=== PATIENT | female | born 1930 | race Caucasian/White ===

== ENCOUNTER 2016-09-21 18:10 | Inpatient (IN) | payer OTHER ==
[2016-09-21 18:39] VITALS: BMI 20.2
--- NOTE | 2016-09-21 19:17 | PDOC ---
History of Present Illness - General History Source: Patient <Kevan Flores - Last Filed: 09/21/16 22:20> - General History Source: Patient, Family Exam Limitations: No Limitations - History of Present Illness Initial Comments: 09/21/16 19:46 The patient is a 86 year old female, with a significant past medical history of AFib(on eliquis and lasix) , who presents to the emergency department complaining of bilateral lower leg pain and edema for 3 approximately 3 weeks. The patient reports she has been experiencing diffuse leg pain for the past 3 weeks, with pain increasing during the past couple of days. As per patient she has been compliant with her AFib medications. She reports redness bilaterally in her lower extremities. As per son, he has noticed the patient has been much more lethargic during the past 3 days. The patient denies any associated chest pain, shortness of breath, diaphoresis, or palpitations. The patient denies any fever, chills, cough, headache, or dizziness. The patient denies any abdominal pain, nausea, vomiting, diarrhea, constipation, or changes in urination patterns. The patient denies any changes in appetite. Allergies: None reported. Past Surgical History: Tonsillectomy Social History: Non-smoker. Denies alcohol or drug use. PCP: Dr. Caroline Solitario <Arnel Dorantes - Last Filed: 09/22/16 05:01> - General Chief Complaint: Weakness Stated Complaint: WEAKNESS Time Seen by Provider: 09/21/16 19:17 Past History - Past Medical History Anemia: No Asthma: No Cancer: No Cardiac Disorders: Yes (afib) CVA: No COPD: No CHF: No Dementia: No Diabetes: No GI Disorders: No Disorders: No HTN: Yes Hypercholesterolemia: No Liver Disease: No Seizures: No Thyroid Disease: No - Surgical History Abdominal Surgery: No Appendectomy: No Cardiac Surgery: No Cholecystectomy: No Lung Surgery: No Neurologic Surgery: No Orthopedic Surgery: No - Immunization History Immunization Up to Date: No - Psycho/Social/Smoking Cessation Hx Anxiety: No Suicidal Ideation: No Smoking Status: No Smoking History: Never smoked Have you smoked in the past 12 months: No Number of Cigarettes Smoked Daily: 0 Hx Alcohol Use: No Drug/Substance Use Hx: No Substance Use Type: Alcohol Hx Substance Use Treatment: No <Kevan Flores - Last Filed: 09/21/16 22:20> <Arnel Dorantes - Last Filed: 09/22/16 05:01> - Past Medical History Allergies/Adverse Reactions: Allergies Allergy/AdvReac Type Severity Reaction Status Date / Time No Known Allergies Allergy Verified 09/21/16 18:23 Home Medications: Ambulatory Orders Ascorbic Acid [Vitamin C -] 2,000 mg PO TID 05/30/16 Calcium Carb/Mag Ox/Zinc Sulf [Ekxurqv-Wzjhxoyax-Uqml Tablet] 1 tab PO DAILY 12/10 Cholecalciferol (Vitamin D3) [Vitamin D3 -] 1,000 unit PO DAILY 05/30/16 Multivitamins [Multivit ([facility] Formulary)] 1 tab PO DAILY 05/30/16 Vitamin E 400 unit PO DAILY 05/30/16 Apixaban [Eliquis -] 2.5 mg PO BID #180 tablet 08/23/16 Furosemide [Lasix -] 40 mg PO DAILY #90 tablet 08/23/16 Losartan Potassium [Cozaar -] 25 mg PO DAILY #90 tablet 08/23/16 Metoprolol Tartrate [Lopressor -] 50 mg PO BID #180 tablet 08/23/16 Furosemide [Lasix] 40 mg PO DAILY 09/21/16 Review of Systems - Review of Systems Able to Perform ROS?: Yes Comments:: 09/21/16 19:46 CONSTITUTIONAL: Present: +lethargy Absent: fever, chills, diaphoresis, malaise, loss of appetite HEENT: Absent: rhinorrhea, nasal congestion, throat pain, throat swelling, difficulty swallowing, mouth swelling, ear pain, eye pain, visual Changes CARDIOVASCULAR: Absent: chest pain, syncope, palpitations, irregular heart rate, lightheadedness , peripheral edema RESPIRATORY: Absent: cough, shortness of breath, dyspnea with exertion, orthopnea, wheezing, stridor, hemoptysis GASTROINTESTINAL: Absent: abdominal pain, abdominal distension, nausea, vomiting, diarrhea, constipation, melena, hematochezia GENITOURINARY: Absent: dysuria, frequency, urgency, hesitancy, hematuria, flank pain, genital pain MUSCULOSKELETAL: Present: Bilateral leg swelling and redness. +Bilateral leg pain. Absent: arthralgia SKIN: Absent: rash, itching, pallor HEMATOLOGIC/IMMUNOLOGIC: Absent: easy bleeding, easy bruising, lymphadenopathy, frequent infections ENDOCRINE: Absent: unexplained weight gain, unexplained weight loss, heat intolerance, cold intolerance NEUROLOGIC: Absent: headache, focal weakness or paresthesias, dizziness, unsteady gait, seizure, mental status changes, bladder or bowel incontinence PSYCHIATRIC: Absent: anxiety, depression, suicidal or homicidal ideation, hallucinations. <Arnel Dorantes - Last Filed: 09/22/16 05:01> *Physical Exam - Vital Signs Last Vital Signs Temp Pulse Resp BP Pulse Ox 97.5 F L 108 H 16 136/94 92 L 09/21/16 18:23 09/21/16 18:23 09/21/16 18:23 09/21/16 18:23 09/21/16 18:23 <LowLaura daltonan - Last Filed: 09/21/16 22:20> - Vital Signs Last Vital Signs Temp Pulse Resp BP Pulse Ox 97.5 F L 108 H 16 136/94 92 L 09/21/16 18:23 09/21/16 18:23 09/21/16 18:23 09/21/16 18:23 09/21/16 18:23 - Physical Exam Comments: 09/21/16 19:46 GENERAL: Well developed, well nourished. Awake and alert. No acute distress. HEENT: Normocephalic, atraumatic. PERRLA, EOMI. No conjunctival pallor. Sclera are non- icteric. Moist mucous membranes. Oropharynx is clear. NECK: Supple. Full ROM. No JVD. Carotid pulses 2+ and symmetric, without bruits. No thyromegaly. No lymphadenopathy. CARDIOVASCULAR: +Irregular rate. No murmurs, rubs, or gallops. Distal pulses are 2+ and symmetric. PULMONARY: No evidence of respiratory distress. Lungs clear to auscultation bilaterally. No wheezing, rales or rhonchi. ABDOMINAL: Soft. Non-tender. Non-distended. No rebound or guarding. No organomegaly. Normoactive bowel sounds. MUSCULOSKELETAL Normal range of motion at all joints. No bony deformities or tenderness. No CVA tenderness. EXTREMITIES: +Bilateral lower extremity edema. +Calf tenderness to palpation. No cyanosis. No clubbing. SKIN: Warm and dry. Normal capillary refill. No rashes. No jaundice. Small dry ulcers in various locations, with dry exudate and no active bleeding. NEUROLOGICAL: Alert, awake, appropriate. Cranial nerves 2-12 intact. No deficits to light touch and temperature in face, upper extremities and lower extremities. No motor deficits in the in face, upper extremities and lower extremities. Normoreflexic in the upper and lower extremities. Normal speech. Toes are down- going bilaterally. Gait is normal without ataxia. PSYCHIATRIC: Cooperative. Good eye contact. Appropriate mood and affect. <Arnel Dorantes - Last Filed: 09/22/16 05:01> Heart Score/ECG Review - ECG Impressions Comment:: 09/21/16 21:26 Vent. Rate: 127 bpm IMPRESSION: Atrial fibrillation with rapid ventricular response. Nonspecific T wave abnormality. Vent. Rate: 108 bpm IMPRESSION: Atrial fibrillation with rapid ventricular response. Low voltage QRS. Nonspecific T wave abnormality. <Arnel Dorantes - Last Filed: 09/22/16 05:01> ED Treatment Course - LABORATORY CBC & Chemistry Diagram: 09/21/16 19:43 09/21/16 19:43 <Kevan Flores - Last Filed: 09/21/16 22:20> - LABORATORY CBC & Chemistry Diagram: 09/21/16 19:43 09/21/16 19:43 - RADIOLOGY Radiology Studies Ordered: 09/21/16 22:59 EXAM: CXR INTERPRETED BY: Dr. Mena REVIEWED BY: Dr. Flores IMPRESSION: Cardiomegaly and bilateral pleural effusions EXAM: US/DUPLEX VASCUL US-2LEGS INTERPRETED BY: Dr. Mena REVIEWED BY: Dr. Flores IMPRESSION: No evidence of deep venous thrombosis. <Arnel Dorantes - Last Filed: 09/22/16 05:01> Medical Decision Making - Medical Decision Making 09/21/16 22:20 Dr. Flores: The scribe's documentation has been prepared under my direction and personally reviewed by me in its entirery. I confirm that the note above accurately reflects all work, treatment, procedures, and medical decision making performed by me. Patient will be admitted pleural effusions, bilateral lower extremity cellulitis. <Kevan Flores - Last Filed: 09/21/16 22:20> - Medical Decision Making 09/21/16 22:09 First call placed to Dr. Adan Solitario at 20:08. Awaiting call back. Case discussed with Dr. Solitario at 20:18. <Arnel Dorantes - Last Filed: 09/22/16 05:01> *DC/Admit/Observation/Transfer - Discharge Dispostion Admit: Yes <Kevan Flores - Last Filed: 09/21/16 22:20> - Attestations Scribe Attestion: 09/21/16 19:47 Documentation prepared by Arnel Dorantes, acting as medical staffing coordinator for Kevan Flores DO. <Arnel Dorantes - Last Filed: 09/22/16 05:01> Diagnosis at time of Disposition: Bilateral pleural effusion, Bilateral lower leg cellulitis - Discharge Dispostion Condition at time of disposition: Stable - Referrals
[2016-09-21 20:46] LABS: MCH 29.6 pg (25.7-33.7); MCHC 33.1 g/dl (32.0-36.0); MEAN CELL VOLUME 89.3 fl (80-96); MEAN PLT VOLUME 9.4 fl (7.5-11.1); PLATELET COUNT 136 K/MM3 (134-434); RDW 15.7 % (11.6-15.6); WHITE BLOOD COUNT 15.7 K/mm3 (4.0-10.0)
[2016-09-21 20:56] LABS: INR 1.84 (0.82-1.09); PROTHROMBIN TIME (PATIENT) 20.5 SEC (9.98-11.88)
[2016-09-21 21:22] LABS: ALBUMIN 3.2 g/dl (3.4-5.0); BILIRUBIN,TOTAL 0.5 mg/dL (0.2-1.0); CALCIUM 8.5 mg/dL (8.5-10.1); CREATININE 1.4 mg/dL (0.55-1.02); MAGNESIUM 2.4 mg/dL (1.8-2.4); TOT PROT 7.2 g/dl (6.4-8.2); TROPONIN I 0.13 ng/ml (0.00-0.05)
[2016-09-21 21:36] LABS: PLATELET ESTIMATE ADEQUATE (NORMAL)
[2016-09-21] MEDS ORDERED: FUROSEMIDE 40 MG/4 ML INJECTABLE VIAL IVPUSH ONE (22:04)
[2016-09-21] MEDS ORDERED: CEFAZOLIN 1 GM in DEXTROSE 5%-WATER - 50 ML IVPB ONE (22:18)
[2016-09-21] MEDS ORDERED: CEFAZOLIN (PRE-DOCKED) 50 ML IVPB ONE (22:31)
[2016-09-21] MEDS ORDERED: FUROSEMIDE 40 MG/4 ML INJECTABLE VIAL ONE (22:32)
--- NOTE | 2016-09-21 23:44 | HP ---
Admitting History and Physical - Primary Care Physician PCP: Adan Solitario - Admission Chief Complaint: Weakness. Swollen legs. Leg pain History of Present Illness: Pt. with leg swelling few days after DC from hospital (saw cardio twice, diuretic was adjusted but pt was uncompliant) for the last 2-3 days she felt weak, developed apin and redness in both lega; pet pt.'s son tp. was lethargic todays; pt was brought to ER. History Source: Patient, Family Member (son) - Past Medical History Cardiovascular: Yes: AFIB (ana dg.), HTN - Smoking History Smoking history: Never smoked Have you smoked in the past 12 months: No Aproximately how many cigarettes per day: 0 - Alcohol/Substance Use Hx Alcohol Use: No Home Medications - Allergies Allergies/Adverse Reactions: Allergies Allergy/AdvReac Type Severity Reaction Status Date / Time No Known Allergies Allergy Verified 09/21/16 18:23 - Home Medications Home Medications: Ambulatory Orders Ascorbic Acid [Vitamin C -] 2,000 mg PO TID 05/30/16 Calcium Carb/Mag Ox/Zinc Sulf [Fqjkbyq-Twwzbhbrx-Qvut Tablet] 1 tab PO DAILY 12/10 Cholecalciferol (Vitamin D3) [Vitamin D3 -] 1,000 unit PO DAILY 05/30/16 Multivitamins [Multivit ([facility] Form[facility])] 1 tab PO DAILY 05/30/16 Vitamin E 400 unit PO DAILY 05/30/16 Apixaban [Eliquis -] 2.5 mg PO BID #180 tablet 08/23/16 Furosemide [Lasix -] 40 mg PO DAILY #90 tablet 08/23/16 Losartan Potassium [Cozaar -] 25 mg PO DAILY #90 tablet 08/23/16 Metoprolol Tartrate [Lopressor -] 50 mg PO BID #180 tablet 08/23/16 Review of Systems - Review of Systems Constitutional: reports: Chills (today). denies: Fever, Night Sweats Eyes: denies: Blind Spots, Blurred Vision, Recent Change in Vision HENT: denies: Difficult Swallowing, Nasal Congestion, Throat Pain Neck: denies: Pain on Movement, Stiffness Cardiovascular: denies: Chest Pain, Edema, Palpitations, Shortness of Breath Respiratory: denies: Cough, Hemoptysis, SOB on Exertion, Wheezing Gastrointestinal: denies: Abdominal Pain, Diarrhea, Nausea Genitourinary: denies: Burning, Dysuria, Frequency Musculoskeletal: denies: Back Pain, Joint Swelling Integumentary: reports: Rash (bilat in LE) Neurological: reports: Weakness. denies: Change in LOC, Numbness Endocrine: reports: Excessive Sweating, Intolerance to Cold Hematology/Lymphatic: reports: Easily Bruised, Excessive Bleeding Psychiatric: reports: Depression. denies: Anxiety Physical Examination Vital Signs: Vital Signs Temperature 97.5 F L 09/21/16 18:23 Pulse Rate 108 H 09/21/16 18:23 Respiratory Rate 16 09/21/16 18:23 Blood Pressure 136/94 09/21/16 18:23 O2 Sat by Pulse Oximetry (%) 92 L 09/21/16 18:23 Constitutional: Yes: No Distress, Calm Eyes: Yes: Conjunctiva Clear, EOM Intact, PERRL HENT: Yes: Normocephalic. No: Pharyngeal Erythema, Rhinnorhea Neck: Yes: Trachea Midline. No: Lymphadenopathy Cardiovascular: Yes: Pulse Irregular, S1, S2 Respiratory: Yes: Regular, Rales (bilat, scaterred), Other (dereased BS at bases ) Gastrointestinal: Yes: Normal Bowel Sounds, Soft. No: Tenderness ...Rectal Exam: Yes: Deferred Breast(s): Yes: Other (deferred) Musculoskeletal: Yes: Back Pain. No: Joint Swelling Extremities: Yes: Erythema (bilat, below knees) Edema: LLE: 2+, RLE: 2+ Integumentary: Yes: Erythema, Rash (ilat), Other (Ulcers, in LE, below knees) Psychiatric: Yes: Alert, Oriented Labs: reviewed Imaging - Results Chest X-ray: Report Reviewed Ultrasound: Report Reviewed Problem List - Problems (1) Sepsis Assessment/Plan: SIRS and legs cellulitis Start abtx. To monitor WBC Code(s): A41.9 - SEPSIS, UNSPECIFIED ORGANISM (2) Bilateral lower leg cellulitis Code(s): L03.116 - CELLULITIS OF LEFT LOWER LIMB L03.115 - CELLULITIS OF RIGHT LOWER LIMB (3) Congestive heart failure (CHF) Assessment/Plan: admit to Telemetry Cardio consult serial CE Code(s): I50.9 - HEART FAILURE, UNSPECIFIED (4) Bilateral pleural effusion Code(s): J90 - PLEURAL EFFUSION, NOT ELSEWHERE CLASSIFIED (5) MOISES (acute kidney injury) Assessment/Plan: probable secondary to uncompliance with diuretic use. To monitor BMP Code(s): N17.9 - ACUTE KIDNEY FAILURE, UNSPECIFIED
[2016-09-22] MEDS ORDERED: ACETAMINOPHEN 1000 MG/100 ML VIAL (NON FORMULARY) IVPB ONE (00:22)
[2016-09-22] MEDS ORDERED: ACETAMINOPHEN INJECTION 100 ML IVPB ONE (00:45)
[2016-09-22] MEDS ORDERED: METOPROLOL TARTRATE 5 MG/5 ML VIAL IVPUSH ONE (01:26)
[2016-09-22] MEDS ORDERED: METOPROLOL TARTRATE 5 MG/5 ML VIAL ONE (01:27)
[2016-09-22 01:50] LABS: TROPONIN I 0.11 ng/ml (0.00-0.05)
[2016-09-22 02:59] LABS: URINE APPEARANCE CLEAR; URINE BILIRUBIN NEGATIVE (NEGATIVE); URINE BLOOD NEGATIVE (NEGATIVE); URINE COLOR YELLOW; URINE GLUCOSE (UA) NEGATIVE (NEGATIVE); URINE KETONE NEGATIVE (NEGATIVE); URINE NITRITE NEGATIVE (NEGATIVE); URINE PROTEIN NEGATIVE (NEGATIVE); URINE UROBILINOGEN NEGATIVE E.U./dl (0.2-1.0)
[2016-09-22 03:03] LABS: URINE LEUK ESTERASE 2+ (NEGATIVE)
[2016-09-22 03:13] LABS: URINE BACTERIA FEW /hpf (NONE SEEN); URINE HYALINE CAST 11 /lpf; URINE MUCUS RARE; URINE RBC 3 /hpf (0-3); URINE WBC 10 /hpf (3-5)
[2016-09-22] MEDS ORDERED: METOPROLOL TARTRATE 25 MG TABLET (FP) ONE (04:01)
[2016-09-22] MEDS: APIXABAN 2.5 MG TABLET PO SCH ×3 (04:29→21:27)
[2016-09-22] MEDS ORDERED: SODIUM CHLORIDE 1,000 ML IV ONE (05:16)
--- NOTE | 2016-09-22 09:58 | EKG ---
Test Reason : Blood Pressure : / mmHG Vent. Rate : 108 BPM Atrial Rate : 101 BPM P-R Int : 000 ms QRS Dur : 090 ms QT Int : 354 ms P-R-T Axes : 000 019 -34 degrees QTc Int : 474 ms ATRIAL FIBRILLATION WITH RAPID VENTRICULAR RESPONSE NONSPECIFIC ST ABNORMALITY ABNORMAL ECG Confirmed by DAHLIA ELENA MD ([id number]) on 09/22/2016 9:58:02 AM Referred By: Confirmed By:DAHLIA ELENA MD
[2016-09-22] MEDS ORDERED: CEFTRIAXONE 1 GM in DEXTROSE 5%-WATER - 50 ML IVPB SCH (10:00)
[2016-09-22] MEDS ORDERED: cefTRIAXone 1 GM/50 ML BAG (PRE-DOCKED) IVPB SCH (10:00)
--- NOTE | 2016-09-22 10:07 | EKG ---
Test Reason : Blood Pressure : / mmHG Vent. Rate : 127 BPM Atrial Rate : 133 BPM P-R Int : 000 ms QRS Dur : 096 ms QT Int : 328 ms P-R-T Axes : 000 044 065 degrees QTc Int : 476 ms ATRIAL FIBRILLATION WITH RAPID VENTRICULAR RESPONSE NONSPECIFIC T WAVE ABNORMALITY ABNORMAL ECG WHEN COMPARED WITH ECG OF 17-AUG-2016 14:16, BORDERLINE CRITERIA FOR ANTERIOR INFARCT ARE NO LONGER PRESENT NONSPECIFIC T WAVE ABNORMALITY, WORSE IN LATERAL LEADS Confirmed by DAHLIA ELENA MD ([id number]) on 09/22/2016 10:07:02 AM Referred By: Confirmed By:DAHLIA ELENA MD
[2016-09-22] MEDS: MULTIVITAMINS (DAILY MVI) TABLET (FP) PO SCH (10:33)
[2016-09-22] MEDS: CHOLECALCIFEROL (VITAMIN D3) 1,000 UNIT TABLET (FP) PO SCH (10:33)
[2016-09-22] MEDS: METOPROLOL TARTRATE 50 MG TABLET (FP) PO SCH ×2 (10:34→21:27)
--- NOTE | 2016-09-22 11:29 | PN ---
Progress Note (short form) - Note Progress Note: ID consult dictated imp/reccd 86 year old female with PMH of afib and chf- recently hospitalized 08/17 to , seen by cardiology for leg swelling meds adjusted, given keflex- did not take now returns to ed with increasing leg edema and erythema +leg pain no fevers or chills reports she just started going to the doctor in July! prior to that was not in medical care has cuts/abrasions on her hands that she attributes to her new meds- states she noticed them in hospital in July history appendectomy as child and cataract surgery she is alert received cefazolin in ED and ceftriaxone this am duplex negative for DVT cultures pending PE notable for diffuse rash on patients chest- lacy macular diminished breath sounds on lung exam bilateral leg erythema and edema some abrasions on her feet, multiple ulcers on her hands at the joint Cellulitis of the legs drug rash ( suspect cephalosporin)- CHF MOISES aortic stenosis by echo d/c ceftriaxone vancomycin based on levels (gfr is 21) diuresis per cardiology topical care to hands and feet Problem List - Problems (1) Bilateral lower leg cellulitis Code(s): L03.116 - CELLULITIS OF LEFT LOWER LIMB L03.115 - CELLULITIS OF RIGHT LOWER LIMB (2) Drug rash Code(s): L27.0 - GEN SKIN ERUPTION DUE TO DRUGS AND MEDS TAKEN INTERNALLY (3) Congestive heart failure (CHF) Code(s): I50.9 - HEART FAILURE, UNSPECIFIED
[2016-09-22] MEDS ORDERED: VANCOMYCIN 750 MG in DEXTROSE 5%-WATER - 250 ML IVPB ONE (11:30)
--- NOTE | 2016-09-22 11:32 | PN ---
Progress Note, Physician Chief Complaint: in bed axox3 nad had fever last night but not this am; started on IV ceftriaxone for legs cellulitis no CP/SOB no cough, no sputum no diarrhea no pain in legs; has some crusts on legs and some superficial cuts on her fingers (hands) which she attributes to her cardiac meds "Side effects" - Current Medication List Current Medications: Active Medications Apixaban (Eliquis -) 2.5 mg PO BID [facility] Last Admin: 09/22/16 10:33 Dose: 2.5 mg Ascorbic Acid (Vitamin C -) 2,000 mg PO TID [facility] Cholecalciferol (Vitamin D3 -) 1,000 unit PO DAILY [facility] Last Admin: 09/22/16 10:33 Dose: 1,000 unit Sodium Chloride (Normal Saline -) 1,000 mls @ 100 mls/hr IV ASDIR ONE Stop: 09/22/16 15:15 Last Admin: 09/22/16 05:17 Dose: 100 mls/hr Metoprolol Tartrate (Lopressor -) 50 mg PO BID [facility] Last Admin: 09/22/16 10:34 Dose: Not Given Multivitamins/Minerals/Vitamin C (Tab-A-Vit -) 1 tab PO DAILY [facility] Last Admin: 09/22/16 10:33 Dose: 1 tab - Objective Vital Signs: Vital Signs Temperature 97 F L 09/22/16 08:15 Pulse Rate 92 H 09/22/16 08:15 Respiratory Rate 14 09/22/16 08:15 Blood Pressure 98/52 09/22/16 08:15 O2 Sat by Pulse Oximetry (%) 93 L 09/22/16 05:47 Constitutional: Yes: No Distress, Calm Eyes: Yes: Conjunctiva Clear HENT: Yes: Atraumatic Neck: Yes: Supple Cardiovascular: Yes: Tachycardia. No: Regular Rate and Rhythm Respiratory: Yes: Diminished Gastrointestinal: Yes: Soft. No: Distention, Tenderness Musculoskeletal: No: Joint Stiffness, Joint Swelling Extremities: Yes: Erythema (both legs up to knees). No: Cold, Cool Edema: Yes (both legs up to knees) Peripheral Pulses WNL: Yes Integumentary: Yes: Rash, Venous Stasis Changes Neurological: Yes: WNL, Alert, Oriented ...Motor Strength: WNL Psychiatric: Yes: WNL, Alert, Oriented. No: Agitated, Suicidal Ideation Labs: INR, PTT INR 1.84 (0.82-1.09) H D 09/21/16 19:43 - ....Imaging Chest X-ray: Report Reviewed Other: Report Reviewed Assessment/Plan The patient is a 86 year old female, with a significant past medical history of AFib(on eliquis and lasix) , admitted via emergency department with bilateral lower legs pain and edema for approximately 3 weeks, also the patient has been more lethargic during the past 3 days [employer]. The patient was seen by cardiology dr Pepper recently in office and he changed her diuretics and also he prescribed keflex for her legs edema but she did not take the antibiotic xat home because "the antibiotics do not agree with her". Had fever 102 in ER. admitted to telemetry with legs cellulitis, high WBC< hypotension, severe sepsis ; also rapid AFib and fluid overloaded IV ATB, ID eval check blood and urine Cx diuretics; hold BP meds for now d/w cardio dr Weems and ID dr Pritchett falls PFX; f/u labs decubs PFX, turn frequently falls PFX do not get OOB alone prognosis guarded pt expressed the wish in the past that she would want to home in her bed; will ask palliative care to help her with advanced directives and HCP t time 40 min
--- NOTE | 2016-09-22 12:05 | CONS ---
CARDIOLOGY CONSULTATION DATE OF CONSULTATION: 09/22/2016 TIME OF CONSULTATION: 10:00 a.m. REQUESTED BY: Caroline Solitario MD CHIEF COMPLAINT: 1. Generalized fatigue 2. Lethargy 3. Pedal edema HISTORY OF PRESENT ILLNESS: 86-year-old white female with history of permanent atrial fibrillation, congestive heart failure, hypertension who was admitted with increasing pedal edema accompanied with leg discomfort, generalized fatigue and lethargy. She denies having chest pain or discomfort, either at rest or with exertion. No exertional dyspnea was reported. No paroxysmal nocturnal dyspnea. No history of palpitations, lightheadedness, dizziness or syncope. Besides having leg discomfort, there were multiple abrasions, ulcerations noted involving both lower extremities. The patient had been hospitalized in July with congestive heart failure. PAST HISTORY: 1. As mentioned in the history of present illness 2. History of macular degeneration with poor vision involving the right eye SURGICAL HISTORY: 1. Status post right cataract extraction 2. History of tonsillectomy SOCIAL HISTORY: Patient is a . Has 1 son who is healthy. Does not smoke or drink alcohol. FAMILY HISTORY: Father in his 80s, apparently had underlying heart disease. Mother when she was 100, apparently had history of hypertension. Had 1 brother who is known to have heart disease. ALLERGIES: None reported MEDICATIONS: Currently, the patient is on the following medications: 1. Rocephin 1 gm IV piggyback daily 2. Eliquis 2.5 mg p.o. b.i.d. 3. Metoprolol tartrate 50 mg p.o. b.i.d. 4. Multivitamin with minerals and vitamin C, 1 tablet p.o. daily 5. Vitamin C 2000 mg p.o. t.i.d. 6. Vitamin D 1000 IU p.o. daily. Prior to admission, patient had also been on 1. Lasix 40 mg p.o. daily 2. Cozaar 25 mg p.o. daily 3. Vitamin E 400 units p.o. daily REVIEW OF SYSTEMS: Constitutional: No history of chills, fever or night sweats. No history of unintentional weight loss. HEENT: No history of headaches. History of decrease in visual acuity and macular degeneration. No history of hoarseness or epistaxis. Denies having tinnitus or deafness. Cardiovascular system: See history of present illness. Respiratory system: No history of cough, expectoration or hemoptysis. No history of tuberculosis. Gastrointestinal system: Denies having nausea, vomiting, melena, hematemesis. No history of abdominal pain or discomfort. No history of change in bowel habits. Neurological system: No history of seizures, syncope, focal weakness, dizziness or lightheadedness. Endocrine: Denies having polyuria, polydipsia. No history of intolerance to cold or warm weather. Musculoskeletal system: See history of present illness. Urinary system: Denies having dysuria, frequency or hematuria. EXAMINATION: General: 86-year-old female who is lethargic. Vital signs: Blood pressure was 98/52 mmHg. Pulse varied between 92 and 108 beats per minute and was irregularly regular. Respirations are 14 per minute. Weight was not recorded. HEENT: Neck supple. There was jugular venous distention at 30 degrees up to the angle of the jaw. Neck veins were pulsatile, and there was positive hepatojugular reflux. Carotis were 1-2+. No clear-cut bruits were heard. No thyromegaly was present. Heart: BMI was in the 5th intercostal space. No heaves or thrills were appreciated. Heart sounds were slightly distant. S1 was variable. S2-A2 was slightly reduced. There was grade 2/6 decreasing end systolic murmur heard on the lower left sternal border, slightly increased with inspiration. There is an injection systolic murmur, grade 2/6, best heard at the apex, ending in mid-to-late systole. Unable to appreciate a diastolic murmur. There was S3 gallop at the apex. Lungs: Fine crepitations at the right base. Breath sounds were decreased at the right base. Abdomen: Abdomen was distended, was nontender. Liver was 2 fingerbreadths below the right costal margin and pulsatile. No splenomegaly was appreciated. There was dullness on percussion in both flanks, compatible with ascites. Bowel sounds are heard. No bruits are appreciated. Extremities: 3-4+ bilateral pitting edema with probable cellulolytic changes. There were abrasions and ulcerations involving both lower extremities. The skin of the knuckles of the hands was cracked. General hygiene was poor. Dorsalis pedis, posterior tibial pulses could not be palpated. Femoral pulses were 2+. LAB DATA: Sodium 133, potassium 4.2, chloride 94. CO2 28. BUN 32, creatinine 1.4 mg/dL. Random glucose 164 mg/dL. Calcium was 8.5 mg/dL. AST was elevated at 55, ALT was 60. Alkaline phosphatase was elevated at 122. CK was 164 and 207; troponin was 0.13 and 0.11. BMP was 8073. Albumin was slightly reduced at 3.2, total protein was 7.2. CBC: WBC count was 15,700. Hemoglobin was 12 gm/dL. Platelet count was 136,000. There was a left shift. RADIOGRAPHIC FINDINGS: X-ray chest was reported to have cardiomegaly and bilateral pleural effusions. The right effusion was large. ECG revealed atrial fibrillation with a rapid ventricular response. There was low voltage in limb leads, poor R-wave progression V1 to V3, nonspecific ST and T-wave abnormalities. IMPRESSION: 1. Clinical presentation is consistent with right heart failure (tricuspid regurgitation, pulsatile liver, ascites and pedal edema). [place] heart classification: 3. 2. Atrial fibrillation with periods of [id number] ventricular response. 3. Ejection systolic murmur, which was best heard at the apex is compatible with aortic valvular disease/aortic stenosis, severity to be determined. 4. Mitral regurgitation needs exclusion. 5. Fatigue and lethargy is secondary to number 1. 6. Slight elevation of CK and troponin levels. Etiology: (a) Secondary to congestive heart failure (b) Probably due to atrial fibrillation and underlying renal insufficiency (c) Muscle injury cannot be excluded. 7. Renal insufficiency. 8. History of vitamin D deficiency. RECOMMENDATIONS: 1. Add Lasix initially IV, 20 mg p.o. daily 2. Cautious addition of Aldactone initially, starting at 12.5 mg p.o. daily and titrate dose upwards. 3. Daily weight. 4. Follow-up ECG. 5. Echocardiogram. 6. If necessary, consider short-time views of Zaroxolyn 2.5 mg half an hour before Lasix. 7. T3, T4, TSH. 8. Close follow-up of electrolytes. 9. If patient continues to have rapid ventricular response, consider increasing the dose of beta blockers or consider low-dose digoxin with close followup of digoxin level (underlying renal insufficiency). PROGNOSIS: Critical Thank you for your referral. Yours sincerely, BALDOMERO ALMAGUER M.D. DORENE/[id number]
[2016-09-22] MEDS: BACITRACIN/POLYMYXIN B SULFATE 15 GM TUBE TP SCH (13:47)
[2016-09-22] MEDS: ASCORBIC ACID 500 MG TABLET (FP) PO SCH ×2 (13:48→21:27)
[2016-09-22] MEDS: MAG HYDROX/AL HYDROX/SIMETH 30 ML UNIT-DOSE CUP PO PRN (18:02)
[2016-09-23] MEDS: ASCORBIC ACID 500 MG TABLET (FP) PO SCH ×4 (06:50→21:41)
[2016-09-23 06:59] LABS: BASOPHIL 0.3 % (0-2.0); MCH 29.9 pg (25.7-33.7); MCHC 33.1 g/dl (32.0-36.0); MEAN CELL VOLUME 90.6 fl (80-96); MEAN PLT VOLUME 9.8 fl (7.5-11.1); NEUTROPHILS 86.4 % (42.8-82.8); PLATELET COUNT 135 K/MM3 (134-434); WHITE BLOOD COUNT 9.9 K/mm3 (4.0-10.0)
[2016-09-23 07:48] LABS: CALCIUM 8.4 mg/dL (8.5-10.1); CREATININE 1.1 mg/dL (0.55-1.02)
[2016-09-23] MEDS: APIXABAN 2.5 MG TABLET PO SCH ×2 (09:56→21:41)
[2016-09-23] MEDS: METOPROLOL TARTRATE 50 MG TABLET (FP) PO SCH ×2 (09:56→21:41)
[2016-09-23] MEDS: MULTIVITAMINS (DAILY MVI) TABLET (FP) PO SCH (09:57)
[2016-09-23] MEDS: CHOLECALCIFEROL (VITAMIN D3) 1,000 UNIT TABLET (FP) PO SCH (09:57)
--- NOTE | 2016-09-23 11:16 | PN ---
Progress Note (short form) - Note Progress Note: feels better Vital Signs Period Temp Pulse Resp BP Sys/Vásquez Pulse Ox Last 24 Hr 97.4 F-98.2 F 105-118 16-18 90-110/54-75 94-98 cor-rrr lungs decreased bs at bases abd soft,nt ext dressing intact, less erythema rash on abdomen fading CBC, BMP 09/23/16 05:35 09/23/16 05:35 Microbiology 09/22/16 02:05 Urine - Urine - Catheterized Urine Culture - Final NO GROWTH OBTAINED 09/21/16 19:43 Blood - Peripheral Venous Blood Culture - Preliminary NO GROWTH OBTAINED AFTER 24 HOURS, INCUBATION TO CONTINUE FOR 4 DAYS. 09/21/16 19:43 Blood - Peripheral Venous Blood Culture - Preliminary NO GROWTH OBTAINED AFTER 24 HOURS, INCUBATION TO CONTINUE FOR 4 DAYS. Laboratory Tests 09/23/16 05:35 Random Vancomycin 6.316 a/p Cellulitis -redose vancomycin CHF drug rash resolving Problem List - Problems (1) Bilateral lower leg cellulitis Code(s): L03.116 - CELLULITIS OF LEFT LOWER LIMB L03.115 - CELLULITIS OF RIGHT LOWER LIMB (2) Drug rash Code(s): L27.0 - GEN SKIN ERUPTION DUE TO DRUGS AND MEDS TAKEN INTERNALLY (3) Congestive heart failure (CHF) Code(s): I50.9 - HEART FAILURE, UNSPECIFIED
[2016-09-23] MEDS: BACITRACIN/POLYMYXIN B SULFATE 15 GM TUBE TP SCH (11:45)
[2016-09-23] MEDS: VANCOMYCIN 1 GRAM (PRE-DOCKED) 1,000 MG/250 ML BAG IVPB SCH (13:24)
[2016-09-23 13:41] LABS: THYROID STIMULATING HORMONE 6.54 uIU/ml (0.358-3.74)
--- NOTE | 2016-09-23 14:13 | PN ---
Progress Note (short form) - Note Progress Note: Chief Complaint: Events noted, notes reviewed, denies any chest pain or dyspnea , remains in atrial fibrillation with periods of rapid ventricular response History of Present Illness: Seen and examined on telemetry. Events noted, notes reviewed, denies any chest pain or dyspnea, remains in atrial fibrillation with periods of rapid ventricular response Echocardiography performed 08/18/16 reveled normal LV size and function, Aortic stenosis moderate to severe NATI odf 0.7 cm2, moderate mitral regurgitation, severe tricuspid valve regurgitation with RVSP of 55 mmHg Medications: Current Medications Al Hydroxide/Mg Hydroxide (Mylanta Oral Suspension -) 30 ml PO QID PRN PRN Reason: INDIGESTION Last Admin: 09/22/16 18:02 Dose: 30 ml Apixaban (Eliquis -) 2.5 mg PO BID [facility] Last Admin: 09/23/16 09:56 Dose: 2.5 mg Ascorbic Acid (Vitamin C -) 2,000 mg PO TID [facility] Last Admin: 09/23/16 13:24 Dose: 2,000 mg Bacitracin/Polymyxin B Sulfate (Polysporin Ointment -) 1 applic TP DAILY [facility] Last Admin: 09/23/16 11:45 Dose: 1 applic Cholecalciferol (Vitamin D3 -) 1,000 unit PO DAILY [facility] Last Admin: 09/23/16 09:57 Dose: 1,000 unit Metoprolol Tartrate (Lopressor -) 50 mg PO BID [facility] Last Admin: 09/23/16 09:56 Dose: 50 mg Multivitamins/Minerals/Vitamin C (Tab-A-Vit -) 1 tab PO DAILY [facility] Last Admin: 09/23/16 09:57 Dose: 1 tab Vancomycin HCl (Vancomycin (Pre-Docked)) 1,000 mg IVPB DAILY@1300 [facility] Last Admin: 09/23/16 13:24 Dose: 1,000 mg Review of Systems - Review of Systems Constitutional: denies: Chills, Fever Cardiovascular: As noted above Respiratory: denies: Cough or Sputum Production Gastrointestinal: denies: Nausea, Vomiting, Diarrhea, Constipation or Abdominal Pain Musculoskeletal: No symptoms reported Neurological: denies: Dizziness or Headaches Vital Signs: Last Vital Signs Temp Pulse Resp BP Pulse Ox 98 F 118 H 18 105/75 94 L 09/23/16 08:00 09/23/16 08:00 09/23/16 08:00 09/23/16 08:00 09/23/16 10:18 Neck: Supple Negative JVD No bruit Respiratory: Diminished Breath Sounds at the Bases Cardiovascular: S1 S2 Irregularly Irregular Grade 2/6 SM Gastrointestinal: Soft Benign Normal Bowel Sounds Ext: dressing in Situ Labs: CBC, BMP 09/23/16 05:35 09/23/16 05:35 INR, PTT INR 1.84 (0.82-1.09) H D 09/21/16 19:43 Assessment/Plan ASSESSMENT: 1. Clinical presentation consistent with class II-III NYHA classification LV failure related to acute on chronic exacerbation of diastolic LV failure 2. Persistent atrial fibrillation with periods of rapid ventricular response 3. 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 Aortic stenosis moderate to severe in severity 5. Mitral regurgitation, moderate in severity 6. Tricuspid valve regurgitation severe in severity with moderate degree of pulmonary HTN 7. CKD 8. Cellulites lower extremities PLAN: 1. Continue Lopressor and titrate dosage 2. Initiate ARBS 3. Continue Eliquis adequate dose (Wt. < 60 Kg and age > 80) 4. Add Lasix 5. Antibiotics as per the primary/ID teams 6. Monitor renal function closely Jess Richmond MD
[2016-09-23] MEDS ORDERED: VALSARTAN 40 MG TABLET (FP) PO SCH (14:45)
[2016-09-23] MEDS: FUROSEMIDE 40 MG/4 ML INJECTABLE VIAL IVPUSH SCH (14:59)
--- NOTE | 2016-09-23 19:09 | PN ---
Progress Note, Physician Chief Complaint: in bed fees tired no SOB no fever - Current Medication List Current Medications: Active Medications Al Hydroxide/Mg Hydroxide (Mylanta Oral Suspension -) 30 ml PO QID PRN PRN Reason: INDIGESTION Last Admin: 09/22/16 18:02 Dose: 30 ml Apixaban (Eliquis -) 2.5 mg PO BID [facility] Last Admin: 09/23/16 09:56 Dose: 2.5 mg Ascorbic Acid (Vitamin C -) 2,000 mg PO TID [facility] Last Admin: 09/23/16 13:24 Dose: 2,000 mg Bacitracin/Polymyxin B Sulfate (Polysporin Ointment -) 1 applic TP DAILY [facility] Last Admin: 09/23/16 11:45 Dose: 1 applic Cholecalciferol (Vitamin D3 -) 1,000 unit PO DAILY [facility] Last Admin: 09/23/16 09:57 Dose: 1,000 unit Furosemide (Lasix Injection -) 40 mg IVPUSH DAILY [facility] Last Admin: 09/23/16 14:59 Dose: 40 mg Metoprolol Tartrate (Lopressor -) 50 mg PO TID [facility] Multivitamins/Minerals/Vitamin C (Tab-A-Vit -) 1 tab PO DAILY [facility] Last Admin: 09/23/16 09:57 Dose: 1 tab Valsartan (Diovan -) 40 mg PO DAILY [facility] Last Admin: 09/23/16 15:38 Dose: 40 mg Vancomycin HCl (Vancomycin (Pre-Docked)) 1,000 mg IVPB DAILY@1300 [facility] Last Admin: 09/23/16 13:24 Dose: 1,000 mg - Objective Vital Signs: Vital Signs Temperature 98 F 09/23/16 08:00 Pulse Rate 116 H 09/23/16 14:00 Respiratory Rate 20 09/23/16 14:00 Blood Pressure 109/71 09/23/16 14:00 O2 Sat by Pulse Oximetry (%) 94 L 09/23/16 10:18 Constitutional: Yes: No Distress, Calm Eyes: Yes: Conjunctiva Clear HENT: Yes: Atraumatic Neck: Yes: Supple Cardiovascular: Yes: Tachycardia. No: Regular Rate and Rhythm Respiratory: Yes: Diminished Gastrointestinal: Yes: Soft. No: Distention, Tenderness Genitourinary: No: CVA Tenderness - Left, CVA Tenderness - Right Musculoskeletal: No: Joint Stiffness, Joint Swelling Extremities: No: Cold, Cool Edema: Yes Peripheral Pulses WNL: Yes Integumentary: Yes: Rash (legs), Venous Stasis Changes Neurological: Yes: WNL, Alert, Oriented ...Motor Strength: WNL Psychiatric: Yes: WNL, Alert, Oriented. No: Agitated Labs: CBC, BMP 09/23/16 05:35 09/23/16 05:35 INR, PTT INR 1.84 (0.82-1.09) H D 09/21/16 19:43 - ....Imaging Other: Report Reviewed Assessment/Plan The patient is a 86 year old female, with a significant past medical history of AFib(on eliquis and lasix) , admitted via emergency department with bilateral lower legs pain and edema for approximately 3 weeks, also the patient has been more lethargic during the past 3 days [employer]. The patient was seen by cardiology dr Pepper recently in office and he changed her diuretics and also he prescribed keflex for her legs edema but she did not take the antibiotic at home because "the antibiotics do not agree with her". Had fever 102 in ER. admitted to telemetry with legs cellulitis, high WBC< hypotension, severe sepsis ; also rapid AFib and fluid overloaded IV ATB per ID check blood and urine Cx diuretics and cardiac meds per cardiology falls PFX; f/u labs decubs PFX, turn frequently falls PFX do not get OOB alone prognosis guarded
[2016-09-24] MEDS: METOPROLOL TARTRATE 50 MG TABLET (FP) PO SCH ×3 (06:26→21:51)
[2016-09-24] MEDS: ASCORBIC ACID 500 MG TABLET (FP) PO SCH ×3 (06:26→21:51)
[2016-09-24 07:20] LABS: BASOPHIL 0.6 % (0-2.0); EOSINOPHIL 4.3 % (0-4.5); MCH 30.1 pg (25.7-33.7); MCHC 33.6 g/dl (32.0-36.0); MEAN CELL VOLUME 89.7 fl (80-96); MEAN PLT VOLUME 9.9 fl (7.5-11.1); NEUTROPHILS 76.5 % (42.8-82.8); PLATELET COUNT 133 K/MM3 (134-434); RDW 15.9 % (11.6-15.6); WHITE BLOOD COUNT 5.8 K/mm3 (4.0-10.0)
[2016-09-24 08:11] LABS: CALCIUM 8.2 mg/dL (8.5-10.1)
[2016-09-24 08:14] LABS: CREATININE 0.9 mg/dL (0.55-1.02)
--- NOTE | 2016-09-24 09:43 | EKG ---
Test Reason : Blood Pressure : / mmHG Vent. Rate : 124 BPM Atrial Rate : 300 BPM P-R Int : 000 ms QRS Dur : 090 ms QT Int : 326 ms P-R-T Axes : 000 003 219 degrees QTc Int : 468 ms ATRIAL FIBRILLATION WITH RAPID VENTRICULAR RESPONSE LOW VOLTAGE QRS CANNOT RULE OUT ANTERIOR INFARCT , AGE UNDETERMINED ABNORMAL ECG WHEN COMPARED WITH ECG OF 22-SEP-2016 04:22, NO SIGNIFICANT CHANGE WAS FOUND Confirmed by DAHLIA ELENA MD ([id number]) on 09/24/2016 9:43:26 AM Referred By: Confirmed By:DAHLIA ELENA MD
--- NOTE | 2016-09-24 10:18 | PN ---
Progress Note, Physician History of Present Illness: In bed no new c/o feels tired and generally weak; no pain no SOB; afebrile. - Current Medication List Current Medications: Active Medications Al Hydroxide/Mg Hydroxide (Mylanta Oral Suspension -) 30 ml PO QID PRN PRN Reason: INDIGESTION Last Admin: 09/22/16 18:02 Dose: 30 ml Apixaban (Eliquis -) 2.5 mg PO BID [facility] Last Admin: 09/23/16 21:41 Dose: 2.5 mg Ascorbic Acid (Vitamin C -) 2,000 mg PO TID [facility] Last Admin: 09/24/16 06:26 Dose: 2,000 mg Bacitracin/Polymyxin B Sulfate (Polysporin Ointment -) 1 applic TP DAILY [facility] Last Admin: 09/23/16 11:45 Dose: 1 applic Cholecalciferol (Vitamin D3 -) 1,000 unit PO DAILY [facility] Last Admin: 09/23/16 09:57 Dose: 1,000 unit Furosemide (Lasix Injection -) 40 mg IVPUSH DAILY [facility] Last Admin: 09/23/16 14:59 Dose: 40 mg Metoprolol Tartrate (Lopressor -) 50 mg PO TID [facility] Last Admin: 09/24/16 06:26 Dose: 50 mg Multivitamins/Minerals/Vitamin C (Tab-A-Vit -) 1 tab PO DAILY [facility] Last Admin: 09/23/16 09:57 Dose: 1 tab Valsartan (Diovan -) 40 mg PO DAILY [facility] Last Admin: 09/23/16 15:38 Dose: 40 mg Vancomycin HCl (Vancomycin (Pre-Docked)) 1,000 mg IVPB DAILY@1300 [facility] Last Admin: 09/23/16 13:24 Dose: 1,000 mg - Objective Vital Signs: Vital Signs Temperature 97.8 F 09/24/16 06:00 Pulse Rate 104 H 09/24/16 08:31 Respiratory Rate 20 09/24/16 08:31 Blood Pressure 135/61 09/24/16 08:31 O2 Sat by Pulse Oximetry (%) 97 09/23/16 19:55 Constitutional: Yes: No Distress, Calm Eyes: Yes: Conjunctiva Clear HENT: Yes: Atraumatic Neck: Yes: Supple Cardiovascular: No: Regular Rate and Rhythm Respiratory: Yes: Diminished Gastrointestinal: Yes: Soft. No: Distention, Tenderness Genitourinary: No: Hematuria Musculoskeletal: No: Joint Stiffness, Joint Swelling Extremities: No: Cold, Cool Edema: Yes (legs bilateral, less) Peripheral Pulses WNL: Yes Integumentary: Yes: Rash (legs, less) Neurological: Yes: WNL, Alert, Oriented ...Motor Strength: WNL Psychiatric: Yes: WNL, Alert, Oriented. No: Agitated Labs: CBC, BMP 09/24/16 05:35 09/24/16 05:35 INR, PTT INR 1.84 (0.82-1.09) H D 09/21/16 19:43 - ....Imaging Other: Report Reviewed Assessment/Plan The patient is a 86 year old female, with a significant past medical history of AFib(on eliquis and lasix) , admitted via emergency department with bilateral lower legs pain and edema, also the patient has been more lethargic. Had fever 102 in ER. Admitted to telemetry with legs cellulitis, high WBC< hypotension, severe sepsis ; also rapid AFib and fluid overloaded IV ATB per ID check blood and urine Cx diuretics and cardiac meds per cardiology falls PFX; f/u labs decubs PFX, turn frequently falls PFX do not get OOB alone prognosis guarded palliative care eval for advnaced directives and HCP
--- NOTE | 2016-09-24 10:52 | PN ---
Progress Note (short form) - Note Progress Note: Chief Complaint: Events noted, notes reviewed, complaining of generalized weakness, denies any chest pain or dyspnea, remains in atrial fibrillation with periods of rapid ventricular response History of Present Illness: Seen and examined on telemetry. Events noted, notes reviewed, complaining of generalized weakness, denies any chest pain or dyspnea, remains in atrial fibrillation with periods of rapid ventricular response Echocardiography performed 08/18/16 reveled normal LV size and function, Aortic stenosis moderate to severe NATI odf 0.7 cm2, moderate mitral regurgitation, severe tricuspid valve regurgitation with RVSP of 55 mmHg Medications: Current Medications Al Hydroxide/Mg Hydroxide (Mylanta Oral Suspension -) 30 ml PO QID PRN PRN Reason: INDIGESTION Last Admin: 09/22/16 18:02 Dose: 30 ml Apixaban (Eliquis -) 2.5 mg PO BID [facility] Last Admin: 09/23/16 21:41 Dose: 2.5 mg Ascorbic Acid (Vitamin C -) 2,000 mg PO TID [facility] Last Admin: 09/24/16 06:26 Dose: 2,000 mg Bacitracin/Polymyxin B Sulfate (Polysporin Ointment -) 1 applic TP DAILY [facility] Last Admin: 09/23/16 11:45 Dose: 1 applic Cholecalciferol (Vitamin D3 -) 1,000 unit PO DAILY [facility] Last Admin: 09/23/16 09:57 Dose: 1,000 unit Furosemide (Lasix Injection -) 40 mg IVPUSH DAILY [facility] Last Admin: 09/23/16 14:59 Dose: 40 mg Metoprolol Tartrate (Lopressor -) 50 mg PO TID [facility] Last Admin: 09/24/16 06:26 Dose: 50 mg Multivitamins/Minerals/Vitamin C (Tab-A-Vit -) 1 tab PO DAILY [facility] Last Admin: 09/23/16 09:57 Dose: 1 tab Valsartan (Diovan -) 40 mg PO DAILY [facility] Last Admin: 09/23/16 15:38 Dose: 40 mg Vancomycin HCl (Vancomycin (Pre-Docked)) 1,000 mg IVPB DAILY@1300 [facility] Last Admin: 09/23/16 13:24 Dose: 1,000 mg Review of Systems - Review of Systems Constitutional: denies: Chills, Fever Cardiovascular: As noted above Respiratory: denies: Cough or Sputum Production Gastrointestinal: denies: Nausea, Vomiting, Diarrhea, Constipation or Abdominal Pain Musculoskeletal: No symptoms reported Neurological: denies: Dizziness or Headaches Vital Signs: Last Vital Signs Temp Pulse Resp BP Pulse Ox 97.8 F 104 H 20 135/61 97 09/24/16 06:00 09/24/16 08:31 09/24/16 08:31 09/24/16 08:31 09/23/16 19:55 Neck: Supple Negative JVD No bruit Respiratory: Diminished Breath Sounds at the Bases Cardiovascular: S1 S2 Irregularly Irregular Grade 2/6 SM Gastrointestinal: Soft Benign Normal Bowel Sounds Ext: dressing in Situ Labs: CBC, BMP 09/24/16 05:35 09/24/16 05:35 Hepatic Panel Total Bilirubin 0.5 mg/dL (0.2-1.0) 09/21/16 19:43 AST 55 U/L (15-37) H D 09/21/16 19:43 ALT 60 U/L (12-78) D 09/21/16 19:43 Alkaline Phosphatase 122 U/L (45-117) H D 09/21/16 19:43 Albumin 3.2 g/dl (3.4-5.0) L 09/21/16 19:43 INR, PTT INR 1.84 (0.82-1.09) H D 09/21/16 19:43 Assessment/Plan ASSESSMENT: 1. Clinical presentation consistent with class II-III NYHA classification LV failure related to acute on chronic exacerbation of diastolic LV failure, resolving 2. Persistent atrial fibrillation with periods of rapid ventricular response 3. 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 Aortic stenosis moderate to severe in severity, NATI 0.7 cm 2 5. Mitral regurgitation, moderate in severity 6. 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 CKD 8. Cellulites lower extremities PLAN: 1. Continue Lopressor and titrate dosage 2. Continue Diovan 3. Continue Eliquis adequate dose (Wt. < 60 Kg and age > 80) 4. Continue Lasix 5. Add Digoxin with caution 6. Antibiotics as per the primary/ID teams 7. Monitor renal function closely Jess Richmond MD
[2016-09-24] MEDS: APIXABAN 2.5 MG TABLET PO SCH ×2 (10:55→21:51)
[2016-09-24] MEDS: FUROSEMIDE 40 MG/4 ML INJECTABLE VIAL IVPUSH SCH (10:56)
[2016-09-24] MEDS: CHOLECALCIFEROL (VITAMIN D3) 1,000 UNIT TABLET (FP) PO SCH (10:56)
[2016-09-24] MEDS: BACITRACIN/POLYMYXIN B SULFATE 15 GM TUBE TP SCH (10:56)
[2016-09-24] MEDS: MULTIVITAMINS (DAILY MVI) TABLET (FP) PO SCH (10:56)
[2016-09-24] MEDS: VANCOMYCIN 1 GRAM (PRE-DOCKED) 1,000 MG/250 ML BAG IVPB SCH (13:55)
[2016-09-24] MEDS: DIGOXIN 0.125 MG TABLET (FP) PO SCH (13:56)
[2016-09-25] MEDS: METOPROLOL TARTRATE 50 MG TABLET (FP) PO SCH ×3 (05:35→22:29)
[2016-09-25] MEDS: ASCORBIC ACID 500 MG TABLET (FP) PO SCH ×3 (05:35→22:29)
[2016-09-25 07:24] LABS: BASOPHIL 0.9 % (0-2.0); EOSINOPHIL 3.9 % (0-4.5); MCH 30.1 pg (25.7-33.7); MEAN CELL VOLUME 91.4 fl (80-96); MEAN PLT VOLUME 9.6 fl (7.5-11.1); NEUTROPHILS 72.3 % (42.8-82.8); PLATELET COUNT 160 K/MM3 (134-434); RDW 15.8 % (11.6-15.6); WHITE BLOOD COUNT 6.3 K/mm3 (4.0-10.0)
[2016-09-25] MEDS: LEVOTHYROXINE NA 25 MCG TABLET (FP) PO SCH (08:00)
[2016-09-25 08:10] LABS: CALCIUM 8.4 mg/dL (8.5-10.1); CREATININE 0.9 mg/dL (0.55-1.02)
[2016-09-25] MEDS: CHOLECALCIFEROL (VITAMIN D3) 1,000 UNIT TABLET (FP) PO SCH (10:06)
[2016-09-25] MEDS: APIXABAN 2.5 MG TABLET PO SCH ×2 (10:06→22:29)
[2016-09-25] MEDS: VALSARTAN 40 MG TABLET (FP) PO SCH (10:06)
[2016-09-25] MEDS: DIGOXIN 0.125 MG TABLET (FP) PO SCH (10:06)
[2016-09-25] MEDS: MULTIVITAMINS (DAILY MVI) TABLET (FP) PO SCH (10:06)
[2016-09-25] MEDS: FUROSEMIDE 40 MG/4 ML INJECTABLE VIAL IVPUSH SCH ×2 (10:06→14:14)
[2016-09-25] MEDS: BACITRACIN/POLYMYXIN B SULFATE 15 GM TUBE TP SCH (10:10)
--- NOTE | 2016-09-25 11:21 | PN ---
Progress Note, Physician Chief Complaint: Events noted Generalized weakness History of Present Illness: Patient was seen and examined. Awake and alert. Chart was reviewed Denies chest pain or SOB Remains in atrial fibrillation with periods of rapid ventricular response Pedal edema persists, but appears slightly better now wrapped with dressing Echocardiography performed 08/18/16 reveled normal LV size and function, Aortic stenosis moderate to severe NATI 0.7 cm2, moderate mitral regurgitation, severe tricuspid valve regurgitation with RVSP of 55 mmHg - Current Medication List Current Medications: Active Medications Al Hydroxide/Mg Hydroxide (Mylanta Oral Suspension -) 30 ml PO QID PRN PRN Reason: INDIGESTION Last Admin: 09/22/16 18:02 Dose: 30 ml Apixaban (Eliquis -) 2.5 mg PO BID [facility] Last Admin: 09/25/16 10:06 Dose: 2.5 mg Ascorbic Acid (Vitamin C -) 2,000 mg PO TID [facility] Last Admin: 09/25/16 05:35 Dose: 2,000 mg Bacitracin/Polymyxin B Sulfate (Polysporin Ointment -) 1 applic TP DAILY [facility] Last Admin: 09/25/16 10:10 Dose: 1 applic Cholecalciferol (Vitamin D3 -) 1,000 unit PO DAILY [facility] Last Admin: 09/25/16 10:06 Dose: 1,000 unit Digoxin (Lanoxin -) 0.125 mg PO DAILY [facility] Last Admin: 09/25/16 10:06 Dose: 0.125 mg Furosemide (Lasix Injection -) 40 mg IVPUSH DAILY [facility] Last Admin: 09/25/16 10:06 Dose: 40 mg Levothyroxine Sodium (Synthroid -) 25 mcg PO DAILY@0700 [facility] Last Admin: 09/25/16 08:00 Dose: 25 mcg Metoprolol Tartrate (Lopressor -) 50 mg PO TID [facility] Last Admin: 09/25/16 05:35 Dose: 50 mg Multivitamins/Minerals/Vitamin C (Tab-A-Vit -) 1 tab PO DAILY [facility] Last Admin: 09/25/16 10:06 Dose: 1 tab Valsartan (Diovan -) 40 mg PO DAILY [facility] Last Admin: 09/25/16 10:06 Dose: 40 mg Vancomycin HCl (Vancomycin (Pre-Docked)) 1,000 mg IVPB DAILY@1300 [facility] Last Admin: 09/24/16 13:55 Dose: 1,000 mg - Objective Vital Signs: Vital Signs Temperature 97.4 F L 09/25/16 09:04 Pulse Rate 102 H 09/25/16 10:06 Respiratory Rate 18 09/25/16 09:04 Blood Pressure 114/74 09/25/16 09:04 O2 Sat by Pulse Oximetry (%) 95 09/24/16 21:00 Cardiovascular: Yes: Tachycardia, Pulse Irregular, Murmur (2/6 [place]), S1, S2 Respiratory: Yes: Diminished Extremities: Yes: Erythema Edema: Yes Edema: LLE: 1+, RLE: 1+ Additional Findings/Remarks: - Review of Systems Constitutional: denies: Chills, Fever Cardiovascular: As noted above Respiratory: denies: Cough or Sputum Production Gastrointestinal: denies: Nausea, Vomiting, Diarrhea, Constipation or Abdominal Pain Musculoskeletal: No symptoms reported Neurological: denies: Dizziness or Headaches Labs: CBC, BMP 09/25/16 05:35 09/25/16 05:35 INR, PTT INR 1.84 (0.82-1.09) H D 09/21/16 19:43 Problem List - Problems (1) Bilateral lower leg cellulitis Code(s): L03.116 - CELLULITIS OF LEFT LOWER LIMB L03.115 - CELLULITIS OF RIGHT LOWER LIMB (2) Acute kidney failure Code(s): N17.9 - ACUTE KIDNEY FAILURE, UNSPECIFIED (3) Acute on chronic diastolic (congestive) heart failure Code(s): I50.33 - ACUTE ON CHRONIC DIASTOLIC (CONGESTIVE) HEART FAILURE (4) Aortic valvar stenosis Code(s): I35.0 - NONRHEUMATIC AORTIC (VALVE) STENOSIS Qualifiers: Cardiac valve disease etiology: nonrheumatic Qualified Code(s): I35.0 - Nonrheumatic aortic (valve) stenosis (5) Atrial fibrillation with RVR Code(s): I48.91 - UNSPECIFIED ATRIAL FIBRILLATION (6) Congestive heart failure (CHF) Code(s): I50.9 - HEART FAILURE, UNSPECIFIED Qualifiers: Congestive heart failure type: diastolic Congestive heart failure chronicity: acute on chronic Qualified Code(s): I50.33 - Acute on chronic diastolic (congestive) heart failure (7) Hypertensive cardiomegaly with heart failure Code(s): I11.0 - HYPERTENSIVE HEART DISEASE WITH HEART FAILURE Assessment/Plan 1. Clinical presentation consistent with class II-III NYHA classification LV failure related to acute on chronic exacerbation of diastolic LV failure 2. Persistent atrial fibrillation with periods of rapid ventricular response 3. 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 Aortic stenosis - moderate to severe in severity (NATI 0.7 cm 2) 5. Mitral regurgitation, moderate in severity 6. Tricuspid valve regurgitation (severe in severity) with moderate degree of pulmonary HTN, RVSP of 55 mmHg 7. CKD 8. Cellulitis lower extremities PLAN: 1. Continue Lopressor and titrate dosage 2. Continue Diovan with caution 3. Continue Eliquis 2.5 mg BID (Wt. < 60 Kg and age > 80) 4. Continue Lasix - uptitrate as needed 5. Continue Digoxin with caution 6. Empiric antibiotics 7. Monitor renal function closely Further plans are to follow. Patient has refused invasive intervention especially with aortic stenosis when discussed in the office. Patient was also reluctant about FRANKLIN +/- synchronized cardioversion when discussed in office. Familia Pepper MD
[2016-09-25] MEDS: VANCOMYCIN 1 GRAM (PRE-DOCKED) 1,000 MG/250 ML BAG IVPB SCH (13:20)
--- NOTE | 2016-09-25 15:08 | PN ---
Progress Note, Physician History of Present Illness: No c/o leg pain Reports swelling and erythema improved No c/o fever/ chills WBC improved Tolerating vancomycin - Current Medication List Current Medications: Active Medications Al Hydroxide/Mg Hydroxide (Mylanta Oral Suspension -) 30 ml PO QID PRN PRN Reason: INDIGESTION Last Admin: 09/22/16 18:02 Dose: 30 ml Apixaban (Eliquis -) 2.5 mg PO BID [facility] Last Admin: 09/25/16 10:06 Dose: 2.5 mg Ascorbic Acid (Vitamin C -) 2,000 mg PO TID [facility] Last Admin: 09/25/16 14:14 Dose: 2,000 mg Bacitracin/Polymyxin B Sulfate (Polysporin Ointment -) 1 applic TP DAILY [facility] Last Admin: 09/25/16 10:10 Dose: 1 applic Cholecalciferol (Vitamin D3 -) 1,000 unit PO DAILY [facility] Last Admin: 09/25/16 10:06 Dose: 1,000 unit Digoxin (Lanoxin -) 0.125 mg PO DAILY [facility] Last Admin: 09/25/16 10:06 Dose: 0.125 mg Furosemide (Lasix Injection -) 40 mg IVPUSH DAILY [facility] Last Admin: 09/25/16 10:06 Dose: 40 mg Furosemide (Lasix Injection -) 40 mg IVPUSH BID@0600,1400 [facility] Last Admin: 09/25/16 14:14 Dose: 40 mg Levothyroxine Sodium (Synthroid -) 25 mcg PO DAILY@0700 [facility] Last Admin: 09/25/16 08:00 Dose: 25 mcg Metoprolol Tartrate (Lopressor -) 50 mg PO TID [facility] Last Admin: 09/25/16 14:14 Dose: 50 mg Multivitamins/Minerals/Vitamin C (Tab-A-Vit -) 1 tab PO DAILY [facility] Last Admin: 09/25/16 10:06 Dose: 1 tab Valsartan (Diovan -) 40 mg PO DAILY [facility] Last Admin: 09/25/16 10:06 Dose: 40 mg Vancomycin HCl (Vancomycin (Pre-Docked)) 1,000 mg IVPB DAILY@1300 [facility] Last Admin: 09/25/16 13:20 Dose: 1,000 mg - Objective Vital Signs: Vital Signs Temperature 97.4 F L 09/25/16 09:04 Pulse Rate 502 H 09/25/16 10:06 Respiratory Rate 18 09/25/16 09:04 Blood Pressure 114/74 09/25/16 09:04 O2 Sat by Pulse Oximetry (%) 95 09/25/16 09:00 Constitutional: Yes: No Distress Eyes: Yes: Conjunctiva Clear Cardiovascular: Yes: Regular Rate and Rhythm, S1, S2 Respiratory: Yes: CTA Bilaterally Gastrointestinal: Yes: Normal Bowel Sounds, Soft. No: Tenderness Extremities: Yes: Other (+ erythema LE bilaterally + abrasions to hands bilaterally) Edema: Yes Labs: CBC, BMP 09/25/16 05:35 09/25/16 05:35 INR, PTT INR 1.84 (0.82-1.09) H D 09/21/16 19:43 Assessment/Plan Bilateral LE cellulitis Leukocytosis-improved CHF Possible cephalosporin allergy Continue vancomycin Check trough am
--- NOTE | 2016-09-25 19:54 | PN ---
Progress Note, Physician Chief Complaint: feels better, less tired; no legs pains, no SOB - Current Medication List Current Medications: Active Medications Al Hydroxide/Mg Hydroxide (Mylanta Oral Suspension -) 30 ml PO QID PRN PRN Reason: INDIGESTION Last Admin: 09/22/16 18:02 Dose: 30 ml Apixaban (Eliquis -) 2.5 mg PO BID [facility] Last Admin: 09/25/16 10:06 Dose: 2.5 mg Ascorbic Acid (Vitamin C -) 2,000 mg PO TID [facility] Last Admin: 09/25/16 14:14 Dose: 2,000 mg Bacitracin/Polymyxin B Sulfate (Polysporin Ointment -) 1 applic TP DAILY [facility] Last Admin: 09/25/16 10:10 Dose: 1 applic Cholecalciferol (Vitamin D3 -) 1,000 unit PO DAILY [facility] Last Admin: 09/25/16 10:06 Dose: 1,000 unit Digoxin (Lanoxin -) 0.125 mg PO DAILY [facility] Last Admin: 09/25/16 10:06 Dose: 0.125 mg Furosemide (Lasix Injection -) 40 mg IVPUSH DAILY [facility] Last Admin: 09/25/16 10:06 Dose: 40 mg Furosemide (Lasix Injection -) 40 mg IVPUSH BID@0600,1400 [facility] Last Admin: 09/25/16 14:14 Dose: 40 mg Levothyroxine Sodium (Synthroid -) 25 mcg PO DAILY@0700 [facility] Last Admin: 09/25/16 08:00 Dose: 25 mcg Metoprolol Tartrate (Lopressor -) 50 mg PO TID [facility] Last Admin: 09/25/16 14:14 Dose: 50 mg Multivitamins/Minerals/Vitamin C (Tab-A-Vit -) 1 tab PO DAILY [facility] Last Admin: 09/25/16 10:06 Dose: 1 tab Valsartan (Diovan -) 40 mg PO DAILY [facility] Last Admin: 09/25/16 10:06 Dose: 40 mg Vancomycin HCl (Vancomycin (Pre-Docked)) 1,000 mg IVPB DAILY@1300 [facility] Last Admin: 09/25/16 13:20 Dose: 1,000 mg - Objective Vital Signs: Vital Signs Temperature 97.4 F L 09/25/16 18:00 Pulse Rate 105 H 09/25/16 18:00 Respiratory Rate 22 09/25/16 18:00 Blood Pressure 129/62 09/25/16 18:00 O2 Sat by Pulse Oximetry (%) 95 09/25/16 09:00 Constitutional: Yes: No Distress Eyes: Yes: Conjunctiva Clear HENT: Yes: Atraumatic Neck: Yes: Supple Cardiovascular: No: Regular Rate and Rhythm Respiratory: Yes: Diminished Gastrointestinal: Yes: Soft. No: Distention, Tenderness Genitourinary: No: CVA Tenderness - Left, CVA Tenderness - Right Musculoskeletal: No: Joint Stiffness, Joint Swelling Extremities: No: Cold, Cool Edema: Yes (less) Peripheral Pulses WNL: Yes Integumentary: Yes: Rash, Venous Stasis Changes Neurological: Yes: WNL, Alert, Oriented ...Motor Strength: WNL Psychiatric: Yes: WNL, Alert, Oriented. No: Agitated Labs: CBC, BMP 09/25/16 05:35 09/25/16 05:35 INR, PTT INR 1.84 (0.82-1.09) H D 09/21/16 19:43 - ....Imaging Other: Report Reviewed Assessment/Plan The patient is a 86 year old female, with a significant past medical history of AFib(on eliquis and lasix) , admitted via emergency department with bilateral lower legs pain and edema, also the patient has been more lethargic. Had fever 102 in ER. Admitted to telemetry with legs cellulitis, high WBC< hypotension, severe sepsis ; also rapid AFib and fluid overloaded IV ATB per ID check blood and urine Cx diuretics and cardiac meds per cardiology falls PFX; f/u labs decubs PFX, turn frequently falls PFX do not get OOB alone prognosis guarded palliative care eval for advanced directives and HCP
[2016-09-26] MEDS: LEVOTHYROXINE NA 25 MCG TABLET (FP) PO SCH (06:14)
[2016-09-26] MEDS: ASCORBIC ACID 500 MG TABLET (FP) PO SCH ×3 (06:14→21:20)
[2016-09-26] MEDS: METOPROLOL TARTRATE 50 MG TABLET (FP) PO SCH ×4 (06:14→17:32)
[2016-09-26] MEDS: FUROSEMIDE 40 MG/4 ML INJECTABLE VIAL IVPUSH SCH ×2 (06:16→14:40)
--- NOTE | 2016-09-26 06:28 | PN ---
Progress Note (short form) - Note Progress Note: Chief Complaint: Events noted, notes reviewed, complaining of right leg discomfort and generalized weakness, denies any chest pain or dyspnea, remains in atrial fibrillation with periods of rapid ventricular response History of Present Illness: Seen and examined on telemetry. Events noted, notes reviewed, complaining of right leg discomfort and generalized weakness, denies any chest pain or dyspnea , remains in atrial fibrillation with periods of rapid ventricular response Echocardiography performed 08/18/16 reveled normal LV size and function, Aortic stenosis moderate to severe NATI odf 0.7 cm2, moderate mitral regurgitation, severe tricuspid valve regurgitation with RVSP of 55 mmHg Medications: Current Medications Al Hydroxide/Mg Hydroxide (Mylanta Oral Suspension -) 30 ml PO QID PRN PRN Reason: INDIGESTION Last Admin: 09/22/16 18:02 Dose: 30 ml Apixaban (Eliquis -) 2.5 mg PO BID [facility] Last Admin: 09/25/16 22:29 Dose: 2.5 mg Ascorbic Acid (Vitamin C -) 2,000 mg PO TID [facility] Last Admin: 09/26/16 06:14 Dose: 2,000 mg Bacitracin/Polymyxin B Sulfate (Polysporin Ointment -) 1 applic TP DAILY [facility] Last Admin: 09/25/16 10:10 Dose: 1 applic Cholecalciferol (Vitamin D3 -) 1,000 unit PO DAILY [facility] Last Admin: 09/25/16 10:06 Dose: 1,000 unit Digoxin (Lanoxin -) 0.125 mg PO DAILY [facility] Last Admin: 09/25/16 10:06 Dose: 0.125 mg Furosemide (Lasix Injection -) 40 mg IVPUSH BID@0600,1400 [facility] Last Admin: 09/26/16 06:16 Dose: 40 mg Levothyroxine Sodium (Synthroid -) 25 mcg PO DAILY@0700 [facility] Last Admin: 09/26/16 06:14 Dose: 25 mcg Metoprolol Tartrate (Lopressor -) 50 mg PO TID [facility] Last Admin: 09/26/16 06:14 Dose: 50 mg Multivitamins/Minerals/Vitamin C (Tab-A-Vit -) 1 tab PO DAILY [facility] Last Admin: 09/25/16 10:06 Dose: 1 tab Valsartan (Diovan -) 40 mg PO DAILY [facility] Last Admin: 09/25/16 10:06 Dose: 40 mg Vancomycin HCl (Vancomycin (Pre-Docked)) 1,000 mg IVPB DAILY@1300 [facility] Last Admin: 09/25/16 13:20 Dose: 1,000 mg Review of Systems - Review of Systems Constitutional: denies: Chills, Fever Cardiovascular: As noted above Respiratory: denies: Cough or Sputum Production Gastrointestinal: denies: Nausea, Vomiting, Diarrhea, Constipation or Abdominal Pain Musculoskeletal: No symptoms reported Neurological: denies: Dizziness or Headaches Vital Signs: Last Vital Signs Temp Pulse Resp BP Pulse Ox 97.6 F 111 H 20 110/74 95 09/26/16 06:00 09/26/16 06:00 09/26/16 06:00 09/26/16 06:00 09/25/16 21:00 Neck: Supple Negative JVD No bruit Respiratory: Diminished Breath Sounds at the Bases Cardiovascular: S1 S2 Irregularly Irregular Grade 2/6 SM Gastrointestinal: Soft Benign Normal Bowel Sounds Ext: dressing in Situ Labs: CBC, BMP 09/25/16 05:35 09/25/16 05:35 Assessment/Plan ASSESSMENT: 1. Acute on chronic class II-III NYHA classification LV failure related to diastolic LV dysfunction, resolving 2. Persistent atrial fibrillation with periods of rapid ventricular response 3. 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 Aortic stenosis moderate to severe in severity, NATI 0.7 cm 2 5. Mitral regurgitation, moderate in severity 6. 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 CKD 8. Cellulites lower extremities PLAN: 1. Continue Lopressor and titrate dosage to 50 mg Q6H 2. Continue Diovan 3. Continue Eliquis adequate dose (Wt. < 60 Kg and age > 80) 4. Continue Lasix 5. Continue Digoxin with caution and close monitoring of level 6. Antibiotics as per the primary/ID teams 7. Monitor renal function closely Jess Richmond MD
[2016-09-26 07:59] LABS: BASOPHIL 0.7 % (0-2.0); EOSINOPHIL 2.1 % (0-4.5); MCHC 33.4 g/dl (32.0-36.0); MEAN CELL VOLUME 89.9 fl (80-96); MEAN PLT VOLUME 9.4 fl (7.5-11.1); PLATELET COUNT 171 K/MM3 (134-434); RDW 15.4 % (11.6-15.6); WHITE BLOOD COUNT 8.3 K/mm3 (4.0-10.0)
[2016-09-26 08:57] LABS: ALBUMIN 2.5 g/dl (3.4-5.0); ALK PHOS 125 U/L (45-117); ANION GAP 11 (8-16); BILIRUBIN,TOTAL 0.6 mg/dL (0.2-1.0); CALCIUM 8.1 mg/dL (8.5-10.1); CO2 28 mmol/L (21-32); CREATININE 0.8 mg/dL (0.55-1.02); GLUCOSE,RANDOM 76 mg/dL (74-106); SGOT/AST 34 U/L (15-37); SGPT/ALT 42 U/L (12-78); TOT PROT 6.1 g/dl (6.4-8.2)
[2016-09-26 09:46] LABS: DIGOXIN LEVEL 0.4208 ng/ml (0.8-2.0)
[2016-09-26] MEDS: DIGOXIN 0.125 MG TABLET (FP) PO SCH (10:38)
[2016-09-26] MEDS: APIXABAN 2.5 MG TABLET PO SCH ×2 (10:38→21:20)
[2016-09-26] MEDS: CHOLECALCIFEROL (VITAMIN D3) 1,000 UNIT TABLET (FP) PO SCH (10:38)
[2016-09-26] MEDS: MULTIVITAMINS (DAILY MVI) TABLET (FP) PO SCH (10:38)
[2016-09-26] MEDS: VALSARTAN 40 MG TABLET (FP) PO SCH (10:39)
[2016-09-26] MEDS: BACITRACIN/POLYMYXIN B SULFATE 15 GM TUBE TP SCH (10:39)
--- NOTE | 2016-09-26 13:57 | PN ---
Progress Note, Physician History of Present Illness: Awake, alert C/O R LE pain with movement No fever/ chills Tolerating antibiotic - Current Medication List Current Medications: Active Medications Al Hydroxide/Mg Hydroxide (Mylanta Oral Suspension -) 30 ml PO QID PRN PRN Reason: INDIGESTION Last Admin: 09/22/16 18:02 Dose: 30 ml Apixaban (Eliquis -) 2.5 mg PO BID [facility] Last Admin: 09/26/16 10:38 Dose: 2.5 mg Ascorbic Acid (Vitamin C -) 2,000 mg PO TID [facility] Last Admin: 09/26/16 06:14 Dose: 2,000 mg Bacitracin/Polymyxin B Sulfate (Polysporin Ointment -) 1 applic TP DAILY [facility] Last Admin: 09/26/16 10:39 Dose: 1 applic Cholecalciferol (Vitamin D3 -) 1,000 unit PO DAILY [facility] Last Admin: 09/26/16 10:38 Dose: 1,000 unit Digoxin (Lanoxin -) 0.125 mg PO DAILY [facility] Last Admin: 09/26/16 10:38 Dose: 0.125 mg Furosemide (Lasix Injection -) 40 mg IVPUSH BID@0600,1400 [facility] Last Admin: 09/26/16 06:16 Dose: 40 mg Levothyroxine Sodium (Synthroid -) 25 mcg PO DAILY@0700 [facility] Last Admin: 09/26/16 06:14 Dose: 25 mcg Metoprolol Tartrate (Lopressor -) 50 mg PO Q6HPO [facility] Last Admin: 09/26/16 11:25 Dose: 50 mg Multivitamins/Minerals/Vitamin C (Tab-A-Vit -) 1 tab PO DAILY [facility] Last Admin: 09/26/16 10:38 Dose: 1 tab Valsartan (Diovan -) 40 mg PO DAILY [facility] Last Admin: 09/26/16 10:39 Dose: 40 mg Vancomycin HCl (Vancomycin (Pre-Docked)) 1,000 mg IVPB DAILY@1300 [facility] Last Admin: 09/25/16 13:20 Dose: 1,000 mg - Objective Vital Signs: Vital Signs Temperature 98.6 F 09/26/16 10:00 Pulse Rate 106 H 09/26/16 10:38 Respiratory Rate 20 09/26/16 10:00 Blood Pressure 99/58 09/26/16 10:00 O2 Sat by Pulse Oximetry (%) 96 09/26/16 10:00 Constitutional: Yes: No Distress Eyes: Yes: Conjunctiva Clear Cardiovascular: Yes: S1, S2. No: Regular Rate and Rhythm Respiratory: Yes: CTA Bilaterally Gastrointestinal: Yes: Normal Bowel Sounds, Soft. No: Tenderness Extremities: Yes: Other (decreased LE swelling + erythema/ warmth R > L LE + R LE ulcers no drainage) Labs: CBC, BMP 09/26/16 06:06 09/26/16 06:06 INR, PTT INR 1.84 (0.82-1.09) H D 09/21/16 19:43 Assessment/Plan Bilateral LE cellulitis Leukocytosis- resolved CHF Possible cephalosporin allergy Hold vancomycin (elevated trough level )
[2016-09-26] MEDS: VANCOMYCIN 1 GRAM (PRE-DOCKED) 1,000 MG/250 ML BAG IVPB SCH (14:41)
--- NOTE | 2016-09-26 20:34 | PN ---
Progress Note, Physician Chief Complaint: in bed nad afebrile, feels better - Current Medication List Current Medications: Active Medications Al Hydroxide/Mg Hydroxide (Mylanta Oral Suspension -) 30 ml PO QID PRN PRN Reason: INDIGESTION Last Admin: 09/22/16 18:02 Dose: 30 ml Apixaban (Eliquis -) 2.5 mg PO BID [facility] Last Admin: 09/26/16 10:38 Dose: 2.5 mg Ascorbic Acid (Vitamin C -) 2,000 mg PO TID [facility] Last Admin: 09/26/16 14:40 Dose: 2,000 mg Bacitracin/Polymyxin B Sulfate (Polysporin Ointment -) 1 applic TP DAILY [facility] Last Admin: 09/26/16 10:39 Dose: 1 applic Cholecalciferol (Vitamin D3 -) 1,000 unit PO DAILY [facility] Last Admin: 09/26/16 10:38 Dose: 1,000 unit Digoxin (Lanoxin -) 0.125 mg PO DAILY [facility] Last Admin: 09/26/16 10:38 Dose: 0.125 mg Furosemide (Lasix Injection -) 40 mg IVPUSH BID@0600,1400 [facility] Last Admin: 09/26/16 14:40 Dose: 40 mg Levothyroxine Sodium (Synthroid -) 25 mcg PO DAILY@0700 [facility] Last Admin: 09/26/16 06:14 Dose: 25 mcg Metoprolol Tartrate (Lopressor -) 50 mg PO Q6HPO [facility] Last Admin: 09/26/16 17:32 Dose: 50 mg Multivitamins/Minerals/Vitamin C (Tab-A-Vit -) 1 tab PO DAILY [facility] Last Admin: 09/26/16 10:38 Dose: 1 tab Valsartan (Diovan -) 40 mg PO DAILY [facility] Last Admin: 09/26/16 10:39 Dose: 40 mg - Objective Vital Signs: Vital Signs Temperature 98.1 F 09/26/16 17:00 Pulse Rate 107 H 09/26/16 17:00 Respiratory Rate 20 09/26/16 17:00 Blood Pressure 114/76 09/26/16 17:00 O2 Sat by Pulse Oximetry (%) 96 09/26/16 10:00 Constitutional: Yes: No Distress Eyes: Yes: Conjunctiva Clear HENT: Yes: Atraumatic Neck: Yes: Supple Cardiovascular: No: Regular Rate and Rhythm Respiratory: Yes: Diminished Gastrointestinal: Yes: Soft. No: Distention, Tenderness Genitourinary: No: CVA Tenderness - Left, CVA Tenderness - Right Musculoskeletal: No: Joint Stiffness, Joint Swelling Extremities: Yes: Erythema (legs). No: Cold, Cool Edema: Yes Peripheral Pulses WNL: Yes Integumentary: Yes: Rash (legs), Venous Stasis Changes Neurological: Yes: WNL, Alert, Oriented ...Motor Strength: WNL Psychiatric: Yes: WNL, Alert, Oriented. No: Agitated, Suicidal Ideation Labs: CBC, BMP 09/26/16 06:06 09/26/16 06:06 INR, PTT INR 1.84 (0.82-1.09) H D 09/21/16 19:43 - ....Imaging Other: Report Reviewed Assessment/Plan The patient is a 86 year old female, with a significant past medical history of AFib(on eliquis and lasix) , admitted via emergency department with bilateral lower legs pain and edema, also the patient has been more lethargic. Had fever 102 in ER. Admitted to telemetry with legs cellulitis, high WBC< hypotension, severe sepsis ; also rapid AFib and fluid overloaded IV ATB per ID diuretics and cardiac meds per cardiology falls PFX; f/u labs decubs PFX, turn frequently falls PFX do not get OOB alone prognosis guarded palliative care eval for advanced directives and HCP; PT rehab eval for OOB and ambulation
[2016-09-27] MEDS: METOPROLOL TARTRATE 50 MG TABLET (FP) PO SCH ×5 (00:05→23:08)
[2016-09-27] MEDS: ASCORBIC ACID 500 MG TABLET (FP) PO SCH ×3 (06:22→21:35)
[2016-09-27] MEDS: FUROSEMIDE 40 MG/4 ML INJECTABLE VIAL IVPUSH SCH ×2 (06:22→14:31)
[2016-09-27] MEDS: LEVOTHYROXINE NA 25 MCG TABLET (FP) PO SCH (06:23)
[2016-09-27] MEDS: VALSARTAN 40 MG TABLET (FP) PO SCH (09:34)
[2016-09-27] MEDS: APIXABAN 2.5 MG TABLET PO SCH ×2 (09:34→21:35)
[2016-09-27] MEDS: DIGOXIN 0.125 MG TABLET (FP) PO SCH (09:34)
[2016-09-27] MEDS: MULTIVITAMINS (DAILY MVI) TABLET (FP) PO SCH (09:35)
[2016-09-27] MEDS: CHOLECALCIFEROL (VITAMIN D3) 1,000 UNIT TABLET (FP) PO SCH (09:36)
--- NOTE | 2016-09-27 11:10 | PN ---
Progress Note, Physician History of Present Illness: No complaints of leg pain at rest Ambulatory with some R leg pain No fever/ chills WBC WNL - Current Medication List Current Medications: Active Medications Al Hydroxide/Mg Hydroxide (Mylanta Oral Suspension -) 30 ml PO QID PRN PRN Reason: INDIGESTION Last Admin: 09/22/16 18:02 Dose: 30 ml Apixaban (Eliquis -) 2.5 mg PO BID [facility] Last Admin: 09/27/16 09:34 Dose: 2.5 mg Ascorbic Acid (Vitamin C -) 2,000 mg PO TID [facility] Last Admin: 09/27/16 06:22 Dose: 2,000 mg Bacitracin/Polymyxin B Sulfate (Polysporin Ointment -) 1 applic TP DAILY [facility] Last Admin: 09/26/16 10:39 Dose: 1 applic Cholecalciferol (Vitamin D3 -) 1,000 unit PO DAILY [facility] Last Admin: 09/27/16 09:36 Dose: 1,000 unit Digoxin (Lanoxin -) 0.125 mg PO DAILY [facility] Last Admin: 09/27/16 09:34 Dose: 0.125 mg Furosemide (Lasix Injection -) 40 mg IVPUSH BID@0600,1400 [facility] Last Admin: 09/27/16 06:22 Dose: 40 mg Levothyroxine Sodium (Synthroid -) 25 mcg PO DAILY@0700 [facility] Last Admin: 09/27/16 06:23 Dose: 25 mcg Metoprolol Tartrate (Lopressor -) 50 mg PO Q6HPO [facility] Last Admin: 09/27/16 06:22 Dose: 50 mg Multivitamins/Minerals/Vitamin C (Tab-A-Vit -) 1 tab PO DAILY [facility] Last Admin: 09/27/16 09:35 Dose: 1 tab Valsartan (Diovan -) 40 mg PO DAILY [facility] Last Admin: 09/27/16 09:34 Dose: 40 mg - Objective Vital Signs: Vital Signs Temperature 97.6 F 09/27/16 06:00 Pulse Rate 86 09/27/16 09:34 Respiratory Rate 18 09/27/16 06:00 Blood Pressure 130/77 09/27/16 06:00 O2 Sat by Pulse Oximetry (%) 95 09/26/16 21:00 Constitutional: Yes: No Distress Eyes: Yes: Conjunctiva Clear Cardiovascular: Yes: Regular Rate and Rhythm, S1, S2 Respiratory: Yes: CTA Bilaterally Gastrointestinal: Yes: Normal Bowel Sounds, Soft. No: Tenderness Extremities: Yes: Other (decreased swelling and erythema LE bilat erythema L LE nearly all resolved residula erythema/ warmth R LE + Achilles tendon ulcer) Labs: CBC, BMP 09/26/16 06:06 09/26/16 06:06 INR, PTT INR 1.84 (0.82-1.09) H D 09/21/16 19:43 Assessment/Plan Bilateral LE cellulitis Leukocytosis- resolved CHF Possible cephalosporin allergy Check vancomycin level Redose for T < 15
--- NOTE | 2016-09-27 11:41 | CONSULT ---
Consult - text type - Consultation Consultation Note: Podiatry Consultation: 86 year old F sent in for admission for LE edema, weakness. On AC for Afib. Podiatry consultation requested for trimming of elongated, discolored toe nails. PMHx: AFib on AC, HTN Meds: noted in chart ALL: ceftriaxone JI: Pedal pulses palpable, TG wnl, CFT brisk to all toes bilaterally. Nails are elongated, discolored, thickened, tender x 10. No pedal ulcerations, no signs of infection. Imp: 86 year old F with onychomycosis x 10 1. Manual debridement of mycotic nails x 10 with nail nipper. Pt tolerated procedure well without complications. 2. Foot hygiene discussed. 3. May f/u as outpatient in approximately 2-3 months in [facility] wound healing center for routine care. Thank you for the courtesy of this consultation. Cassandra Peng DPM
--- NOTE | 2016-09-27 11:50 | PN ---
Progress Note, Physician Chief Complaint: feels better more awake - Current Medication List Current Medications: Active Medications Al Hydroxide/Mg Hydroxide (Mylanta Oral Suspension -) 30 ml PO QID PRN PRN Reason: INDIGESTION Last Admin: 09/22/16 18:02 Dose: 30 ml Apixaban (Eliquis -) 2.5 mg PO BID [facility] Last Admin: 09/27/16 09:34 Dose: 2.5 mg Ascorbic Acid (Vitamin C -) 2,000 mg PO TID [facility] Last Admin: 09/27/16 06:22 Dose: 2,000 mg Bacitracin/Polymyxin B Sulfate (Polysporin Ointment -) 1 applic TP DAILY [facility] Last Admin: 09/26/16 10:39 Dose: 1 applic Cholecalciferol (Vitamin D3 -) 1,000 unit PO DAILY [facility] Last Admin: 09/27/16 09:36 Dose: 1,000 unit Digoxin (Lanoxin -) 0.125 mg PO DAILY [facility] Last Admin: 09/27/16 09:34 Dose: 0.125 mg Furosemide (Lasix Injection -) 40 mg IVPUSH BID@0600,1400 [facility] Last Admin: 09/27/16 06:22 Dose: 40 mg Levothyroxine Sodium (Synthroid -) 25 mcg PO DAILY@0700 [facility] Last Admin: 09/27/16 06:23 Dose: 25 mcg Metoprolol Tartrate (Lopressor -) 50 mg PO Q6HPO [facility] Last Admin: 09/27/16 06:22 Dose: 50 mg Multivitamins/Minerals/Vitamin C (Tab-A-Vit -) 1 tab PO DAILY [facility] Last Admin: 09/27/16 09:35 Dose: 1 tab Valsartan (Diovan -) 40 mg PO DAILY [facility] Last Admin: 09/27/16 09:34 Dose: 40 mg - Objective Vital Signs: Vital Signs Temperature 97.6 F 09/27/16 06:00 Pulse Rate 86 09/27/16 09:34 Respiratory Rate 18 09/27/16 06:00 Blood Pressure 130/77 09/27/16 06:00 O2 Sat by Pulse Oximetry (%) 95 09/26/16 21:00 Constitutional: Yes: No Distress Eyes: Yes: Conjunctiva Clear HENT: Yes: Atraumatic Neck: Yes: Supple Cardiovascular: No: Regular Rate and Rhythm Respiratory: Yes: CTA Bilaterally Gastrointestinal: Yes: Soft. No: Distention, Tenderness Genitourinary: No: CVA Tenderness - Left, CVA Tenderness - Right Musculoskeletal: No: Joint Stiffness, Joint Swelling Extremities: No: Cold, Cool Edema: Yes (less) Peripheral Pulses WNL: Yes Integumentary: Yes: Rash (less), Venous Stasis Changes Neurological: Yes: WNL, Alert, Oriented ...Motor Strength: WNL Psychiatric: Yes: WNL, Alert, Oriented. No: Agitated, Suicidal Ideation Labs: CBC, BMP 09/26/16 06:06 09/26/16 06:06 INR, PTT INR 1.84 (0.82-1.09) H D 09/21/16 19:43 - ....Imaging Other: Report Reviewed Assessment/Plan The patient is a 86 year old female, with a significant past medical history of AFib(on eliquis and lasix) , admitted via emergency department with bilateral lower legs pain and edema, also the patient has been more lethargic. Had fever 102 in ER. Admitted to telemetry with legs cellulitis, high WBC< hypotension, severe sepsis ; also rapid AFib and fluid overloaded IV ATB per ID diuretics and cardiac meds per cardiology falls PFX; f/u labs decubs PFX, turn frequently falls PFX do not get OOB alone prognosis guarded podiatry eval palliative care eval for advanced directives and HCP; PT rehab eval for OOB and ambulation
[2016-09-27] MEDS: BACITRACIN/POLYMYXIN B SULFATE 15 GM TUBE TP SCH (12:05)
[2016-09-27] MEDS ORDERED: VANCOMYCIN 1 GRAM (PRE-DOCKED) 250 ML IVPB ONE ×2 (12:15→17:15)
--- NOTE | 2016-09-27 12:32 | PN ---
Progress Note (short form) - Note Progress Note: S: 86 year old female, with history of congestive heart failure, tricuspid regurgitation, mitral regurgitation, aortic valvular disease with aortic stenosis, probably severe. Cellulites associated with abrasion involving both lower extremities. Permanent atrial fibrillation and pulmonary hypertension. Patient denies having dyspnea either at rest or with exertion, no history of palpitations, lightheadedness, dizziness or syncope, there is significant decrease in pedal edema. No history of chest pain or discomfort. Active Medications Generic Name Dose Route Start Last Admin Trade Name Freq PRN Reason Stop Dose Admin Al Hydroxide/Mg Hydroxide 30 ml 09/22/16 17:01 09/22/16 18:02 Mylanta Oral Suspension - PO 30 ml QID PRN Administration INDIGESTION Apixaban 2.5 mg 09/22/16 00:15 09/27/16 09:34 Eliquis - PO 2.5 mg BID [facility] Administration Ascorbic Acid 2,000 mg 09/22/16 06:00 09/27/16 06:22 Vitamin C - PO 2,000 mg TID [facility] Administration Bacitracin/Polymyxin B Sulfate 1 applic 09/22/16 11:45 09/27/16 12:05 Polysporin Ointment - TP 1 applic DAILY [facility] Administration Cholecalciferol 1,000 unit 09/22/16 10:00 09/27/16 09:36 Vitamin D3 - PO 1,000 unit DAILY [facility] Administration Digoxin 0.125 mg 09/24/16 11:15 09/27/16 09:34 Lanoxin - PO 0.125 mg DAILY [facility] Administration Furosemide 40 mg 09/25/16 14:00 09/27/16 06:22 Lasix Injection - IVPUSH 40 mg BID@0600,1400 [facility] Administration Vancomycin HCl 250 mls @ 200 mls/hr 09/27/16 12:15 Vancomycin (Pre-Docked) IVPB 09/27/16 13:29 ONCE ONE Levothyroxine Sodium 25 mcg 09/25/16 07:00 09/27/16 06:23 Synthroid - PO 25 mcg DAILY@0700 [facility] Administration Metoprolol Tartrate 50 mg 09/26/16 06:30 09/27/16 12:06 Lopressor - PO 50 mg Q6HPO [facility] Administration Multivitamins/Minerals/Vitamin C 1 tab 09/22/16 10:00 09/27/16 09:35 Tab-A-Vit - PO 1 tab DAILY [facility] Administration Valsartan 40 mg 09/24/16 10:55 09/27/16 09:34 Diovan - PO 40 mg DAILY [facility] Administration O: 86 year old female was in no acute distress, no pallor, cyanosis, clubbing, or jaundice. Last Vital Signs Temp Pulse Resp BP Pulse Ox 97.6 F 86 Irregularly irregular 18 130/77 95 09/27/16 06:00 09/27/16 09:34 09/27/16 06:00 09/27/16 06:00 09/26/16 21:00 Neck: Supple, positive HJR, pulsatile neck veins, carotids were 2+, upstrokes normal, faint radiaton on murmur vs bruit. No thyromegaly. Heart: PMI was in the 5th intercoastal space, slight parasternal heave, S1 was variable, S2A2 was reduced, ejection systolic murmur grade II/ was heard at he second right intercostal space and the apex border. Holosystolic murmur grade II/ heard over the left intercostal border. No gallops were heard. Lungs: Dullness on percussions involving the right lung posteriorly. Decrease breath sounds at the right base extending up to the mid zone. Left lung field is clear on auscultation. Abdomen: Soft, nontender, pulsatile liver, no splenomegaly was appreciated. Extremities: Bilateral pedal edema, more pronounced on the right lower extremity. There were abrasions bilaterally and redness and probable cellulitis involving both legs. CBC, BMP 09/26/16 06:06 09/26/16 06:06 Laboratory Results - last 24 hr 09/26/16 11:53 Vancomycin Trough 18.684 H* Impression: (1) Congestive heart failure (CHF) Code(s): I50.9 - HEART FAILURE, UNSPECIFIED Qualifiers: Congestive heart failure type: diastolic Congestive heart failure chronicity: acute on chronic Qualified Code(s): I50.33 - Acute on chronic diastolic (congestive) heart failure (2) Aortic stenosis probably severe Code(s): I35.0 - NONRHEUMATIC AORTIC (VALVE) STENOSIS Qualifiers: Cardiac valve disease etiology: nonrheumatic Qualified Code(s): I35.0 - Nonrheumatic aortic (valve) stenosis (3) Severe tricuspid regurgitation Code(s): I07.1 - RHEUMATIC TRICUSPID INSUFFICIENCY (4) Pulmonary hypertension Code(s): I27.2 - OTHER SECONDARY PULMONARY HYPERTENSION (5) Permanent atrial fibrillation with moderate to rapid ventricular response. Code(s): I48.91 - UNSPECIFIED ATRIAL FIBRILLATION (6) Acute on chronic diastolic (congestive) heart failure Code(s): I50.33 - ACUTE ON CHRONIC DIASTOLIC (CONGESTIVE) HEART FAILURE (7) Hypothyroidism on replacement therapy Code(s): E03.9 - HYPOTHYROIDISM, UNSPECIFIED Recommendations: 1. Add Spirolactone starting at 12.5 mg PO daily and titrate. 2. Close follow up of basic metabolic profile. 3. Increase ambulation. 4. Patient will need further evaluation and work up for aortic stenosis, could be done on an outpatient basis. Prognosis: Guarded Attestation: Documentation prepared by Kevan Olson, acting as medical coding auditor for Derrick Weems MD.
[2016-09-28] MEDS: LEVOTHYROXINE NA 25 MCG TABLET (FP) PO SCH (07:00)
[2016-09-28] MEDS: ASCORBIC ACID 500 MG TABLET (FP) PO SCH ×3 (07:00→23:03)
[2016-09-28] MEDS: FUROSEMIDE 40 MG/4 ML INJECTABLE VIAL IVPUSH SCH ×2 (07:00→14:14)
[2016-09-28] MEDS: METOPROLOL TARTRATE 50 MG TABLET (FP) PO SCH ×4 (07:00→23:03)
--- NOTE | 2016-09-28 08:59 | PN ---
Progress Note, Physician Chief Complaint: Events noted Generalized weakness Pedal edema improving Persistent erythema of right lower extremity History of Present Illness: Patient was seen and examined. Awake and alert. Chart was reviewed Denies chest pain or SOB Remains in atrial fibrillation with variable ventricular response Pedal edema persists, but improved on IV diuretics wrapped with dressing Echocardiography performed 08/18/16 reveled normal LV size and function, Aortic stenosis moderate to severe NATI 0.7 cm2, moderate mitral regurgitation, severe tricuspid valve regurgitation with RVSP of 55 mmHg - Current Medication List Current Medications: Active Medications Al Hydroxide/Mg Hydroxide (Mylanta Oral Suspension -) 30 ml PO QID PRN PRN Reason: INDIGESTION Last Admin: 09/22/16 18:02 Dose: 30 ml Apixaban (Eliquis -) 2.5 mg PO BID [facility] Last Admin: 09/27/16 21:35 Dose: 2.5 mg Ascorbic Acid (Vitamin C -) 2,000 mg PO TID [facility] Last Admin: 09/28/16 07:00 Dose: 2,000 mg Bacitracin/Polymyxin B Sulfate (Polysporin Ointment -) 1 applic TP DAILY [facility] Last Admin: 09/27/16 12:05 Dose: 1 applic Cholecalciferol (Vitamin D3 -) 1,000 unit PO DAILY [facility] Last Admin: 09/27/16 09:36 Dose: 1,000 unit Digoxin (Lanoxin -) 0.125 mg PO DAILY [facility] Last Admin: 09/27/16 09:34 Dose: 0.125 mg Furosemide (Lasix Injection -) 40 mg IVPUSH BID@0600,1400 [facility] Last Admin: 09/28/16 07:00 Dose: 40 mg Levothyroxine Sodium (Synthroid -) 25 mcg PO DAILY@0700 [facility] Last Admin: 09/28/16 07:00 Dose: 25 mcg Metoprolol Tartrate (Lopressor -) 50 mg PO Q6HPO [facility] Last Admin: 09/28/16 07:00 Dose: 50 mg Multivitamins/Minerals/Vitamin C (Tab-A-Vit -) 1 tab PO DAILY [facility] Last Admin: 09/27/16 09:35 Dose: 1 tab Valsartan (Diovan -) 40 mg PO DAILY [facility] Last Admin: 09/27/16 09:34 Dose: 40 mg - Objective Vital Signs: Vital Signs Temperature 97.7 F 09/28/16 05:00 Pulse Rate 102 H 09/28/16 05:00 Respiratory Rate 20 09/28/16 05:00 Blood Pressure 123/71 09/28/16 05:00 O2 Sat by Pulse Oximetry (%) 93 L 09/27/16 21:00 Neck: Yes: Supple Cardiovascular: Yes: Pulse Irregular, Murmur (2/6 [place]), S1, S2 Respiratory: Yes: Diminished Gastrointestinal: Yes: Normal Bowel Sounds, Soft. No: Tenderness Extremities: Yes: Erythema Edema: Yes Edema: LLE: 1+, RLE: 1+ Additional Findings/Remarks: - Review of Systems Constitutional: denies: Chills, Fever Cardiovascular: As noted above Respiratory: denies: Cough or Sputum Production Gastrointestinal: denies: Nausea, Vomiting, Diarrhea, Constipation or Abdominal Pain Musculoskeletal: No symptoms reported Neurological: denies: Dizziness or Headaches Labs: CBC, BMP 09/26/16 06:06 09/26/16 06:06 INR, PTT INR 1.84 (0.82-1.09) H D 09/21/16 19:43 Problem List - Problems (1) Bilateral lower leg cellulitis Code(s): L03.116 - CELLULITIS OF LEFT LOWER LIMB L03.115 - CELLULITIS OF RIGHT LOWER LIMB (2) Acute kidney failure Code(s): N17.9 - ACUTE KIDNEY FAILURE, UNSPECIFIED Qualifiers: Acute renal failure type: unspecified Qualified Code(s): N17.9 - Acute kidney failure, unspecified (3) Acute on chronic diastolic (congestive) heart failure Code(s): I50.33 - ACUTE ON CHRONIC DIASTOLIC (CONGESTIVE) HEART FAILURE (4) Aortic valvar stenosis Code(s): I35.0 - NONRHEUMATIC AORTIC (VALVE) STENOSIS Qualifiers: Cardiac valve disease etiology: nonrheumatic Qualified Code(s): I35.0 - Nonrheumatic aortic (valve) stenosis (5) Atrial fibrillation with RVR Code(s): I48.91 - UNSPECIFIED ATRIAL FIBRILLATION (6) Congestive heart failure (CHF) Code(s): I50.9 - HEART FAILURE, UNSPECIFIED Qualifiers: Congestive heart failure type: diastolic Congestive heart failure chronicity: acute on chronic Qualified Code(s): I50.33 - Acute on chronic diastolic (congestive) heart failure (7) Hypertensive cardiomegaly with heart failure Code(s): I11.0 - HYPERTENSIVE HEART DISEASE WITH HEART FAILURE Assessment/Plan 1. Clinical presentation consistent with class II-III NYHA classification LV failure related to acute on chronic exacerbation of diastolic LV failure 2. Persistent atrial fibrillation with periods of rapid ventricular response 3. 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 Aortic stenosis - moderate to severe in severity (NATI 0.7 cm 2) 5. Mitral regurgitation, moderate in severity 6. Tricuspid valve regurgitation (severe in severity) with moderate degree of pulmonary HTN, RVSP of 55 mmHg 7. CKD 8. Cellulitis lower extremities PLAN: 1. Continue Lopressor and titrate dosage 2. Continue Diovan with caution 3. Continue Eliquis 2.5 mg BID (Wt. < 60 Kg and age > 80) 4. Continue Lasix 40 mg IV BID and monitor renal function and electrolytes 5. Continue Digoxin with caution - may give additional dose today 6. Empiric antibiotics Further plans are to follow. Patient has refused invasive intervention especially with aortic stenosis when discussed in the office, but should be considered once clinically improved. FRANKLIN +/- synchronized cardioversion should be considered at some point once clinically improved, however; cannot guarantee success in view of duration of AF and underlying structural heart disease. Familia Pepper MD
[2016-09-28] MEDS ORDERED: DIGOXIN 0.25 MG TABLET (FP) PO ONE (10:03)
[2016-09-28] MEDS: VALSARTAN 40 MG TABLET (FP) PO SCH (10:32)
[2016-09-28] MEDS: MULTIVITAMINS (DAILY MVI) TABLET (FP) PO SCH (10:33)
[2016-09-28] MEDS: APIXABAN 2.5 MG TABLET PO SCH ×2 (10:33→23:03)
[2016-09-28] MEDS: DIGOXIN 0.125 MG TABLET (FP) PO SCH (10:33)
[2016-09-28] MEDS: BACITRACIN/POLYMYXIN B SULFATE 15 GM TUBE TP SCH (10:33)
[2016-09-28] MEDS: CHOLECALCIFEROL (VITAMIN D3) 1,000 UNIT TABLET (FP) PO SCH (10:33)
--- NOTE | 2016-09-28 10:38 | PN ---
Progress Note (short form) - Note Progress Note: ID Issues here 2 fold: 1. Her cellulitis Wound culture was not done and has been on Vanomycin alone ( now held for level) per the patient the redness and swelling are better. NO fever Exam Selected Entries 09/28/16 05:00 Temperature 97.7 F Pulse Rate 102 H Respiratory 20 Rate Blood Pressure 123/71 The redness and swelling right leg still present though improved discrete anterior LLE wound with pus Also 2nd open wound with some drainage as well achilles area Left LE - miminal swelling with shallow nondraining LE ulcer minimal redness 2. Issue of cephalosporin allergy which patient has no history of ? cause of rash previously Certainly no anaphylaxis or urticaria Plan RLE wound pus sent for culture CRP Vancomycin continue would add some gram negative coverage given recent hospital visit and comorbities Aleksandar CEDENO
[2016-09-28] MEDS ORDERED: VANCOMYCIN 500 MG in DEXTROSE 5%-WATER - 250 ML IVPB ONE (10:40)
[2016-09-28] MEDS ORDERED: PIPERACILLIN/TAZOB 3.375 GM 3.375 GM in DEXTROSE 5%-WATER - 50 ML IVPB SCH (10:45)
[2016-09-28] MEDS ORDERED: PIPERACILLIN/TAZOB 3.375 GM 50 ML IVPB ONE (10:47)
[2016-09-28] MEDS: VANCOMYCIN (PRE-DOCKED) 100 ML IVPB SCH (12:30)
[2016-09-28] MEDS: PIPERACILLIN/TAZOB 2.25 GM/50 ML PRE-DOCKED BAG IVPB SCH ×2 (14:18→23:03)
--- NOTE | 2016-09-28 22:03 | PN ---
Progress Note, Physician Chief Complaint: malvin better walked 200 feet with PT but legs still red and swollen but no more pain; added zosyn IV per ID pt said she spoke with dr Shantelle rodriguez and they decided o wait on the cardioversion to be done possibly as outpt pt expressed to me in the past wish to be DNR DNI and to in her own bed but she wuld not sign the advnaced directives and the HCP forms until she speaks with her son and he is present in hospital - Current Medication List Current Medications: Active Medications Al Hydroxide/Mg Hydroxide (Mylanta Oral Suspension -) 30 ml PO QID PRN PRN Reason: INDIGESTION Last Admin: 09/22/16 18:02 Dose: 30 ml Apixaban (Eliquis -) 2.5 mg PO BID [facility] Last Admin: 09/28/16 10:33 Dose: 2.5 mg Ascorbic Acid (Vitamin C -) 2,000 mg PO TID [facility] Last Admin: 09/28/16 14:14 Dose: 2,000 mg Bacitracin/Polymyxin B Sulfate (Polysporin Ointment -) 1 applic TP DAILY [facility] Last Admin: 09/28/16 10:33 Dose: 1 applic Cholecalciferol (Vitamin D3 -) 1,000 unit PO DAILY [facility] Last Admin: 09/28/16 10:33 Dose: 1,000 unit Digoxin (Lanoxin -) 0.125 mg PO DAILY [facility] Last Admin: 09/28/16 10:33 Dose: 0.125 mg Furosemide (Lasix Injection -) 40 mg IVPUSH BID@0600,1400 [facility] Last Admin: 09/28/16 14:14 Dose: 40 mg Vancomycin HCl (Vancomycin (Pre-Docked)) 100 mls @ 100 mls/hr IVPB DAILY@1230 [facility] Last Admin: 09/28/16 12:30 Dose: 100 mls/hr Levothyroxine Sodium (Synthroid -) 25 mcg PO DAILY@0700 [facility] Last Admin: 09/28/16 07:00 Dose: 25 mcg Metoprolol Tartrate (Lopressor -) 50 mg PO Q6HPO [facility] Last Admin: 09/28/16 17:25 Dose: Not Given Multivitamins/Minerals/Vitamin C (Tab-A-Vit -) 1 tab PO DAILY [facility] Last Admin: 09/28/16 10:33 Dose: 1 tab Piperacillin Sod/Tazobactam Sod (Zosyn 2.25gm Ivpb (Pre-Docked)) 2.25 gm IVPB Q6H-IV [facility] Last Admin: 09/28/16 14:18 Dose: 2.25 gm Valsartan (Diovan -) 40 mg PO DAILY [facility] Last Admin: 09/28/16 10:32 Dose: 40 mg - Objective Vital Signs: Vital Signs Temperature 97.9 F 09/28/16 17:00 Pulse Rate 98 H 09/28/16 17:00 Respiratory Rate 20 09/28/16 17:00 Blood Pressure 91/54 09/28/16 17:00 O2 Sat by Pulse Oximetry (%) 96 09/28/16 09:00 Constitutional: Yes: No Distress, Calm Eyes: Yes: Conjunctiva Clear HENT: Yes: Atraumatic Neck: Yes: Supple Cardiovascular: No: Regular Rate and Rhythm Respiratory: Yes: CTA Bilaterally Gastrointestinal: Yes: Soft. No: Distention, Tenderness Musculoskeletal: No: Joint Stiffness, Joint Swelling Extremities: Yes: Erythema (legs). No: Cold, Cool Edema: Yes Integumentary: Yes: Rash, Venous Stasis Changes Neurological: Yes: WNL, Alert, Oriented ...Motor Strength: WNL Psychiatric: Yes: WNL, Alert, Oriented. No: Agitated Labs: CBC, BMP 09/26/16 06:06 09/26/16 06:06 INR, PTT INR 1.84 (0.82-1.09) H D 09/21/16 19:43 - ....Imaging Other: Report Reviewed Assessment/Plan The patient is a 86 year old female, with a significant past medical history of AFib(on eliquis and lasix) , admitted via emergency department with bilateral lower legs pain and edema, also the patient has been more lethargic. Had fever 102 in ER. Admitted to telemetry with legs cellulitis, high WBC< hypotension, severe sepsis ; also rapid AFib and fluid overloaded IV ATB per ID diuretics and cardiac meds per cardiology falls PFX; f/u labs decubs PFX, turn frequently falls PFX do not get OOB alone prognosis guarded podiatry eval palliative care eval for advanced directives and HCP; PT rehab eval for OOB and ambulation
[2016-09-29] MEDS: PIPERACILLIN/TAZOB 2.25 GM/50 ML PRE-DOCKED BAG IVPB SCH ×4 (04:00→22:03)
[2016-09-29] MEDS: METOPROLOL TARTRATE 50 MG TABLET (FP) PO SCH ×4 (06:49→22:04)
[2016-09-29] MEDS: ASCORBIC ACID 500 MG TABLET (FP) PO SCH ×3 (06:54→22:04)
[2016-09-29] MEDS: LEVOTHYROXINE NA 25 MCG TABLET (FP) PO SCH (06:54)
[2016-09-29] MEDS: FUROSEMIDE 40 MG/4 ML INJECTABLE VIAL IVPUSH SCH (06:59)
[2016-09-29 07:54] LABS: BASOPHIL 1.2 % (0-2.0); EOSINOPHIL 5.9 % (0-4.5); MEAN CELL VOLUME 90.9 fl (80-96); MEAN PLT VOLUME 8.7 fl (7.5-11.1); NEUTROPHILS 70.9 % (42.8-82.8); PLATELET COUNT 288 K/MM3 (134-434); RDW 15.3 % (11.6-15.6); WHITE BLOOD COUNT 6.4 K/mm3 (4.0-10.0)
[2016-09-29 08:37] LABS: ALBUMIN 2.5 g/dl (3.4-5.0); BILIRUBIN,TOTAL 0.5 mg/dL (0.2-1.0); CALCIUM 8.6 mg/dL (8.5-10.1); CREATININE 1.1 mg/dL (0.55-1.02); TOT PROT 6.7 g/dl (6.4-8.2)
[2016-09-29] MEDS: CHOLECALCIFEROL (VITAMIN D3) 1,000 UNIT TABLET (FP) PO SCH (09:21)
[2016-09-29] MEDS: BACITRACIN/POLYMYXIN B SULFATE 15 GM TUBE TP SCH (09:21)
[2016-09-29] MEDS: VALSARTAN 40 MG TABLET (FP) PO SCH (09:21)
[2016-09-29] MEDS: DIGOXIN 0.125 MG TABLET (FP) PO SCH (09:21)
[2016-09-29] MEDS: MULTIVITAMINS (DAILY MVI) TABLET (FP) PO SCH (09:21)
[2016-09-29] MEDS: APIXABAN 2.5 MG TABLET PO SCH ×2 (09:21→22:04)
--- NOTE | 2016-09-29 09:33 | PN ---
Progress Note, Physician History of Present Illness: Rate-controlled afib, LE edema improving. - Current Medication List Current Medications: Active Medications Al Hydroxide/Mg Hydroxide (Mylanta Oral Suspension -) 30 ml PO QID PRN PRN Reason: INDIGESTION Last Admin: 09/22/16 18:02 Dose: 30 ml Apixaban (Eliquis -) 2.5 mg PO BID [facility] Last Admin: 09/29/16 09:21 Dose: 2.5 mg Ascorbic Acid (Vitamin C -) 2,000 mg PO TID [facility] Last Admin: 09/29/16 06:54 Dose: 2,000 mg Bacitracin/Polymyxin B Sulfate (Polysporin Ointment -) 1 applic TP DAILY [facility] Last Admin: 09/29/16 09:21 Dose: 1 applic Cholecalciferol (Vitamin D3 -) 1,000 unit PO DAILY [facility] Last Admin: 09/29/16 09:21 Dose: 1,000 unit Digoxin (Lanoxin -) 0.125 mg PO DAILY [facility] Last Admin: 09/29/16 09:21 Dose: 0.125 mg Furosemide (Lasix Injection -) 40 mg IVPUSH BID@0600,1400 [facility] Last Admin: 09/29/16 06:59 Dose: 40 mg Vancomycin HCl (Vancomycin (Pre-Docked)) 100 mls @ 100 mls/hr IVPB DAILY@1230 [facility] Last Admin: 09/28/16 12:30 Dose: 100 mls/hr Levothyroxine Sodium (Synthroid -) 25 mcg PO DAILY@0700 [facility] Last Admin: 09/29/16 06:54 Dose: 25 mcg Metoprolol Tartrate (Lopressor -) 50 mg PO Q6HPO [facility] Last Admin: 09/29/16 06:49 Dose: Not Given Multivitamins/Minerals/Vitamin C (Tab-A-Vit -) 1 tab PO DAILY [facility] Last Admin: 09/29/16 09:21 Dose: 1 tab Piperacillin Sod/Tazobactam Sod (Zosyn 2.25gm Ivpb (Pre-Docked)) 2.25 gm IVPB Q6H-IV [facility] Last Admin: 09/29/16 09:21 Dose: 2.25 gm Valsartan (Diovan -) 40 mg PO DAILY [facility] Last Admin: 09/29/16 09:21 Dose: 40 mg - Objective Vital Signs: Vital Signs Temperature 99.5 F 09/29/16 02:00 Pulse Rate 109 H 09/29/16 09:21 Respiratory Rate 20 09/29/16 06:00 Blood Pressure 94/63 09/29/16 06:00 O2 Sat by Pulse Oximetry (%) 96 09/28/16 21:00 Constitutional: Yes: No Distress, Calm Neck: Yes: Supple Cardiovascular: Yes: Pulse Irregular, Murmur (2/6 SM) Respiratory: Yes: Regular, Diminished Gastrointestinal: Yes: Normal Bowel Sounds, Soft Extremities: Yes: Erythema Edema: Yes Edema: LLE: 1+, RLE: 1+ Labs: CBC, BMP 09/29/16 05:36 09/29/16 05:36 INR, PTT INR 1.84 (0.82-1.09) H D 09/21/16 19:43 - ....Imaging EKG: Report Reviewed (Tele: Rate-controlled afib with PVC) Problem List - Problems (1) MOISES (acute kidney injury) Code(s): N17.9 - ACUTE KIDNEY FAILURE, UNSPECIFIED (2) Bilateral lower leg cellulitis Code(s): L03.116 - CELLULITIS OF LEFT LOWER LIMB L03.115 - CELLULITIS OF RIGHT LOWER LIMB (3) Hypothyroid Code(s): E03.9 - HYPOTHYROIDISM, UNSPECIFIED (4) Pulmonary hypertension Code(s): I27.2 - OTHER SECONDARY PULMONARY HYPERTENSION (5) Tricuspid regurgitation Code(s): I07.1 - RHEUMATIC TRICUSPID INSUFFICIENCY Qualifiers: Cardiac valve disease etiology: nonrheumatic Qualified Code(s): I36.1 - Nonrheumatic tricuspid (valve) insufficiency (6) Acute on chronic diastolic (congestive) heart failure Code(s): I50.33 - ACUTE ON CHRONIC DIASTOLIC (CONGESTIVE) HEART FAILURE (7) Aortic valvar stenosis Code(s): I35.0 - NONRHEUMATIC AORTIC (VALVE) STENOSIS Qualifiers: Cardiac valve disease etiology: nonrheumatic Qualified Code(s): I35.0 - Nonrheumatic aortic (valve) stenosis (8) Atrial fibrillation with RVR Code(s): I48.91 - UNSPECIFIED ATRIAL FIBRILLATION (9) Hypertensive cardiomegaly with heart failure Code(s): I11.0 - HYPERTENSIVE HEART DISEASE WITH HEART FAILURE Assessment/Plan Echocardiography performed 08/18/16 reveled normal LV size and function, Aortic stenosis moderate to severe NATI 0.7 cm2, moderate mitral regurgitation, severe tricuspid valve regurgitation with RVSP of 55 mmHg 1. Acute on chronic diastolic LV failure resolving 2. Persistent atrial fibrillation with periods of rapid ventricular response 3. 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 Aortic stenosis - moderate to severe in severity (NATI 0.7 cm 2) 5. Mitral regurgitation, moderate in severity 6. Tricuspid valve regurgitation (severe in severity) with moderate degree of pulmonary HTN, RVSP of 55 mmHg 7. Acute kidney injury 8. Cellulitis lower extremities 9. Hypothyroidism PLAN: 1. Change Lopressor 100 bid 2. Continue Diovan 40 qd as hemodynamics tolerate 3. Continue Eliquis 2.5 mg BID (Wt. < 60 Kg and age > 80) 4. Decrease Lasix 40 mg po QD and monitor renal function and electrolytes 5. Continue Digoxin 0.125 qd with caution 6. Empiric antibiotic course
--- NOTE | 2016-09-29 11:26 | PN ---
Progress Note, Physician History of Present Illness: No c/o leg pain No fever/ chills Tolerating zosyn Wound c/s pending - Current Medication List Current Medications: Active Medications Al Hydroxide/Mg Hydroxide (Mylanta Oral Suspension -) 30 ml PO QID PRN PRN Reason: INDIGESTION Last Admin: 09/22/16 18:02 Dose: 30 ml Apixaban (Eliquis -) 2.5 mg PO BID [facility] Last Admin: 09/29/16 09:21 Dose: 2.5 mg Ascorbic Acid (Vitamin C -) 2,000 mg PO TID [facility] Last Admin: 09/29/16 06:54 Dose: 2,000 mg Bacitracin/Polymyxin B Sulfate (Polysporin Ointment -) 1 applic TP DAILY [facility] Last Admin: 09/29/16 09:21 Dose: 1 applic Cholecalciferol (Vitamin D3 -) 1,000 unit PO DAILY [facility] Last Admin: 09/29/16 09:21 Dose: 1,000 unit Digoxin (Lanoxin -) 0.125 mg PO DAILY [facility] Last Admin: 09/29/16 09:21 Dose: 0.125 mg Furosemide (Lasix -) 40 mg PO DAILY [facility] Vancomycin HCl (Vancomycin (Pre-Docked)) 100 mls @ 100 mls/hr IVPB DAILY@1230 [facility] Last Admin: 09/28/16 12:30 Dose: 100 mls/hr Levothyroxine Sodium (Synthroid -) 25 mcg PO DAILY@0700 [facility] Last Admin: 09/29/16 06:54 Dose: 25 mcg Metoprolol Tartrate (Lopressor -) 100 mg PO BID [facility] Multivitamins/Minerals/Vitamin C (Tab-A-Vit -) 1 tab PO DAILY [facility] Last Admin: 09/29/16 09:21 Dose: 1 tab Piperacillin Sod/Tazobactam Sod (Zosyn 2.25gm Ivpb (Pre-Docked)) 2.25 gm IVPB Q6H-IV [facility] Last Admin: 09/29/16 09:21 Dose: 2.25 gm Valsartan (Diovan -) 40 mg PO DAILY [facility] Last Admin: 09/29/16 09:21 Dose: 40 mg - Objective Vital Signs: Vital Signs Temperature 99.5 F 09/29/16 02:00 Pulse Rate 109 H 09/29/16 09:21 Respiratory Rate 20 09/29/16 06:00 Blood Pressure 94/63 09/29/16 06:00 O2 Sat by Pulse Oximetry (%) 96 09/28/16 21:00 Constitutional: Yes: No Distress Cardiovascular: Yes: Regular Rate and Rhythm, S1, S2 Respiratory: Yes: CTA Bilaterally Gastrointestinal: Yes: Normal Bowel Sounds, Soft. No: Tenderness Extremities: Yes: Other (erythema L LE resolved decreased erythema R LE No wound drinage noted) Labs: CBC, BMP 09/29/16 05:36 09/29/16 05:36 INR, PTT INR 1.84 (0.82-1.09) H D 09/21/16 19:43 Assessment/Plan Bilateral LE cellulitis- improved Leukocytosis- resolved CHF Possible cephalosporin allergy Check wound c/s Continue vancomycin/ zosyn
[2016-09-29] MEDS: FUROSEMIDE 40 MG TABLET (FP) PO SCH (12:22)
[2016-09-29] MEDS: VANCOMYCIN (PRE-DOCKED) 100 ML IVPB SCH (14:48)
--- NOTE | 2016-09-29 22:30 | PN ---
Progress Note, Physician Chief Complaint: as some loose stools; feels weak, has again pain in her legs borderline low BP - Current Medication List Current Medications: Active Medications Al Hydroxide/Mg Hydroxide (Mylanta Oral Suspension -) 30 ml PO QID PRN PRN Reason: INDIGESTION Last Admin: 09/22/16 18:02 Dose: 30 ml Apixaban (Eliquis -) 2.5 mg PO BID [facility] Last Admin: 09/29/16 22:04 Dose: 2.5 mg Ascorbic Acid (Vitamin C -) 2,000 mg PO TID [facility] Last Admin: 09/29/16 22:04 Dose: 2,000 mg Bacitracin/Polymyxin B Sulfate (Polysporin Ointment -) 1 applic TP DAILY [facility] Last Admin: 09/29/16 09:21 Dose: 1 applic Cholecalciferol (Vitamin D3 -) 1,000 unit PO DAILY [facility] Last Admin: 09/29/16 09:21 Dose: 1,000 unit Digoxin (Lanoxin -) 0.125 mg PO DAILY [facility] Last Admin: 09/29/16 09:21 Dose: 0.125 mg Furosemide (Lasix -) 40 mg PO DAILY [facility] Last Admin: 09/29/16 12:22 Dose: Not Given Vancomycin HCl (Vancomycin (Pre-Docked)) 100 mls @ 100 mls/hr IVPB DAILY@1230 [facility] Last Admin: 09/29/16 14:48 Dose: 100 mls/hr Levothyroxine Sodium (Synthroid -) 25 mcg PO DAILY@0700 [facility] Last Admin: 09/29/16 06:54 Dose: 25 mcg Metoprolol Tartrate (Lopressor -) 100 mg PO BID [facility] Last Admin: 09/29/16 22:04 Dose: Not Given Multivitamins/Minerals/Vitamin C (Tab-A-Vit -) 1 tab PO DAILY [facility] Last Admin: 09/29/16 09:21 Dose: 1 tab Piperacillin Sod/Tazobactam Sod (Zosyn 2.25gm Ivpb (Pre-Docked)) 2.25 gm IVPB Q6H-IV [facility] Last Admin: 09/29/16 22:03 Dose: 2.25 gm Valsartan (Diovan -) 40 mg PO DAILY [facility] Last Admin: 09/29/16 09:21 Dose: 40 mg - Objective Vital Signs: Vital Signs Temperature 97.4 F L 09/29/16 18:00 Pulse Rate 125 H 09/29/16 14:00 Respiratory Rate 20 09/29/16 21:05 Blood Pressure 109/52 09/29/16 18:00 O2 Sat by Pulse Oximetry (%) 96 09/29/16 21:00 Constitutional: Yes: No Distress Eyes: Yes: Conjunctiva Clear HENT: Yes: Atraumatic Neck: Yes: Supple Cardiovascular: No: Regular Rate and Rhythm Respiratory: Yes: Diminished Gastrointestinal: Yes: Soft. No: Distention, Tenderness Genitourinary: No: CVA Tenderness - Left, CVA Tenderness - Right Musculoskeletal: No: Joint Stiffness, Joint Swelling Extremities: No: Cold, Cool Edema: Yes Peripheral Pulses WNL: Yes Integumentary: Yes: Rash (legs), Venous Stasis Changes Neurological: Yes: WNL, Alert, Oriented ...Motor Strength: WNL Psychiatric: Yes: WNL, Alert, Oriented. No: Agitated Labs: CBC, BMP 09/29/16 05:36 09/29/16 05:36 INR, PTT INR 1.84 (0.82-1.09) H D 09/21/16 19:43 - ....Imaging Other: Report Reviewed Assessment/Plan The patient is a 86 year old female, with a significant past medical history of AFib(on eliquis and lasix) , admitted via emergency department with bilateral lower legs pain and edema, also the patient has been more lethargic. Had fever 102 in ER. Admitted to telemetry with legs cellulitis, high WBC< hypotension, severe sepsis ; also rapid AFib and fluid overloaded IV ATB per ID diuretics and cardiac meds per cardiology falls PFX; f/u labs decubs PFX, turn frequently falls PFX do not get OOB alone prognosis guarded palliative care eval for advanced directives and HCP; PT rehab eval for OOB and ambulation
[2016-09-30] MEDS: PIPERACILLIN/TAZOB 2.25 GM/50 ML PRE-DOCKED BAG IVPB SCH ×4 (03:36→22:03)
[2016-09-30] MEDS: LEVOTHYROXINE NA 25 MCG TABLET (FP) PO SCH (06:06)
[2016-09-30] MEDS: ASCORBIC ACID 500 MG TABLET (FP) PO SCH ×3 (06:06→22:03)
[2016-09-30 09:04] LABS: CALCIUM 8.3 mg/dL (8.5-10.1)
[2016-09-30] MEDS: DIGOXIN 0.125 MG TABLET (FP) PO SCH (09:54)
[2016-09-30] MEDS: VALSARTAN 40 MG TABLET (FP) PO SCH (09:54)
[2016-09-30] MEDS: APIXABAN 2.5 MG TABLET PO SCH ×2 (09:54→22:03)
[2016-09-30] MEDS: METOPROLOL TARTRATE 50 MG TABLET (FP) PO SCH ×2 (09:54→22:03)
[2016-09-30] MEDS: MULTIVITAMINS (DAILY MVI) TABLET (FP) PO SCH (09:54)
[2016-09-30] MEDS: CHOLECALCIFEROL (VITAMIN D3) 1,000 UNIT TABLET (FP) PO SCH (09:54)
[2016-09-30] MEDS: FUROSEMIDE 40 MG TABLET (FP) PO SCH (09:54)
[2016-09-30] MEDS: BACITRACIN/POLYMYXIN B SULFATE 15 GM TUBE TP SCH (09:54)
--- NOTE | 2016-09-30 09:56 | PN ---
Progress Note, Physician Chief Complaint: in bed feels better today, no legs pains, less rash less swelling,a febrile, still on 2 IV ATB per ID; some soft stools - Current Medication List Current Medications: Active Medications Al Hydroxide/Mg Hydroxide (Mylanta Oral Suspension -) 30 ml PO QID PRN PRN Reason: INDIGESTION Last Admin: 09/22/16 18:02 Dose: 30 ml Apixaban (Eliquis -) 2.5 mg PO BID [facility] Last Admin: 09/29/16 22:04 Dose: 2.5 mg Ascorbic Acid (Vitamin C -) 2,000 mg PO TID [facility] Last Admin: 09/30/16 06:06 Dose: 2,000 mg Bacitracin/Polymyxin B Sulfate (Polysporin Ointment -) 1 applic TP DAILY [facility] Last Admin: 09/29/16 09:21 Dose: 1 applic Cholecalciferol (Vitamin D3 -) 1,000 unit PO DAILY [facility] Last Admin: 09/29/16 09:21 Dose: 1,000 unit Digoxin (Lanoxin -) 0.125 mg PO DAILY [facility] Last Admin: 09/29/16 09:21 Dose: 0.125 mg Furosemide (Lasix -) 40 mg PO DAILY [facility] Last Admin: 09/29/16 12:22 Dose: Not Given Vancomycin HCl (Vancomycin (Pre-Docked)) 100 mls @ 100 mls/hr IVPB DAILY@1230 [facility] Last Admin: 09/29/16 14:48 Dose: 100 mls/hr Levothyroxine Sodium (Synthroid -) 25 mcg PO DAILY@0700 [facility] Last Admin: 09/30/16 06:06 Dose: 25 mcg Metoprolol Tartrate (Lopressor -) 100 mg PO BID [facility] Last Admin: 09/29/16 22:04 Dose: Not Given Multivitamins/Minerals/Vitamin C (Tab-A-Vit -) 1 tab PO DAILY [facility] Last Admin: 09/29/16 09:21 Dose: 1 tab Piperacillin Sod/Tazobactam Sod (Zosyn 2.25gm Ivpb (Pre-Docked)) 2.25 gm IVPB Q6H-IV [facility] Last Admin: 09/30/16 03:36 Dose: 2.25 gm Valsartan (Diovan -) 40 mg PO DAILY [facility] Last Admin: 02/03/17 09:21 Dose: 40 mg - Objective Vital Signs: Vital Signs Temperature 97.7 F 09/30/16 06:00 Pulse Rate 106 H 09/30/16 06:00 Respiratory Rate 18 09/30/16 06:00 Blood Pressure 102/59 09/30/16 06:00 O2 Sat by Pulse Oximetry (%) 96 09/29/16 21:00 Constitutional: Yes: No Distress, Calm Eyes: Yes: Conjunctiva Clear HENT: Yes: Atraumatic Neck: Yes: Supple Cardiovascular: No: Regular Rate and Rhythm Respiratory: Yes: CTA Bilaterally Gastrointestinal: Yes: Soft. No: Distention, Tenderness Genitourinary: No: Hematuria Musculoskeletal: No: Joint Stiffness, Joint Swelling Extremities: No: Cold, Cool Edema: Yes Peripheral Pulses WNL: Yes Neurological: Yes: WNL, Alert, Oriented ...Motor Strength: WNL Psychiatric: Yes: WNL, Alert, Oriented. No: Agitated Labs: CBC, BMP 09/29/16 05:36 09/30/16 05:55 INR, PTT INR 1.84 (0.82-1.09) H D 09/21/16 19:43 - ....Imaging Other: Report Reviewed Assessment/Plan The patient is a 86 year old female, with a significant past medical history of AFib(on eliquis and lasix) , admitted via emergency department with bilateral lower legs pain and edema, also the patient has been more lethargic. Had fever 102 in ER. Admitted to telemetry with legs cellulitis, high WBC< hypotension, severe sepsis ; also rapid AFib and fluid overloaded IV ATB per ID diuretics and cardiac meds per cardiology falls PFX; f/u labs decubs PFX, turn frequently falls PFX do not get OOB alone prognosis guarded PT rehab eval for OOB and ambulation
--- NOTE | 2016-09-30 11:05 | PN ---
Progress Note, Physician History of Present Illness: No c/o leg pain Tolerating antibiotics No fever/ chills - Current Medication List Current Medications: Active Medications Al Hydroxide/Mg Hydroxide (Mylanta Oral Suspension -) 30 ml PO QID PRN PRN Reason: INDIGESTION Last Admin: 09/22/16 18:02 Dose: 30 ml Apixaban (Eliquis -) 2.5 mg PO BID [facility] Last Admin: 09/30/16 09:54 Dose: 2.5 mg Ascorbic Acid (Vitamin C -) 2,000 mg PO TID [facility] Last Admin: 09/30/16 06:06 Dose: 2,000 mg Bacitracin/Polymyxin B Sulfate (Polysporin Ointment -) 1 applic TP DAILY [facility] Last Admin: 09/30/16 09:54 Dose: 1 applic Cholecalciferol (Vitamin D3 -) 1,000 unit PO DAILY [facility] Last Admin: 09/30/16 09:54 Dose: 1,000 unit Digoxin (Lanoxin -) 0.125 mg PO DAILY [facility] Last Admin: 09/30/16 09:54 Dose: 0.125 mg Furosemide (Lasix -) 40 mg PO DAILY [facility] Last Admin: 09/30/16 09:54 Dose: 40 mg Vancomycin HCl (Vancomycin (Pre-Docked)) 100 mls @ 100 mls/hr IVPB DAILY@1230 [facility] Last Admin: 09/29/16 14:48 Dose: 100 mls/hr Levothyroxine Sodium (Synthroid -) 25 mcg PO DAILY@0700 [facility] Last Admin: 09/30/16 06:06 Dose: 25 mcg Metoprolol Tartrate (Lopressor -) 100 mg PO BID [facility] Last Admin: 09/30/16 09:54 Dose: 100 mg Multivitamins/Minerals/Vitamin C (Tab-A-Vit -) 1 tab PO DAILY [facility] Last Admin: 09/30/16 09:54 Dose: 1 tab Piperacillin Sod/Tazobactam Sod (Zosyn 2.25gm Ivpb (Pre-Docked)) 2.25 gm IVPB Q6H-IV [facility] Last Admin: 09/30/16 09:54 Dose: 2.25 gm Valsartan (Diovan -) 40 mg PO DAILY [facility] Last Admin: 09/30/16 09:54 Dose: 40 mg - Objective Vital Signs: Vital Signs Temperature 98.4 F 09/30/16 10:00 Pulse Rate 109 H 09/30/16 10:00 Respiratory Rate 18 09/30/16 10:00 Blood Pressure 123/80 09/30/16 10:00 O2 Sat by Pulse Oximetry (%) 96 09/30/16 09:00 Constitutional: Yes: No Distress Eyes: Yes: Conjunctiva Clear Cardiovascular: Yes: Regular Rate and Rhythm, S1, S2 Respiratory: Yes: CTA Bilaterally Gastrointestinal: Yes: Normal Bowel Sounds, Soft. No: Tenderness Extremities: Yes: Other (decreasing erythema/ warmth R LE) Labs: CBC, BMP 09/29/16 05:36 09/30/16 05:55 INR, PTT INR 1.84 (0.82-1.09) H D 09/21/16 19:43 Assessment/Plan Bilateral LE cellulitis- improved Leukocytosis- resolved CHF Possible cephalosporin allergy wound c/s pending Continue vancomycin/ zosyn
[2016-09-30] MEDS ORDERED: PT OWN MED DRAWER 7, Y5N ONE (12:22)
[2016-09-30] MEDS: VANCOMYCIN (PRE-DOCKED) 100 ML IVPB SCH (12:24)
[2016-09-30] MEDS: MAG HYDROX/AL HYDROX/SIMETH 30 ML UNIT-DOSE CUP PO PRN (17:31)
[2016-10-01] MEDS: PIPERACILLIN/TAZOB 2.25 GM/50 ML PRE-DOCKED BAG IVPB SCH ×4 (03:40→21:40)
[2016-10-01] MEDS: ASCORBIC ACID 500 MG TABLET (FP) PO SCH ×3 (06:52→21:40)
[2016-10-01] MEDS: LEVOTHYROXINE NA 25 MCG TABLET (FP) PO SCH (06:52)
--- NOTE | 2016-10-01 08:06 | PN ---
Progress Note, Physician History of Present Illness: Episodes of rapid afib while ambulating, LE cellulitis improving. - Current Medication List Current Medications: Active Medications Al Hydroxide/Mg Hydroxide (Mylanta Oral Suspension -) 30 ml PO QID PRN PRN Reason: INDIGESTION Last Admin: 09/30/16 17:31 Dose: 30 ml Apixaban (Eliquis -) 2.5 mg PO BID [facility] Last Admin: 09/30/16 22:03 Dose: 2.5 mg Ascorbic Acid (Vitamin C -) 2,000 mg PO TID [facility] Last Admin: 10/01/16 06:52 Dose: 2,000 mg Bacitracin/Polymyxin B Sulfate (Polysporin Ointment -) 1 applic TP DAILY [facility] Last Admin: 09/30/16 09:54 Dose: 1 applic Cholecalciferol (Vitamin D3 -) 1,000 unit PO DAILY [facility] Last Admin: 09/30/16 09:54 Dose: 1,000 unit Digoxin (Lanoxin -) 0.125 mg PO DAILY [facility] Last Admin: 09/30/16 09:54 Dose: 0.125 mg Furosemide (Lasix -) 40 mg PO DAILY [facility] Last Admin: 09/30/16 09:54 Dose: 40 mg Vancomycin HCl (Vancomycin (Pre-Docked)) 100 mls @ 100 mls/hr IVPB DAILY@1230 [facility] Last Admin: 09/30/16 12:24 Dose: 100 mls/hr Levothyroxine Sodium (Synthroid -) 25 mcg PO DAILY@0700 [facility] Last Admin: 10/01/16 06:52 Dose: 25 mcg Metoprolol Tartrate (Lopressor -) 100 mg PO BID [facility] Last Admin: 09/30/16 22:03 Dose: 100 mg Multivitamins/Minerals/Vitamin C (Tab-A-Vit -) 1 tab PO DAILY [facility] Last Admin: 09/30/16 09:54 Dose: 1 tab Piperacillin Sod/Tazobactam Sod (Zosyn 2.25gm Ivpb (Pre-Docked)) 2.25 gm IVPB Q6H-IV [facility] Last Admin: 10/01/16 03:40 Dose: 2.25 gm Valsartan (Diovan -) 40 mg PO DAILY [facility] Last Admin: 09/30/16 09:54 Dose: 40 mg - Objective Vital Signs: Vital Signs Temperature 97.0 F L 10/01/16 01:40 Pulse Rate 93 H 10/01/16 01:40 Respiratory Rate 18 10/01/16 01:40 Blood Pressure 106/58 10/01/16 01:40 O2 Sat by Pulse Oximetry (%) 95 09/30/16 21:00 Constitutional: Yes: No Distress, Calm Neck: Yes: Supple Cardiovascular: Yes: Tachycardia, Pulse Irregular, Murmur (2/6 SM) Respiratory: Yes: Regular, Diminished Gastrointestinal: Yes: Normal Bowel Sounds, Soft Edema: Yes Edema: LLE: Trace, RLE: Trace Labs: CBC, BMP 09/29/16 05:36 09/30/16 05:55 INR, PTT INR 1.84 (0.82-1.09) H D 09/21/16 19:43 - ....Imaging EKG: Report Reviewed (Tele: Afib with RVR) Problem List - Problems (1) Bilateral lower leg cellulitis Code(s): L03.116 - CELLULITIS OF LEFT LOWER LIMB L03.115 - CELLULITIS OF RIGHT LOWER LIMB (2) Hypothyroid Code(s): E03.9 - HYPOTHYROIDISM, UNSPECIFIED (3) Pulmonary hypertension Code(s): I27.2 - OTHER SECONDARY PULMONARY HYPERTENSION (4) Tricuspid regurgitation Code(s): I07.1 - RHEUMATIC TRICUSPID INSUFFICIENCY Qualifiers: Cardiac valve disease etiology: nonrheumatic Qualified Code(s): I36.1 - Nonrheumatic tricuspid (valve) insufficiency (5) Acute on chronic diastolic (congestive) heart failure Code(s): I50.33 - ACUTE ON CHRONIC DIASTOLIC (CONGESTIVE) HEART FAILURE (6) Aortic valvar stenosis Code(s): I35.0 - NONRHEUMATIC AORTIC (VALVE) STENOSIS Qualifiers: Cardiac valve disease etiology: nonrheumatic Qualified Code(s): I35.0 - Nonrheumatic aortic (valve) stenosis (7) Atrial fibrillation with RVR Code(s): I48.91 - UNSPECIFIED ATRIAL FIBRILLATION (8) Hypertensive cardiomegaly with heart failure Code(s): I11.0 - HYPERTENSIVE HEART DISEASE WITH HEART FAILURE Assessment/Plan Echocardiography performed 08/18/16 reveled normal LV size and function, Aortic stenosis moderate to severe NATI 0.7 cm2, moderate mitral regurgitation, severe tricuspid valve regurgitation with RVSP of 55 mmHg 1. Acute on chronic diastolic LV failure resolving 2. Persistent atrial fibrillation with periods of rapid ventricular response 3. 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 Aortic stenosis - moderate to severe in severity (NATI 0.7 cm 2) 5. Mitral regurgitation, moderate in severity 6. Tricuspid valve regurgitation (severe in severity) with moderate degree of pulmonary HTN, RVSP of 55 mmHg 7. Acute kidney injury 8. Bilateral cellulitis lower extremities improved 9. Hypothyroidism PLAN: 1. Continue Lopressor 100 bid, add Cardizem CD 120 qd 2. Continue Diovan 40 qd as hemodynamics tolerate 3. Continue Eliquis 2.5 mg BID (Wt. < 60 Kg and age > 80) 4. Decrease Lasix 40 mg po QD and monitor renal function and electrolytes 5. Discontinue Digoxin 0.125 qd due to ineffectiveness with rate-control 6. Complete antibiotic course
[2016-10-01] MEDS: MULTIVITAMINS (DAILY MVI) TABLET (FP) PO SCH (09:59)
[2016-10-01] MEDS: CHOLECALCIFEROL (VITAMIN D3) 1,000 UNIT TABLET (FP) PO SCH (09:59)
[2016-10-01] MEDS: APIXABAN 2.5 MG TABLET PO SCH ×2 (09:59→21:40)
[2016-10-01] MEDS: VALSARTAN 40 MG TABLET (FP) PO SCH (09:59)
[2016-10-01] MEDS: FUROSEMIDE 40 MG TABLET (FP) PO SCH (09:59)
[2016-10-01] MEDS: METOPROLOL TARTRATE 50 MG TABLET (FP) PO SCH ×2 (10:00→21:40)
--- NOTE | 2016-10-01 10:28 | PN ---
Progress Note, Physician Chief Complaint: in bed nad afebrile, feels better less legs edema and pain; still on 2 IV ATB per ID; leg wounds better - Current Medication List Current Medications: Active Medications Al Hydroxide/Mg Hydroxide (Mylanta Oral Suspension -) 30 ml PO QID PRN PRN Reason: INDIGESTION Last Admin: 09/30/16 17:31 Dose: 30 ml Apixaban (Eliquis -) 2.5 mg PO BID [facility] Last Admin: 10/01/16 09:59 Dose: 2.5 mg Ascorbic Acid (Vitamin C -) 2,000 mg PO TID [facility] Last Admin: 10/01/16 06:52 Dose: 2,000 mg Bacitracin/Polymyxin B Sulfate (Polysporin Ointment -) 1 applic TP DAILY [facility] Last Admin: 09/30/16 09:54 Dose: 1 applic Cholecalciferol (Vitamin D3 -) 1,000 unit PO DAILY [facility] Last Admin: 10/01/16 09:59 Dose: 1,000 unit Diltiazem HCl (Cardizem Cd -) 120 mg PO DAILY [facility] Furosemide (Lasix -) 40 mg PO DAILY [facility] Last Admin: 10/01/16 09:59 Dose: 40 mg Vancomycin HCl 500 mg/ (Dextrose) 100 mls @ 100 mls/hr IVPB DAILY@1230 [facility] Levothyroxine Sodium (Synthroid -) 25 mcg PO DAILY@0700 [facility] Last Admin: 10/01/16 06:52 Dose: 25 mcg Metoprolol Tartrate (Lopressor -) 100 mg PO BID [facility] Last Admin: 10/01/16 10:00 Dose: 100 mg Multivitamins/Minerals/Vitamin C (Tab-A-Vit -) 1 tab PO DAILY [facility] Last Admin: 10/01/16 09:59 Dose: 1 tab Piperacillin Sod/Tazobactam Sod (Zosyn 2.25gm Ivpb (Pre-Docked)) 2.25 gm IVPB Q6H-IV [facility] Last Admin: 10/01/16 10:00 Dose: 2.25 gm Valsartan (Diovan -) 40 mg PO DAILY [facility] Last Admin: 10/01/16 09:59 Dose: 40 mg - Objective Vital Signs: Vital Signs Temperature 97.0 F L 10/01/16 01:40 Pulse Rate 99 H 02/05/17 08:15 Respiratory Rate 20 10/01/16 08:15 Blood Pressure 120/69 10/01/16 08:15 O2 Sat by Pulse Oximetry (%) 95 09/30/16 21:00 Constitutional: Yes: No Distress, Calm Eyes: Yes: Conjunctiva Clear HENT: Yes: Atraumatic Neck: Yes: Supple Cardiovascular: No: Regular Rate and Rhythm Respiratory: Yes: CTA Bilaterally Gastrointestinal: Yes: Soft. No: Distention, Tenderness Genitourinary: No: CVA Tenderness - Left, CVA Tenderness - Right Musculoskeletal: No: Joint Stiffness, Joint Swelling Extremities: No: Cold, Cool Edema: Yes Peripheral Pulses WNL: Yes Integumentary: Yes: Venous Stasis Changes Wound/Incision: Yes: Dressing Dry and Intact (legs bilateral above ankles) Neurological: Yes: WNL, Alert, Oriented ...Motor Strength: WNL Psychiatric: Yes: WNL, Alert, Oriented. No: Agitated, Suicidal Ideation Labs: CBC, BMP 09/29/16 05:36 09/30/16 05:55 INR, PTT INR 1.84 (0.82-1.09) H D 09/21/16 19:43 - ....Imaging Other: Report Reviewed Assessment/Plan The patient is a 86 year old female, with a significant past medical history of AFib(on eliquis and lasix) , admitted via emergency department with bilateral lower legs pain and edema, also the patient has been more lethargic. Had fever 102 in ER. Admitted to telemetry with legs cellulitis, high WBC< hypotension, severe sepsis ; also rapid AFib and fluid overloaded IV ATB per ID diuretics and cardiac meds per cardiology falls PFX; f/u labs decubs PFX, turn frequently falls PFX do not get OOB alone prognosis guarded PT rehab eval for OOB and ambulation
[2016-10-01] MEDS ORDERED: VANCOMYCIN 500 MG in DEXTROSE 5%-WATER - 100 ML IVPB SCH (12:30)
[2016-10-01] MEDS: BACITRACIN/POLYMYXIN B SULFATE 15 GM TUBE TP SCH (13:16)
[2016-10-01] MEDS: MAG HYDROX/AL HYDROX/SIMETH 30 ML UNIT-DOSE CUP PO PRN (23:24)
[2016-10-02] MEDS: PIPERACILLIN/TAZOB 2.25 GM/50 ML PRE-DOCKED BAG IVPB SCH ×2 (04:12→10:11)
[2016-10-02] MEDS: ASCORBIC ACID 500 MG TABLET (FP) PO SCH ×3 (06:47→21:43)
[2016-10-02] MEDS: LEVOTHYROXINE NA 25 MCG TABLET (FP) PO SCH (06:47)
[2016-10-02] MEDS ORDERED: VANCOMYCIN (PRE-DOCKED) 100 ML IVPB SCH (07:00)
[2016-10-02 07:11] LABS: BASOPHIL 0.9 % (0-2.0); MCH 29.8 pg (25.7-33.7); MCHC 32.9 g/dl (32.0-36.0); MEAN CELL VOLUME 90.4 fl (80-96); MEAN PLT VOLUME 8.6 fl (7.5-11.1); NEUTROPHILS 79.2 % (42.8-82.8); PLATELET COUNT 350 K/MM3 (134-434); RDW 15.7 % (11.6-15.6)
[2016-10-02 07:43] LABS: ALBUMIN 2.7 g/dl (3.4-5.0); CALCIUM 8.6 mg/dL (8.5-10.1)
[2016-10-02 07:47] LABS: BILIRUBIN,TOTAL 0.6 mg/dL (0.2-1.0); TOT PROT 7.1 g/dl (6.4-8.2)
--- NOTE | 2016-10-02 09:52 | PN ---
Progress Note, Physician History of Present Illness: Afib rate-control improved, LE cellulitis improving. - Current Medication List Current Medications: Active Medications Al Hydroxide/Mg Hydroxide (Mylanta Oral Suspension -) 30 ml PO QID PRN PRN Reason: INDIGESTION Last Admin: 10/01/16 23:24 Dose: 30 ml Apixaban (Eliquis -) 2.5 mg PO BID [facility] Last Admin: 10/01/16 21:40 Dose: 2.5 mg Ascorbic Acid (Vitamin C -) 2,000 mg PO TID [facility] Last Admin: 10/02/16 06:47 Dose: 2,000 mg Bacitracin/Polymyxin B Sulfate (Polysporin Ointment -) 1 applic TP DAILY [facility] Last Admin: 10/01/16 13:16 Dose: 1 applic Cholecalciferol (Vitamin D3 -) 1,000 unit PO DAILY [facility] Last Admin: 10/01/16 09:59 Dose: 1,000 unit Diltiazem HCl (Cardizem Cd -) 120 mg PO DAILY [facility] Last Admin: 10/01/16 13:08 Dose: 120 mg Furosemide (Lasix -) 40 mg PO DAILY [facility] Last Admin: 10/01/16 09:59 Dose: 40 mg Vancomycin HCl 500 mg/ (Dextrose) 100 mls @ 100 mls/hr IVPB DAILY@1230 [facility] Last Admin: 10/01/16 13:09 Dose: 100 mls/hr Levothyroxine Sodium (Synthroid -) 25 mcg PO DAILY@0700 [facility] Last Admin: 10/02/16 06:47 Dose: 25 mcg Metoprolol Tartrate (Lopressor -) 100 mg PO BID [facility] Last Admin: 10/01/16 21:40 Dose: 100 mg Multivitamins/Minerals/Vitamin C (Tab-A-Vit -) 1 tab PO DAILY [facility] Last Admin: 10/01/16 09:59 Dose: 1 tab Piperacillin Sod/Tazobactam Sod (Zosyn 2.25gm Ivpb (Pre-Docked)) 2.25 gm IVPB Q6H-IV [facility] Last Admin: 10/02/16 04:12 Dose: 2.25 gm Valsartan (Diovan -) 40 mg PO DAILY [facility] Last Admin: 10/01/16 09:59 Dose: 40 mg - Objective Vital Signs: Vital Signs Temperature 96.4 F L 10/02/16 01:00 Pulse Rate 97 H 10/02/16 05:00 Respiratory Rate 20 10/02/16 05:00 Blood Pressure 122/78 10/02/16 05:00 O2 Sat by Pulse Oximetry (%) 96 10/01/16 20:27 Constitutional: Yes: No Distress, Calm Neck: Yes: Supple Cardiovascular: Yes: Pulse Irregular Respiratory: Yes: Regular, Diminished Gastrointestinal: Yes: Normal Bowel Sounds, Soft Edema: Yes Edema: LLE: Trace, RLE: Trace Labs: CBC, BMP 10/02/16 05:35 10/02/16 05:35 INR, PTT INR 1.84 (0.82-1.09) H D 09/21/16 19:43 Problem List - Problems (1) Bilateral lower leg cellulitis Code(s): L03.116 - CELLULITIS OF LEFT LOWER LIMB L03.115 - CELLULITIS OF RIGHT LOWER LIMB (2) Hypothyroid Code(s): E03.9 - HYPOTHYROIDISM, UNSPECIFIED (3) Pulmonary hypertension Code(s): I27.2 - OTHER SECONDARY PULMONARY HYPERTENSION (4) Tricuspid regurgitation Code(s): I07.1 - RHEUMATIC TRICUSPID INSUFFICIENCY Qualifiers: Cardiac valve disease etiology: nonrheumatic Qualified Code(s): I36.1 - Nonrheumatic tricuspid (valve) insufficiency (5) Acute on chronic diastolic (congestive) heart failure Code(s): I50.33 - ACUTE ON CHRONIC DIASTOLIC (CONGESTIVE) HEART FAILURE (6) Aortic valvar stenosis Code(s): I35.0 - NONRHEUMATIC AORTIC (VALVE) STENOSIS Qualifiers: Cardiac valve disease etiology: nonrheumatic Qualified Code(s): I35.0 - Nonrheumatic aortic (valve) stenosis (7) Atrial fibrillation with RVR Code(s): I48.91 - UNSPECIFIED ATRIAL FIBRILLATION (8) Hypertensive cardiomegaly with heart failure Code(s): I11.0 - HYPERTENSIVE HEART DISEASE WITH HEART FAILURE Assessment/Plan Echocardiography performed 08/18/16 reveled normal LV size and function, Aortic stenosis moderate to severe NATI 0.7 cm2, moderate mitral regurgitation, severe tricuspid valve regurgitation with RVSP of 55 mmHg 1. Acute on chronic diastolic LV failure resolving 2. Persistent atrial fibrillation with periods of rapid ventricular response 3. 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 Aortic stenosis - moderate to severe in severity (NATI 0.7 cm 2) 5. Mitral regurgitation, moderate in severity 6. Tricuspid valve regurgitation (severe in severity) with moderate degree of pulmonary HTN, RVSP of 55 mmHg 7. Acute kidney injury 8. Bilateral cellulitis lower extremities improved 9. Hypothyroidism PLAN: 1. Continue Lopressor 100 bid and Cardizem CD 120 qd 2. Continue Diovan 40 qd as hemodynamics tolerate 3. Continue Eliquis 2.5 mg BID (Wt. < 60 Kg and age > 80) 4. Continue Lasix 40 mg po QD and monitor renal function and electrolytes 5. Digoxin 0.125 qd discontinued due to ineffectiveness with rate-control 6. Complete antibiotic course
[2016-10-02] MEDS: BACITRACIN/POLYMYXIN B SULFATE 15 GM TUBE TP SCH (10:12)
[2016-10-02] MEDS: METOPROLOL TARTRATE 50 MG TABLET (FP) PO SCH ×2 (10:12→21:44)
[2016-10-02] MEDS: APIXABAN 2.5 MG TABLET PO SCH ×2 (10:12→21:44)
[2016-10-02] MEDS: CHOLECALCIFEROL (VITAMIN D3) 1,000 UNIT TABLET (FP) PO SCH (10:12)
[2016-10-02] MEDS: MULTIVITAMINS (DAILY MVI) TABLET (FP) PO SCH (10:12)
--- NOTE | 2016-10-02 13:28 | PN ---
Progress Note, Physician History of Present Illness: No c/o leg pain No fever/ chills Wound c/s MSSA, grp G strep - Current Medication List Current Medications: Active Medications Al Hydroxide/Mg Hydroxide (Mylanta Oral Suspension -) 30 ml PO QID PRN PRN Reason: INDIGESTION Last Admin: 10/01/16 23:24 Dose: 30 ml Apixaban (Eliquis -) 2.5 mg PO BID [facility] Last Admin: 10/02/16 10:12 Dose: 2.5 mg Ascorbic Acid (Vitamin C -) 2,000 mg PO TID [facility] Last Admin: 10/02/16 06:47 Dose: 2,000 mg Bacitracin/Polymyxin B Sulfate (Polysporin Ointment -) 1 applic TP DAILY [facility] Last Admin: 10/02/16 10:12 Dose: 1 applic Cholecalciferol (Vitamin D3 -) 1,000 unit PO DAILY [facility] Last Admin: 10/02/16 10:12 Dose: 1,000 unit Diltiazem HCl (Cardizem Cd -) 120 mg PO DAILY [facility] Last Admin: 10/02/16 10:11 Dose: 120 mg Furosemide (Lasix -) 40 mg PO DAILY [facility] Last Admin: 10/01/16 09:59 Dose: 40 mg Vancomycin HCl 500 mg/ (Dextrose) 100 mls @ 100 mls/hr IVPB DAILY@1230 [facility] Last Admin: 10/01/16 13:09 Dose: 100 mls/hr Levothyroxine Sodium (Synthroid -) 25 mcg PO DAILY@0700 [facility] Last Admin: 10/02/16 06:47 Dose: 25 mcg Metoprolol Tartrate (Lopressor -) 100 mg PO BID [facility] Last Admin: 10/02/16 10:12 Dose: 100 mg Multivitamins/Minerals/Vitamin C (Tab-A-Vit -) 1 tab PO DAILY [facility] Last Admin: 10/02/16 10:12 Dose: 1 tab Piperacillin Sod/Tazobactam Sod (Zosyn 2.25gm Ivpb (Pre-Docked)) 2.25 gm IVPB Q6H-IV [facility] Last Admin: 10/02/16 10:11 Dose: 2.25 gm Valsartan (Diovan -) 40 mg PO DAILY [facility] Last Admin: 10/01/16 09:59 Dose: 40 mg - Objective Vital Signs: Vital Signs Temperature 96.4 F L 10/02/16 01:00 Pulse Rate 97 H 10/02/16 05:00 Respiratory Rate 20 10/02/16 05:00 Blood Pressure 122/78 10/02/16 05:00 O2 Sat by Pulse Oximetry (%) 96 10/01/16 20:27 Constitutional: Yes: No Distress Eyes: Yes: Conjunctiva Clear Cardiovascular: Yes: Regular Rate and Rhythm, S1, S2 Respiratory: Yes: CTA Bilaterally Gastrointestinal: Yes: Normal Bowel Sounds, Soft. No: Tenderness Extremities: Yes: Other (erythema / warmth L LE resolved + dry ulcers erythema / warmth R LE nearly all resolved + dry Achillles tendon ulcer) Labs: CBC, BMP 10/02/16 05:35 10/02/16 05:35 INR, PTT INR 1.84 (0.82-1.09) H D 09/21/16 19:43 Assessment/Plan Bilateral LE cellulitis- improved Leukocytosis- resolved CHF Possible cephalosporin allergy Substitute po Augmentin 875mg bid x 3days
[2016-10-02] MEDS: VALSARTAN 40 MG TABLET (FP) PO SCH (13:37)
[2016-10-02] MEDS: FUROSEMIDE 40 MG TABLET (FP) PO SCH (13:37)
[2016-10-02] MEDS: AMOX TR/POT CLAV 875MG/125MG TABLETS (FP) PO SCH (17:28)
--- NOTE | 2016-10-02 17:52 | PN ---
Progress Note, Physician Chief Complaint: feels better less legs pains no CP/SOB; ambulatory - Current Medication List Current Medications: Active Medications Al Hydroxide/Mg Hydroxide (Mylanta Oral Suspension -) 30 ml PO QID PRN PRN Reason: INDIGESTION Last Admin: 10/01/16 23:24 Dose: 30 ml Amoxicillin/Clavulanate Potassium (Augmentin - 875mg Tablet) 1 tab PO BID@0800, 1730 [facility] Last Admin: 10/02/16 17:28 Dose: 1 tab Apixaban (Eliquis -) 2.5 mg PO BID [facility] Last Admin: 10/02/16 10:12 Dose: 2.5 mg Ascorbic Acid (Vitamin C -) 2,000 mg PO TID [facility] Last Admin: 10/02/16 13:50 Dose: 2,000 mg Bacitracin/Polymyxin B Sulfate (Polysporin Ointment -) 1 applic TP DAILY [facility] Last Admin: 10/02/16 10:12 Dose: 1 applic Cholecalciferol (Vitamin D3 -) 1,000 unit PO DAILY [facility] Last Admin: 10/02/16 10:12 Dose: 1,000 unit Diltiazem HCl (Cardizem Cd -) 120 mg PO DAILY [facility] Last Admin: 10/02/16 10:11 Dose: 120 mg Furosemide (Lasix -) 40 mg PO DAILY [facility] Last Admin: 10/02/16 13:37 Dose: Not Given Levothyroxine Sodium (Synthroid -) 25 mcg PO DAILY@0700 [facility] Last Admin: 10/02/16 06:47 Dose: 25 mcg Metoprolol Tartrate (Lopressor -) 100 mg PO BID [facility] Last Admin: 10/02/16 10:12 Dose: 100 mg Multivitamins/Minerals/Vitamin C (Tab-A-Vit -) 1 tab PO DAILY [facility] Last Admin: 10/02/16 10:12 Dose: 1 tab Valsartan (Diovan -) 40 mg PO DAILY [facility] Last Admin: 10/02/16 13:37 Dose: Not Given - Objective Vital Signs: Vital Signs Temperature 97 F L 10/02/16 14:05 Pulse Rate 94 H 10/02/16 14:05 Respiratory Rate 18 10/02/16 14:05 Blood Pressure 98/69 10/02/16 14:05 O2 Sat by Pulse Oximetry (%) 97 10/02/16 09:00 Constitutional: Yes: No Distress Eyes: Yes: Conjunctiva Clear HENT: Yes: Atraumatic Neck: Yes: Supple Cardiovascular: No: Regular Rate and Rhythm Respiratory: Yes: CTA Bilaterally Gastrointestinal: Yes: Soft. No: Distention, Tenderness Genitourinary: No: CVA Tenderness - Left, CVA Tenderness - Right Musculoskeletal: No: Joint Stiffness, Joint Swelling Extremities: No: Cold, Cool Edema: Yes Peripheral Pulses WNL: Yes Integumentary: Yes: Rash (less) Wound/Incision: Yes: Clean/Dry Neurological: Yes: WNL, Alert, Oriented ...Motor Strength: WNL Psychiatric: Yes: WNL, Alert, Oriented. No: Agitated Labs: CBC, BMP 10/02/16 05:35 10/02/16 05:35 INR, PTT INR 1.84 (0.82-1.09) H D 09/21/16 19:43 - ....Imaging Other: Report Reviewed Assessment/Plan The patient is a 86 year old female, with a significant past medical history of AFib(on eliquis and lasix) , admitted via emergency department with bilateral lower legs pain and edema, also the patient has been more lethargic. Had fever 102 in ER. Admitted to telemetry with legs cellulitis, high WBC< hypotension, severe sepsis ; also rapid AFib and fluid overloaded IV ATB per ID diuretics and cardiac meds per cardiology falls PFX; f/u labs decubs PFX, turn frequently falls PFX do not get OOB alone prognosis guarded PT rehab eval for OOB and ambulation I d/w pt and pt's son, pt does not want SNF she wants to go home; pt refused cardioversion in the past will d/w pt and cardiology again in am
[2016-10-03] MEDS: ASCORBIC ACID 500 MG TABLET (FP) PO SCH ×3 (06:29→21:20)
[2016-10-03] MEDS: LEVOTHYROXINE NA 25 MCG TABLET (FP) PO SCH (06:29)
[2016-10-03] MEDS: AMOX TR/POT CLAV 875MG/125MG TABLETS (FP) PO SCH ×2 (09:18→16:57)
[2016-10-03] MEDS: APIXABAN 2.5 MG TABLET PO SCH ×2 (09:18→21:20)
[2016-10-03] MEDS: FUROSEMIDE 40 MG TABLET (FP) PO SCH (09:18)
[2016-10-03] MEDS: CHOLECALCIFEROL (VITAMIN D3) 1,000 UNIT TABLET (FP) PO SCH (09:18)
[2016-10-03] MEDS: METOPROLOL TARTRATE 50 MG TABLET (FP) PO SCH ×2 (09:18→21:19)
[2016-10-03] MEDS: MULTIVITAMINS (DAILY MVI) TABLET (FP) PO SCH (09:18)
[2016-10-03] MEDS: VALSARTAN 40 MG TABLET (FP) PO SCH (09:19)
[2016-10-03 10:12] LABS: ALBUMIN 2.8 g/dl (3.4-5.0); BILIRUBIN,TOTAL 0.4 mg/dL (0.2-1.0); CALCIUM 8.7 mg/dL (8.5-10.1); TOT PROT 7.3 g/dl (6.4-8.2)
--- NOTE | 2016-10-03 10:28 | PN ---
Progress Note (short form) - Note Progress Note: Chief Complaint: Events noted, notes reviewed, denies any chest pain or dyspnea , remains in atrial fibrillation with periods of rapid ventricular response History of Present Illness: Seen and examined on telemetry. Events noted, notes reviewed, denies any chest pain or dyspnea, remains in atrial fibrillation with periods of rapid ventricular response Patient not an ideal candidate for synchronized cardioversion at this point, considering the underlying valvular pathology, and if cardioversion is planned recommend initiation of Amiodarone therapy pre-cardioversion for few weeks To discuss with patient and family option of proceeding with TAVR for her AV stenosis Echocardiography performed 08/18/16 reveled normal LV size and function, Aortic stenosis moderate to severe NATI odf 0.7 cm2, moderate mitral regurgitation, severe tricuspid valve regurgitation with RVSP of 55 mmHg Medications: Current Medications Al Hydroxide/Mg Hydroxide (Mylanta Oral Suspension -) 30 ml PO QID PRN PRN Reason: INDIGESTION Last Admin: 10/01/16 23:24 Dose: 30 ml Amoxicillin/Clavulanate Potassium (Augmentin - 875mg Tablet) 1 tab PO BID@0800, 1730 [facility] Last Admin: 10/03/16 09:18 Dose: 1 tab Apixaban (Eliquis -) 2.5 mg PO BID [facility] Last Admin: 10/03/16 09:18 Dose: 2.5 mg Ascorbic Acid (Vitamin C -) 2,000 mg PO TID [facility] Last Admin: 10/03/16 06:29 Dose: 2,000 mg Bacitracin/Polymyxin B Sulfate (Polysporin Ointment -) 1 applic TP DAILY [facility] Last Admin: 10/02/16 10:12 Dose: 1 applic Cholecalciferol (Vitamin D3 -) 1,000 unit PO DAILY [facility] Last Admin: 10/03/16 09:18 Dose: 1,000 unit Diltiazem HCl (Cardizem Cd -) 120 mg PO DAILY [facility] Last Admin: 10/03/16 09:18 Dose: 120 mg Furosemide (Lasix -) 40 mg PO DAILY [facility] Last Admin: 10/03/16 09:18 Dose: 40 mg Levothyroxine Sodium (Synthroid -) 25 mcg PO DAILY@0700 [facility] Last Admin: 10/03/16 06:29 Dose: 25 mcg Metoprolol Tartrate (Lopressor -) 100 mg PO BID [facility] Last Admin: 10/03/16 09:18 Dose: 100 mg Multivitamins/Minerals/Vitamin C (Tab-A-Vit -) 1 tab PO DAILY [facility] Last Admin: 10/03/16 09:18 Dose: 1 tab Valsartan (Diovan -) 40 mg PO DAILY [facility] Last Admin: 10/03/16 09:19 Dose: 40 mg Review of Systems - Review of Systems Constitutional: denies: Chills, Fever Cardiovascular: As noted above Respiratory: denies: Cough or Sputum Production Gastrointestinal: denies: Nausea, Vomiting, Diarrhea, Constipation or Abdominal Pain Musculoskeletal: No symptoms reported Neurological: denies: Dizziness or Headaches Vital Signs: Last Vital Signs Temp Pulse Resp BP Pulse Ox 98 F 94 H 18 108/64 97 10/03/16 09:24 10/03/16 09:24 10/03/16 09:24 10/03/16 09:24 10/02/16 21:00 Neck: Supple Negative JVD No bruit Respiratory: Diminished Breath Sounds at the Bases Cardiovascular: S1 S2 Irregularly Irregular Grade 2/6 SM Gastrointestinal: Soft Benign Normal Bowel Sounds Ext: dressing in Situ Labs: CBC, BMP 10/02/16 05:35 10/03/16 09:45 Assessment/Plan ASSESSMENT: 1. Acute on chronic class II-III NYHA classification LV failure related to diastolic LV dysfunction, resolved 2. Persistent atrial fibrillation with periods of rapid ventricular response [id number] score of 5 on NOAC's 3. 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 Aortic stenosis moderate to severe in severity, NATI 0.7 cm 2 5. Mitral regurgitation, moderate in severity 6. 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 CKD 8. Cellulites lower extremities, resolving PLAN: 1. Continue Lopressor and Cardizem CD 2. Continue Diovan 3. Continue Eliquis adequate dose (Wt. < 60 Kg and age > 80) 4. Continue Lasix 5. As outlined above in reference to proceeding with possible atrial fibrillation cardioversion and possible TAVR for the the above noted AV stenosis to be discussed with the patient and her son Jess Richmond MD
[2016-10-03] MEDS: BACITRACIN/POLYMYXIN B SULFATE 15 GM TUBE TP SCH (12:08)
[2016-10-03] MEDS: AMIODARONE HCL 200 MG TABLET (FP) PO SCH (17:29)
--- NOTE | 2016-10-03 22:15 | PN ---
Progress Note, Physician Chief Complaint: no new c/o; d/w pt and cardiology about further mngt - cardioversion? aortic valve surgery? - Current Medication List Current Medications: Active Medications Al Hydroxide/Mg Hydroxide (Mylanta Oral Suspension -) 30 ml PO QID PRN PRN Reason: INDIGESTION Last Admin: 10/01/16 23:24 Dose: 30 ml Amiodarone HCl (Cordarone -) 200 mg PO DAILY [facility] Last Admin: 10/03/16 17:29 Dose: 200 mg Amoxicillin/Clavulanate Potassium (Augmentin - 875mg Tablet) 1 tab PO BID@0800, 1730 [facility] Last Admin: 10/03/16 16:57 Dose: 1 tab Apixaban (Eliquis -) 2.5 mg PO BID [facility] Last Admin: 10/03/16 21:20 Dose: 2.5 mg Ascorbic Acid (Vitamin C -) 2,000 mg PO TID [facility] Last Admin: 10/03/16 21:20 Dose: 2,000 mg Bacitracin/Polymyxin B Sulfate (Polysporin Ointment -) 1 applic TP DAILY [facility] Last Admin: 10/03/16 12:08 Dose: 1 applic Cholecalciferol (Vitamin D3 -) 1,000 unit PO DAILY [facility] Last Admin: 10/03/16 09:18 Dose: 1,000 unit Diltiazem HCl (Cardizem Cd -) 120 mg PO DAILY [facility] Last Admin: 10/03/16 09:18 Dose: 120 mg Furosemide (Lasix -) 40 mg PO DAILY [facility] Last Admin: 10/03/16 09:18 Dose: 40 mg Levothyroxine Sodium (Synthroid -) 25 mcg PO DAILY@0700 [facility] Last Admin: 10/03/16 06:29 Dose: 25 mcg Metoprolol Tartrate (Lopressor -) 100 mg PO BID [facility] Last Admin: 10/03/16 21:19 Dose: 100 mg Multivitamins/Minerals/Vitamin C (Tab-A-Vit -) 1 tab PO DAILY [facility] Last Admin: 10/03/16 09:18 Dose: 1 tab Valsartan (Diovan -) 40 mg PO DAILY [facility] Last Admin: 10/03/16 09:19 Dose: 40 mg - Objective Vital Signs: Vital Signs Temperature 97 F L 10/03/16 20:31 Pulse Rate 100 H 10/03/16 20:31 Respiratory Rate 20 02/07/17 20:32 Blood Pressure 114/68 10/03/16 20:31 O2 Sat by Pulse Oximetry (%) 96 10/03/16 20:32 Constitutional: Yes: No Distress, Calm Eyes: Yes: Conjunctiva Clear HENT: Yes: Atraumatic Neck: Yes: Supple Cardiovascular: No: Regular Rate and Rhythm Respiratory: Yes: CTA Bilaterally Gastrointestinal: Yes: Soft, Tenderness. No: Distention Musculoskeletal: No: Joint Stiffness, Joint Swelling Extremities: No: Cold, Cool Edema: Yes Peripheral Pulses WNL: Yes Integumentary: Yes: Rash, Venous Stasis Changes Neurological: Yes: WNL, Alert, Oriented ...Motor Strength: WNL Psychiatric: Yes: WNL, Alert, Oriented. No: Agitated, Suicidal Ideation Labs: CBC, BMP 10/02/16 05:35 10/03/16 09:45 INR, PTT INR 1.84 (0.82-1.09) H D 09/21/16 19:43 - ....Imaging Other: Report Reviewed Assessment/Plan The patient is a 86 year old female, with a significant past medical history of AFib(on eliquis and lasix) , admitted via emergency department with bilateral lower legs pain and edema, also the patient has been more lethargic. Had fever 102 in ER. Admitted to telemetry with legs cellulitis, high WBC< hypotension, severe sepsis ; also rapid AFib and fluid overloaded IV ATB per ID diuretics and cardiac meds per cardiology falls PFX; f/u labs decubs PFX, turn frequently falls PFX do not get OOB alone prognosis guarded PT rehab eval for OOB and ambulation further mngt per cardiology
[2016-10-04] MEDS: LEVOTHYROXINE NA 25 MCG TABLET (FP) PO SCH (06:20)
[2016-10-04] MEDS: ASCORBIC ACID 500 MG TABLET (FP) PO SCH ×2 (06:20→15:18)
[2016-10-04] MEDS: AMOX TR/POT CLAV 875MG/125MG TABLETS (FP) PO SCH (08:30)
[2016-10-04] MEDS: VALSARTAN 40 MG TABLET (FP) PO SCH (10:05)
[2016-10-04] MEDS: AMIODARONE HCL 200 MG TABLET (FP) PO SCH (10:05)
[2016-10-04] MEDS: FUROSEMIDE 40 MG TABLET (FP) PO SCH (10:06)
[2016-10-04] MEDS: APIXABAN 2.5 MG TABLET PO SCH (10:06)
[2016-10-04] MEDS: METOPROLOL TARTRATE 50 MG TABLET (FP) PO SCH (10:07)
[2016-10-04] MEDS: CHOLECALCIFEROL (VITAMIN D3) 1,000 UNIT TABLET (FP) PO SCH (10:09)
[2016-10-04] MEDS: MULTIVITAMINS (DAILY MVI) TABLET (FP) PO SCH (10:09)
[2016-10-04] MEDS: BACITRACIN/POLYMYXIN B SULFATE 15 GM TUBE TP SCH (10:43)
--- NOTE | 2016-10-04 12:26 | DS ---
Physical Examination Vital Signs: Vital Signs Temperature 97.5 F L 10/04/16 07:30 Pulse Rate 99 H 10/04/16 07:30 Respiratory Rate 20 10/04/16 07:30 Blood Pressure 120/76 10/04/16 07:30 O2 Sat by Pulse Oximetry (%) 96 10/03/16 20:32 Findings/Remarks: in bed nad no c/o wants to go home; had a long discussion with her and cardiology, cardioversion most likely will not be succesfull b/o structural heart ds, might need cardaic cath and Ao surgery first but at this point Antonella does not want any intervention done, aware of risks and consequences. Will DC home with [facility], d/w pt, son and CM and cardiology scripts done as needed; t time 40 min Constitutional: Yes: No Distress, Calm Eyes: Yes: Conjunctiva Clear HENT: Yes: Atraumatic Neck: Yes: Supple Cardiovascular: No: Regular Rate and Rhythm Respiratory: Yes: CTA Bilaterally Gastrointestinal: Yes: Soft. No: Distention, Tenderness Renal/: No: CVA Tenderness - Left, CVA Tenderness - Right Musculoskeletal: No: Joint Stiffness, Joint Swelling Extremities: No: Cold, Cool Edema: Yes (less) Peripheral Pulses WNL: Yes Integumentary: Yes: Venous Stasis Changes. No: Rash Wound/Incision: Yes: Clean/Dry Neurological: Yes: WNL, Alert, Oriented ...Motor Strength: WNL Psychiatric: Yes: WNL, Alert, Oriented. No: Agitated, Suicidal Ideation Labs: CBC, BMP 10/02/16 05:35 10/03/16 09:45 Discharge Summary Reason For Visit: BILATERAL PLEURAL EFFUSION AND CELLULITIS Current Active Problems MOISES (acute kidney injury) (Acute) Bilateral lower leg cellulitis (Acute) Bilateral pleural effusion (Acute) Drug rash (Acute) Hypothyroid (Acute) Pulmonary hypertension (Acute) Sepsis (Acute) Tricuspid regurgitation (Acute) Procedures: Principal: admitted with CHF exac fluid OL, legs edema and wounds, rapid AFib Other Procedures: placed in telemetry, seen by cardiology; diuresed; HR control; . also treated with IV ATB per ID; wounds care Hospital Course: improved with above; DC home with VNS and cardiology, PCP f/u Condition: Stable - Instructions Referrals: Androne,Caroline S [Primary Care Provider] - Disposition: [facility]/HOME HEALTH CARE - Home Medications Comprehensive Discharge Medication List: Ambulatory Orders Ascorbic Acid [Vitamin C -] 2,000 mg PO TID 05/30/16 Calcium Carb/Mag Ox/Zinc Sulf [[id number]-[id number]-Jmpv Tablet] 1 tab PO DAILY 12/10 Cholecalciferol (Vitamin D3) [Vitamin D3 -] 1,000 unit PO DAILY 05/30/16 Multivitamins [Multivit ([facility])] 1 tab PO DAILY 05/30/16 Vitamin E 400 unit PO DAILY 05/30/16 Apixaban [Eliquis -] 2.5 mg PO BID #180 tablet 08/23/16 Furosemide [Lasix -] 40 mg PO DAILY #90 tablet 08/23/16 Losartan Potassium [Cozaar -] 25 mg PO DAILY #90 tablet 08/23/16 Metoprolol Tartrate [Lopressor -] 50 mg PO BID #180 tablet 08/23/16 Furosemide [Lasix] 40 mg PO DAILY 09/21/16
--- NOTE | 2016-10-04 12:41 | PN ---
Progress Note (short form) - Note Progress Note: S: 86 year old female, with history of aortic valvular disease with aortic stenosis, tricuspid regurgitation, mitral regurgitation, congestive heart failure. Cellulites associated with abrasion involving both lower extremities. Permanent atrial fibrillation and pulmonary hypertension. No history of dyspena either at rest or with exertion, no PND or orthopnea, Still has residual 1-2+ edema involving both lower extremities which are bandaged below the knee. No chest pain was reported, no history of palpitations. Denies having cough or expectorations. Active Medications Generic Name Dose Route Start Last Admin Trade Name Freq PRN Reason Stop Dose Admin Al Hydroxide/Mg Hydroxide 30 ml 09/22/16 17:01 10/01/16 23:24 Mylanta Oral Suspension - PO 30 ml QID PRN Administration INDIGESTION Amiodarone HCl 200 mg 10/03/16 17:15 10/04/16 10:05 Cordarone - PO 200 mg DAILY DEMETRIA Administration Amoxicillin/Clavulanate Potassium 1 tab 10/02/16 17:30 10/04/16 08:30 Augmentin - 875mg Tablet PO 1 tab BID@0800,1730 DEMETRIA Administration Apixaban 2.5 mg 09/22/16 00:15 10/04/16 10:06 Eliquis - PO 2.5 mg BID DEMETRIA Administration Ascorbic Acid 2,000 mg 09/22/16 06:00 10/04/16 06:20 Vitamin C - PO 2,000 mg TID DEMETRIA Administration Bacitracin/Polymyxin B Sulfate 1 applic 09/22/16 11:45 10/04/16 10:43 Polysporin Ointment - TP 1 applic DAILY DEMETRIA Administration Cholecalciferol 1,000 unit 09/22/16 10:00 10/04/16 10:09 Vitamin D3 - PO 1,000 unit DAILY DEMETRIA Administration Diltiazem HCl 120 mg 10/01/16 14:00 10/04/16 10:04 Cardizem Cd - PO 120 mg DAILY DEMETRIA Administration Furosemide 40 mg 09/29/16 10:00 10/04/16 10:06 Lasix - PO 40 mg DAILY DEMETRIA Administration Levothyroxine Sodium 25 mcg 09/25/16 07:00 10/04/16 06:20 Synthroid - PO 25 mcg DAILY@0700 DEMETRIA Administration Metoprolol Tartrate 100 mg 09/29/16 10:00 10/04/16 10:07 Lopressor - PO 100 mg BID DEMETRIA Administration Multivitamins/Minerals/Vitamin C 1 tab 09/22/16 10:00 10/04/16 10:09 Tab-A-Vit - PO 1 tab DAILY DEMETRIA Administration Valsartan 40 mg 09/24/16 10:55 10/04/16 10:05 Diovan - PO 40 mg DAILY DEMETRIA Administration O: 86 year old female was in no acute distress, no pallor, cyanosis, clubbing, or jaundice. Last Vital Signs Temp Pulse Resp BP Pulse Ox 97.5 F L 99 Irregularly Irregular 20 120/76 97 10/04/16 07:30 10/04/16 07:30 10/04/16 07:30 10/04/16 07:30 10/04/16 12:05 Neck: Supple, JVD 1-2 cm at 30 degrees. Pulsatile neck veins, positive HJR, carotids are equal. Heart: PMI was in the 5th intercostal space, no heaves or thrills, S1 was variable, S2 was split, grade II/ systolic murmur was heard along the left sternal border and apex, ejection systolic murmur II/ at the second intercostal space. No gallops were heard. Lungs: Decrease breath sounds at the right base, no extraneous sounds were heard. Abdomen: Soft, slight right upper quadrant guarding, pulsatile liver, no splenomegaly was appreciated. Extremities: No calf tenderness, 1-2+ bilateral pretibial edema, both calfs were bandaged. CBC, BMP 10/02/16 05:35 10/03/16 09:45 Impression: (1) Congestive heart failure, NYHA class II Code(s): I50.33 - CONGESTIVE HEART FAILURE (2) Tricuspid regurgitation Code(s): I07.1 - RHEUMATIC TRICUSPID INSUFFICIENCY Qualifiers: Cardiac valve disease etiology: nonrheumatic Qualified Code(s): I36.1 - Nonrheumatic tricuspid (valve) insufficiency (3) Pulmonary hypertension Code(s): I27.2 - OTHER SECONDARY PULMONARY HYPERTENSION (4) Hypothyroidism Code(s): E03.9 - HYPOTHYROIDISM, UNSPECIFIED (6) Aortic valvular stenosis, probably moderate to severe. Code(s): I35.0 - NONRHEUMATIC AORTIC (VALVE) STENOSIS Qualifiers: Cardiac valve disease etiology: nonrheumatic Qualified Code(s): I35.0 - Nonrheumatic aortic (valve) stenosis (7) Atrial fibrillation with controlled ventricular response Code(s): I48.91 - UNSPECIFIED ATRIAL FIBRILLATION (8) Hypertensive cardiomegaly with heart failure Code(s): I11.0 - HYPERTENSIVE HEART DISEASE WITH HEART FAILURE Recommendations: 1. Consider adding Aldactone initially at 12.5 mg PO daily and titrate dose. 2. Close follow up of electrolytes. 3. Patient should be re-evaluated for aortic valvular disease. 4. Progressive increase in ambulation. 5. Continue cardiac therapy as outlined. Attestation: Documentation prepared by Kevan Olson, acting as biomedical engineering technologist for Derrick Weems MD.
[2016-10-04 18:17] VITALS: BP 100/54; PULSE 109; TEMP 98.2
== END 2016-10-04 18:17 | disposition home health service (06) | DRG 871 ==
LOC: JER 18:10 → JERBED 22:43 → UNDOADMIN 22:43 → JERBED 09-22 00:08 → J4W 09-22 06:31
PROVIDERS: ADMIT Internal Medicine; ATTEND Internal Medicine
PROC: 0HBRXZZ Excision of Toe Nail, External Approach (ICD-10-PCS; principal; 2016-09-27)
PROC: 0HBRXZZ Excision of Toe Nail, External Approach (ICD-10-PCS; 2016-09-27)
PROC: 0HBRXZZ Excision of Toe Nail, External Approach (ICD-10-PCS; 2016-09-27)
PROC: 0HBRXZZ Excision of Toe Nail, External Approach (ICD-10-PCS; 2016-09-27)
PROC: 0HBRXZZ Excision of Toe Nail, External Approach (ICD-10-PCS; 2016-09-27)
PROC: 0HBRXZZ Excision of Toe Nail, External Approach (ICD-10-PCS; 2016-09-27)
PROC: 0HBRXZZ Excision of Toe Nail, External Approach (ICD-10-PCS; 2016-09-27)
PROC: 0HBRXZZ Excision of Toe Nail, External Approach (ICD-10-PCS; 2016-09-27)
PROC: 0HBRXZZ Excision of Toe Nail, External Approach (ICD-10-PCS; 2016-09-27)
PROC: 0HBRXZZ Excision of Toe Nail, External Approach (ICD-10-PCS; 2016-09-27)
DX: A41.9 Sepsis, unspecified organism (principal); I50.33 Acute on chronic diastolic (congestive) heart failure; I48.1 Persistent atrial fibrillation; L03.116 Cellulitis of left lower limb; L03.115 Cellulitis of right lower limb; N17.9 Acute kidney failure, unspecified; L97.921 Non-pressure chronic ulcer of unspecified part of left lower leg limited to breakdown of skin; Z79.01 Long term (current) use of anticoagulants; B95.61 Methicillin susceptible Staphylococcus aureus infection as the cause of diseases classified elsewhere; R60.0 Localized edema; I35.0 Nonrheumatic aortic (valve) stenosis; L27.1 Localized skin eruption due to drugs and medicaments taken internally; T36.1X5A Adverse effect of cephalosporins and other beta-lactam antibiotics, initial encounter; R65.20 Severe sepsis without septic shock; I11.0 Hypertensive heart disease with heart failure; I25.119 Atherosclerotic heart disease of native coronary artery with unspecified angina pectoris; I36.1 Nonrheumatic tricuspid (valve) insufficiency; I27.2 Other secondary pulmonary hypertension; B35.1 Tinea unguium; E03.9 Hypothyroidism, unspecified
CPT/HCPCS: 36415; 71010-TC; 80048; 80053; 80162; 81003; 81015; 82550; 82553; 82607; 83735; 83880; 84443; 84484; 85025; 85610; 86140; 87040; 87070; 87086; 87186; 87205; 93005; 93010; 93970-TC; 97116-GP; 97161-GP; 99284-25; G0480

== ENCOUNTER 2016-12-10 12:43 | Inpatient (IN) | payer OTHER ==
--- NOTE | 2016-12-10 13:13 | PDOC ---
History of Present Illness - General History Source: Patient, Family - History of Present Illness Timing/Duration: other Severity: severe Associated Symptoms: reports: weakness. denies: chest pain, cough, fever/chills , headaches, nausea/vomiting, shortness of breath, syncope <PeterFreedom - Last Filed: 12/10/16 16:12> <Racheal Mccabe - Last Filed: 12/12/16 11:05> - General Chief Complaint: Pain Stated Complaint: ABD PAIN/HEAD PAIN Time Seen by Provider: 12/10/16 12:56 Past History - Past Medical History Anemia: No Asthma: No Cancer: No Cardiac Disorders: Yes (afib) CVA: No COPD: No CHF: No Dementia: No Diabetes: No GI Disorders: No Disorders: No HTN: Yes Hypercholesterolemia: No Liver Disease: No Seizures: No Thyroid Disease: No - Surgical History Abdominal Surgery: No Appendectomy: No Cardiac Surgery: No Cholecystectomy: No Lung Surgery: No Neurologic Surgery: No Orthopedic Surgery: No - Immunization History Immunization Up to Date: No - Psycho/Social/Smoking Cessation Hx Anxiety: No Suicidal Ideation: No Smoking Status: No Smoking History: Never smoked Have you smoked in the past 12 months: No Number of Cigarettes Smoked Daily: 0 Information on smoking cessation initiated: No Hx Alcohol Use: No Drug/Substance Use Hx: No Substance Use Type: None Hx Substance Use Treatment: No <[place],Freedom - Last Filed: 12/10/16 16:12> <Racheal Mccabe - Last Filed: 12/12/16 11:05> - Past Medical History Allergies/Adverse Reactions: Allergies Allergy/AdvReac Type Severity Reaction Status Date / Time ceftriaxone sodium Allergy Intermediate Rash Verified 12/10/16 13:01 [From Rocephin] Home Medications: Ambulatory Orders Ascorbic Acid [Vitamin C -] 2,000 mg PO TID 05/30/16 Calcium Carb/Mag Ox/Zinc Sulf [Wwqpkfu-Eldsojcid-Ffmn Tablet] 1 tab PO DAILY 12/10 Cholecalciferol (Vitamin D3) [Vitamin D3 -] 1,000 unit PO DAILY 05/30/16 Multivitamins [Multivit ([facility] Formulary)] 1 tab PO DAILY 05/30/16 Vitamin E 400 unit PO DAILY 05/30/16 Amiodarone HCl [Cordarone -] 200 mg PO DAILY #90 tablet 10/04/16 Apixaban [Eliquis -] 2.5 mg PO BID #180 tablet 10/04/16 Bacitracin/Polymyxin Ointment [Polysporin Ointment -] 1 applic TP DAILY tube Diltiazem Cd [Cardizem Cd -] 120 mg PO DAILY #90 cap.cd.24h 10/04/16 Furosemide [Lasix -] 40 mg PO DAILY tablet 10/04/16 Levothyroxine [Synthroid -] 25 mcg PO DAILY@0700 #90 tablet 10/04/16 Valsartan [Diovan] 40 mg PO DAILY #90 tablet 10/04/16 Bumetanide 1 mg PO HS 12/10/16 Bumetanide [Bumex -] 2 mg PO DAILY 12/10/16 Digoxin 125 mcg PO ASDIR 12/10/16 Ipratropium [place] 1 inh IH PRN 12/10/16 Metolazone 1 tab PO DAILY 12/10/16 Metoprolol Tartrate [Lopressor -] 12.5 mg PO BID 12/10/16 Review of Systems - Review of Systems Constitutional: Yes: Weakness. No: Chills, Fever HEENTM: No: Blurred Vision Respiratory: No: Cough, Shortness of Breath, Wheezing Cardiac (ROS): Yes: Lightheadedness. No: Chest Pain ABD/GI: Yes: Diarrhea. No: Nausea, Rectal Bleeding, Vomiting, Abdominal cramping, Tarry Stools : No: Dysuria, Flank Pain, Hematuria Neurological: Yes: Dizziness. No: Headache <Freedom Green - Last Filed: 12/10/16 16:12> *Physical Exam - Vital Signs Last Vital Signs Temp Pulse Resp BP Pulse Ox 97.6 F 67 18 107/67 99 12/10/16 12:52 12/10/16 12:52 12/10/16 12:52 12/10/16 12:52 12/10/16 12:52 - Physical Exam Comments: 12/10/16 13:14 appears lethargic General Appearance: Yes: Appropriately Dressed HEENT: positive: Normal Voice Neck: positive: Supple Respiratory/Chest: positive: Lungs Clear, Normal Breath Sounds. negative: Respiratory Distress Cardiovascular: positive: Regular Rate, S1, S2 Gastrointestinal/Abdominal: positive: Soft. negative: Tender Musculoskeletal: negative: CVA Tenderness Integumentary: positive: Dry, Warm Neurologic: positive: Fully Oriented, Normal Mood/Affect, Motor Strength 5/5. negative: Facial Droop, Confused, Disoriented <Mary GreenMarilee - Last Filed: 12/10/16 16:12> - Vital Signs Last Vital Signs Temp Pulse Resp BP Pulse Ox 97.5 F L 65 20 94/55 94 L 12/12/16 06:00 12/12/16 06:00 12/12/16 06:00 12/12/16 06:00 12/11/16 22:00 <Racheal Mccabe - Last Filed: 12/12/16 11:05> Heart Score/ECG Review - ECG Intrepretation Comment:: 12/10/16 13:24 Rate controlled afib <PeterMarySusan - Last Filed: 12/10/16 16:12> ED Treatment Course - LABORATORY CBC & Chemistry Diagram: 12/10/16 13:55 12/10/16 13:55 - RADIOLOGY Radiology Studies Ordered: Category Date Time Status CHEST X-RAY PORTABLE* [RAD] Stat Radiology 12/10/16 13:02 Ordered <PeterMaryMarilee - Last Filed: 12/10/16 16:12> - LABORATORY CBC & Chemistry Diagram: 12/12/16 06:00 12/12/16 06:00 - ADDITIONAL ORDERS Additional order review: 12/10/16 13:55 RBC 3.97 MCV 88.1 MCHC 33.6 RDW 17.1 H MPV 7.8 D Neutrophils % 88.6 H Lymphocytes % 6.3 L D Monocytes % 4.4 Eosinophils % 0.4 D Basophils % 0.3 - Medications Given in the ED: ED Medications Discontinued Medications Generic Name Dose Route Start Last Admin Trade Name Freq PRN Reason Stop Dose Admin Sodium Chloride 1,000 mls @ 150 mls/hr 12/10/16 14:34 12/10/16 14:43 Normal Saline - IV 12/10/16 21:13 150 mls/hr ASDIR STA Administration Potassium Chloride 40 meq 12/11/16 10:00 12/11/16 10:43 Potassium Chloride Oral Liquid PO 12/11/16 10:01 40 meq ONCE ONE Administration Valsartan 40 mg 12/11/16 10:00 12/11/16 14:11 Diovan - PO Not Given DAILY DEMETRIA <Racheal Mccabe - Last Filed: 12/12/16 11:05> Medical Decision Making - Medical Decision Making 12/10/16 13:05 86 yo F, h/o hypothyroid, lower ext cellulitis, ?GERd, HTN, afib on eliquis, PNA , CHF, recently started on bumetanide and taken off lasix as per son, s/p multiple admission for CHF flare, most recently admitted to [facility] and s/p thoracentesis w/ 1L removed, TTE done w/ EF of 71% w/ severe and TR (as per records pt has on her person), s/p "dilation" of aortic valve per son, here w/ profound weakness w/ fatigue nd anorexia x 2 days. Pt also reports ? dizziness. No CP or SOB. LE edema have sig improved per son. Pt denies ANAYA, slurred speech, visual changes, focal weakness, abd pain or dysuria. Does report some diarrhea but unable to say how many episodes. Denies BRBPR or melena. See exam Weakness R/o cardiac vs infxn vs metabolic, no focal sxs to suggest CVA -ekg -labs -cxr -anticipate admission 12/10/16 13:33 Case d/w Dr Stacie Solitario who wants pt admitted to tele w/ Dr Pepper of cards to be consulted 12/10/16 13:34 12/10/16 14:47 Hyponatremia to 112. M/l 2/2 bumex which pt was recently started on. Will gently hydrate as per d/w ED attg. Pt remains stable w/ no change in mental status. Presently admitted <Freedom Green - Last Filed: 12/10/16 16:12> *DC/Admit/Observation/Transfer - Discharge Dispostion Admit: Yes <Freedom Green Last Filed: 12/10/16 16:12> - Attestations Physician Attestion: I reviewed the case with the mid-level practitioner and agree with the mid- level practitioner's assessment, diagnosis and disposition. <Racheal Mccabe - Last Filed: 04/18/17 11:05> Diagnosis at time of Disposition: Weakness, Acute hyponatremia - Discharge Dispostion Condition at time of disposition: Fair - Referrals
[2016-12-10 14:04] LABS: BASOPHIL 0.3 % (0-2.0); EOSINOPHIL 0.4 % (0-4.5); MCH 29.6 pg (25.7-33.7); MCHC 33.6 g/dl (32.0-36.0); MEAN CELL VOLUME 88.1 fl (80-96); MEAN PLT VOLUME 7.8 fl (7.5-11.1); NEUTROPHILS 88.6 % (42.8-82.8); PLATELET COUNT 220 K/MM3 (134-434); RDW 17.1 % (11.6-15.6); WHITE BLOOD COUNT 7.3 K/mm3 (4.0-10.0)
[2016-12-10 14:28] LABS: ALBUMIN 3.3 g/dl (3.4-5.0); CALCIUM 8.9 mg/dL (8.5-10.1); COCKROFT - GAULT 24.3015; CREATININE 1.1 mg/dL (0.55-1.02); TOT PROT 8.3 g/dl (6.4-8.2)
[2016-12-10 14:30] LABS: BILIRUBIN,TOTAL 0.8 mg/dL (0.2-1.0); TROPONIN I 0.11 ng/ml (0.00-0.05)
[2016-12-10] MEDS ORDERED: SODIUM CHLORIDE 1,000 ML IV STA (14:34)
[2016-12-10] MEDS: METOPROLOL TARTRATE 25 MG TABLET (FP) PO SCH (23:31)
[2016-12-11 02:05] LABS: URINE APPEARANCE CLEAR; URINE BILIRUBIN NEGATIVE (NEGATIVE); URINE BLOOD NEGATIVE (NEGATIVE); URINE COLOR YELLOW; URINE GLUCOSE (UA) NEGATIVE (NEGATIVE); URINE KETONE NEGATIVE (NEGATIVE); URINE NITRITE NEGATIVE (NEGATIVE); URINE PROTEIN NEGATIVE (NEGATIVE); URINE UROBILINOGEN NEGATIVE E.U./dl (0.2-1.0)
[2016-12-11 02:06] LABS: URINE LEUK ESTERASE 1+ (NEGATIVE)
[2016-12-11 02:08] LABS: URINE BACTERIA MODERATE /hpf (NONE SEEN); URINE HYALINE CAST 1 /lpf; URINE RBC 1 /hpf (0-3); URINE WBC 6 /hpf (3-5)
[2016-12-11 03:38] VITALS: BMI 17.9
[2016-12-11] MEDS: LEVOTHYROXINE NA 25 MCG TABLET (FP) PO SCH (06:53)
[2016-12-11 08:06] LABS: MCH 29.9 pg (25.7-33.7); MCHC 33.9 g/dl (32.0-36.0); MEAN CELL VOLUME 88.3 fl (80-96); MEAN PLT VOLUME 8.5 fl (7.5-11.1); PLATELET COUNT 191 K/MM3 (134-434); RDW 17.3 % (11.6-15.6)
--- NOTE | 2016-12-11 08:40 | EKG ---
Test Reason : Blood Pressure : / mmHG Vent. Rate : 070 BPM Atrial Rate : 075 BPM P-R Int : 000 ms QRS Dur : 100 ms QT Int : 478 ms P-R-T Axes : 000 -34 -46 degrees QTc Int : 516 ms POOR DATA QUALITY, INTERPRETATION MAY BE ADVERSELY AFFECTED ATRIAL FIBRILLATION LEFT AXIS DEVIATION LOW VOLTAGE QRS INFERIOR INFARCT , AGE UNDETERMINED CANNOT RULE OUT ANTERIOR INFARCT , AGE UNDETERMINED ABNORMAL ECG WHEN COMPARED WITH ECG OF 05-NOV-2016 09:59, POOR DATA QUALITY IN CURRENT ECG PRECLUDES SERIAL COMPARISON Confirmed by WILLIE PONCE MD ([id number]) on 12/11/2016 8:40:14 AM Referred By: Confirmed By:WILLIE PONCE MD
[2016-12-11 08:48] LABS: ALBUMIN 2.7 g/dl (3.4-5.0); BILIRUBIN,TOTAL 0.7 mg/dL (0.2-1.0); CALCIUM 8.2 mg/dL (8.5-10.1); CREATININE 0.9 mg/dL (0.55-1.02); TOT PROT 6.7 g/dl (6.4-8.2)
--- NOTE | 2016-12-11 09:04 | CON.CARD ---
Consult Consult Specialty:: Cardiology Referred by:: Sanjana Solitario MD Reason for Consultation:: Failure to thrive - History of Present Illness Chief Complaint: Failure to thrive, altered sensorium History of Present Illness: 86 year old female, with history of congestive heart failure, tricuspid regurgitation, mitral regurgitation, diastolic dysfunction with h/o failure requiring thoracentesis, low flow, low gradient aortic stenosis s/p BAV, permanent atrial fibrillation on Eliquis, hypothyroidism and pulmonary hypertension recent change from Lasix to Bumex presented with profound weakness , fatigue and anorexia and possible dizziness. She denies CP or SOB, palpitations, LE edema have significantly improved per son. Pt denies ANAYA, slurred speech, visual changes, focal weakness, seizure activity, nausea, emesis , abd pain or dysuria. Does report some diarrhea but unable to say how many episodes. Denies BRBPR or melena. Found to have profound hyponatremia 112, diuretics held, hydration started. - History Source History Provided By: Medical Record Limitations to Obtaining History: Poor Historian - Past Medical History Cardio/Vascular: Yes: AFIB (recenet dg.), Aortic Stenosis, CHF, HTN, Mitral Insufficiency, Pulmonary Hypertension Pulmonary: Yes: Pneumonia ...: No Infectious Disease: Yes: Other (cellulitis lower extremity) Endocrine: Yes: Hypothyroidism Additional Medical History: Glaucoma - advised to have son bring in her eye drops - Past Surgical History Past Surgical History: Yes: Tonsillectomy - Alcohol/Substance Use Hx Alcohol Use: No History of Substance Use: reports: None - Smoking History Smoking history: Never smoked Have you smoked in the past 12 months: No Aproximately how many cigarettes per day: 0 - Social History Usual Living Arrangement: Alone ADL: Independent History of Recent Travel: No Home Medications - Allergies Allergies/Adverse Reactions: Allergies Allergy/AdvReac Type Severity Reaction Status Date / Time ceftriaxone sodium Allergy Intermediate Rash Verified 12/10/16 13:01 [From Rocephin] - Home Medications Home Medications: Ambulatory Orders Ascorbic Acid [Vitamin C -] 2,000 mg PO TID 05/30/16 Calcium Carb/Mag Ox/Zinc Sulf [Mmknyia-Ptarmqhdx-Xslp Tablet] 1 tab PO DAILY 12/10 Cholecalciferol (Vitamin D3) [Vitamin D3 -] 1,000 unit PO DAILY 05/30/16 Multivitamins [Multivit ([facility] Formulary)] 1 tab PO DAILY 05/30/16 Vitamin E 400 unit PO DAILY 05/30/16 Amiodarone HCl [Cordarone -] 200 mg PO DAILY #90 tablet 10/04/16 Apixaban [Eliquis -] 2.5 mg PO BID #180 tablet 10/04/16 Bacitracin/Polymyxin Ointment [Polysporin Ointment -] 1 applic TP DAILY tube Diltiazem Cd [Cardizem Cd -] 120 mg PO DAILY #90 cap.cd.24h 10/04/16 Furosemide [Lasix -] 40 mg PO DAILY tablet 10/04/16 Levothyroxine [Synthroid -] 25 mcg PO DAILY@0700 #90 tablet 10/04/16 Valsartan [Diovan] 40 mg PO DAILY #90 tablet 10/04/16 Bumetanide 1 mg PO HS 12/10/16 Bumetanide [Bumex -] 2 mg PO DAILY 12/10/16 Digoxin 125 mcg PO ASDIR 12/10/16 Ipratropium [place] 1 inh IH PRN 12/10/16 Metolazone 1 tab PO DAILY 12/10/16 Metoprolol Tartrate [Lopressor -] 12.5 mg PO BID 12/10/16 Family Disease History - Family Disease History Family Disease History: Heart Disease: Father ( 87 CHF), Brother (atrial fibrillation), Other: Mother (lived to 100) Review of Systems - Review of Systems Constitutional: reports: Lethargy, Loss of Appetite, Weakness Neurological: reports: Dizziness Vital Signs: Vital Signs Temperature 97.6 F 12/11/16 06:00 Pulse Rate 68 12/11/16 06:00 Respiratory Rate 18 12/11/16 06:00 Blood Pressure 96/53 12/11/16 06:00 O2 Sat by Pulse Oximetry (%) 94 L 12/10/16 20:30 Constitutional: Yes: No Distress, Calm, Thin Neck: Yes: Supple Respiratory: Yes: Regular, Diminished, On Nasal O2 Gastrointestinal: Yes: Normal Bowel Sounds, Soft Cardiovascular: Yes: Pulse Irregular JVD: No Carotid Bruit: No Heart Sounds: Yes: S1, S2 Murmur: Yes: Systolic Murmur, Grade 2 Edema: No - Other Data Labs, Other Data: CBC, BMP 12/11/16 06:28 12/11/16 06:28 Afib @ 70 LAD Ejection Fraction %: LVEF > or = 40 % Problem List - Problems (1) Acute hyponatremia Code(s): E87.1 - HYPO-OSMOLALITY AND HYPONATREMIA (2) Aortic valvar stenosis Code(s): I35.0 - NONRHEUMATIC AORTIC (VALVE) STENOSIS Qualifiers: Cardiac valve disease etiology: nonrheumatic Qualified Code(s): I35.0 - Nonrheumatic aortic (valve) stenosis (3) Hypothyroid Code(s): E03.9 - HYPOTHYROIDISM, UNSPECIFIED Qualifiers: Hypothyroidism type: unspecified Qualified Code(s): E03.9 - Hypothyroidism, unspecified (4) Diastolic dysfunction without heart failure Code(s): I51.9 - HEART DISEASE, UNSPECIFIED (5) Atrial fibrillation Code(s): I48.91 - UNSPECIFIED ATRIAL FIBRILLATION Qualifiers: Atrial fibrillation type: persistent Qualified Code(s): I48.1 - Persistent atrial fibrillation (6) S/P balloon aortic valvuloplasty Code(s): Z98.890 - OTHER SPECIFIED POSTPROCEDURAL STATES Assessment/Plan Echocardiography performed 08/18/16 reveled normal LV size and function, Aortic stenosis moderate to severe NATI 0.7 cm2, moderate mitral regurgitation, severe tricuspid valve regurgitation with RVSP of 55 mmHg 1. Acute hypovolemic, hyponatremia referable to diuretics 2. Chronic diastolic dysfunction with h/o failure and bilateral pleural effusion post-thoracentesis 3. Persistent atrial fibrillation [id number] score of 5 on NOAC's 4. 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 Low flow, low gradient aortic stenosis post BAV 6. Hypokalemia 7. CKD 8. H/o bilateral cellulitis lower extremities, enterobacter UTI 9. Hypothyroidism PLAN: 1. Discontinue Bumex and Zaroxolyn with monitor urine and serum electrolytes, replete K 2. Continue Lopressor 12.5 bid and d/c amio 200 qd as afib is persistent 3. Continue Diovan 40 qd as hemodynamics tolerate 4. Continue Eliquis 2.5 mg BID (Wt. < 60 Kg and age > 80) 5. O2 as needed to keep SpO2 >90% 6. Thank you for consultative opportunity
[2016-12-11] MEDS ORDERED: VALSARTAN 40 MG TABLET (FP) PO SCH (10:00)
[2016-12-11] MEDS ORDERED: AMIODARONE HCL 200 MG TABLET (FP) PO SCH (10:00)
[2016-12-11] MEDS ORDERED: POTASSIUM CHLORIDE ORAL LIQUID 20 MEQ/15 ML PO ONE (10:00)
[2016-12-11] MEDS: APIXABAN 2.5 MG TABLET PO SCH ×2 (10:42→22:14)
[2016-12-11] MEDS: METOPROLOL TARTRATE 25 MG TABLET (FP) PO SCH ×2 (10:42→22:13)
[2016-12-11] MEDS: MULTIVITAMINS (DAILY MVI) TABLET (FP) PO SCH (10:43)
[2016-12-11 13:50] LABS: FREE T4 0.93 ng/dl (0.76-1.46); THYROID STIMULATING HORMONE 12.6 uIU/ml (0.358-3.74)
--- NOTE | 2016-12-11 15:02 | CONSULT ---
Consult Consult Specialty:: Nephrology ( Drs. Harper/ Irving) Reason for Consultation:: Thank you for the consult referral. 86 year old female admitted with generalized weakness and the finding of Hyponatremia. The patient has been treated with loop diuretics for Congestive heart failure. Admits to drinking large volume of water. - History of Present Illness History of Present Illness: The patient has h/o Hypertension, CHF, Valvular hear disease, / TR, Hypothyroidism, Ch. A Fib, Congestive heart failure, Pleural effusion, recent thoracentsis, and drainage of 1 lit of fluid. Admits to drinking large amounts of water. Also noted is Hypokalemia of 3.1 mEq, which is being corrected. - History Source History Provided By: Patient, Medical Record - Past Medical History Cardio/Vascular: Yes: AFIB (recenet dg.), Aortic Stenosis, CHF, HTN, Mitral Insufficiency, Pulmonary Hypertension Pulmonary: Yes: Pneumonia ...: No Infectious Disease: Yes: Other (cellulitis lower extremity) Endocrine: Yes: Hypothyroidism Additional Medical History: Glaucoma - advised to have son bring in her eye drops - Past Surgical History Past Surgical History: Yes: Tonsillectomy - Alcohol/Substance Use Hx Alcohol Use: No History of Substance Use: reports: None - Smoking History Smoking history: Never smoked Have you smoked in the past 12 months: No Aproximately how many cigarettes per day: 0 - Social History Usual Living Arrangement: Alone ADL: Independent History of Recent Travel: No Home Medications - Allergies Allergies/Adverse Reactions: Allergies Allergy/AdvReac Type Severity Reaction Status Date / Time ceftriaxone sodium Allergy Intermediate Rash Verified 12/10/16 13:01 [From Rocephin] - Home Medications Home Medications: Ambulatory Orders Ascorbic Acid [Vitamin C -] 2,000 mg PO TID 05/30/16 Calcium Carb/Mag Ox/Zinc Sulf [Wezoglk-Fycsoigjr-Snib Tablet] 1 tab PO DAILY 12/10 Cholecalciferol (Vitamin D3) [Vitamin D3 -] 1,000 unit PO DAILY 05/30/16 Multivitamins [Multivit ([facility])] 1 tab PO DAILY 05/30/16 Vitamin E 400 unit PO DAILY 05/30/16 Amiodarone HCl [Cordarone -] 200 mg PO DAILY #90 tablet 10/04/16 Apixaban [Eliquis -] 2.5 mg PO BID #180 tablet 10/04/16 Bacitracin/Polymyxin Ointment [Polysporin Ointment -] 1 applic TP DAILY tube Diltiazem Cd [Cardizem Cd -] 120 mg PO DAILY #90 cap.cd.24h 10/04/16 Furosemide [Lasix -] 40 mg PO DAILY tablet 10/04/16 Levothyroxine [Synthroid -] 25 mcg PO DAILY@0700 #90 tablet 10/04/16 Valsartan [Diovan] 40 mg PO DAILY #90 tablet 10/04/16 Bumetanide 1 mg PO HS 12/10/16 Bumetanide [Bumex -] 2 mg PO DAILY 12/10/16 Digoxin 125 mcg PO ASDIR 12/10/16 Ipratropium [place] 1 inh IH PRN 12/10/16 Metolazone 1 tab PO DAILY 12/10/16 Metoprolol Tartrate [Lopressor -] 12.5 mg PO BID 12/10/16 Family Disease History - Family Disease History Family Disease History: Heart Disease: Father ( 87 CHF), Brother (atrial fibrillation), Other: Mother (lived to 100) Review of Systems - Review of Systems Constitutional: reports: Loss of Appetite, Malaise, Weakness Eyes: reports: No Symptoms Neck: reports: Stiffness Respiratory: denies: No Symptoms, Cough, Exercise Intolerance, Hemoptysis, Orthopnea, PND, Snoring, SOB, SOB on Exertion, Wheezing, Other Gastrointestinal: denies: No Symptoms, Abdominal Pain, Bloating, Constipation, Diarrhea, Dysphagia, Indigestion, Melena, Nausea, Rectal Bleeding, Vomiting, Vomiting Blood, Other Genitourinary: denies: No Symptoms, Burning, Discharge, Dysuria, Flank Pain, Frequency, Hematuria, Incontinence, Lesions, Menses, Pain, Testicular Mass, Testicular Pain, Testicular Swelling, Urgency, Vaginal Bleeding, Other Musculoskeletal: reports: Back Pain, Muscle Weakness Integumentary: denies: No Symptoms, Blister, Bruising, Change in Color, Eczema, Erythema, Incision, Lesions, Lump, Pallor, Pruritis, Rash, Wound, Other Neurological: reports: Weakness Hematology/Lymphatic: reports: No Symptoms Psychiatric: reports: No Symptoms Physical Exam Vital Signs: Vital Signs Temperature 98.7 F 12/11/16 10:00 Pulse Rate 73 12/11/16 10:00 Respiratory Rate 19 12/11/16 10:00 Blood Pressure 117/63 12/11/16 10:00 O2 Sat by Pulse Oximetry (%) 94 L 12/11/16 09:00 Constitutional: Yes: Well Nourished, No Distress, Calm Eyes: Yes: WNL, Conjunctiva Clear, EOM Intact HENT: Yes: WNL, Atraumatic, Normocephalic Neck: Yes: WNL, Supple, Trachea Midline Cardiovascular: Yes: WNL, Pulse Irregular, S1, S2 Respiratory: Yes: WNL, Regular, Diminished, Dullness Gastrointestinal: Yes: WNL, Normal Bowel Sounds Renal/: Yes: WNL Breast(s): Yes: WNL Musculoskeletal: Yes: WNL Extremities: Yes: WNL Integumentary: Yes: WNL Neurological: Yes: WNL, Alert, Oriented ...Motor Strength: WNL Psychiatric: Yes: WNL Labs: CBC, BMP 12/11/16 06:28 12/11/16 06:28 Problem List - Problems (1) Acute hyponatremia Code(s): E87.1 - HYPO-OSMOLALITY AND HYPONATREMIA (2) Atrial fibrillation Code(s): I48.91 - UNSPECIFIED ATRIAL FIBRILLATION Qualifiers: Atrial fibrillation type: persistent Qualified Code(s): I48.1 - Persistent atrial fibrillation (3) Diastolic dysfunction without heart failure Code(s): I51.9 - HEART DISEASE, UNSPECIFIED (4) Weakness Code(s): R53.1 - WEAKNESS (5) Acute on chronic diastolic (congestive) heart failure Code(s): I50.33 - ACUTE ON CHRONIC DIASTOLIC (CONGESTIVE) HEART FAILURE (6) Aortic valvar stenosis Code(s): I35.0 - NONRHEUMATIC AORTIC (VALVE) STENOSIS Qualifiers: Cardiac valve disease etiology: nonrheumatic Qualified Code(s): I35.0 - Nonrheumatic aortic (valve) stenosis (7) Bilateral pleural effusion Code(s): J90 - PLEURAL EFFUSION, NOT ELSEWHERE CLASSIFIED (8) Congestive heart failure (CHF) Code(s): I50.9 - HEART FAILURE, UNSPECIFIED Qualifiers: Congestive heart failure type: diastolic Congestive heart failure chronicity: acute on chronic Qualified Code(s): I50.33 - Acute on chronic diastolic (congestive) heart failure (9) Hypokalemia Code(s): E87.6 - HYPOKALEMIA (10) Hyponatremia Code(s): E87.1 - HYPO-OSMOLALITY AND HYPONATREMIA (11) Hypothyroid Code(s): E03.9 - HYPOTHYROIDISM, UNSPECIFIED Qualifiers: Hypothyroidism type: unspecified Qualified Code(s): E03.9 - Hypothyroidism, unspecified Assessment/Plan 86 y/o female with h/o CHF, Valvular heart disease admitted with weakness and the finding of Hyponatremia and Hypokalemia. Patient was on Loop diuretic, but not on Thiazides. The Hyponatremia is multifactorial, due to the effects of Hypothiazides, ARB's, excess water consumption and possibly poor nutritional intake ( tea and toast). The Hypokalemia is not easily explained, though nutritional factors need to be considered. Plan. Free water restriction. Continue Loop diuretics. Basic w/u as ordered. Will monitor the renal functions with you. Thanks again. Lottie Harper MD
--- NOTE | 2016-12-11 18:01 | HP ---
Admitting History and Physical - Primary Care Physician PCP: Adan Solitario - Admission Chief Complaint: weakness History of Present Illness: Pt. with progressive weakness over the last week, got significantly worse over the weekend, not able to perform baseline home activities; pt. decided to come to ER. She was found to be hyponatremic, hypokalemic. History Source: Patient - Past Medical History Cardiovascular: Yes: AFIB (recenet dg.), Aortic Stenosis, CHF, HTN, Mitral Insufficiency, Pulmonary Hypertension Pulmonary: Yes: Pneumonia ...: No Infectious Disease: Yes: Other (cellulitis lower extremity) Endocrine: Yes: Hypothyroidism - Past Surgical History Past Surgical History: Yes: Tonsillectomy - Smoking History Smoking history: Never smoked Have you smoked in the past 12 months: No Aproximately how many cigarettes per day: 0 - Alcohol/Substance Use Hx Alcohol Use: No History of Substance Use: reports: None - Social History ADL: Independent History of Recent Travel: No Home Medications - Allergies Allergies/Adverse Reactions: Allergies Allergy/AdvReac Type Severity Reaction Status Date / Time ceftriaxone sodium Allergy Intermediate Rash Verified 12/10/16 13:01 [From Rocephin] - Home Medications Home Medications: Ambulatory Orders Ascorbic Acid [Vitamin C -] 2,000 mg PO TID 05/30/16 Calcium Carb/Mag Ox/Zinc Sulf [Cfshrtc-Isjencavo-Vkhb Tablet] 1 tab PO DAILY 12/10 Cholecalciferol (Vitamin D3) [Vitamin D3 -] 1,000 unit PO DAILY 05/30/16 Multivitamins [Multivit ([facility])] 1 tab PO DAILY 05/30/16 Vitamin E 400 unit PO DAILY 05/30/16 Amiodarone HCl [Cordarone -] 200 mg PO DAILY #90 tablet 10/04/16 Apixaban [Eliquis -] 2.5 mg PO BID #180 tablet 10/04/16 Bacitracin/Polymyxin Ointment [Polysporin Ointment -] 1 applic TP DAILY tube Diltiazem Cd [Cardizem Cd -] 120 mg PO DAILY #90 cap.cd.24h 10/04/16 Furosemide [Lasix -] 40 mg PO DAILY tablet 10/04/16 Levothyroxine [Synthroid -] 25 mcg PO DAILY@0700 #90 tablet 10/04/16 Valsartan [Diovan] 40 mg PO DAILY #90 tablet 10/04/16 Bumetanide 1 mg PO HS 12/10/16 Bumetanide [Bumex -] 2 mg PO DAILY 12/10/16 Digoxin 125 mcg PO ASDIR 12/10/16 Ipratropium [place] 1 inh IH PRN 12/10/16 Metolazone 1 tab PO DAILY 12/10/16 Metoprolol Tartrate [Lopressor -] 12.5 mg PO BID 12/10/16 Family Disease History - Family Disease History Family Disease History: Heart Disease: Father ( 87 CHF), Brother (atrial fibrillation), Other: Mother (lived to 100) Review of Systems - Review of Systems Constitutional: denies: Chills Eyes: denies: Blurred Vision, Double Vision HENT: denies: Difficult Swallowing, Ear Discharge, Ear Pain, Epistaxis, Nasal Congestion, Throat Pain Neck: denies: Decreased ROM, Stiffness Cardiovascular: denies: Chest Pain, Edema, Palpitations, Shortness of Breath Respiratory: denies: Cough, SOB, Wheezing Gastrointestinal: denies: Abdominal Pain, Constipation, Diarrhea, Nausea, Vomiting Genitourinary: denies: Burning, Discharge, Frequency, Incontinence, Urgency Musculoskeletal: denies: Back Pain, Extremity Pain, Joint Swelling Integumentary: denies: Bruising, Erythema, Rash Neurological: reports: Weakness. denies: Change in LOC, Confusion, Dizziness, Numbness Endocrine: denies: Excessive Sweating, Intolerance to Cold Psychiatric: denies: Altered Sleep Pattern, Anxiety Physical Examination Vital Signs: Vital Signs Temperature 99.2 F 12/11/16 14:54 Pulse Rate 67 12/11/16 14:54 Respiratory Rate 19 12/11/16 14:54 Blood Pressure 95/55 12/11/16 14:54 O2 Sat by Pulse Oximetry (%) 94 L 12/11/16 09:00 Constitutional: Yes: No Distress, Calm Eyes: Yes: Conjunctiva Clear, EOM Intact, PERRL HENT: Yes: Normocephalic. No: Pharyngeal Erythema, Rhinnorhea Neck: Yes: Trachea Midline. No: Lymphadenopathy, Tenderness Cardiovascular: Yes: Regular Rate and Rhythm, S1, S2 Respiratory: Yes: Regular, Other (coarse at bases, scattered crackles at bases) Gastrointestinal: Yes: Normal Bowel Sounds, Soft. No: Palpable Mass, Tenderness Musculoskeletal: No: Back Pain, Joint Stiffness, Joint Swelling Edema: No Integumentary: Yes: Venous Stasis Changes Neurological: Yes: Alert, Oriented, Cran Nerves II-XII Intact Psychiatric: Yes: Alert, Oriented Labs: CBC, BMP 12/11/16 06:28 12/11/16 16:00 Imaging - Results Chest X-ray: Report Reviewed, Image Reviewed Problem List - Problems (1) Hyponatremia Assessment/Plan: Probable multifactorial (diuretic, increased water intake) Diuretics on hold. To monitor electrolytes Cardio consult, Renal consult Code(s): E87.1 - HYPO-OSMOLALITY AND HYPONATREMIA (2) Hypokalemia Code(s): E87.6 - HYPOKALEMIA (3) Aortic valvar stenosis Code(s): I35.0 - NONRHEUMATIC AORTIC (VALVE) STENOSIS Qualifiers: Cardiac valve disease etiology: nonrheumatic Qualified Code(s): I35.0 - Nonrheumatic aortic (valve) stenosis (4) Congestive heart failure (CHF) Code(s): I50.9 - HEART FAILURE, UNSPECIFIED Qualifiers: Congestive heart failure type: diastolic Qualified Code(s): - (5) Pulmonary hypertension Code(s): I27.2 - OTHER SECONDARY PULMONARY HYPERTENSION (6) Hypothyroid Assessment/Plan: check TSH Code(s): E03.9 - HYPOTHYROIDISM, UNSPECIFIED Qualifiers: Hypothyroidism type: unspecified Qualified Code(s): E03.9 - Hypothyroidism, unspecified Assessment/Plan AM labs
[2016-12-12] MEDS: LEVOTHYROXINE NA 25 MCG TABLET (FP) PO SCH (06:39)
[2016-12-12 07:34] LABS: MEAN CELL VOLUME 88.3 fl (80-96); MEAN PLT VOLUME 8.5 fl (7.5-11.1); PLATELET COUNT 204 K/MM3 (134-434); RDW 17.5 % (11.6-15.6); WHITE BLOOD COUNT 6.1 K/mm3 (4.0-10.0)
[2016-12-12 07:45] LABS: BASOPHIL 0.7 % (0-2.0); EOSINOPHIL 1.3 % (0-4.5); MCH 30.2 pg (25.7-33.7); MCHC 34.3 g/dl (32.0-36.0); MEAN CELL VOLUME 88.3 fl (80-96); MEAN PLT VOLUME 8.5 fl (7.5-11.1); NEUTROPHILS 78.2 % (42.8-82.8); PLATELET COUNT 205 K/MM3 (134-434); RDW 17.3 % (11.6-15.6); WHITE BLOOD COUNT 6.2 K/mm3 (4.0-10.0)
[2016-12-12 07:51] LABS: ALBUMIN 2.6 g/dl (3.4-5.0); BILIRUBIN,TOTAL 0.3 mg/dL (0.2-1.0); CALCIUM 7.9 mg/dL (8.5-10.1); CREATININE 0.9 mg/dL (0.55-1.02); MAGNESIUM 2.1 mg/dL (1.8-2.4); TOT PROT 6.8 g/dl (6.4-8.2)
[2016-12-12] MEDS ORDERED: POTASSIUM CHLORIDE TABS 20 MEQ TABLET.ER (FP) PO ONE (09:59)
--- NOTE | 2016-12-12 10:05 | PN ---
Progress Note (short form) - Note Progress Note: Renal Follow up for Hyponatremia Pt seen and examined at the bedside no acute complaints sittiing in chair reports feeling better overall no confusion, lethargy, weakness, N/V good urine output Vital Signs Temperature 97.5 F L 12/12/16 06:00 Pulse Rate 65 12/12/16 06:00 Respiratory Rate 20 12/12/16 06:00 Blood Pressure 94/55 12/12/16 06:00 O2 Sat by Pulse Oximetry (%) 94 L 12/11/16 22:00 Intake & Output 12/09/16 12/10/16 12/11/16 12/12/16 23:59 23:59 23:59 23:59 Intake Total 125 340 Output Total 250 350 Balance -125 -10 Weight 95 lb 97 lb 2 oz Gen: NAD, awake and alert HEENT: NC/AT, MMM, No JVD CVS: RRR, NO M/R Lungs: CTA, no rales or wheeze Abd: soft NT/ND Ext: 1+ edema in LE Neuro: Awake and Alert CBC, BMP 12/12/16 06:00 12/12/16 06:00 Laboratory Tests 12/12/16 12/12/16 06:00 06:00 Calcium 7.9 L Magnesium 2.1 AST 51 H ALT 48 Alkaline Phosphatase 99 Albumin 2.6 L TSH 14.80 H D Urine Osmolality Pending Current Medications Apixaban (Eliquis -) 2.5 mg PO BID [facility] Last Admin: 12/11/16 22:14 Dose: 2.5 mg Levothyroxine Sodium (Synthroid -) 25 mcg PO DAILY@0700 [facility] Last Admin: 12/12/16 06:39 Dose: 25 mcg Metoprolol Tartrate (Lopressor -) 12.5 mg PO BID [facility] Last Admin: 12/11/16 22:13 Dose: 12.5 mg Multivitamins/Minerals/Vitamin C (Tab-A-Vit -) 1 tab PO DAILY [facility] Last Admin: 12/11/16 10:43 Dose: 1 tab Potassium Chloride (K-Dur -) 40 meq PO ONCE ONE Stop: 12/12/16 10:00 Valsartan (Diovan -) 40 mg PO DAILY [facility] Last Admin: 12/11/16 14:11 Dose: Not Given A/P 86 year old woman with PMhx of CHF (diastolic dysfunction), Afib, Hypothyrodisim presented with weakness and anorezia and found to have serum Na of 112. #Acute hyponatremia with signs of mild fluid expansion Etiology appears to have been naturesis with Bumex + excessive free water intake + hypothyrodism Urine studies pending serum Na improved at an appropriate interval continue fluid restriction of 1L Trial of Oral Lasix 40mg today Trend Na Q12h TSH is elevated, consider increase in synthroid dose no indication for 3% saline #Hypokalemia Give KCL 40meq PO x 1 today #Hx of HTN BP is low/marginal Decrease Valsartan dose to 20mg Daily hold for hypotension Sabino Villatoro DO
[2016-12-12] MEDS ORDERED: FUROSEMIDE 40 MG TABLET (FP) PO ONE (10:08)
--- NOTE | 2016-12-12 10:27 | PN ---
Progress Note, Physician History of Present Illness: Pt. is feeling stronger today. Pt. w/o SOB, CP, plap., abd pain. - Current Medication List Current Medications: Active Medications Apixaban (Eliquis -) 2.5 mg PO BID [facility] Last Admin: 12/11/16 22:14 Dose: 2.5 mg Furosemide (Lasix -) 40 mg PO ONCE ONE Stop: 12/12/16 10:09 Levothyroxine Sodium (Synthroid -) 25 mcg PO DAILY@0700 [facility] Last Admin: 12/12/16 06:39 Dose: 25 mcg Metoprolol Tartrate (Lopressor -) 12.5 mg PO BID [facility] Last Admin: 12/11/16 22:13 Dose: 12.5 mg Multivitamins/Minerals/Vitamin C (Tab-A-Vit -) 1 tab PO DAILY [facility] Last Admin: 12/11/16 10:43 Dose: 1 tab Potassium Chloride (K-Dur -) 40 meq PO ONCE ONE Stop: 12/12/16 10:00 Valsartan (Diovan -) 20 mg PO DAILY [facility] - Objective Vital Signs: Vital Signs Temperature 97.5 F L 12/12/16 06:00 Pulse Rate 65 12/12/16 06:00 Respiratory Rate 20 12/12/16 06:00 Blood Pressure 94/55 12/12/16 06:00 O2 Sat by Pulse Oximetry (%) 94 L 12/11/16 22:00 Constitutional: Yes: No Distress, Calm Cardiovascular: Yes: Regular Rate and Rhythm, S1, S2 Respiratory: Yes: Regular, Other (scattered crackles at bases) Gastrointestinal: Yes: Normal Bowel Sounds, Soft Edema: LLE: Trace, RLE: Trace Neurological: Yes: Alert, Oriented Labs: CBC, BMP 12/12/16 06:00 12/12/16 06:00 Problem List - Problems (1) Hyponatremia Assessment/Plan: Probable multifactorial (diuretic, increased water intake) Diuretics on hold. To monitor electrolytes. Cardio consult appreciated. Renal consult appreciated; case was d/w Dr. Villatoro- to consider starting Furosemide and f/u Na and K levels Code(s): E87.1 - HYPO-OSMOLALITY AND HYPONATREMIA (2) Hypokalemia Assessment/Plan: to replete and monitor Code(s): E87.6 - HYPOKALEMIA (3) Aortic valvar stenosis Code(s): I35.0 - NONRHEUMATIC AORTIC (VALVE) STENOSIS Qualifiers: Cardiac valve disease etiology: nonrheumatic Qualified Code(s): I35.0 - Nonrheumatic aortic (valve) stenosis (4) Congestive heart failure (CHF) Code(s): I50.9 - HEART FAILURE, UNSPECIFIED Qualifiers: Congestive heart failure type: diastolic (5) Pulmonary hypertension Code(s): I27.2 - OTHER SECONDARY PULMONARY HYPERTENSION (6) Hypothyroid Code(s): E03.9 - HYPOTHYROIDISM, UNSPECIFIED Qualifiers: Hypothyroidism type: unspecified Qualified Code(s): E03.9 - Hypothyroidism, unspecified Assessment/Plan AM labs PT evaluation
[2016-12-12] MEDS: APIXABAN 2.5 MG TABLET PO SCH ×2 (11:21→21:45)
[2016-12-12] MEDS: MULTIVITAMINS (DAILY MVI) TABLET (FP) PO SCH (11:22)
[2016-12-12] MEDS: METOPROLOL TARTRATE 25 MG TABLET (FP) PO SCH ×2 (11:22→21:45)
--- NOTE | 2016-12-12 12:16 | PN ---
Progress Note (short form) - Note Progress Note: Chief Complaint: Events noted, notes reviewed, denies dyspnea, denies any chest pain History of Present Illness: Seen and examined on telemetry. Events noted, notes reviewed, denies dyspnea, denies any chest pain Echocardiography performed 08/18/16 reveled normal LV size and function, Aortic stenosis moderate to severe NATI odf 0.7 cm2, moderate mitral regurgitation, severe tricuspid valve regurgitation with RVSP of 55 mmHg Medications: Current Medications Apixaban (Eliquis -) 2.5 mg PO BID [facility] Last Admin: 12/12/16 11:21 Dose: 2.5 mg Levothyroxine Sodium (Synthroid -) 25 mcg PO DAILY@0700 [facility] Last Admin: 12/12/16 06:39 Dose: 25 mcg Metoprolol Tartrate (Lopressor -) 12.5 mg PO BID [facility] Last Admin: 12/12/16 11:22 Dose: 12.5 mg Multivitamins/Minerals/Vitamin C (Tab-A-Vit -) 1 tab PO DAILY [facility] Last Admin: 12/12/16 11:22 Dose: 1 tab Valsartan (Diovan -) 20 mg PO DAILY [facility] Review of Systems - Review of Systems Constitutional: denies: Chills, Fever Cardiovascular: As noted above Respiratory: denies: Cough or Sputum Production Gastrointestinal: denies: Nausea, Vomiting, Diarrhea, Constipation or Abdominal Pain Musculoskeletal: No symptoms reported Neurological: denies: Dizziness or Headaches Vital Signs: Last Vital Signs Temp Pulse Resp BP Pulse Ox 97.5 F L 65 20 94/55 94 L 12/12/16 06:00 12/12/16 06:00 12/12/16 06:00 12/12/16 06:00 12/11/16 22:00 Intake & Output 12/09/16 12/10/16 12/11/16 12/12/16 23:59 23:59 23:59 23:59 Intake Total 125 340 370 Output Total 250 350 Balance -125 -10 370 Weight 95 lb 97 lb 2 oz Neck: Supple Negative JVD No bruit Respiratory: Diminished Breath Sounds at the Bases Cardiovascular: S1 S2 Irregularly Irregular Grade 2/6 [place] Gastrointestinal: Soft Benign Normal Bowel Sounds Ext: Negative Edema Labs: CBC, BMP 12/12/16 06:00 12/12/16 06:00 Assessment/Plan ASSESSMENT: 1. Acute hypovolemic, hyponatremia referable to diuretics and possible sub- therapeutic Synthroid dosing 2. 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 Persistent atrial fibrillation [id number] score of 5 on NOAC's 5. Low flow, low gradient aortic stenosis post BAV 6. Hypokalemia.persistent 7. Hypothyroidism with an abnormal TSH value, sub-therapeutic Synthroid dosing 8. CKD PLAN: 1. Continue to hold diuretics pending Hyponatremia resolution 2. Continue Lopressor, hemodynamics permitting 3. Continue Diovan, hemodynamics permitting 4. Continue Eliquis 5. Synthroid dose adjustment as per the primary team Jess Richmond MD
[2016-12-12] MEDS: VALSARTAN 40 MG TABLET (FP) PO SCH (15:27)
[2016-12-12 16:58] LABS: CALCIUM 8.5 mg/dL (8.5-10.1)
[2016-12-13] MEDS: LEVOTHYROXINE NA 50 MCG TABLET (FP) PO SCH (06:38)
[2016-12-13 08:11] LABS: CALCIUM 8.7 mg/dL (8.5-10.1); MAGNESIUM 2.1 mg/dL (1.8-2.4)
[2016-12-13 08:12] LABS: COCKROFT - GAULT 26.724; PHOSPHOROUS 2.6 mg/dL (2.5-4.9)
[2016-12-13] MEDS: APIXABAN 2.5 MG TABLET PO SCH ×2 (09:48→22:11)
[2016-12-13] MEDS: MULTIVITAMINS (DAILY MVI) TABLET (FP) PO SCH (09:48)
[2016-12-13] MEDS: VALSARTAN 40 MG TABLET (FP) PO SCH (09:48)
[2016-12-13] MEDS: METOPROLOL TARTRATE 25 MG TABLET (FP) PO SCH ×2 (09:48→22:11)
--- NOTE | 2016-12-13 11:45 | PN ---
Progress Note, Physician History of Present Illness: Profound weakness, fatigue and anorexia improved with improving hyponatremia. She denies CP or SOB, palpitations, LE edema which have significantly improved post BAV. - Current Medication List Current Medications: Active Medications Apixaban (Eliquis -) 2.5 mg PO BID [facility] Last Admin: 12/13/16 09:48 Dose: 2.5 mg Levothyroxine Sodium (Synthroid -) 50 mcg PO DAILY@0700 [facility] Last Admin: 12/13/16 06:38 Dose: 50 mcg Metoprolol Tartrate (Lopressor -) 12.5 mg PO BID [facility] Last Admin: 12/13/16 09:48 Dose: 12.5 mg Multivitamins/Minerals/Vitamin C (Tab-A-Vit -) 1 tab PO DAILY [facility] Last Admin: 12/13/16 09:48 Dose: 1 tab - Objective Vital Signs: Vital Signs Temperature 98.2 F 12/13/16 08:12 Pulse Rate 74 12/13/16 08:12 Respiratory Rate 16 12/13/16 08:12 Blood Pressure 106/58 12/13/16 08:12 O2 Sat by Pulse Oximetry (%) 99 12/13/16 09:00 Constitutional: Yes: No Distress, Calm, Thin Neck: Yes: Supple Cardiovascular: Yes: Pulse Irregular, Murmur (2/6 SM) Respiratory: Yes: Regular, Diminished, On Nasal O2 Gastrointestinal: Yes: Normal Bowel Sounds, Soft Edema: No Labs: CBC, BMP 12/12/16 06:00 12/13/16 05:40 Problem List - Problems (1) Acute hyponatremia Code(s): E87.1 - HYPO-OSMOLALITY AND HYPONATREMIA (2) Aortic valvar stenosis Code(s): I35.0 - NONRHEUMATIC AORTIC (VALVE) STENOSIS Qualifiers: Cardiac valve disease etiology: nonrheumatic Qualified Code(s): I35.0 - Nonrheumatic aortic (valve) stenosis (3) Hypothyroid Code(s): E03.9 - HYPOTHYROIDISM, UNSPECIFIED Qualifiers: Hypothyroidism type: unspecified Qualified Code(s): E03.9 - Hypothyroidism, unspecified (4) Diastolic dysfunction without heart failure Code(s): I51.9 - HEART DISEASE, UNSPECIFIED (5) Atrial fibrillation Code(s): I48.91 - UNSPECIFIED ATRIAL FIBRILLATION Qualifiers: Atrial fibrillation type: persistent Qualified Code(s): I48.1 - Persistent atrial fibrillation (6) S/P balloon aortic valvuloplasty Code(s): Z98.890 - OTHER SPECIFIED POSTPROCEDURAL STATES Assessment/Plan Echocardiography performed 08/18/16 reveled normal LV size and function, Aortic stenosis moderate to severe NATI 0.7 cm2, moderate mitral regurgitation, severe tricuspid valve regurgitation with RVSP of 55 mmHg 1. Acute hypovolemic, hyponatremia referable to diuretics and hypothyroidism improving 2. Chronic diastolic dysfunction with h/o failure and bilateral pleural effusion post-thoracentesis 3. Persistent atrial fibrillation [id number] score of 5 on NOAC's 4. 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 Low flow, low gradient aortic stenosis post BAV 6. Hypokalemia 7. CKD 8. H/o bilateral cellulitis lower extremities, enterobacter UTI 9. Hypothyroidism PLAN: 1. Fluid restriction of 1L 2. Continue Lopressor 12.5 bid 4. Continue Eliquis 2.5 mg BID (Wt. < 60 Kg and age > 80) 5. O2 as needed to keep SpO2 >90%, uptitrated Synthroid per TSH
--- NOTE | 2016-12-13 12:08 | PN ---
Progress Note (short form) - Note Progress Note: Renal Follow up for Hyponatremia Pt seen and examined at the bedside no acute complaints feels much better denies any confusion, ANAYA, sob, chest pain Vital Signs Temperature 98.2 F 12/13/16 08:12 Pulse Rate 74 12/13/16 08:12 Respiratory Rate 16 12/13/16 08:12 Blood Pressure 106/58 12/13/16 08:12 O2 Sat by Pulse Oximetry (%) 99 12/13/16 09:00 Intake & Output 12/10/16 12/11/16 12/12/16 12/13/16 23:59 23:59 23:59 23:59 Intake Total 125 340 600 110 Output Total 250 350 Balance -125 -10 600 110 Weight 95 lb 97 lb 2 oz 96 lb Gen: NAD, awake and alert HEENT: NC/AT, MMM, No JVD CVS: RRR, NO M/R Lungs: CTA, no rales or wheeze Abd: soft NT/ND Ext: 1+ edema in LE Neuro: Awake and Alert CBC, BMP 12/12/16 06:00 12/13/16 05:40 Current Medications Apixaban (Eliquis -) 2.5 mg PO BID [facility] Last Admin: 12/13/16 09:48 Dose: 2.5 mg Levothyroxine Sodium (Synthroid -) 50 mcg PO DAILY@0700 [facility] Last Admin: 12/13/16 06:38 Dose: 50 mcg Metoprolol Tartrate (Lopressor -) 12.5 mg PO BID [facility] Last Admin: 12/13/16 09:48 Dose: 12.5 mg Multivitamins/Minerals/Vitamin C (Tab-A-Vit -) 1 tab PO DAILY [facility] Last Admin: 12/13/16 09:48 Dose: 1 tab A/P 86 year old woman with PMhx of CHF (diastolic dysfunction), Afib, Hypothyrodisim presented with weakness and anorezia and found to have serum Na of 112. #Acute hyponatremia with signs of mild fluid expansion serum Na improving appropriately Start Lasix 20mg Daily (discussed with cardiology) Trend Na daily #Hx of HTN BP is low/marginal holding valsartan for now given marginal BP Trend with diuresis and restart as needed Sabino Villatoro DO
[2016-12-13] MEDS ORDERED: POLYETHYLENE GLYCOL 3350 119 GM BTL PO ONE (12:20)
--- NOTE | 2016-12-13 12:20 | PN ---
Progress Note, Physician History of Present Illness: Pt. is feeling stronger today. Pt. w/o SOB, CP, plap., abd pain. Pt. with constipation, treid prune juice, not working. - Current Medication List Current Medications: Active Medications Apixaban (Eliquis -) 2.5 mg PO BID [facility] Last Admin: 12/13/16 09:48 Dose: 2.5 mg Levothyroxine Sodium (Synthroid -) 50 mcg PO DAILY@0700 [facility] Last Admin: 12/13/16 06:38 Dose: 50 mcg Metoprolol Tartrate (Lopressor -) 12.5 mg PO BID [facility] Last Admin: 12/13/16 09:48 Dose: 12.5 mg Multivitamins/Minerals/Vitamin C (Tab-A-Vit -) 1 tab PO DAILY [facility] Last Admin: 12/13/16 09:48 Dose: 1 tab - Objective Vital Signs: Vital Signs Temperature 98.2 F 12/13/16 08:12 Pulse Rate 74 12/13/16 08:12 Respiratory Rate 16 12/13/16 08:12 Blood Pressure 106/58 12/13/16 08:12 O2 Sat by Pulse Oximetry (%) 99 12/13/16 09:00 Constitutional: Yes: No Distress, Calm Cardiovascular: Yes: Regular Rate and Rhythm, S1, S2 Respiratory: Yes: Regular, CTA Bilaterally. No: Rales Gastrointestinal: Yes: Normal Bowel Sounds, Soft. No: Palpable Mass, Tenderness Edema: LLE: Trace, RLE: Trace Neurological: Yes: Alert, Oriented Labs: CBC, BMP 12/12/16 06:00 12/13/16 05:40 Problem List - Problems (1) Hyponatremia Assessment/Plan: Probable multifactorial (diuretic, increased water intake) Diuretics on hold. To monitor electrolytes. Cardio consult appreciated. Renal consult appreciated. Code(s): E87.1 - HYPO-OSMOLALITY AND HYPONATREMIA (2) Hypokalemia Assessment/Plan: Improved, to monitor Code(s): E87.6 - HYPOKALEMIA (3) Aortic valvar stenosis Code(s): I35.0 - NONRHEUMATIC AORTIC (VALVE) STENOSIS Qualifiers: Cardiac valve disease etiology: nonrheumatic Qualified Code(s): I35.0 - Nonrheumatic aortic (valve) stenosis (4) Congestive heart failure (CHF) Code(s): I50.9 - HEART FAILURE, UNSPECIFIED Qualifiers: Congestive heart failure type: diastolic (5) Pulmonary hypertension Code(s): I27.2 - OTHER SECONDARY PULMONARY HYPERTENSION (6) Hypothyroid Assessment/Plan: Levothyroxine dose was increased Code(s): E03.9 - HYPOTHYROIDISM, UNSPECIFIED Qualifiers: Hypothyroidism type: unspecified Qualified Code(s): E03.9 - Hypothyroidism, unspecified (7) Constipation Assessment/Plan: Miralax today. Add Colace Code(s): K59.00 - CONSTIPATION, UNSPECIFIED Assessment/Plan AM labs
[2016-12-13] MEDS: BACITRACIN 30 GM TUBE TOPICAL OINTMENT TP SCH (22:13)
[2016-12-14] MEDS: LEVOTHYROXINE NA 50 MCG TABLET (FP) PO SCH (06:27)
[2016-12-14 08:22] LABS: CALCIUM 8.2 mg/dL (8.5-10.1)
[2016-12-14 08:24] LABS: COCKROFT - GAULT 24.803; CREATININE 1.1 mg/dL (0.55-1.02)
[2016-12-14] MEDS: APIXABAN 2.5 MG TABLET PO SCH ×2 (09:15→22:09)
[2016-12-14] MEDS: DOCUSATE SODIUM 100 MG CAPSULE (FP) PO SCH (09:15)
[2016-12-14] MEDS: MULTIVITAMINS (DAILY MVI) TABLET (FP) PO SCH (09:15)
[2016-12-14] MEDS: BACITRACIN 30 GM TUBE TOPICAL OINTMENT TP SCH ×2 (09:17→22:11)
--- NOTE | 2016-12-14 09:36 | PN ---
Progress Note, Physician History of Present Illness: Pt. w/o SOB, CP, plap., abd pain, N, V. Pt. with constipation. - Current Medication List Current Medications: Active Medications Apixaban (Eliquis -) 2.5 mg PO BID [facility] Last Admin: 12/14/16 09:15 Dose: 2.5 mg Bacitracin (Bacitracin -) 1 applic TP BID [facility] Last Admin: 12/14/16 09:17 Dose: 1 applic Docusate Sodium (Colace -) 100 mg PO DAILY [facility] Last Admin: 12/14/16 09:15 Dose: 100 mg Levothyroxine Sodium (Synthroid -) 50 mcg PO DAILY@0700 [facility] Last Admin: 12/14/16 06:27 Dose: 50 mcg Metoprolol Tartrate (Lopressor -) 12.5 mg PO BID [facility] Last Admin: 12/13/16 22:11 Dose: 12.5 mg Multivitamins/Minerals/Vitamin C (Tab-A-Vit -) 1 tab PO DAILY [facility] Last Admin: 12/14/16 09:15 Dose: 1 tab - Objective Vital Signs: Vital Signs Temperature 97.4 F L 12/14/16 06:00 Pulse Rate 72 12/14/16 06:00 Respiratory Rate 18 12/14/16 06:00 Blood Pressure 104/68 12/14/16 06:00 O2 Sat by Pulse Oximetry (%) 99 12/13/16 21:00 Constitutional: Yes: No Distress, Calm Cardiovascular: Yes: Regular Rate and Rhythm, S1, S2 Respiratory: Yes: Regular, Rales (at bases) Gastrointestinal: Yes: Normal Bowel Sounds, Soft. No: Palpable Mass, Tenderness Edema: LLE: Trace, RLE: Trace Labs: CBC, BMP 12/12/16 06:00 12/14/16 05:58 Problem List - Problems (1) Hyponatremia Assessment/Plan: Probable multifactorial (diuretic, increased water intake) Diuretics on hold. To monitor electrolytes. Cardio consult appreciated. Renal consult appreciated. To add Lasix 20 mg daily, if BP allows it Code(s): E87.1 - HYPO-OSMOLALITY AND HYPONATREMIA (2) Hypokalemia Assessment/Plan: Resolved, to monitor Code(s): E87.6 - HYPOKALEMIA (3) Aortic valvar stenosis Code(s): I35.0 - NONRHEUMATIC AORTIC (VALVE) STENOSIS Qualifiers: Cardiac valve disease etiology: nonrheumatic Qualified Code(s): I35.0 - Nonrheumatic aortic (valve) stenosis (4) Congestive heart failure (CHF) Code(s): I50.9 - HEART FAILURE, UNSPECIFIED Qualifiers: Congestive heart failure type: diastolic (5) Pulmonary hypertension Code(s): I27.2 - OTHER SECONDARY PULMONARY HYPERTENSION (6) Hypothyroid Assessment/Plan: Levothyroxine dose was increased Code(s): E03.9 - HYPOTHYROIDISM, UNSPECIFIED Qualifiers: Hypothyroidism type: unspecified Qualified Code(s): E03.9 - Hypothyroidism, unspecified (7) Constipation Assessment/Plan: Miralax again today. Started on Colace Code(s): K59.00 - CONSTIPATION, UNSPECIFIED
--- NOTE | 2016-12-14 10:25 | PN ---
Progress Note, Physician History of Present Illness: Profound weakness, fatigue, altered mental status and anorexia improved with improving hyponatremia. She denies CP or SOB, palpitations, LE edema which have significantly improved post BAV. - Current Medication List Current Medications: Active Medications Apixaban (Eliquis -) 2.5 mg PO BID [facility] Last Admin: 12/14/16 09:15 Dose: 2.5 mg Bacitracin (Bacitracin -) 1 applic TP BID [facility] Last Admin: 12/14/16 09:17 Dose: 1 applic Docusate Sodium (Colace -) 100 mg PO DAILY [facility] Last Admin: 12/14/16 09:15 Dose: 100 mg Furosemide (Lasix -) 20 mg PO DAILY@1400 [facility] Levothyroxine Sodium (Synthroid -) 50 mcg PO DAILY@0700 [facility] Last Admin: 12/14/16 06:27 Dose: 50 mcg Metoprolol Tartrate (Lopressor -) 12.5 mg PO BID [facility] Last Admin: 12/13/16 22:11 Dose: 12.5 mg Multivitamins/Minerals/Vitamin C (Tab-A-Vit -) 1 tab PO DAILY [facility] Last Admin: 12/14/16 09:15 Dose: 1 tab - Objective Vital Signs: Vital Signs Temperature 98 F 12/14/16 09:00 Pulse Rate 74 12/14/16 09:00 Respiratory Rate 18 12/14/16 09:00 Blood Pressure 92/58 12/14/16 09:00 O2 Sat by Pulse Oximetry (%) 99 12/13/16 21:00 Constitutional: Yes: No Distress, Calm Neck: Yes: Supple Cardiovascular: Yes: Regular Rate and Rhythm, Murmur (2/6 SM) Respiratory: Yes: Regular, Diminished, On Nasal O2 Gastrointestinal: Yes: Normal Bowel Sounds, Soft Edema: No Labs: CBC, BMP 12/12/16 06:00 12/14/16 05:58 Problem List - Problems (1) Acute hyponatremia Code(s): E87.1 - HYPO-OSMOLALITY AND HYPONATREMIA (2) Aortic valvar stenosis Code(s): I35.0 - NONRHEUMATIC AORTIC (VALVE) STENOSIS Qualifiers: Cardiac valve disease etiology: nonrheumatic Qualified Code(s): I35.0 - Nonrheumatic aortic (valve) stenosis (3) Hypothyroid Code(s): E03.9 - HYPOTHYROIDISM, UNSPECIFIED Qualifiers: Hypothyroidism type: unspecified Qualified Code(s): E03.9 - Hypothyroidism, unspecified (4) Diastolic dysfunction without heart failure Code(s): I51.9 - HEART DISEASE, UNSPECIFIED (5) Atrial fibrillation Code(s): I48.91 - UNSPECIFIED ATRIAL FIBRILLATION Qualifiers: Atrial fibrillation type: persistent Qualified Code(s): I48.1 - Persistent atrial fibrillation (6) S/P balloon aortic valvuloplasty Code(s): Z98.890 - OTHER SPECIFIED POSTPROCEDURAL STATES Assessment/Plan Echocardiography performed 08/18/16 reveled normal LV size and function, Aortic stenosis moderate to severe NATI 0.7 cm2, moderate mitral regurgitation, severe tricuspid valve regurgitation with RVSP of 55 mmHg 1. Acute hypovolemic, hyponatremia referable to diuretics and hypothyroidism improving 2. Chronic diastolic dysfunction with h/o failure and bilateral pleural effusion post-thoracentesis 3. Persistent atrial fibrillation [id number] score of 5 on NOAC's 4. 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 Low flow, low gradient aortic stenosis post BAV 6. Hypokalemia 7. CKD 8. H/o bilateral cellulitis lower extremities, enterobacter UTI 9. Hypothyroidism PLAN: 1. Fluid restriction of 1L, resumed Lasix 20 qd 2. Continue Lopressor 12.5 bid 3. Continue Eliquis 2.5 mg BID (Wt. < 60 Kg and age > 80) 4. O2 as needed to keep SpO2 >90%, uptitrated Synthroid per TSH 5. OOB to chair, d/c planning
[2016-12-14] MEDS: METOPROLOL TARTRATE 25 MG TABLET (FP) PO SCH ×2 (11:07→22:09)
--- NOTE | 2016-12-14 12:50 | PN ---
Progress Note (short form) - Note Progress Note: Renal Follow up for Hyponatremia Pt seen and examined at the bedside no acute complaints denies any sob, chest pain, ANAYA, confusion or lethargy appetite is good Vital Signs Temperature 98 F 12/14/16 09:00 Pulse Rate 74 12/14/16 09:00 Respiratory Rate 18 12/14/16 09:00 Blood Pressure 92/58 12/14/16 09:00 O2 Sat by Pulse Oximetry (%) 98 12/14/16 09:00 Intake & Output 12/11/16 12/12/16 12/13/16 12/14/16 23:59 23:59 23:59 23:59 Intake Total 340 600 690 100 Output Total 350 Balance -10 600 690 100 Weight 97 lb 2 oz 96 lb 98 lb Gen: NAD, awake and alert HEENT: NC/AT, MMM, No JVD CVS: RRR, NO M/R Lungs: CTA, no rales or wheeze Abd: soft NT/ND Ext: Trace Le edema CBC, BMP 12/12/16 06:00 12/14/16 05:58 Current Medications Apixaban (Eliquis -) 2.5 mg PO BID [facility] Last Admin: 12/14/16 09:15 Dose: 2.5 mg Bacitracin (Bacitracin -) 1 applic TP BID [facility] Last Admin: 12/14/16 09:17 Dose: 1 applic Docusate Sodium (Colace -) 100 mg PO DAILY [facility] Last Admin: 12/14/16 09:15 Dose: 100 mg Furosemide (Lasix -) 20 mg PO DAILY@1400 [facility] Levothyroxine Sodium (Synthroid -) 50 mcg PO DAILY@0700 [facility] Last Admin: 12/14/16 06:27 Dose: 50 mcg Metoprolol Tartrate (Lopressor -) 12.5 mg PO BID [facility] Last Admin: 12/14/16 11:07 Dose: Not Given Multivitamins/Minerals/Vitamin C (Tab-A-Vit -) 1 tab PO DAILY [facility] Last Admin: 12/14/16 09:15 Dose: 1 tab A/P 86 year old woman with PMhx of CHF (diastolic dysfunction), Afib, Hypothyrodisim presented with weakness and anorezia and found to have serum Na of 112. #Acute hyponatremia with signs of mild fluid expansion serum Na imporved and stable not within normal limits yet pt without any symptoms of hyponatremia at the present time continue Lasix as per Cardiology #Hx of HTN BP is low/marginal holding valsartan for now given marginal BP Trend with diuresis and restart as needed Sabino Villatoro DO
[2016-12-14] MEDS ORDERED: FUROSEMIDE 20 MG TABLET (FP) PO SCH (14:00)
[2016-12-14] MEDS ORDERED: SODIUM PHOSPHATE/NA BIPHOS 133 ML ENEMA RC ONE (18:30)
[2016-12-15] MEDS: LEVOTHYROXINE NA 50 MCG TABLET (FP) PO SCH (06:20)
[2016-12-15 07:57] LABS: CALCIUM 8.6 mg/dL (8.5-10.1); MAGNESIUM 2.1 mg/dL (1.8-2.4)
[2016-12-15 07:58] LABS: COCKROFT - GAULT 47.855; CREATININE 1.1 mg/dL (0.55-1.02); PHOSPHOROUS 2.9 mg/dL (2.5-4.9)
[2016-12-15] MEDS: MULTIVITAMINS (DAILY MVI) TABLET (FP) PO SCH (09:29)
[2016-12-15] MEDS: METOPROLOL TARTRATE 25 MG TABLET (FP) PO SCH ×2 (09:29→21:34)
[2016-12-15] MEDS: DOCUSATE SODIUM 100 MG CAPSULE (FP) PO SCH (09:29)
[2016-12-15] MEDS: APIXABAN 2.5 MG TABLET PO SCH ×2 (09:30→21:34)
[2016-12-15] MEDS: BACITRACIN 30 GM TUBE TOPICAL OINTMENT TP SCH ×2 (09:32→21:35)
--- NOTE | 2016-12-15 09:35 | PN ---
Progress Note, Physician History of Present Illness: Symptomatic hyponatremia resolved, denies chest pain, dyspnea. - Current Medication List Current Medications: Active Medications Apixaban (Eliquis -) 2.5 mg PO BID [facility] Last Admin: 12/15/16 09:30 Dose: 2.5 mg Bacitracin (Bacitracin -) 1 applic TP BID [facility] Last Admin: 12/15/16 09:32 Dose: 1 applic Docusate Sodium (Colace -) 100 mg PO DAILY [facility] Last Admin: 12/15/16 09:29 Dose: 100 mg Furosemide (Lasix -) 20 mg PO DAILY@1400 [facility] Last Admin: 12/14/16 14:24 Dose: Not Given Levothyroxine Sodium (Synthroid -) 50 mcg PO DAILY@0700 [facility] Last Admin: 12/15/16 06:20 Dose: 50 mcg Metoprolol Tartrate (Lopressor -) 12.5 mg PO BID [facility] Last Admin: 12/15/16 09:29 Dose: 12.5 mg Multivitamins/Minerals/Vitamin C (Tab-A-Vit -) 1 tab PO DAILY [facility] Last Admin: 12/15/16 09:29 Dose: 1 tab - Objective Vital Signs: Vital Signs Temperature 97.6 F 12/15/16 05:15 Pulse Rate 71 12/15/16 05:15 Respiratory Rate 18 12/15/16 05:15 Blood Pressure 104/56 12/15/16 05:15 O2 Sat by Pulse Oximetry (%) 97 12/14/16 21:00 Constitutional: Yes: No Distress, Calm, Thin Neck: Yes: Supple Cardiovascular: Yes: Regular Rate and Rhythm, Murmur (2/6 SM) Respiratory: Yes: Regular, Diminished Gastrointestinal: Yes: Normal Bowel Sounds, Soft Edema: No Labs: CBC, BMP 12/12/16 06:00 12/15/16 05:35 Problem List - Problems (1) Acute hyponatremia Code(s): E87.1 - HYPO-OSMOLALITY AND HYPONATREMIA (2) Aortic valvar stenosis Code(s): I35.0 - NONRHEUMATIC AORTIC (VALVE) STENOSIS Qualifiers: Cardiac valve disease etiology: nonrheumatic Qualified Code(s): I35.0 - Nonrheumatic aortic (valve) stenosis (3) Hypothyroid Code(s): E03.9 - HYPOTHYROIDISM, UNSPECIFIED Qualifiers: Hypothyroidism type: unspecified Qualified Code(s): E03.9 - Hypothyroidism, unspecified (4) Diastolic dysfunction without heart failure Code(s): I51.9 - HEART DISEASE, UNSPECIFIED (5) Atrial fibrillation Code(s): I48.91 - UNSPECIFIED ATRIAL FIBRILLATION Qualifiers: Atrial fibrillation type: persistent Qualified Code(s): I48.1 - Persistent atrial fibrillation (6) S/P balloon aortic valvuloplasty Code(s): Z98.890 - OTHER SPECIFIED POSTPROCEDURAL STATES Assessment/Plan Echocardiography performed 08/18/16 reveled normal LV size and function, Aortic stenosis moderate to severe NATI 0.7 cm2, moderate mitral regurgitation, severe tricuspid valve regurgitation with RVSP of 55 mmHg 1. Acute hypovolemic, hyponatremia referable to diuretics and hypothyroidism improving 2. Chronic diastolic dysfunction with h/o failure and bilateral pleural effusion post-thoracentesis 3. Persistent atrial fibrillation [id number] score of 5 on NOAC's 4. 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 Low flow, low gradient aortic stenosis post BAV 6. Hypokalemia 7. CKD 8. H/o bilateral cellulitis lower extremities, enterobacter UTI 9. Hypothyroidism PLAN: 1. Fluid restriction of 1L, resumed Lasix 20 qd 2. Continue Lopressor 12.5 bid, resume Diovan 40 qd as hemodynamics tolerate 3. Continue Eliquis 2.5 mg BID (Wt. < 60 Kg and age > 80) 4. O2 as needed to keep SpO2 >90%, uptitrated Synthroid per TSH 5. OOB to chair, encourage ambulation, d/c planning
--- NOTE | 2016-12-15 10:56 | PN ---
Progress Note, Physician History of Present Illness: Pt. w/o SOB, CP, plap., abd pain, N, V. Pt. had BM. - Current Medication List Current Medications: Active Medications Apixaban (Eliquis -) 2.5 mg PO BID [facility] Last Admin: 12/15/16 09:30 Dose: 2.5 mg Bacitracin (Bacitracin -) 1 applic TP BID [facility] Last Admin: 12/15/16 09:32 Dose: 1 applic Docusate Sodium (Colace -) 100 mg PO DAILY [facility] Last Admin: 12/15/16 09:29 Dose: 100 mg Furosemide (Lasix -) 20 mg PO DAILY@1400 [facility] Levothyroxine Sodium (Synthroid -) 50 mcg PO DAILY@0700 [facility] Last Admin: 12/15/16 06:20 Dose: 50 mcg Metoprolol Tartrate (Lopressor -) 12.5 mg PO BID [facility] Last Admin: 12/15/16 09:29 Dose: 12.5 mg Multivitamins/Minerals/Vitamin C (Tab-A-Vit -) 1 tab PO DAILY [facility] Last Admin: 12/15/16 09:29 Dose: 1 tab - Objective Vital Signs: Vital Signs Temperature 98 F 12/15/16 09:00 Pulse Rate 86 12/15/16 09:00 Respiratory Rate 18 12/15/16 09:00 Blood Pressure 118/54 12/15/16 09:00 O2 Sat by Pulse Oximetry (%) 98 12/15/16 09:00 Constitutional: Yes: No Distress, Calm Cardiovascular: Yes: Regular Rate and Rhythm, S1, S2 Respiratory: Yes: Regular. No: Rales Gastrointestinal: Yes: Normal Bowel Sounds, Soft. No: Palpable Mass, Tenderness Edema: LLE: Trace, RLE: Trace Labs: CBC, BMP 12/12/16 06:00 12/15/16 05:35 Problem List - Problems (1) Hyponatremia Assessment/Plan: Probable multifactorial (diuretic, increased water intake) Diuretics were held. To monitor electrolytes. Cardio consult appreciated. Renal consult appreciated. To add Lasix 20 mg daily- case was d/w Dr. Spring Code(s): E87.1 - HYPO-OSMOLALITY AND HYPONATREMIA (2) Hypokalemia Assessment/Plan: Resolved, to monitor Code(s): E87.6 - HYPOKALEMIA (3) Aortic valvar stenosis Code(s): I35.0 - NONRHEUMATIC AORTIC (VALVE) STENOSIS Qualifiers: Cardiac valve disease etiology: nonrheumatic Qualified Code(s): I35.0 - Nonrheumatic aortic (valve) stenosis (4) Congestive heart failure (CHF) Code(s): I50.9 - HEART FAILURE, UNSPECIFIED Qualifiers: Congestive heart failure type: diastolic (5) Pulmonary hypertension Code(s): I27.2 - OTHER SECONDARY PULMONARY HYPERTENSION (6) Hypothyroid Assessment/Plan: Levothyroxine dose was increased Code(s): E03.9 - HYPOTHYROIDISM, UNSPECIFIED Qualifiers: Hypothyroidism type: unspecified Qualified Code(s): E03.9 - Hypothyroidism, unspecified (7) Constipation Assessment/Plan: Pt. had BM Cont. Colace Code(s): K59.00 - CONSTIPATION, UNSPECIFIED Assessment/Plan AM labs
--- NOTE | 2016-12-15 15:00 | PN ---
Progress Note (short form) - Note Progress Note: Renal Follow up for Hyponatremia Pt seen and examined at the bedside awake and alert no N/V/D, sob or chest pain Vital Signs Temperature 98 F 12/15/16 09:00 Pulse Rate 86 12/15/16 09:00 Respiratory Rate 18 12/15/16 09:00 Blood Pressure 118/54 12/15/16 09:00 O2 Sat by Pulse Oximetry (%) 98 12/15/16 09:00 Intake & Output 12/12/16 12/13/16 12/14/16 12/15/16 23:59 23:59 23:59 23:59 Intake Total 600 690 580 50 Balance 600 690 580 50 Weight 96 lb 98 lb 189 lb 3.2 oz Gen: NAD, awake and alert HEENT: NC/AT, MMM, No JVD CVS: RRR, NO M/R Lungs: CTA, no rales or wheeze Abd: soft NT/ND Ext: Trace Le edema CBC, BMP 12/12/16 06:00 12/15/16 05:35 Laboratory Tests 12/15/16 05:35 Random Glucose 76 Calcium 8.6 Phosphorus 2.9 Magnesium 2.1 Current Medications Apixaban (Eliquis -) 2.5 mg PO BID [facility] Last Admin: 12/15/16 09:30 Dose: 2.5 mg Bacitracin (Bacitracin -) 1 applic TP BID [facility] Last Admin: 12/15/16 09:32 Dose: 1 applic Docusate Sodium (Colace -) 100 mg PO DAILY [facility] Last Admin: 12/15/16 09:29 Dose: 100 mg Furosemide (Lasix -) 20 mg PO DAILY@1400 [facility] Levothyroxine Sodium (Synthroid -) 50 mcg PO DAILY@0700 [facility] Last Admin: 12/15/16 06:20 Dose: 50 mcg Metoprolol Tartrate (Lopressor -) 12.5 mg PO BID [facility] Last Admin: 12/15/16 09:29 Dose: 12.5 mg Multivitamins/Minerals/Vitamin C (Tab-A-Vit -) 1 tab PO DAILY [facility] Last Admin: 12/15/16 09:29 Dose: 1 tab A/P 86 year old woman with PMhx of CHF (diastolic dysfunction), Afib, Hypothyrodisim presented with weakness and anorezia and found to have serum Na of 112. #Acute hyponatremia with signs of mild fluid expansion serum Na stable continue Lasix 20mg Daily avoid excess fluid intake continue low salt deit for hx of CHF #Hx of HTN BP remains marginal ARB is on hold continue beta dana Sabino Villatoro DO
[2016-12-15] MEDS: FUROSEMIDE 20 MG TABLET (FP) PO SCH (15:06)
[2016-12-16] MEDS: LEVOTHYROXINE NA 50 MCG TABLET (FP) PO SCH (06:52)
--- NOTE | 2016-12-16 08:41 | PN ---
Progress Note, Physician Chief Complaint: in bed feels better no SOB no pain - Current Medication List Current Medications: Active Medications Apixaban (Eliquis -) 2.5 mg PO BID [facility] Last Admin: 12/15/16 21:34 Dose: 2.5 mg Bacitracin (Bacitracin -) 1 applic TP BID [facility] Last Admin: 12/15/16 21:35 Dose: 1 applic Docusate Sodium (Colace -) 100 mg PO DAILY [facility] Last Admin: 12/15/16 09:29 Dose: 100 mg Furosemide (Lasix -) 20 mg PO DAILY@1400 [facility] Last Admin: 12/15/16 15:06 Dose: 20 mg Levothyroxine Sodium (Synthroid -) 50 mcg PO DAILY@0700 [facility] Last Admin: 12/16/16 06:52 Dose: 50 mcg Metoprolol Tartrate (Lopressor -) 12.5 mg PO BID [facility] Last Admin: 12/15/16 21:34 Dose: 12.5 mg Multivitamins/Minerals/Vitamin C (Tab-A-Vit -) 1 tab PO DAILY [facility] Last Admin: 12/15/16 09:29 Dose: 1 tab - Objective Vital Signs: Vital Signs Temperature 97 F L 12/16/16 05:18 Pulse Rate 74 12/16/16 05:18 Respiratory Rate 18 12/16/16 05:18 Blood Pressure 101/64 12/16/16 05:18 O2 Sat by Pulse Oximetry (%) 94 L 12/15/16 20:44 Constitutional: Yes: No Distress, Calm Eyes: Yes: Conjunctiva Clear HENT: Yes: Atraumatic Neck: Yes: Supple Cardiovascular: No: Regular Rate and Rhythm Respiratory: Yes: Diminished Gastrointestinal: Yes: Soft. No: Distention, Tenderness Genitourinary: No: CVA Tenderness - Left, CVA Tenderness - Right, Hematuria Musculoskeletal: No: Joint Stiffness, Joint Swelling Extremities: No: Cold, Cool Edema: Yes (pretibial 1+) Integumentary: Yes: Venous Stasis Changes. No: Rash Neurological: Yes: WNL, Alert, Oriented ...Motor Strength: WNL Psychiatric: Yes: WNL, Alert, Oriented. No: Agitated, Suicidal Ideation Labs: CBC, BMP 12/12/16 06:00 - ....Imaging Other: Report Reviewed Assessment/Plan 86 year old woman with PMhx of CHF (diastolic dysfunction), Afib, Hypothyrodisim presented with weakness and anorezia and found to have serum Na of 112. #Acute hyponatremia with signs of mild fluid expansion - better, renal f/u serum Na stable continue Lasix 20mg Daily avoid excess fluid intake continue low salt deit for hx of CHF #Hx of HTN, CHF, s/p valve intervention at [facility] [place] - cardiology f/u BP remains marginal ARB is on hold continue beta dana PT rehab for OOB and ambulation; falls PFX O2 sat/RA pre and post palliative care to address DNR DNI, pt expressed before wish for it but did not want to sign form, wants to d/w son d/w pt and staff
[2016-12-16 08:42] LABS: CALCIUM 8.5 mg/dL (8.5-10.1); COCKROFT - GAULT 28.458
[2016-12-16] MEDS: MULTIVITAMINS (DAILY MVI) TABLET (FP) PO SCH (10:33)
[2016-12-16] MEDS: METOPROLOL TARTRATE 25 MG TABLET (FP) PO SCH ×2 (10:34→21:24)
[2016-12-16] MEDS: APIXABAN 2.5 MG TABLET PO SCH ×2 (10:34→21:24)
[2016-12-16] MEDS: DOCUSATE SODIUM 100 MG CAPSULE (FP) PO SCH (10:34)
--- NOTE | 2016-12-16 11:10 | PN ---
Progress Note, Physician Chief Complaint: Patient seen sitting by her bed. Feeling overall better. No chest pain, No shortness of breath. Vows compliance with free water restriction. History of Present Illness: The patient has h/o Hypertension, CHF, Valvular hear disease, / TR, Hypothyroidism, Ch. A Fib, Congestive heart failure, Pleural effusion, recent thoracentsis, and drainage of 1 lit of fluid. Now on free water restriction of 1 lit/ day - Current Medication List Current Medications: Active Medications Apixaban (Eliquis -) 2.5 mg PO BID [facility] Last Admin: 12/16/16 10:34 Dose: 2.5 mg Bacitracin (Bacitracin -) 1 applic TP BID [facility] Last Admin: 12/15/16 21:35 Dose: 1 applic Docusate Sodium (Colace -) 100 mg PO DAILY [facility] Last Admin: 12/16/16 10:34 Dose: 100 mg Furosemide (Lasix -) 20 mg PO DAILY@1400 [facility] Last Admin: 12/15/16 15:06 Dose: 20 mg Levothyroxine Sodium (Synthroid -) 50 mcg PO DAILY@0700 [facility] Last Admin: 12/16/16 06:52 Dose: 50 mcg Metoprolol Tartrate (Lopressor -) 12.5 mg PO BID [facility] Last Admin: 12/16/16 10:34 Dose: 12.5 mg Multivitamins/Minerals/Vitamin C (Tab-A-Vit -) 1 tab PO DAILY [facility] Last Admin: 12/16/16 10:33 Dose: 1 tab - Objective Vital Signs: Vital Signs Temperature 97.8 F 12/16/16 08:55 Pulse Rate 68 12/16/16 08:55 Respiratory Rate 20 12/16/16 08:55 Blood Pressure 107/64 12/16/16 08:55 O2 Sat by Pulse Oximetry (%) 94 L 12/15/16 20:44 Constitutional: Yes: No Distress, Calm Eyes: Yes: WNL, Conjunctiva Clear HENT: Yes: WNL, Atraumatic, Normocephalic Neck: Yes: WNL, Supple, Trachea Midline Cardiovascular: Yes: WNL, Regular Rate and Rhythm, S1, S2 Respiratory: Yes: WNL, Regular, CTA Bilaterally Gastrointestinal: Yes: WNL, Normal Bowel Sounds, Soft Edema: LLE: Trace, RLE: Trace Neurological: Yes: WNL, Alert, Oriented ...Motor Strength: WNL Labs: CBC, BMP 12/12/16 06:00 12/16/16 06:00 Problem List - Problems (1) Acute hyponatremia Code(s): E87.1 - HYPO-OSMOLALITY AND HYPONATREMIA (2) Atrial fibrillation Code(s): I48.91 - UNSPECIFIED ATRIAL FIBRILLATION Qualifiers: Atrial fibrillation type: persistent Qualified Code(s): I48.1 - Persistent atrial fibrillation (3) Diastolic dysfunction without heart failure Code(s): I51.9 - HEART DISEASE, UNSPECIFIED (4) Weakness Code(s): R53.1 - WEAKNESS (5) Acute on chronic diastolic (congestive) heart failure Code(s): I50.33 - ACUTE ON CHRONIC DIASTOLIC (CONGESTIVE) HEART FAILURE (6) Aortic valvar stenosis Code(s): I35.0 - NONRHEUMATIC AORTIC (VALVE) STENOSIS Qualifiers: Cardiac valve disease etiology: nonrheumatic Qualified Code(s): I35.0 - Nonrheumatic aortic (valve) stenosis (7) Bilateral pleural effusion Code(s): J90 - PLEURAL EFFUSION, NOT ELSEWHERE CLASSIFIED (8) Congestive heart failure (CHF) Code(s): I50.9 - HEART FAILURE, UNSPECIFIED Qualifiers: Congestive heart failure type: diastolic (9) Hypokalemia Code(s): E87.6 - HYPOKALEMIA (10) Hyponatremia Code(s): E87.1 - HYPO-OSMOLALITY AND HYPONATREMIA (11) Hypothyroid Code(s): E03.9 - HYPOTHYROIDISM, UNSPECIFIED Qualifiers: Hypothyroidism type: unspecified Qualified Code(s): E03.9 - Hypothyroidism, unspecified Assessment/Plan 86 y/o female with h/o CHF, Valvular heart disease admitted with weakness and the finding of Hyponatremia The patient on Lasix 20 mg daily, along with free water restriction. Vital signs in acceptable range. Plan. Free water restriction. Continue Loop diuretics. Will monitor the renal/ electrolytes functions with you. Thanks again. Lottie Harper MD
[2016-12-16] MEDS: FUROSEMIDE 20 MG TABLET (FP) PO SCH (15:16)
[2016-12-16] MEDS: BACITRACIN 30 GM TUBE TOPICAL OINTMENT TP SCH ×2 (16:39→21:26)
--- NOTE | 2016-12-16 17:28 | PN ---
Progress Note, Physician History of Present Illness: Symptomatic hyponatremia resolved, denies chest pain, dyspnea. - Current Medication List Current Medications: Active Medications Apixaban (Eliquis -) 2.5 mg PO BID [facility] Last Admin: 12/16/16 10:34 Dose: 2.5 mg Bacitracin (Bacitracin -) 1 applic TP BID [facility] Last Admin: 12/16/16 16:39 Dose: Not Given Docusate Sodium (Colace -) 100 mg PO DAILY [facility] Last Admin: 12/16/16 10:34 Dose: 100 mg Furosemide (Lasix -) 20 mg PO DAILY@1400 [facility] Last Admin: 12/16/16 15:16 Dose: 20 mg Levothyroxine Sodium (Synthroid -) 50 mcg PO DAILY@0700 [facility] Last Admin: 12/16/16 06:52 Dose: 50 mcg Metoprolol Tartrate (Lopressor -) 12.5 mg PO BID [facility] Last Admin: 12/16/16 10:34 Dose: 12.5 mg Multivitamins/Minerals/Vitamin C (Tab-A-Vit -) 1 tab PO DAILY [facility] Last Admin: 12/16/16 10:33 Dose: 1 tab - Objective Vital Signs: Vital Signs Temperature 97.8 F 12/16/16 08:55 Pulse Rate 88 12/16/16 13:26 Respiratory Rate 20 12/16/16 08:55 Blood Pressure 107/64 12/16/16 08:55 O2 Sat by Pulse Oximetry (%) 99 12/16/16 13:26 Constitutional: Yes: No Distress, Calm, Thin Neck: Yes: Supple Cardiovascular: Yes: Pulse Irregular, Murmur (2/6 SM) Respiratory: Yes: Regular, Diminished, On Nasal O2 Gastrointestinal: Yes: Normal Bowel Sounds, Soft Edema: Yes Edema: LLE: Trace, RLE: Trace Labs: CBC, BMP 12/12/16 06:00 12/16/16 06:00 Problem List - Problems (1) Acute hyponatremia Code(s): E87.1 - HYPO-OSMOLALITY AND HYPONATREMIA (2) Aortic valvar stenosis Code(s): I35.0 - NONRHEUMATIC AORTIC (VALVE) STENOSIS Qualifiers: Cardiac valve disease etiology: nonrheumatic Qualified Code(s): I35.0 - Nonrheumatic aortic (valve) stenosis (3) Hypothyroid Code(s): E03.9 - HYPOTHYROIDISM, UNSPECIFIED Qualifiers: Hypothyroidism type: unspecified Qualified Code(s): E03.9 - Hypothyroidism, unspecified (4) Diastolic dysfunction without heart failure Code(s): I51.9 - HEART DISEASE, UNSPECIFIED (5) Atrial fibrillation Code(s): I48.91 - UNSPECIFIED ATRIAL FIBRILLATION Qualifiers: Atrial fibrillation type: persistent Qualified Code(s): I48.1 - Persistent atrial fibrillation (6) S/P balloon aortic valvuloplasty Code(s): Z98.890 - OTHER SPECIFIED POSTPROCEDURAL STATES Assessment/Plan Echocardiography performed 08/18/16 reveled normal LV size and function, Aortic stenosis moderate to severe NATI 0.7 cm2, moderate mitral regurgitation, severe tricuspid valve regurgitation with RVSP of 55 mmHg 1. Acute hypovolemic, hyponatremia referable to diuretics and hypothyroidism improving 2. Chronic diastolic dysfunction with h/o failure and bilateral pleural effusion post-thoracentesis 3. Persistent atrial fibrillation [id number] score of 5 on NOAC's 4. 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 Low flow, low gradient aortic stenosis post BAV 6. Hypokalemia 7. CKD 8. H/o bilateral cellulitis lower extremities, enterobacter UTI 9. Hypothyroidism PLAN: 1. Fluid restriction of 1L, continue Lasix 20 qd 2. Continue Lopressor 12.5 bid, resume Diovan 40 qd as hemodynamics tolerate 3. Continue Eliquis 2.5 mg BID (Wt. < 60 Kg and age > 80) 4. O2 as needed to keep SpO2 >90%, uptitrated Synthroid per TSH 5. OOB to chair, encourage ambulation, d/c planning
[2016-12-17] MEDS: LEVOTHYROXINE NA 50 MCG TABLET (FP) PO SCH (06:06)
[2016-12-17 08:42] LABS: BASOPHIL 1.4 % (0-2.0); EOSINOPHIL 3.8 % (0-4.5); MCH 30.3 pg (25.7-33.7); MCHC 33.5 g/dl (32.0-36.0); MEAN CELL VOLUME 90.5 fl (80-96); MEAN PLT VOLUME 7.3 fl (7.5-11.1); NEUTROPHILS 74.6 % (42.8-82.8); PLATELET COUNT 185 K/MM3 (134-434); RDW 17.8 % (11.6-15.6); WHITE BLOOD COUNT 4.9 K/mm3 (4.0-10.0)
[2016-12-17 09:08] LABS: ALBUMIN 2.9 g/dl (3.4-5.0); CALCIUM 8.3 mg/dL (8.5-10.1); COCKROFT - GAULT 26.1205; CREATININE 1.1 mg/dL (0.55-1.02)
[2016-12-17 09:11] LABS: BILIRUBIN,TOTAL 0.4 mg/dL (0.2-1.0)
--- NOTE | 2016-12-17 09:25 | PN ---
Progress Note, Physician History of Present Illness: Pt. w/o SOB, CP, plap., abd pain, N, V. - Current Medication List Current Medications: Active Medications Apixaban (Eliquis -) 2.5 mg PO BID [facility] Last Admin: 12/16/16 21:24 Dose: 2.5 mg Bacitracin (Bacitracin -) 1 applic TP BID [facility] Last Admin: 12/16/16 21:26 Dose: 1 applic Docusate Sodium (Colace -) 100 mg PO DAILY [facility] Last Admin: 12/16/16 10:34 Dose: 100 mg Furosemide (Lasix -) 20 mg PO DAILY@1400 [facility] Last Admin: 12/16/16 15:16 Dose: 20 mg Levothyroxine Sodium (Synthroid -) 50 mcg PO DAILY@0700 [facility] Last Admin: 12/17/16 06:06 Dose: 50 mcg Metoprolol Tartrate (Lopressor -) 12.5 mg PO BID [facility] Last Admin: 12/16/16 21:24 Dose: 12.5 mg Multivitamins/Minerals/Vitamin C (Tab-A-Vit -) 1 tab PO DAILY [facility] Last Admin: 12/16/16 10:33 Dose: 1 tab Valsartan (Diovan -) 40 mg PO DAILY [facility] - Objective Vital Signs: Vital Signs Temperature 97 F L 12/17/16 05:15 Pulse Rate 82 12/17/16 08:29 Respiratory Rate 20 12/17/16 08:29 Blood Pressure 103/63 12/17/16 08:29 O2 Sat by Pulse Oximetry (%) 99 12/17/16 08:30 Constitutional: Yes: No Distress, Calm Cardiovascular: Yes: Regular Rate and Rhythm, S1, S2 Respiratory: Yes: Regular, CTA Bilaterally. No: Rales Gastrointestinal: Yes: Normal Bowel Sounds, Soft. No: Tenderness Edema: LLE: Trace, RLE: Trace Neurological: Yes: Alert, Oriented Labs: CBC, BMP 12/17/16 08:00 12/17/16 08:00 Problem List - Problems (1) Hyponatremia Assessment/Plan: Probable multifactorial (diuretic, increased water intake) Diuretics were held. To monitor electrolytes. Cardio consult appreciated. Renal consult appreciated. Stated on Lasix PO; it might need to be increased Code(s): E87.1 - HYPO-OSMOLALITY AND HYPONATREMIA (2) Hypokalemia Code(s): E87.6 - HYPOKALEMIA (3) Aortic valvar stenosis Code(s): I35.0 - NONRHEUMATIC AORTIC (VALVE) STENOSIS Qualifiers: Cardiac valve disease etiology: nonrheumatic Qualified Code(s): I35.0 - Nonrheumatic aortic (valve) stenosis (4) Congestive heart failure (CHF) Code(s): I50.9 - HEART FAILURE, UNSPECIFIED Qualifiers: Congestive heart failure type: diastolic (5) Pulmonary hypertension Code(s): I27.2 - OTHER SECONDARY PULMONARY HYPERTENSION (6) Hypothyroid Assessment/Plan: Levothyroxine dose was increased Code(s): E03.9 - HYPOTHYROIDISM, UNSPECIFIED Qualifiers: Hypothyroidism type: unspecified Qualified Code(s): E03.9 - Hypothyroidism, unspecified (7) Constipation Assessment/Plan: Pt. had BM Cont. Colace Code(s): K59.00 - CONSTIPATION, UNSPECIFIED Assessment/Plan AM labs
[2016-12-17] MEDS: VALSARTAN 40 MG TABLET (FP) PO SCH (10:42)
[2016-12-17] MEDS: DOCUSATE SODIUM 100 MG CAPSULE (FP) PO SCH (10:42)
[2016-12-17] MEDS: MULTIVITAMINS (DAILY MVI) TABLET (FP) PO SCH (10:43)
[2016-12-17] MEDS: APIXABAN 2.5 MG TABLET PO SCH ×2 (10:43→21:24)
[2016-12-17] MEDS: METOPROLOL TARTRATE 25 MG TABLET (FP) PO SCH ×2 (10:44→21:24)
[2016-12-17] MEDS: BACITRACIN 30 GM TUBE TOPICAL OINTMENT TP SCH ×2 (10:44→21:25)
--- NOTE | 2016-12-17 13:51 | PN ---
Progress Note, Physician History of Present Illness: Symptomatic hyponatremia resolved, denies chest pain, dyspnea. - Current Medication List Current Medications: Active Medications Apixaban (Eliquis -) 2.5 mg PO BID [facility] Last Admin: 12/17/16 10:43 Dose: 2.5 mg Bacitracin (Bacitracin -) 1 applic TP BID [facility] Last Admin: 12/17/16 10:44 Dose: 1 applic Docusate Sodium (Colace -) 100 mg PO DAILY [facility] Last Admin: 12/17/16 10:42 Dose: 100 mg Furosemide (Lasix -) 20 mg PO DAILY@1400 [facility] Last Admin: 12/16/16 15:16 Dose: 20 mg Levothyroxine Sodium (Synthroid -) 50 mcg PO DAILY@0700 [facility] Last Admin: 12/17/16 06:06 Dose: 50 mcg Metoprolol Tartrate (Lopressor -) 12.5 mg PO BID [facility] Last Admin: 12/17/16 10:44 Dose: 12.5 mg Multivitamins/Minerals/Vitamin C (Tab-A-Vit -) 1 tab PO DAILY [facility] Last Admin: 12/17/16 10:43 Dose: 1 tab Valsartan (Diovan -) 40 mg PO DAILY [facility] Last Admin: 12/17/16 10:42 Dose: 40 mg - Objective Vital Signs: Vital Signs Temperature 97 F L 12/17/16 05:15 Pulse Rate 82 12/17/16 08:29 Respiratory Rate 20 12/17/16 08:29 Blood Pressure 103/63 12/17/16 08:29 O2 Sat by Pulse Oximetry (%) 99 12/17/16 08:30 Constitutional: Yes: No Distress, Calm Neck: Yes: Supple Cardiovascular: Yes: Regular Rate and Rhythm Respiratory: Yes: Regular, Diminished Gastrointestinal: Yes: Normal Bowel Sounds, Soft Edema: Yes Edema: LLE: Trace, RLE: Trace Labs: CBC, BMP 12/17/16 08:00 12/17/16 08:00 Problem List - Problems (1) Acute hyponatremia Code(s): E87.1 - HYPO-OSMOLALITY AND HYPONATREMIA (2) Aortic valvar stenosis Code(s): I35.0 - NONRHEUMATIC AORTIC (VALVE) STENOSIS Qualifiers: Cardiac valve disease etiology: nonrheumatic Qualified Code(s): I35.0 - Nonrheumatic aortic (valve) stenosis (3) Hypothyroid Code(s): E03.9 - HYPOTHYROIDISM, UNSPECIFIED Qualifiers: Hypothyroidism type: unspecified Qualified Code(s): E03.9 - Hypothyroidism, unspecified (4) Diastolic dysfunction without heart failure Code(s): I51.9 - HEART DISEASE, UNSPECIFIED (5) Atrial fibrillation Code(s): I48.91 - UNSPECIFIED ATRIAL FIBRILLATION Qualifiers: Atrial fibrillation type: persistent Qualified Code(s): I48.1 - Persistent atrial fibrillation (6) S/P balloon aortic valvuloplasty Code(s): Z98.890 - OTHER SPECIFIED POSTPROCEDURAL STATES Assessment/Plan Echocardiography performed 08/18/16 reveled normal LV size and function, Aortic stenosis moderate to severe NATI 0.7 cm2, moderate mitral regurgitation, severe tricuspid valve regurgitation with RVSP of 55 mmHg 1. Acute hypovolemic, hyponatremia referable to diuretics and hypothyroidism improving 2. Chronic diastolic dysfunction with h/o failure and bilateral pleural effusion post-thoracentesis 3. Persistent atrial fibrillation [id number] score of 5 on NOAC's 4. 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 Low flow, low gradient aortic stenosis post BAV 6. Hypokalemia 7. CKD 8. H/o bilateral cellulitis lower extremities, enterobacter UTI 9. Hypothyroidism PLAN: 1. Fluid restriction of 1L, continue Lasix 20 qd 2. Continue Lopressor 12.5 bid and Diovan 40 qd as hemodynamics tolerate 3. Continue Eliquis 2.5 mg BID (Wt. < 60 Kg and age > 80) 4. O2 as needed to keep SpO2 >90%, uptitrated Synthroid per TSH 5. Encourage ambulation, d/c planning
[2016-12-17] MEDS: FUROSEMIDE 20 MG TABLET (FP) PO SCH (14:37)
[2016-12-18] MEDS: LEVOTHYROXINE NA 50 MCG TABLET (FP) PO SCH (06:12)
--- NOTE | 2016-12-18 08:38 | PN ---
Progress Note, Physician Chief Complaint: Concerned about weight gain History of Present Illness: Patient was seen and examined. Awake and alert. Chart was reviewed Denies chest pain or palpitations SOB intermittently - Current Medication List Current Medications: Active Medications Apixaban (Eliquis -) 2.5 mg PO BID [facility] Last Admin: 12/17/16 21:24 Dose: 2.5 mg Bacitracin (Bacitracin -) 1 applic TP BID [facility] Last Admin: 12/17/16 21:25 Dose: 1 applic Docusate Sodium (Colace -) 100 mg PO DAILY [facility] Last Admin: 12/17/16 10:42 Dose: 100 mg Furosemide (Lasix -) 20 mg PO DAILY@1400 [facility] Last Admin: 12/17/16 14:37 Dose: 20 mg Levothyroxine Sodium (Synthroid -) 50 mcg PO DAILY@0700 [facility] Last Admin: 12/18/16 06:12 Dose: 50 mcg Metoprolol Tartrate (Lopressor -) 12.5 mg PO BID [facility] Last Admin: 12/17/16 21:24 Dose: 12.5 mg Multivitamins/Minerals/Vitamin C (Tab-A-Vit -) 1 tab PO DAILY [facility] Last Admin: 12/17/16 10:43 Dose: 1 tab Valsartan (Diovan -) 40 mg PO DAILY [facility] Last Admin: 12/17/16 10:42 Dose: 40 mg - Objective Vital Signs: Vital Signs Temperature 98 F 12/18/16 05:30 Pulse Rate 86 12/18/16 05:30 Respiratory Rate 20 12/18/16 05:30 Blood Pressure 102/67 12/18/16 05:30 O2 Sat by Pulse Oximetry (%) 96 12/17/16 20:31 Neck: Yes: Supple Cardiovascular: Yes: Pulse Irregular, S1, S2 Respiratory: Yes: Diminished Gastrointestinal: Yes: Normal Bowel Sounds, Soft. No: Tenderness Edema: Yes Edema: LLE: 1+, RLE: 1+ Labs: CBC, BMP 12/17/16 08:00 Problem List - Problems (1) Acute hyponatremia Code(s): E87.1 - HYPO-OSMOLALITY AND HYPONATREMIA (2) Atrial fibrillation Code(s): I48.91 - UNSPECIFIED ATRIAL FIBRILLATION Qualifiers: Atrial fibrillation type: persistent Qualified Code(s): I48.1 - Persistent atrial fibrillation (3) Diastolic dysfunction without heart failure Code(s): I51.9 - HEART DISEASE, UNSPECIFIED (4) S/P balloon aortic valvuloplasty Code(s): Z98.890 - OTHER SPECIFIED POSTPROCEDURAL STATES (5) MOISES (acute kidney injury) Code(s): N17.9 - ACUTE KIDNEY FAILURE, UNSPECIFIED (6) Acute on chronic diastolic (congestive) heart failure Code(s): I50.33 - ACUTE ON CHRONIC DIASTOLIC (CONGESTIVE) HEART FAILURE (7) Acute respiratory failure with hypoxia Code(s): J96.01 - ACUTE RESPIRATORY FAILURE WITH HYPOXIA (8) Aortic valvar stenosis Code(s): I35.0 - NONRHEUMATIC AORTIC (VALVE) STENOSIS Qualifiers: Cardiac valve disease etiology: nonrheumatic Qualified Code(s): I35.0 - Nonrheumatic aortic (valve) stenosis (9) Atrial fibrillation with RVR Code(s): I48.91 - UNSPECIFIED ATRIAL FIBRILLATION (10) Hypokalemia Code(s): E87.6 - HYPOKALEMIA (11) Hyponatremia Code(s): E87.1 - HYPO-OSMOLALITY AND HYPONATREMIA (12) Pulmonary hypertension Code(s): I27.2 - OTHER SECONDARY PULMONARY HYPERTENSION (13) Tricuspid regurgitation Code(s): I07.1 - RHEUMATIC TRICUSPID INSUFFICIENCY Qualifiers: Cardiac valve disease etiology: nonrheumatic Qualified Code(s): I36.1 - Nonrheumatic tricuspid (valve) insufficiency Assessment/Plan 1. Acute hypovolemic and hyponatremia referable to diuretics and hypothyroidism 2. Chronic diastolic dysfunction with h/o failure and bilateral pleural effusion post-thoracentesis 3. Persistent atrial fibrillation [id number] score of 5 on NOAC 4. 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 Low flow, low gradient aortic stenosis post BAV at [facility] 6. Hypokalemia 7. CKD 8. History of bilateral cellulitis lower extremities and enterobacter UTI 9. Hypothyroidism PLAN: 1. Fluid restriction and continue Lasix, but consider to increase dose 2. Continue Lopressor 12.5 mg bid and Diovan 40 mg qd 3. Continue Eliquis 2.5 mg BID (Wt. < 60 Kg and age > 80) 4. O2 as needed 5. Encourage ambulation. Further plans are to follow Familia Pepper MD
[2016-12-18 09:00] LABS: CALCIUM 8.4 mg/dL (8.5-10.1); COCKROFT - GAULT 22.7035; CREATININE 1.3 mg/dL (0.55-1.02)
[2016-12-18] MEDS: APIXABAN 2.5 MG TABLET PO SCH ×2 (09:56→21:53)
[2016-12-18] MEDS: MULTIVITAMINS (DAILY MVI) TABLET (FP) PO SCH (09:56)
[2016-12-18] MEDS: DOCUSATE SODIUM 100 MG CAPSULE (FP) PO SCH (09:56)
[2016-12-18] MEDS: BACITRACIN 30 GM TUBE TOPICAL OINTMENT TP SCH ×2 (09:57→21:54)
[2016-12-18] MEDS: VALSARTAN 40 MG TABLET (FP) PO SCH (09:57)
[2016-12-18] MEDS: METOPROLOL TARTRATE 25 MG TABLET (FP) PO SCH ×2 (09:58→21:52)
--- NOTE | 2016-12-18 10:15 | PN ---
Progress Note (short form) - Note Progress Note: Renal Follow up for Hyponatremia Pt seen and examined at the bedside denies any sob, chest pain, N/V/D concerned about her sylvain gain BP remains marginal reports good urine output Vital Signs Temperature 98 F 12/18/16 05:30 Pulse Rate 86 12/18/16 05:30 Respiratory Rate 20 12/18/16 05:30 Blood Pressure 102/67 12/18/16 05:30 O2 Sat by Pulse Oximetry (%) 96 12/17/16 20:31 Intake & Output 12/15/16 12/16/16 12/17/16 12/18/16 23:59 23:59 23:59 23:59 Intake Total 530 220 510 60 Balance 530 220 510 60 Weight 189 lb 3.2 oz 102 lb 3.2 oz 103 lb 3.2 oz 106 lb Gen: NAD, awake and alert HEENT: NC/AT, MMM, No JVD CVS: RRR, NO M/R Lungs: CTA, no rales or wheeze Abd: soft NT/ND Ext: Trace to 1+ LE edema CBC, BMP 12/17/16 08:00 12/18/16 06:18 Current Medications Apixaban (Eliquis -) 2.5 mg PO BID [facility] Last Admin: 12/18/16 09:56 Dose: 2.5 mg Bacitracin (Bacitracin -) 1 applic TP BID [facility] Last Admin: 12/18/16 09:57 Dose: 1 applic Docusate Sodium (Colace -) 100 mg PO DAILY [facility] Last Admin: 12/18/16 09:56 Dose: 100 mg Furosemide (Lasix -) 20 mg PO DAILY@1400 [facility] Last Admin: 12/17/16 14:37 Dose: 20 mg Levothyroxine Sodium (Synthroid -) 50 mcg PO DAILY@0700 [facility] Last Admin: 12/18/16 06:12 Dose: 50 mcg Metoprolol Tartrate (Lopressor -) 12.5 mg PO BID [facility] Last Admin: 12/18/16 09:58 Dose: 12.5 mg Multivitamins/Minerals/Vitamin C (Tab-A-Vit -) 1 tab PO DAILY [facility] Last Admin: 12/18/16 09:56 Dose: 1 tab Valsartan (Diovan -) 40 mg PO DAILY [facility] Last Admin: 12/18/16 09:57 Dose: Not Given A/P 86 year old woman with PMhx of CHF (diastolic dysfunction), Afib, Hypothyrodisim presented with weakness and anorezia and found to have serum Na of 112. #Hyponatremia secondary to Total body salt depeltion Serum Na is now improved and stable on Lasix and toelrating it well Continue free water restriction #Worsening Renal function BP remains marginal Restarted on Diovan yesterday -> likely resonsable for reise in Cr Can expect some rise in Cr, trend for now on Low dose lasix with continued LE edema #Hx of /CHF Cardiology following Thank you Sabino Vásquez DO
--- NOTE | 2016-12-18 15:57 | PN ---
Progress Note, Physician Chief Complaint: in bed nad no CP/SOB; started on diovan low dose yesterday; creat 1.3 (from 1.1) and BP 90/50; will DC diovan - Current Medication List Current Medications: Active Medications Apixaban (Eliquis -) 2.5 mg PO BID [facility] Last Admin: 12/18/16 09:56 Dose: 2.5 mg Bacitracin (Bacitracin -) 1 applic TP BID [facility] Last Admin: 12/18/16 09:57 Dose: 1 applic Docusate Sodium (Colace -) 100 mg PO DAILY [facility] Last Admin: 12/18/16 09:56 Dose: 100 mg Furosemide (Lasix -) 20 mg PO DAILY@1400 [facility] Last Admin: 12/17/16 14:37 Dose: 20 mg Levothyroxine Sodium (Synthroid -) 50 mcg PO DAILY@0700 [facility] Last Admin: 12/18/16 06:12 Dose: 50 mcg Metoprolol Tartrate (Lopressor -) 12.5 mg PO BID [facility] Last Admin: 12/18/16 09:58 Dose: 12.5 mg Multivitamins/Minerals/Vitamin C (Tab-A-Vit -) 1 tab PO DAILY [facility] Last Admin: 12/18/16 09:56 Dose: 1 tab - Objective Vital Signs: Vital Signs Temperature 97.4 F L 12/18/16 14:00 Pulse Rate 89 12/18/16 14:00 Respiratory Rate 18 12/18/16 14:00 Blood Pressure 91/58 12/18/16 14:00 O2 Sat by Pulse Oximetry (%) 94 L 12/18/16 10:00 Constitutional: Yes: No Distress, Calm Eyes: Yes: Conjunctiva Clear HENT: Yes: Atraumatic Neck: Yes: Supple Cardiovascular: No: Regular Rate and Rhythm Respiratory: Yes: Diminished Gastrointestinal: Yes: Soft. No: Distention, Tenderness Genitourinary: No: CVA Tenderness - Left, CVA Tenderness - Right, Hematuria Musculoskeletal: No: Joint Stiffness, Joint Swelling Extremities: No: Cold, Cool Edema: Yes Integumentary: Yes: Venous Stasis Changes. No: Rash Neurological: Yes: WNL, Alert, Oriented ...Motor Strength: WNL Psychiatric: Yes: WNL, Alert, Oriented. No: Agitated Labs: CBC, BMP 12/17/16 08:00 12/18/16 06:18 - ....Imaging Other: Report Reviewed Assessment/Plan 86 year old woman with PMhx of CHF (diastolic dysfunction), Afib, Hypothyrodisim presented with weakness and anorezia and found to have serum Na of 112. #Acute hyponatremia with signs of mild fluid expansion - better, renal f/u serum Na better continue Lasix 20mg Daily avoid excess fluid intake continue low salt diet for hx of CHF #Hx of HTN, CHF, s[place] [facility] [place]u BP remains marginal ARB restarted but will DC it b/o renal fct and low BP continue beta dana PT rehab for OOB and ambulation; falls PFX O2 sat/RA pre and post - over 90% pt does not need home O2; walked in PT 200 feet possible DC in am if Na, renal fct and BP stable d/w pt and staff
[2016-12-18] MEDS: FUROSEMIDE 20 MG TABLET (FP) PO SCH (17:43)
[2016-12-19] MEDS: LEVOTHYROXINE NA 50 MCG TABLET (FP) PO SCH (06:07)
[2016-12-19 07:18] LABS: BASOPHIL 1.4 % (0-2.0); EOSINOPHIL 3.4 % (0-4.5); MCH 29.9 pg (25.7-33.7); MCHC 32.4 g/dl (32.0-36.0); MEAN CELL VOLUME 92.3 fl (80-96); MEAN PLT VOLUME 7.7 fl (7.5-11.1); NEUTROPHILS 73.7 % (42.8-82.8); PLATELET COUNT 194 K/MM3 (134-434); WHITE BLOOD COUNT 6.3 K/mm3 (4.0-10.0)
[2016-12-19 07:57] LABS: CALCIUM 8.6 mg/dL (8.5-10.1); MAGNESIUM 2.1 mg/dL (1.8-2.4)
--- NOTE | 2016-12-19 08:00 | PN ---
Progress Note (short form) - Note Progress Note: Chief Complaint: Events noted, notes reviewed, denies dyspnea, denies any chest pain History of Present Illness: Seen and examined on telemetry. Events noted, notes reviewed, denies dyspnea, denies any chest pain Diovan therapy D/C related to increasing BUN/Crea and hypotension although asymptomatic Echocardiography performed 08/18/16 reveled normal LV size and function, Aortic stenosis moderate to severe NATI odf 0.7 cm2, moderate mitral regurgitation, severe tricuspid valve regurgitation with RVSP of 55 mmHg Medications: Current Medications Apixaban (Eliquis -) 2.5 mg PO BID [facility] Last Admin: 12/18/16 21:53 Dose: 2.5 mg Bacitracin (Bacitracin -) 1 applic TP BID [facility] Last Admin: 12/18/16 21:54 Dose: Not Given Docusate Sodium (Colace -) 100 mg PO DAILY [facility] Last Admin: 12/18/16 09:56 Dose: 100 mg Furosemide (Lasix -) 20 mg PO DAILY@1400 [facility] Last Admin: 12/18/16 17:43 Dose: 20 mg Levothyroxine Sodium (Synthroid -) 50 mcg PO DAILY@0700 [facility] Last Admin: 12/19/16 06:07 Dose: 50 mcg Metoprolol Tartrate (Lopressor -) 12.5 mg PO BID [facility] Last Admin: 12/18/16 21:52 Dose: 12.5 mg Multivitamins/Minerals/Vitamin C (Tab-A-Vit -) 1 tab PO DAILY [facility] Last Admin: 12/18/16 09:56 Dose: 1 tab Review of Systems - Review of Systems Constitutional: denies: Chills, Fever Cardiovascular: As noted above Respiratory: denies: Cough or Sputum Production Gastrointestinal: denies: Nausea, Vomiting, Diarrhea, Constipation or Abdominal Pain Musculoskeletal: No symptoms reported Neurological: denies: Dizziness or Headaches Vital Signs: Last Vital Signs Temp Pulse Resp BP Pulse Ox 97.6 F 82 20 121/68 96 12/19/16 06:00 12/19/16 06:00 12/19/16 06:00 12/19/16 06:00 12/18/16 21:00 Intake & Output 12/16/16 12/17/16 12/18/16 12/19/16 23:59 23:59 23:59 23:59 Intake Total 220 510 460 50 Balance 220 510 460 50 Weight 102 lb 3.2 oz 103 lb 3.2 oz 106 lb 110 lb Neck: Supple Negative JVD No bruit Respiratory: Diminished Breath Sounds at the Bases Cardiovascular: S1 S2 Irregularly Irregular Grade 2/6 FRANCH[place]KA Gastrointestinal: Soft Benign Normal Bowel Sounds Ext: Negative Edema Labs: CBC, BMP 12/19/16 05:35 12/19/16 05:35 Assessment/Plan ASSESSMENT: 1. Acute hypovolemic, hyponatremia referable to diuretics and possible sub- therapeutic Synthroid dosing 2. 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 Persistent atrial fibrillation [id number] score of 5 on NOAC's 5. Low flow, low gradient aortic stenosis post BAV 6. Hypothyroidism with an abnormal TSH value, sub-therapeutic Synthroid dosing 7. CKD 8. Anemia PLAN: 1. Continue Lasix 2. Continue Lopressor, hemodynamics permitting 3. Resume Diovan, hemodynamics permitting 4. Continue Eliquis 5. Continue Synthroid 6. D/C home as per the primary team Jess Richmond MD
[2016-12-19 08:02] LABS: COCKROFT - GAULT 27.8375; CREATININE 1.1 mg/dL (0.55-1.02); PHOSPHOROUS 3.7 mg/dL (2.5-4.9)
[2016-12-19] MEDS: DOCUSATE SODIUM 100 MG CAPSULE (FP) PO SCH (09:21)
[2016-12-19] MEDS: METOPROLOL TARTRATE 25 MG TABLET (FP) PO SCH (09:21)
[2016-12-19] MEDS: MULTIVITAMINS (DAILY MVI) TABLET (FP) PO SCH (09:21)
[2016-12-19] MEDS: APIXABAN 2.5 MG TABLET PO SCH (09:21)
[2016-12-19] MEDS: BACITRACIN 30 GM TUBE TOPICAL OINTMENT TP SCH (09:22)
[2016-12-19] MEDS ORDERED: SPIRONOLACTONE 25 MG TABLET (FP) PO SCH (10:00)
[2016-12-19] MEDS ORDERED: FUROSEMIDE 40 MG/4 ML INJECTABLE VIAL IVPUSH ONE (10:15)
--- NOTE | 2016-12-19 10:19 | DS ---
Physical Examination Vital Signs: Vital Signs Temperature 97.6 F 12/19/16 06:00 Pulse Rate 82 12/19/16 06:00 Respiratory Rate 20 12/19/16 06:00 Blood Pressure 121/68 12/19/16 06:00 O2 Sat by Pulse Oximetry (%) 96 12/18/16 21:00 Findings/Remarks: in bed NAD no CP/SOB wants to go home today walked 200 feet with PT; O2 sat/RA >90% does not need home O2 weight went up but no PND/orthopneea or SOB but has some legs edema; was on IVF and off diuretics b/o sever nypoNA at admission (was on bumetonide at home); will give IV lasix x 1 today then increase to 40 mg po daily and add aldactone 25 mg/day d/w cardio dr Josué JOSEPH to DC home on this regimen did not tolerate dioval b/o increased in creat and low BP d/w cardio not a candidate for opne heart surgery for valve replacement, and pt does not want it anyway d/w pt and son all the above, aware the valvuloplasty was a temporary relief and she will have recurrent CHF and fluid OL without AVR but pt does not want heart surgery all scripts done; d/w son and staff t time 40 min Constitutional: Yes: No Distress, Calm Eyes: Yes: Conjunctiva Clear HENT: Yes: Atraumatic Neck: Yes: Supple Cardiovascular: No: Regular Rate and Rhythm Respiratory: Yes: CTA Bilaterally Gastrointestinal: Yes: Soft. No: Distention, Tenderness Renal/: No: CVA Tenderness - Left, CVA Tenderness - Right, Hematuria Musculoskeletal: No: Joint Stiffness, Joint Swelling Extremities: No: Cold, Cool Edema: Yes (1+ pretibial bilateral) Peripheral Pulses WNL: Yes Integumentary: Yes: Venous Stasis Changes. No: Pressure Ulcer, Rash Neurological: Yes: WNL, Alert, Oriented ...Motor Strength: WNL Psychiatric: Yes: WNL, Alert, Oriented. No: Agitated, Suicidal Ideation Labs: CBC, BMP 12/19/16 05:35 12/19/16 05:35 Discharge Summary Reason For Visit: WEAKNESS, ACUTE HYPOTREMIA Current Active Problems Acute hyponatremia (Acute) Atrial fibrillation (Acute) Constipation (Acute) Diastolic dysfunction without heart failure (Acute) S/P balloon aortic valvuloplasty (Acute) Weakness (Acute) Procedures: Principal: severe hypoNa on diuretics for CHF Other Procedures: diuretics held; received IVF gentle hydration;. seen by cardio dr Spring and renal dr Villatoro Hospital Course: improved with above; DC home on lasix and aldactone, see meds; see f/u as advised Condition: Fair - Instructions Diet, Activity, Other Instructions: f/u PCP and cardiology in 1 week check labs CBC CMP MG TSH in 1 week of DC home VNS legs elevation, [place] wrap RTER if SOB/CP or if weight changes > 5 lbs either direction falls, decubs PFX d/w pt and son and staff Referrals: Caroline Solitario [Primary Care Provider] - Pradip Spring MD [Staff Physician] - Disposition: VNS/HOME HEALTH CARE - Home Medications Comprehensive Discharge Medication List: Ambulatory Orders Ascorbic Acid [Vitamin C -] 2,000 mg PO TID 05/30/16 Calcium Carb/Mag Ox/Zinc Sulf [Uwrxgzm-Rilhzukgr-Tchy Tablet] 1 tab PO DAILY 12/10 Cholecalciferol (Vitamin D3) [Vitamin D3 -] 1,000 unit PO DAILY 05/30/16 Multivitamins [Multivit ([facility] Formulary)] 1 tab PO DAILY 05/30/16 Vitamin E 400 unit PO DAILY 05/30/16 Apixaban [Eliquis -] 2.5 mg PO BID #180 tablet 10/04/16 Bacitracin/Polymyxin Ointment [Polysporin Ointment -] 1 applic TP DAILY tube Levothyroxine [Synthroid -] 25 mcg PO DAILY@0700 #90 tablet 10/04/16 Ipratropium [place] 1 inh IH PRN 12/10/16 Metoprolol Tartrate [Lopressor -] 12.5 mg PO BID 12/10/16 Bacitracin - [Bacitracin Topical Ointment -] 1 applic TP BID tube 12/19/16 Docusate Sodium [Colace -] 100 mg PO DAILY cap 12/19/16 Furosemide [Lasix -] 40 mg PO DAILY #90 tablet 12/19/16 Spironolactone [Aldactone -] 25 mg PO DAILY #90 tablet 12/19/16
[2016-12-19 10:54] VITALS: BP 120/70; PULSE 86; TEMP 98
[2016-12-19] MEDS ORDERED: FUROSEMIDE 40 MG TABLET (FP) PO SCH (14:00)
--- NOTE | 2016-12-19 15:05 | PN ---
Progress Note (short form) - Note Progress Note: Renal Follow up for Hyponatremia Pt seen and examined at the bedside no acute complaints for discharge today no ANAYA, confusion, lethargy, weakness reports good urine output Vital Signs Temperature 98 F 12/19/16 10:00 Pulse Rate 86 12/19/16 10:00 Respiratory Rate 18 12/19/16 10:00 Blood Pressure 120/70 12/19/16 10:00 O2 Sat by Pulse Oximetry (%) 97 12/19/16 09:00 Intake & Output 12/16/16 12/17/16 12/18/16 12/19/16 23:59 23:59 23:59 23:59 Intake Total 220 510 460 400 Balance 220 510 460 400 Weight 102 lb 3.2 oz 103 lb 3.2 oz 106 lb 110 lb Gen: NAD, awake and alert HEENT: NC/AT, MMM, No JVD CVS: RRR, NO M/R Lungs: CTA, no rales or wheeze Abd: soft NT/ND Ext: Trace to 1+ LE edema CBC, BMP 12/19/16 05:35 12/19/16 05:35 Laboratory Tests 12/19/16 05:35 Calcium 8.6 Phosphorus 3.7 D Magnesium 2.1 A/P 86 year old woman with PMhx of CHF (diastolic dysfunction), Afib, Hypothyrodisim presented with weakness and anorezia and found to have serum Na of 112. #Hyponatremia secondary to Total body salt depeltion Serum na is stable continue Lasix daily pt advised to limit free water intake to less then 1.25L #Worsening Renal function Cr improved today to 1.1 ARB is being held because of low BP Advised to avoid NSAIDs Pt to follow up in the office for CKD management in about 4 weeks. Thank you for allowing us to take part in the care of this patient Sabino Villatoro DO
== END 2016-12-19 14:12 | disposition home health service (06) | DRG 641 ==
LOC: JER 12:43 → JERBED 14:37 → J4S 20:18 → J4W 12-12 23:08
PROVIDERS: ADMIT Internal Medicine; ATTEND Internal Medicine
DX: E87.1 Hypo-osmolality and hyponatremia (principal); L03.116 Cellulitis of left lower limb; L03.115 Cellulitis of right lower limb; I13.0 Hypertensive heart and chronic kidney disease with heart failure and stage 1 through stage 4 chronic kidney disease, or unspecified chronic kidney disease; I50.32 Chronic diastolic (congestive) heart failure; R62.7 Adult failure to thrive; I48.2 Chronic atrial fibrillation; I08.3 Combined rheumatic disorders of mitral, aortic and tricuspid valves; I27.2 Other secondary pulmonary hypertension; E03.9 Hypothyroidism, unspecified; H40.89 Other specified glaucoma; I25.118 Atherosclerotic heart disease of native coronary artery with other forms of angina pectoris; E87.6 Hypokalemia; K59.00 Constipation, unspecified; E86.1 Hypovolemia; N18.9 Chronic kidney disease, unspecified; T50.2X5A Adverse effect of carbonic-anhydrase inhibitors, benzothiadiazides and other diuretics, initial encounter; Z95.2 Presence of prosthetic heart valve; Z66 Do not resuscitate
CPT/HCPCS: 36415; 71010-TC; 80048; 80053; 81003; 81015; 82550; 83690; 83735; 83880; 84100; 84439; 84443; 84480; 84481; 84484; 85025; 85027; 93005; 93010; 94761; 97116-GP; 97161-GP; 99283-25

== ENCOUNTER 2016-12-26 15:16 | Inpatient (IN) | payer OTHER ==
[2016-12-26 15:35] VITALS: BMI 17.7
--- NOTE | 2016-12-26 16:08 | PDOC ---
History of Present Illness - History of Present Illness Initial Comments: 12/26/16 17:43 86 yo F with PMHx of CHF, Afib(on eliquis), HTN , and Severe (s/p balloon valvuloplasty) presents from PCP office with worsening shortness of breath and Chills. She was recently discharged from [facility] after exacerbation of CHF. SHe now presents with one day history of worsening SOB and LE edema. SOB accompanied by Left lower pain and redness. Denies CP, ANAYA, abd. pain or urinary symptoms. Timing/Duration: reports: just prior to arrival, getting worse Severity: reports: moderate Associated Symptoms: reports: fever/chills, lightheadedness, shortness of breath Aspirin Received prior to arrival: Yes: no aspirin today <Larry Garcia - Last Filed: 12/26/16 18:44> <Racheal Mccabe - Last Filed: 12/29/16 10:20> - General Chief Complaint: Shortness of Breath Stated Complaint: SHORTNESS OF BREATH Time Seen by Provider: 12/26/16 15:39 Past History - Past Medical History Anemia: No Asthma: No Cancer: No Cardiac Disorders: Yes (dilatation of aortic valve) CVA: No COPD: No CHF: Yes Dementia: No Diabetes: No GI Disorders: Yes (question s to GERD) Disorders: No HTN: Yes Hypercholesterolemia: No Liver Disease: No Seizures: No Thyroid Disease: Yes (hypo) - Surgical History Abdominal Surgery: No Appendectomy: No Cardiac Surgery: No Cholecystectomy: No Lung Surgery: No Neurologic Surgery: No Orthopedic Surgery: No - Immunization History Immunization Up to Date: No - Psycho/Social/Smoking Cessation Hx Anxiety: No Suicidal Ideation: No Smoking Status: No Smoking History: Never smoked Have you smoked in the past 12 months: No Number of Cigarettes Smoked Daily: 0 Information on smoking cessation initiated: No Hx Alcohol Use: No Drug/Substance Use Hx: No Substance Use Type: None Hx Substance Use Treatment: No <Larry Garcia - Last Filed: 12/26/16 18:44> <Racheal Mccabe - Last Filed: 12/29/16 10:20> - Past Medical History Allergies/Adverse Reactions: Allergies Allergy/AdvReac Type Severity Reaction Status Date / Time ceftriaxone sodium Allergy Intermediate Rash Verified 12/26/16 15:19 [From Rocephin] Home Medications: Ambulatory Orders Ascorbic Acid [Vitamin C -] 2,000 mg PO TID 05/30/16 Calcium Carb/Mag Ox/Zinc Sulf [Jisqpog-Mpbhirlav-Svqq Tablet] 1 tab PO DAILY 12/10 Cholecalciferol (Vitamin D3) [Vitamin D3 -] 1,000 unit PO DAILY 05/30/16 Multivitamins [Multivit ([facility] Formulary)] 1 tab PO DAILY 05/30/16 Vitamin E 400 unit PO DAILY 05/30/16 Apixaban [Eliquis -] 2.5 mg PO BID #180 tablet 10/04/16 Bacitracin/Polymyxin Ointment [Polysporin Ointment -] 1 applic TP DAILY tube Levothyroxine [Synthroid -] 25 mcg PO DAILY@0700 #90 tablet 10/04/16 Ipratropium [place] 1 inh IH PRN 12/10/16 Metoprolol Tartrate [Lopressor -] 12.5 mg PO BID 12/10/16 Bacitracin - [Bacitracin Topical Ointment -] 1 applic TP BID tube 12/19/16 Docusate Sodium [Colace -] 100 mg PO DAILY cap 12/19/16 Furosemide [Lasix -] 40 mg PO DAILY #90 tablet 12/19/16 Spironolactone [Aldactone -] 25 mg PO DAILY #90 tablet 12/19/16 Review of Systems - Review of Systems Able to Perform ROS?: Yes Comments:: GENERAL/CONSTITUTIONAL: No fever or chills. No weakness. HEAD, EYES, EARS, NOSE AND THROAT: No change in vision. No ear pain or discharge. No sore throat. CARDIOVASCULAR: No chest pain. +Shortness of breath. RESPIRATORY: No cough, wheezing, or hemoptysis. GASTROINTESTINAL: No nausea, vomiting, diarrhea or constipation. GENITOURINARY: No dysuria, frequency, or change in urination. MUSCULOSKELETAL: +Leg swelling. No neck or back pain. SKIN: No rash NEUROLOGIC: No headache, vertigo, loss of consciousness, or change in strength/ sensation. ENDOCRINE: No increased thirst. No abnormal weight change. HEMATOLOGIC/LYMPHATIC: No anemia, easy bleeding, or history of blood clots. ALLERGIC/IMMUNOLOGIC: No hives or skin allergy. <Racheal Mccabe - Last Filed: 12/29/16 10:20> *Physical Exam - Vital Signs Last Vital Signs Temp Pulse Resp BP Pulse Ox 97.6 F 109 H 16 118/65 98 12/26/16 15:30 12/26/16 15:30 12/26/16 15:30 12/26/16 15:30 12/26/16 15:30 <Larry Garcia - Last Filed: 12/26/16 18:44> - Vital Signs Last Vital Signs Temp Pulse Resp BP Pulse Ox 97.9 F 102 H 20 93/60 95 12/29/16 07:15 12/29/16 07:15 12/29/16 07:22 12/29/16 07:15 12/29/16 07:22 - Physical Exam Comments: GENERAL: Awake, alert, and fully oriented, in no acute distress HEAD: No signs of trauma EYES: PERRLA, EOMI, sclera anicteric, conjunctiva clear ENT: Auricles normal inspection, hearing grossly normal, nares patent, oropharynx clear without exudates. Moist mucosa NECK: Normal ROM, supple, no lymphadenopathy, JVD, or masses LUNGS: Breath sounds equal, clear to auscultation bilaterally. No wheezes, and no crackles HEART: Tachycardia, no m/r/g. ABDOMEN: Soft, nontender, normoactive bowel sounds. No guarding, no rebound. No masses EXTREMITIES: Normal range of motion, 1+ pitting edema BLE. No clubbing or cyanosis. No cords, erythema, or tenderness NEUROLOGICAL: Cranial nerves II through XII grossly intact. Normal speech, normal gait SKIN: Warm, Dry, normal turgor, no rashes or lesions noted. +Tactile fever <Racheal Mccabe - Last Filed: 12/29/16 10:20> ED Treatment Course - LABORATORY CBC & Chemistry Diagram: 12/26/16 16:20 12/26/16 16:20 <Larry Garcia - Last Filed: 12/26/16 18:44> - LABORATORY CBC & Chemistry Diagram: 12/29/16 05:35 12/29/16 05:35 - ADDITIONAL ORDERS Additional order review: 12/26/16 18:01 Blood Culture - Preliminary Blood - Peripheral Venous NO GROWTH OBTAINED AFTER 48 HOURS, INCUBATION TO CONTINUE FOR 3 DAYS. 12/26/16 18:01 Blood Culture - Preliminary Blood - Peripheral Venous NO GROWTH OBTAINED AFTER 48 HOURS, INCUBATION TO CONTINUE FOR 3 DAYS. 12/26/16 18:02 Respiratory Virus Panel - Preliminary Nasopharyngeal Swab 12/26/16 18:02 Influenza Types A,B Antigen ([facility]) - Final Nasopharyngeal Swab - Final 12/26/16 16:20 RBC 3.76 MCV 93.2 MCHC 31.9 L RDW 18.5 H MPV 8.5 D Neutrophils % 90.6 H D Lymphocytes % 4.9 L D Monocytes % 2.8 L Eosinophils % 0.9 Basophils % 0.8 - RADIOLOGY Radiology Studies Ordered: Category Date Time Status CHEST X-RAY PORTABLE* [RAD] Stat Radiology 12/26/16 15:46 Completed - Medications Given in the ED: ED Medications Discontinued Medications Generic Name Dose Route Start Last Admin Trade Name Freq PRN Reason Stop Dose Admin Acetaminophen 650 mg 12/26/16 18:02 12/26/16 18:22 Tylenol - PO 12/26/16 18:03 650 mg ONCE ONE Administration Ascorbic Acid 2,000 mg 12/27/16 06:00 12/28/16 17:37 Vitamin C - PO Not Given TID DEMETRIA Ascorbic Acid 2,000 mg 12/27/16 06:00 12/27/16 06:38 Vitamin C - PO 12/27/16 06:01 2,000 mg ONCE ONE Administration Furosemide 40 mg 12/26/16 16:34 12/26/16 17:19 Lasix Injection - IVPUSH 12/26/16 16:35 40 mg ONCE ONE Administration Furosemide 40 mg 12/27/16 10:00 12/28/16 09:38 Lasix Injection - IVPUSH 40 mg DAILY DEMETRIA Administration Levofloxacin 150 mls @ 100 mls/hr 12/26/16 18:41 12/26/16 19:10 Levaquin 750 Mg Premixed Ivpb - IVPB 12/26/16 20:10 100 mls/hr ONCE STA Administration Vancomycin HCl 1,000 mg/ 250 mls @ 200 mls/hr 12/26/16 18:41 12/26/16 20:30 Dextrose IVPB 12/26/16 19:55 200 mls/hr ONCE STA Administration Levofloxacin 50 mls @ 50 mls/hr 12/28/16 10:00 12/28/16 09:41 Levaquin 250 Mg Premixed Ivpb - IVPB 50 mls/hr DAILY DEMETRIA Administration Levothyroxine Sodium 25 mcg 12/27/16 07:00 12/27/16 06:39 Synthroid - PO 25 mcg DAILY@0700 DEMETRIA Administration Metoprolol Tartrate 12.5 mg 12/26/16 22:45 12/28/16 09:38 Lopressor - PO 12.5 mg BID DEMETRIA Administration Piperacillin Sod/Tazobactam Sod 3.375 gm 12/26/16 18:43 12/26/16 18:55 Zosyn 3.375gm Ivpb (Pre-Docked) IV 12/26/16 18:44 3.375 gm ONCE ONE Administration Protocol Piperacillin Sod/Tazobactam Sod 3.375 gm 12/27/16 02:00 12/27/16 01:42 Zosyn 3.375gm Ivpb (Pre-Docked) IVPB 12/27/16 02:01 3.375 gm ONCE ONE Administration <Racheal Mccabe - Last Filed: 12/29/16 10:20> Medical Decision Making - Medical Decision Making 12/26/16 16:22 86 yo F with PMHx of CHF, Afib(on eliquis), HTN , and Severe (s/p balloon valvuloplasty) presents from PCP office with worsening shortness of breath and Chills. Most likely represent infection vs CHF exacerbation. P: * CBC ,CMP,UA,UC and blood cultures * She had rectal temp of 102 * CXR shows right sided consolidation v. effusion. 12/26/16 18:34 * WBC elevated 10.3 with shift. most likely HAP * Will administer broad spectrum ABx. and admitt * Accepted by Dr. Solitario to tele floor. * consulted Dr. Vincent cardiology. <Larry Garcia - Last Filed: 12/26/16 18:44> - Medical Decision Making On initial evaluation, patient presented after she was sent by Dr. Solitario for admission for CHF exacerbation. However, she was noted to be tachypneic with a tactile fever. She initially refused rectal temp, but was found to have 102 fever. Fever workup initiated, admitted for suspected HCAP. <Racheal Mccabe - Last Filed: 12/29/16 10:20> *DC/Admit/Observation/Transfer - Discharge Dispostion Admit: Yes <Larry Garcia - Last Filed: 12/26/16 18:44> <Racheal Mccabe - Last Filed: 12/29/16 10:20> Diagnosis at time of Disposition: Healthcare-associated pneumonia Sepsis Qualifiers: Sepsis type: sepsis due to unspecified organism Qualified Code(s): A41.9 - Sepsis, unspecified organism
[2016-12-26 16:30] LABS: BASOPHIL 0.8 % (0-2.0); EOSINOPHIL 0.9 % (0-4.5); MCH 29.7 pg (25.7-33.7); MCHC 31.9 g/dl (32.0-36.0); MEAN CELL VOLUME 93.2 fl (80-96); MEAN PLT VOLUME 8.5 fl (7.5-11.1); NEUTROPHILS 90.6 % (42.8-82.8); PLATELET COUNT 320 K/MM3 (134-434); RDW 18.5 % (11.6-15.6); WHITE BLOOD COUNT 10.8 K/mm3 (4.0-10.0)
--- NOTE | 2016-12-26 16:33 | PDOC ---
Attending Attestation - Resident Resident Name: Larry Garcia - ED Attending Attestation I have performed the following: I have examined & evaluated the patient, The case was reviewed & discussed with the resident, I agree w/resident's findings & plan, Exceptions are as noted - HPI HPI: 86 yo F history CHF presents with SOB, worsening BLE swelling and pain. She was sent by Dr. Solitario for CHF exacerbation, for admission. She denies recent fever , chills, cough, however, she is noted to be shaking in the ER stretcher. She was recently admitted to the hospital for SOB. - Physicial Exam PE: GENERAL: Awake, alert, and fully oriented, in no acute distress. +Tactile fever. HEAD: No signs of trauma EYES: PERRLA, EOMI, sclera anicteric, conjunctiva clear ENT: Auricles normal inspection, hearing grossly normal, nares patent, oropharynx clear without exudates. Moist mucosa NECK: Normal ROM, supple, no lymphadenopathy, JVD, or masses LUNGS: Dec breath sounds R base. HEART: Tachycardic, no murmurs. ABDOMEN: Soft, nontender, normoactive bowel sounds. No guarding, no rebound. No masses EXTREMITIES: 2+ pitting edema BLE to mid-phipps. +Erythema and warmth B/L. +Open lesion L phipps, no active drainage, no induration. NEUROLOGICAL: Cranial nerves II through XII grossly intact. Normal speech. Motor and sensation intact. SKIN: Warm, Dry, normal turgor, no rashes or lesions noted. - Medical Decision Making Pt found to have fever 102, will add fever workup including UA, culture, BCx, and flu swab. Admit to Dr. Solitario.
[2016-12-26] MEDS ORDERED: FUROSEMIDE 40 MG/4 ML INJECTABLE VIAL IVPUSH ONE (16:34)
[2016-12-26 17:02] LABS: INR 1.38 (0.82-1.09); PROTHROMBIN TIME (PATIENT) 15.3 SEC (9.98-11.88)
[2016-12-26 17:12] LABS: ALBUMIN 3.5 g/dl (3.4-5.0); BILIRUBIN,TOTAL 0.4 mg/dL (0.2-1.0); CALCIUM 9.2 mg/dL (8.5-10.1); COCKROFT - GAULT 27.8375; CREATININE 1.1 mg/dL (0.55-1.02); TOT PROT 8.6 g/dl (6.4-8.2)
[2016-12-26 17:14] LABS: TROPONIN I 0.09 ng/ml (0.00-0.05)
[2016-12-26] MEDS ORDERED: ACETAMINOPHEN 325 MG TABLET (FP) PO ONE (18:02)
[2016-12-26] MEDS ORDERED: ACETAMINOPHEN 325 MG TABLET (FP) ONE (18:08)
[2016-12-26] MEDS ORDERED: CEFEPIME 2 GM in DEXTROSE 5%-WATER - 100 ML IVPB STA (18:41)
[2016-12-26] MEDS ORDERED: VANCOMYCIN 1,000 MG in DEXTROSE 5%-WATER - 250 ML IVPB STA (18:41)
[2016-12-26] MEDS ORDERED: LEVOFLOXACIN 750 MG IVPB 150 ML IVPB STA (18:41)
[2016-12-26] MEDS ORDERED: PIPERACILLIN/TAZOB 3.375 GM/50 ML PRE-DOCKED IV ONE (18:43)
[2016-12-26] MEDS ORDERED: VANCOMYCIN 1 GRAM (PRE-DOCKED) 250 ML IVPB ONE (18:52)
[2016-12-26] MEDS ORDERED: PIPERACILLIN/TAZOB 3.375 GM 50 ML IVPB ONE (18:53)
[2016-12-26] MEDS ORDERED: LEVOFLOXACIN 750 MG IVPB 150 ML IVPB ONE (18:53)
[2016-12-26 18:59] LABS: URINE APPEARANCE CLEAR; URINE BILIRUBIN NEGATIVE (NEGATIVE); URINE BLOOD NEGATIVE (NEGATIVE); URINE COLOR STRAW; URINE GLUCOSE (UA) NEGATIVE (NEGATIVE); URINE KETONE NEGATIVE (NEGATIVE); URINE LEUK ESTERASE NEGATIVE (NEGATIVE); URINE NITRITE NEGATIVE (NEGATIVE); URINE PROTEIN NEGATIVE (NEGATIVE); URINE UROBILINOGEN NEGATIVE E.U./dl (0.2-1.0)
[2016-12-26] MEDS ORDERED: IPRATROPIUM BROMIDE IH SCH (22:30)
[2016-12-26] MEDS: METOPROLOL TARTRATE 25 MG TABLET (FP) PO SCH (23:22)
[2016-12-26] MEDS: APIXABAN 2.5 MG TABLET PO SCH (23:23)
[2016-12-27] MEDS ORDERED: PIPERACILLIN/TAZOB 3.375 GM/50 ML PRE-DOCKED IVPB SCH (02:00)
[2016-12-27] MEDS ORDERED: PIPERACILLIN/TAZOB 3.375 GM/50 ML PRE-DOCKED IVPB ONE (02:00)
[2016-12-27] MEDS ORDERED: ASCORBIC ACID 500 MG TABLET (FP) PO ONE (06:00)
[2016-12-27] MEDS ORDERED: LEVOTHYROXINE NA 25 MCG TABLET (FP) PO SCH (07:00)
[2016-12-27 08:00] LABS: BASOPHIL 1.2 % (0-2.0); MCH 30.3 pg (25.7-33.7); MEAN CELL VOLUME 91.8 fl (80-96); MEAN PLT VOLUME 8.6 fl (7.5-11.1); NEUTROPHILS 95.1 % (42.8-82.8); PLATELET COUNT 217 K/MM3 (134-434); RDW 17.6 % (11.6-15.6); WHITE BLOOD COUNT 18.5 K/mm3 (4.0-10.0)
[2016-12-27 08:40] LABS: TROPONIN I 0.1 ng/ml (0.00-0.05)
[2016-12-27 08:49] LABS: ALBUMIN 2.6 g/dl (3.4-5.0); BILIRUBIN,TOTAL 0.8 mg/dL (0.2-1.0); CALCIUM 8.3 mg/dL (8.5-10.1); CREATININE 1.5 mg/dL (0.55-1.02); THYROID STIMULATING HORMONE 14.3 uIU/ml (0.358-3.74); TOT PROT 6.6 g/dl (6.4-8.2)
--- NOTE | 2016-12-27 09:42 | CON.CARD ---
Consult Consult Specialty:: Cardiology Referred by:: Sanjana Solitario MD Reason for Consultation:: Severe aortic stenosis post BAV - History of Present Illness Chief Complaint: Dyspnea, fever History of Present Illness: 86 year old female, with history of tricuspid regurgitation, mitral regurgitation, diastolic dysfunction with h/o failure requiring thoracentesis, low flow, low gradient aortic stenosis s/p BAV, permanent atrial fibrillation on Eliquis, hypothyroidism and pulmonary hypertension recent admission for profound weakness, fatigue and anorexia and possible dizziness referable to profound symtomatic hyponatremia presentes with SOB, worsening LLE swelling, erythema, warmth and pain. She was noted have rigors, fevers, leukocytosis. - History Source History Provided By: Medical Record Limitations to Obtaining History: Poor Historian - Past Medical History Cardio/Vascular: Yes: AFIB (recenet dg.), Aortic Stenosis, CHF, HTN, Mitral Insufficiency, Pulmonary Hypertension Pulmonary: Yes: Pneumonia Infectious Disease: Yes: Other (cellulitis lower extremity) Endocrine: Yes: Hypothyroidism Additional Medical History: Glaucoma - advised to have son bring in her eye drops - Past Surgical History Past Surgical History: Yes: Tonsillectomy - Alcohol/Substance Use Hx Alcohol Use: No History of Substance Use: reports: None - Smoking History Smoking history: Never smoked Have you smoked in the past 12 months: No Aproximately how many cigarettes per day: 0 - Social History Usual Living Arrangement: Alone ADL: Independent History of Recent Travel: No Home Medications - Allergies Allergies/Adverse Reactions: Allergies Allergy/AdvReac Type Severity Reaction Status Date / Time ceftriaxone sodium Allergy Intermediate Rash Verified 12/26/16 15:19 [From Rocephin] - Home Medications Home Medications: Ambulatory Orders Ascorbic Acid [Vitamin C -] 2,000 mg PO TID 05/30/16 Calcium Carb/Mag Ox/Zinc Sulf [Itvhgsd-Uosnxkqrp-Qdmw Tablet] 1 tab PO DAILY 12/10 Cholecalciferol (Vitamin D3) [Vitamin D3 -] 1,000 unit PO DAILY 05/30/16 Multivitamins [Multivit ([facility] Formulary)] 1 tab PO DAILY 05/30/16 Vitamin E 400 unit PO DAILY 05/30/16 Apixaban [Eliquis -] 2.5 mg PO BID #180 tablet 10/04/16 Bacitracin/Polymyxin Ointment [Polysporin Ointment -] 1 applic TP DAILY tube Levothyroxine [Synthroid -] 25 mcg PO DAILY@0700 #90 tablet 10/04/16 Ipratropium [place] 1 inh IH PRN 12/10/16 Metoprolol Tartrate [Lopressor -] 12.5 mg PO BID 12/10/16 Bacitracin - [Bacitracin Topical Ointment -] 1 applic TP BID tube 12/19/16 Docusate Sodium [Colace -] 100 mg PO DAILY cap 12/19/16 Furosemide [Lasix -] 40 mg PO DAILY #90 tablet 12/19/16 Spironolactone [Aldactone -] 25 mg PO DAILY #90 tablet 12/19/16 Family Disease History - Family Disease History Family Disease History: Heart Disease: Father ( 87 CHF), Brother (atrial fibrillation), Other: Mother (lived to 100) Review of Systems - Review of Systems Constitutional: reports: Fever Cardiovascular: reports: Edema, Shortness of Breath Vital Signs: Vital Signs Temperature 98 F 12/27/16 06:37 Pulse Rate 106 H 12/27/16 06:37 Respiratory Rate 20 12/27/16 06:37 Blood Pressure 96/54 12/27/16 06:37 O2 Sat by Pulse Oximetry (%) 98 12/26/16 21:00 Constitutional: Yes: No Distress, Calm, Thin Neck: Yes: Supple Respiratory: Yes: Regular, Diminished Gastrointestinal: Yes: Normal Bowel Sounds, Soft Cardiovascular: Yes: Pulse Irregular JVD: No Carotid Bruit: No Heart Sounds: Yes: S1, S2 Murmur: Yes: Systolic Murmur, Grade 1 Extremities: Yes: Erythema (LLE) Edema: Yes Edema: LLE: Trace, RLE: Trace - Other Data Labs, Other Data: CBC, BMP 12/27/16 05:50 12/27/16 05:50 INR, PTT INR 1.38 (0.82-1.09) H 12/26/16 16:20 Troponin, BNP 12/27/16 05:50 Troponin I 0.10 H Troponin, BNP 12/27/16 05:50 Troponin I 0.10 H Imaging - Results Chest X-ray: Report Reviewed (CHF with increased right basilar infiltrates) Problem List - Problems (1) Sepsis Code(s): A41.9 - SEPSIS, UNSPECIFIED ORGANISM Qualifiers: Sepsis type: sepsis due to unspecified organism Qualified Code(s): A41.9 - Sepsis, unspecified organism (2) MOISES (acute kidney injury) Code(s): N17.9 - ACUTE KIDNEY FAILURE, UNSPECIFIED (3) Acute on chronic diastolic (congestive) heart failure Code(s): I50.33 - ACUTE ON CHRONIC DIASTOLIC (CONGESTIVE) HEART FAILURE (4) Aortic valvar stenosis Code(s): I35.0 - NONRHEUMATIC AORTIC (VALVE) STENOSIS Qualifiers: Cardiac valve disease etiology: nonrheumatic Qualified Code(s): I35.0 - Nonrheumatic aortic (valve) stenosis (5) Atrial fibrillation Code(s): I48.91 - UNSPECIFIED ATRIAL FIBRILLATION Qualifiers: Atrial fibrillation type: persistent Qualified Code(s): I48.1 - Persistent atrial fibrillation (6) Hypothyroid Code(s): E03.9 - HYPOTHYROIDISM, UNSPECIFIED Qualifiers: Hypothyroidism type: unspecified Qualified Code(s): E03.9 - Hypothyroidism, unspecified (7) Mitral regurgitation Code(s): I34.0 - NONRHEUMATIC MITRAL (VALVE) INSUFFICIENCY Qualifiers: Cardiac valve disease etiology: nonrheumatic Qualified Code(s): I34.0 - Nonrheumatic mitral (valve) insufficiency (8) Pulmonary hypertension Code(s): I27.2 - OTHER SECONDARY PULMONARY HYPERTENSION (9) S/P balloon aortic valvuloplasty Code(s): Z98.890 - OTHER SPECIFIED POSTPROCEDURAL STATES (10) Tricuspid regurgitation Code(s): I07.1 - RHEUMATIC TRICUSPID INSUFFICIENCY Qualifiers: Cardiac valve disease etiology: nonrheumatic Qualified Code(s): I36.1 - Nonrheumatic tricuspid (valve) insufficiency (11) Bilateral lower leg cellulitis Code(s): L03.116 - CELLULITIS OF LEFT LOWER LIMB L03.115 - CELLULITIS OF RIGHT LOWER LIMB Assessment/Plan Echocardiography performed 08/18/16 reveled normal LV size and function, Aortic stenosis moderate to severe NATI odf 0.7 cm2, moderate mitral regurgitation, severe tricuspid valve regurgitation with RVSP of 55 mmHg 1. Acute on chronic diastolic failure triggered by left LE cellulitis 2. Recent hypovolemic, hyponatremia referable to diuretics and subtherapeutic Synthroid dosing 3. 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 Persistent atrial fibrillation [id number] score of 5 on NOAC's 5. Low flow, low gradient aortic stenosis post BAV 6. Hypothyroidism with an abnormal TSH value, sub-therapeutic Synthroid dosing 7. Acute on CKD 8. Anemia PLAN: 1. Empiric abx course per C&S 2. Continue diuresis with Lasix and Aldactone and monitor diuretic response, renal fxn and electrolytes 3. Repeat echo post BAV 4. Continue Lopressor 12.5 bid, hemodynamics permitting 5. Resume Diovan 40 qd once renal fxn stabilizes, hemodynamics permitting 6. Continue Eliquis 2.5 bid 7. Continue Synthroid 50 ug qd 8. Thank you for consultative opportunuty
[2016-12-27] MEDS: APIXABAN 2.5 MG TABLET PO SCH ×2 (10:31→22:04)
[2016-12-27] MEDS: FUROSEMIDE 40 MG/4 ML INJECTABLE VIAL IVPUSH SCH (10:31)
[2016-12-27] MEDS: BACITRACIN 30 GM TUBE TOPICAL OINTMENT TP SCH ×2 (10:31→22:04)
[2016-12-27] MEDS: DOCUSATE SODIUM 100 MG CAPSULE (FP) PO SCH (10:32)
[2016-12-27] MEDS: MULTIVITAMINS (DAILY MVI) TABLET (FP) PO SCH (10:32)
[2016-12-27] MEDS: CHOLECALCIFEROL (VITAMIN D3) 1,000 UNIT TABLET (FP) PO SCH (10:32)
[2016-12-27] MEDS: SPIRONOLACTONE 25 MG TABLET (FP) PO SCH (10:32)
--- NOTE | 2016-12-27 11:40 | HP ---
Admitting History and Physical - Primary Care Physician PCP: Caroline Solitario S - Admission Chief Complaint: SOB, LLE rash and pain History of Present Illness: 86 year old female, with history of tricuspid regurgitation, mitral regurgitation, diastolic dysfunction with h/o failure requiring thoracentesis, low flow, low gradient aortic stenosis s/p BAV, permanent atrial fibrillation on Eliquis, hypothyroidism and pulmonary hypertension recent admission for profound weakness, fatigue and anorexia, dizziness and symtomatic hyponatremia presents with SOB, worsening LLE swelling, erythema, warmth and pain. She was noted have rigors, fevers, leukocytosis. also s/p fall at home 3 days ago pt and son said she fell asleep on her chair and spilled off the chair but did not hit anything and did not hurt herself; did not want to go to ER then nor 2 days ago when she called me History Source: Patient, Family Member, Medical Record Limitations to Obtaining History: No Limitations - Past Medical History Cardiovascular: Yes: AFIB (recenet dg.), Aortic Stenosis, CHF, HTN, Mitral Insufficiency, Pulmonary Hypertension Pulmonary: Yes: Pneumonia Infectious Disease: Yes: Other (cellulitis lower extremity) Endocrine: Yes: Hypothyroidism - Past Surgical History Past Surgical History: Yes: Tonsillectomy - Smoking History Smoking history: Never smoked Have you smoked in the past 12 months: No Aproximately how many cigarettes per day: 0 - Alcohol/Substance Use Hx Alcohol Use: No History of Substance Use: reports: None - Social History Usual Living Arrangement: Yes: With Child ADL: Independent History of Recent Travel: No Home Medications - Allergies Allergies/Adverse Reactions: Allergies Allergy/AdvReac Type Severity Reaction Status Date / Time ceftriaxone sodium Allergy Intermediate Rash Verified 12/26/16 15:19 [From Rocephin] - Home Medications Home Medications: Ambulatory Orders Ascorbic Acid [Vitamin C -] 2,000 mg PO TID 05/30/16 Calcium Carb/Mag Ox/Zinc Sulf [Xdjxnog-Xkwgptapz-Ppkn Tablet] 1 tab PO DAILY 12/10 Cholecalciferol (Vitamin D3) [Vitamin D3 -] 1,000 unit PO DAILY 05/30/16 Multivitamins [Multivit ([facility] Formulary)] 1 tab PO DAILY 05/30/16 Vitamin E 400 unit PO DAILY 05/30/16 Apixaban [Eliquis -] 2.5 mg PO BID #180 tablet 10/04/16 Bacitracin/Polymyxin Ointment [Polysporin Ointment -] 1 applic TP DAILY tube Levothyroxine [Synthroid -] 25 mcg PO DAILY@0700 #90 tablet 10/04/16 Ipratropium [place] 1 inh IH PRN 12/10/16 Metoprolol Tartrate [Lopressor -] 12.5 mg PO BID 12/10/16 Bacitracin - [Bacitracin Topical Ointment -] 1 applic TP BID tube 12/19/16 Docusate Sodium [Colace -] 100 mg PO DAILY cap 12/19/16 Furosemide [Lasix -] 40 mg PO DAILY #90 tablet 12/19/16 Spironolactone [Aldactone -] 25 mg PO DAILY #90 tablet 12/19/16 Family Disease History - Family Disease History Family Disease History: Heart Disease: Father ( 87 CHF), Brother (atrial fibrillation), Other: Mother (lived to 100) Review of Systems - Review of Systems Constitutional: reports: Chills, Fever, Lethargy Eyes: denies: Blurred Vision, Double Vision HENT: denies: Difficult Swallowing Neck: denies: Stiffness, Tenderness Cardiovascular: reports: Shortness of Breath. denies: Chest Pain Respiratory: reports: Exercise Intolerance, Orthopnea, PND, SOB, SOB on Exertion. denies: Cough Gastrointestinal: denies: Abdominal Pain, Bloating, Constipation, Diarrhea, Vomiting Genitourinary: denies: Burning, Dysuria, Flank Pain Musculoskeletal: denies: Back Pain, Joint Pain, Joint Swelling Integumentary: reports: Rash (legs), Wound (LLE pretibial small skin opening). denies: Bruising Neurological: reports: Unsteady Gait. denies: Change in LOC, Change in Speech, Confusion Hematology/Lymphatic: denies: Easily Bruised, Excessive Bleeding Psychiatric: reports: Anxiety. denies: Altered Sleep Pattern, Depression, Suicidal Physical Examination Vital Signs: Vital Signs Temperature 98.2 F 12/27/16 08:15 Pulse Rate 108 H 12/27/16 08:15 Respiratory Rate 16 12/27/16 08:15 Blood Pressure 94/64 12/27/16 08:15 O2 Sat by Pulse Oximetry (%) 98 12/26/16 21:00 Constitutional: Yes: No Distress, Calm Eyes: Yes: Conjunctiva Clear HENT: Yes: Atraumatic Neck: Yes: Supple Cardiovascular: No: Regular Rate and Rhythm Respiratory: Yes: Diminished Gastrointestinal: Yes: Soft. No: Distention, Tenderness Renal/: No: CVA Tenderness - Left, CVA Tenderness - Right, Hematuria Musculoskeletal: No: Joint Stiffness, Joint Swelling Extremities: Yes: Cold, Cool, Cyanosis Edema: Yes Integumentary: Yes: Rash, Venous Stasis Changes Wound/Incision: Yes: Dressing Dry and Intact (LLE) Neurological: Yes: WNL, Alert, Oriented ...Motor Strength: WNL Psychiatric: Yes: WNL, Alert, Oriented. No: Agitated, Suicidal Ideation Labs: CBC, BMP 12/27/16 05:50 12/27/16 05:50 Imaging - Results Chest X-ray: Report Reviewed Other: Report Reviewed Assessment/Plan 86 year old female, with history of tricuspid regurgitation, mitral regurgitation, diastolic dysfunction with h/o failure requiring thoracentesis, low flow, low gradient aortic stenosis s/p BAV, permanent atrial fibrillation on Eliquis, hypothyroidism and pulmonary hypertension recent admission for profound weakness, fatigue and anorexia and possible dizziness referable to profound symtomatic hyponatremia presentes with SOB, worsening LLE swelling, erythema, warmth and pain. She was noted have rigors, fevers, leukocytosis. s.p fall 3 days ago LLE wound rash and cellulitis, sepsis admit to INPT d/w ID dr Pritchett, check blood cx r/o sepsis IV antibitoics broad spectrum wound crae also will need IV lasix for diuresis cardiology eval f/u labs falls decubs PFX d/w pt and son and staff pt is DNR DNI consider home hospice prognosis poor t time 75 min
--- NOTE | 2016-12-27 11:41 | PN ---
Progress Note (short form) - Note Progress Note: ID consult dictated imp/rccd 86 year old female with pmh of afib, chf, aortic stenosis s/p balloon valvuloplasty presented yesterday to ed with acute onset of LLE leg pain, fevers and chills now with mild cough as well PE notable for fever to 102.5 in ED bilateral lower extremity erythema and edema with open ulcers very painful to tough left > right cxray with right sided pleural and question of infiltrate wbc is 18 received vancomycin/levaquin/zosyn in ED cephalosporin rash suspect cellulitis may be source of fevers concern for bacteremia- would continue vancomycin add levaquin for possible pneumonia (less likely) f/u cultures check legionella urinary antigen
[2016-12-27] MEDS: METOPROLOL TARTRATE 25 MG TABLET (FP) PO SCH ×2 (12:20→22:03)
[2016-12-27] MEDS: LACTOBACILLUS ACIDOPHILUS 1 EACH TAB (FP) PO SCH (12:20)
[2016-12-27] MEDS: VANCOMYCIN 1 GRAM (PRE-DOCKED) 250 ML IVPB SCH (13:46)
--- NOTE | 2016-12-27 13:56 | EKG ---
Test Reason : Blood Pressure : / mmHG Vent. Rate : 107 BPM Atrial Rate : 097 BPM P-R Int : 000 ms QRS Dur : 090 ms QT Int : 354 ms P-R-T Axes : 000 264 222 degrees QTc Int : 472 ms POOR DATA QUALITY, INTERPRETATION MAY BE ADVERSELY AFFECTED ATRIAL FIBRILLATION WITH RAPID VENTRICULAR RESPONSE RIGHT SUPERIOR AXIS DEVIATION CANNOT RULE OUT ANTERIOR INFARCT (CITED ON OR BEFORE 10-DEC-2016) ABNORMAL ECG WHEN COMPARED WITH ECG OF 10-DEC-2016 12:59, VENT. RATE HAS INCREASED BY 37 BPM CRITERIA FOR INFERIOR INFARCT ARE NO LONGER PRESENT T WAVE INVERSION NO LONGER EVIDENT IN ANTERIOR LEADS Confirmed by KAYLENE RODRIGEZ MD ([id number]) on 12/27/2016 1:56:22 PM Referred By: Confirmed By:KAYLENE RODRIGEZ MD
--- NOTE | 2016-12-27 17:49 | CONS ---
INFECTIOUS DISEASE CONSULTATION DATE OF CONSULTATION: DATE OF DICTATION: 12/27/2016 REQUESTED BY: Caroline Solitario MD DICTATED BY: Makenzie Brunner MD HISTORY OF PRESENT ILLNESS: This is an 86-year-old woman with a past medical history of congestive heart failure, atrial fibrillation, aortic stenosis. She is status post recent aortic balloon valvuloplasty. She states no valve was placed. She presented yesterday to the emergency room with acute onset of left lower extremity leg pain, fevers and chills. She now has a mild cough as well. She reports to me this was very acute in onset and started the day she went to the emergency room. She denies chest pain, headache, abdominal pain or urinary symptoms. She had a fever of 102.5 in the emergency room that stopped. She notes today she has a very mild cough, but states overall that her breathing is improved, and the pain in her leg is improved. PAST MEDICAL HISTORY: She has a history of CHF, GERD, hypertension, hypothyroidism. PAST SURGICAL HISTORY: Notable for the aortic valve balloon valvuloplasty. Of note, she has had recurrent pleural effusions and is status post thoracentesis in the past. ALLERGIES: She gets a rash to ceftriaxone. MEDICATIONS AT HOME: Vitamin C, calcium, vitamin D, multivitamin, vitamin E, Eliquis, Polysporin, levothyroxine, ipratropium bromide, metoprolol, bacitracin, furosemide and spironolactone. FAMILY HISTORY: Noncontributory. SOCIAL HISTORY: She lives at home. There is no history of any substance use, and there is no history of any smoking. REVIEW OF SYSTEMS: She reports feeling better. She has no diarrhea. She has no constipation. She has not recently been on any oral antibiotics. She reports the pain in her leg was very acute in onset along with her edema. PHYSICAL EXAM: General: She is awake and alert. Vital signs: Temperature is 98.2. T-max was 102.5. Pulse was 108. Blood pressure is 94/64. Respiratory rate is 16. O2 saturation is 98%. HEENT exam: She is normocephalic. Her eyes are anicteric. She has no conjunctival hemorrhages. Lungs: Diminished breath sounds at the bases. Heart: Regular rate and rhythm. Abdomen: Soft, nontender. Extremities: Notable for erythema of both legs. She has some open lesions in the back of both the lower legs. She has erythema extending from above the ankle to the lower knee. Her left foot is quite painful to touch. The right foot is less painful. She has no pedal edema. LABS: Her white count was 10.8 on admission, today is 18.5. Hemoglobin of 10. Platelets are 217. INR is 1.3. BUN and creatinine are 32 and 1.5. Urinalysis is negative. SUMMARY: In summary, this is an 86-year-old woman with valvular heart disease and atrial fibrillation and heart failure. History of a cephalosporin allergy manifested by rash who presents with acute onset of fevers, chills, rigors. I suspect cellulitis may be the source of her fevers given the acuity of the pain and erythema of her legs. Concern for bacteremia. PLAN: 1. Would continue vancomycin. She received vancomycin, Levaquin and Zosyn, all in the emergency room last night. 2. Would add Levaquin for possible pneumonia, which I suspect is less likely. 3. Would follow up her cultures and check a Legionella urinary antigen. 4. Further recommendations to follow. MAKENZIE BRUNNER M.D. [id number]
[2016-12-28] MEDS: LEVOTHYROXINE NA 50 MCG TABLET (FP) PO SCH (06:25)
[2016-12-28 08:03] LABS: MCH 30.4 pg (25.7-33.7); MCHC 33.2 g/dl (32.0-36.0); MEAN CELL VOLUME 91.4 fl (80-96); MEAN PLT VOLUME 9.2 fl (7.5-11.1); PLATELET COUNT 202 K/MM3 (134-434); RDW 17.7 % (11.6-15.6)
[2016-12-28 08:31] LABS: ALBUMIN 2.4 g/dl (3.4-5.0); CALCIUM 8.3 mg/dL (8.5-10.1)
[2016-12-28 08:33] LABS: BILIRUBIN,TOTAL 0.6 mg/dL (0.2-1.0); COCKROFT - GAULT 17.6205; CREATININE 1.6 mg/dL (0.55-1.02); TOT PROT 6.2 g/dl (6.4-8.2)
--- NOTE | 2016-12-28 08:33 | PN ---
Progress Note, Physician Chief Complaint: in bed still with LLE pain will call surgery to eval - Current Medication List Current Medications: Active Medications Apixaban (Eliquis -) 2.5 mg PO BID [facility] Last Admin: 12/27/16 22:04 Dose: 2.5 mg Ascorbic Acid (Vitamin C -) 2,000 mg PO TID [facility] Bacitracin (Bacitracin -) 1 applic TP BID [facility] Last Admin: 12/27/16 22:04 Dose: 1 applic Cholecalciferol (Vitamin D3 -) 1,000 unit PO DAILY [facility] Last Admin: 12/27/16 10:32 Dose: 1,000 unit Docusate Sodium (Colace -) 100 mg PO DAILY [facility] Last Admin: 12/27/16 10:32 Dose: 100 mg Furosemide (Lasix Injection -) 40 mg IVPUSH DAILY [facility] Last Admin: 12/27/16 10:31 Dose: 40 mg Vancomycin HCl (Vancomycin (Pre-Docked)) 250 mls @ 166.667 mls/hr IVPB Q24H [facility] PRN Reason: Protocol Last Admin: 12/27/16 13:46 Dose: 166.667 mls/hr Levofloxacin (Levaquin 250 Mg Premixed Ivpb -) 50 mls @ 50 mls/hr IVPB DAILY [facility] Lactobacillus Acidophilus (Bacid -) 1 tab PO DAILY [facility] Last Admin: 12/27/16 12:20 Dose: 1 tab Levothyroxine Sodium (Synthroid -) 50 mcg PO DAILY@0700 [facility] Last Admin: 12/28/16 06:25 Dose: 50 mcg Metoprolol Tartrate (Lopressor -) 12.5 mg PO BID [facility] Last Admin: 12/27/16 22:03 Dose: 12.5 mg Multivitamins/Minerals/Vitamin C (Tab-A-Vit -) 1 tab PO DAILY [facility] Last Admin: 12/27/16 10:32 Dose: 1 tab Non-Formulary Medication (Ipratropium [place]) 1 inh IH PRN [facility] Spironolactone (Aldactone -) 25 mg PO DAILY [facility] Last Admin: 12/27/16 10:32 Dose: 25 mg - Objective Vital Signs: Vital Signs Temperature 99 F 12/28/16 06:24 Pulse Rate 120 H 12/28/16 06:24 Respiratory Rate 20 12/28/16 06:24 Blood Pressure 98/65 12/28/16 06:24 O2 Sat by Pulse Oximetry (%) 95 12/27/16 21:00 Constitutional: Yes: No Distress Eyes: Yes: Conjunctiva Clear HENT: Yes: Atraumatic Neck: Yes: Supple Cardiovascular: No: Regular Rate and Rhythm Respiratory: Yes: Diminished Gastrointestinal: Yes: Soft. No: Distention, Tenderness Genitourinary: No: CVA Tenderness - Left, CVA Tenderness - Right Musculoskeletal: No: Joint Stiffness, Joint Swelling Extremities: Yes: Erythema (L>R) Edema: Yes Integumentary: Yes: Rash (L>R), Venous Stasis Changes Neurological: Yes: WNL, Alert, Oriented ...Motor Strength: WNL Psychiatric: Yes: WNL, Alert, Oriented. No: Agitated Labs: CBC, BMP 12/28/16 05:40 INR, PTT INR 1.38 (0.82-1.09) H 12/26/16 16:20 - ....Imaging Other: Report Reviewed Assessment/Plan 86 year old female, with history of tricuspid regurgitation, mitral regurgitation, diastolic dysfunction with h/o failure requiring thoracentesis, low flow, low gradient aortic stenosis s/p BAV, permanent atrial fibrillation on Eliquis, hypothyroidism and pulmonary hypertension recent admission for profound weakness, fatigue and anorexia and possible dizziness referable to profound symtomatic hyponatremia presentes with SOB, worsening LLE swelling, erythema, warmth and pain. She was noted have rigors, fevers, leukocytosis. s.p fall LLE wound rash and cellulitis, sepsis admitted to INPT d/w ID dr Pritchett, check blood cx r/o sepsis IV antibitoics broad spectrum wound crae IV lasix for diuresis cardiology f/u surgery eval for LLE cellulitis f/u labs falls decubs PFX d/w pt and son and staff pt is DNR DNI prognosis poor t time 35 min
[2016-12-28] MEDS: MULTIVITAMINS (DAILY MVI) TABLET (FP) PO SCH (09:38)
[2016-12-28] MEDS: APIXABAN 2.5 MG TABLET PO SCH ×2 (09:38→21:39)
[2016-12-28] MEDS: FUROSEMIDE 40 MG/4 ML INJECTABLE VIAL IVPUSH SCH (09:38)
[2016-12-28] MEDS: CHOLECALCIFEROL (VITAMIN D3) 1,000 UNIT TABLET (FP) PO SCH (09:38)
[2016-12-28] MEDS: DOCUSATE SODIUM 100 MG CAPSULE (FP) PO SCH (09:38)
[2016-12-28] MEDS: METOPROLOL TARTRATE 25 MG TABLET (FP) PO SCH ×3 (09:38→21:39)
[2016-12-28] MEDS: LACTOBACILLUS ACIDOPHILUS 1 EACH TAB (FP) PO SCH (09:38)
[2016-12-28] MEDS: SPIRONOLACTONE 25 MG TABLET (FP) PO SCH (09:39)
--- NOTE | 2016-12-28 09:42 | PN ---
Progress Note, Physician History of Present Illness: Defervescing, episodes of rapid afib, denies chest pain or dyspnea, continued LLE tenderness. - Current Medication List Current Medications: Active Medications Apixaban (Eliquis -) 2.5 mg PO BID [facility] Last Admin: 12/28/16 09:38 Dose: 2.5 mg Ascorbic Acid (Vitamin C -) 2,000 mg PO TID [facility] Bacitracin (Bacitracin -) 1 applic TP BID [facility] Last Admin: 12/27/16 22:04 Dose: 1 applic Cholecalciferol (Vitamin D3 -) 1,000 unit PO DAILY [facility] Last Admin: 12/28/16 09:38 Dose: 1,000 unit Docusate Sodium (Colace -) 100 mg PO DAILY [facility] Last Admin: 12/28/16 09:38 Dose: 100 mg Furosemide (Lasix Injection -) 40 mg IVPUSH DAILY [facility] Last Admin: 12/28/16 09:38 Dose: 40 mg Vancomycin HCl (Vancomycin (Pre-Docked)) 250 mls @ 166.667 mls/hr IVPB Q24H [facility] PRN Reason: Protocol Last Admin: 12/27/16 13:46 Dose: 166.667 mls/hr Levofloxacin (Levaquin 250 Mg Premixed Ivpb -) 50 mls @ 50 mls/hr IVPB DAILY [facility] Last Admin: 12/28/16 09:41 Dose: 50 mls/hr Lactobacillus Acidophilus (Bacid -) 1 tab PO DAILY [facility] Last Admin: 12/28/16 09:38 Dose: 1 tab Levothyroxine Sodium (Synthroid -) 50 mcg PO DAILY@0700 [facility] Last Admin: 12/28/16 06:25 Dose: 50 mcg Metoprolol Tartrate (Lopressor -) 12.5 mg PO BID [facility] Last Admin: 12/28/16 09:38 Dose: 12.5 mg Multivitamins/Minerals/Vitamin C (Tab-A-Vit -) 1 tab PO DAILY [facility] Last Admin: 12/28/16 09:38 Dose: 1 tab Non-Formulary Medication (Ipratropium Comstock) 1 inh IH PRN [facility] Spironolactone (Aldactone -) 25 mg PO DAILY [facility] Last Admin: 12/28/16 09:39 Dose: 25 mg - Objective Vital Signs: Vital Signs Temperature 98.8 F 12/28/16 08:38 Pulse Rate 120 H 12/28/16 08:38 Respiratory Rate 20 12/28/16 09:00 Blood Pressure 100/62 12/28/16 08:38 O2 Sat by Pulse Oximetry (%) 96 12/28/16 09:00 Constitutional: Yes: No Distress, Calm Neck: Yes: Supple Cardiovascular: Yes: Tachycardia, Pulse Irregular, Murmur (2/6 SM) Respiratory: Yes: Regular, Diminished Gastrointestinal: Yes: Normal Bowel Sounds, Soft Extremities: Yes: Erythema Edema: Yes Edema: LLE: 1+, RLE: Trace Labs: CBC, BMP 12/28/16 05:40 12/28/16 05:40 INR, PTT INR 1.38 (0.82-1.09) H 12/26/16 16:20 Problem List - Problems (1) Sepsis Code(s): A41.9 - SEPSIS, UNSPECIFIED ORGANISM Qualifiers: Sepsis type: sepsis due to unspecified organism Qualified Code(s): A41.9 - Sepsis, unspecified organism (2) MOISES (acute kidney injury) Code(s): N17.9 - ACUTE KIDNEY FAILURE, UNSPECIFIED (3) Acute on chronic diastolic (congestive) heart failure Code(s): I50.33 - ACUTE ON CHRONIC DIASTOLIC (CONGESTIVE) HEART FAILURE (4) Aortic valvar stenosis Code(s): I35.0 - NONRHEUMATIC AORTIC (VALVE) STENOSIS Qualifiers: Cardiac valve disease etiology: nonrheumatic Qualified Code(s): I35.0 - Nonrheumatic aortic (valve) stenosis (5) Atrial fibrillation Code(s): I48.91 - UNSPECIFIED ATRIAL FIBRILLATION Qualifiers: Atrial fibrillation type: persistent Qualified Code(s): I48.1 - Persistent atrial fibrillation (6) Hypothyroid Code(s): E03.9 - HYPOTHYROIDISM, UNSPECIFIED Qualifiers: Hypothyroidism type: unspecified Qualified Code(s): E03.9 - Hypothyroidism, unspecified (7) Mitral regurgitation Code(s): I34.0 - NONRHEUMATIC MITRAL (VALVE) INSUFFICIENCY Qualifiers: Cardiac valve disease etiology: nonrheumatic Qualified Code(s): I34.0 - Nonrheumatic mitral (valve) insufficiency (8) Pulmonary hypertension Code(s): I27.2 - OTHER SECONDARY PULMONARY HYPERTENSION (9) S/P balloon aortic valvuloplasty Code(s): Z98.890 - OTHER SPECIFIED POSTPROCEDURAL STATES (10) Tricuspid regurgitation Code(s): I07.1 - RHEUMATIC TRICUSPID INSUFFICIENCY Qualifiers: Cardiac valve disease etiology: nonrheumatic Qualified Code(s): I36.1 - Nonrheumatic tricuspid (valve) insufficiency (11) Bilateral lower leg cellulitis Code(s): L03.116 - CELLULITIS OF LEFT LOWER LIMB L03.115 - CELLULITIS OF RIGHT LOWER LIMB Assessment/Plan Echocardiogram 08/18/16 normal LV size and function, Aortic stenosis moderate to severe NATI of 0.7 cm2, moderate mitral regurgitation, severe tricuspid valve regurgitation with RVSP of 55 mmHg Echocardiogram: 12/27/2016 Normal biventricular size and fxn, mod-severe aortic stenosis NATI 0.8 cm2, MG 12 mmHg, severe JACKLYN, severe TR, mild [place], severe MR 1. Acute on chronic diastolic failure triggered by left LE cellulitis 2. Recent hypovolemic, hyponatremia referable to diuretics and subtherapeutic Synthroid dosing 3. 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 Persistent atrial fibrillation [id number] score of 5 on NOAC's 5. Low flow, low gradient aortic stenosis post BAV 6. Hypothyroidism with an abnormal TSH value, subtherapeutic Synthroid dosing 7. Acute on CKD 8. Anemia PLAN: 1. Empiric abx course per C&S 2. Decrease diuresis with Lasix 40 po qd and Aldactone 25 qd and monitor diuretic response, renal fxn and electrolytes 3. Increase Lopressor 25 bid, hemodynamics permitting 4. Resume Diovan 40 qd once renal fxn stabilizes, hemodynamics permitting 5. Continue Eliquis 2.5 bid 6. Uptitrate Synthroid dose per TSH
[2016-12-28] MEDS: FUROSEMIDE 40 MG TABLET (FP) PO SCH (09:50)
[2016-12-28] MEDS ORDERED: LEVOFLOXACIN 250 MG IVPB 50 ML IVPB SCH (10:00)
[2016-12-28] MEDS: BACITRACIN 30 GM TUBE TOPICAL OINTMENT TP SCH ×2 (10:36→21:39)
[2016-12-28 12:14] LABS: PLATELET ESTIMATE ADEQUATE (NORMAL)
[2016-12-28] MEDS: VANCOMYCIN 1 GRAM (PRE-DOCKED) 250 ML IVPB SCH (13:09)
--- NOTE | 2016-12-28 14:15 | PN ---
Progress Note (short form) - Note Progress Note: continued left leg pain Vital Signs Period Temp Pulse Resp BP Sys/Vásquez Pulse Ox Last 24 Hr 97.3 F-99.2 F 109-123 18-20 93-101/55-65 95-96 cor-rrr lungs decreased bs at bases abd soft,nt ext +erythema, induration , warmth, tender ulcer LLE CBC, BMP 12/28/16 05:40 12/28/16 05:40 Microbiology 12/26/16 19:31 Urine - Urine Clean Catch Urine Culture - Final 12/26/16 18:01 Blood - Peripheral Venous Blood Culture - Preliminary NO GROWTH OBTAINED AFTER 24 HOURS, INCUBATION TO CONTINUE FOR 4 DAYS. 12/26/16 18:01 Blood - Peripheral Venous Blood Culture - Preliminary NO GROWTH OBTAINED AFTER 24 HOURS, INCUBATION TO CONTINUE FOR 4 DAYS. 12/26/16 18:02 Nasopharyngeal Swab Respiratory Virus Panel - Preliminary 12/26/16 18:02 Nasopharyngeal Swab Influenza Types A,B Antigen (CONNER) - Final 12/26/16 18:02 Nasopharyngeal Swab - Final a/p fevers -resolving cellulitis rising WBC broaden coverage to vanco/zosyn check vanco level in am valvular heart disease-- s/p BAV MOISES ceftriaxone allergy (rash) tolerated zosyn in ED-will resume
--- NOTE | 2016-12-28 17:11 | PN ---
Addendum entered and electronically signed by Elijah Bassett PA 12/29/16 06:52: Palpable DP & PT bilateral Original Note: Progress Note (short form) - Note Progress Note: VASCULAR SURGERY / WOUND CARE - Bharat Lucas DO Called to eval 86yo female with increasing LLE swelling with cellulitis. Currently, patient is being followed by ID for sepsis and Cardio for her chronic diastolic CHF and afib. Patient normally ambulates at home unassisted. Denies CP, SOB, n/v/f/c or pain with movement to her toes. Last Vital Signs Temp Pulse Resp BP Pulse Ox 97.9 F 116 H 28 H 96/68 96 12/28/16 14:00 12/28/16 14:00 12/28/16 14:00 12/28/16 14:00 12/28/16 09:00 CBC, BMP 12/28/16 05:40 12/28/16 05:40 INR, PTT INR 1.38 (0.82-1.09) H 12/26/16 16:20 Microbiology 12/26/16 19:31 Urine - Urine Clean Catch Urine Culture - Final 12/26/16 18:01 Blood - Peripheral Venous Blood Culture - Prelim NO GROWTH OBTAINED AFTER 24 HOURS, INCUBATION TO CONT x 4 DAYS. 12/26/16 18:01 Blood - Peripheral Venous Blood Culture - Prelim NO GROWTH OBTAINED AFTER 24 HOURS, INCUBATION TO CONT x 4 DAYS. 12/26/16 18:02 Nasopharyngeal Swab Respiratory Virus Panel - Prelim GeneraL; alert. nad. LE: 2+ pitting edema bilat to mid-phipps. + Erythema & warmth. LLE(phipps) stage 1 ulcer lesion, no active drainage, no induration Problem List - Problems (1) Bilateral lower leg cellulitis Assessment/Plan: Bilat LE elevation while seated in chair or in bed IV abx per ID Warm compress Gently wash bilat LE with warm soapy water daily No surgical intervention. Cardio to manage her diastolic chf & afib Above plan discussed with Dr. Lucas and agrees On behalf of Dr. Lucas, thank you for the opportunity to participate in your patient's care. Code(s): L03.116 - CELLULITIS OF LEFT LOWER LIMB L03.115 - CELLULITIS OF RIGHT LOWER LIMB (2) Acute on chronic diastolic (congestive) heart failure Code(s): I50.33 - ACUTE ON CHRONIC DIASTOLIC (CONGESTIVE) HEART FAILURE (3) Atrial fibrillation Code(s): I48.91 - UNSPECIFIED ATRIAL FIBRILLATION Qualifiers: Atrial fibrillation type: persistent Qualified Code(s): I48.1 - Persistent atrial fibrillation
[2016-12-28] MEDS: PIPERACILLIN/TAZOB 3.375 GM/50 ML PRE-DOCKED IVPB SCH (17:35)
[2016-12-28] MEDS: ASCORBIC ACID 500 MG TABLET (FP) PO SCH (17:37)
[2016-12-28] MEDS: ACLIDINIUM BROMIDE 400 MCG/INH AERO.POWD IH SCH (22:13)
[2016-12-29] MEDS: PIPERACILLIN/TAZOB 3.375 GM/50 ML PRE-DOCKED IVPB SCH ×3 (03:40→17:54)
[2016-12-29] MEDS: LEVOTHYROXINE NA 50 MCG TABLET (FP) PO SCH (06:22)
[2016-12-29 07:59] LABS: BASOPHIL 0.5 % (0-2.0); EOSINOPHIL 0.3 % (0-4.5); MCH 30.2 pg (25.7-33.7); MCHC 33.1 g/dl (32.0-36.0); MEAN CELL VOLUME 91.3 fl (80-96); MEAN PLT VOLUME 9.2 fl (7.5-11.1); NEUTROPHILS 93.9 % (42.8-82.8); PLATELET COUNT 192 K/MM3 (134-434); RDW 17.5 % (11.6-15.6); WHITE BLOOD COUNT 15.2 K/mm3 (4.0-10.0)
[2016-12-29 08:00] LABS: ALBUMIN 2.2 g/dl (3.4-5.0); CALCIUM 8.3 mg/dL (8.5-10.1); COCKROFT - GAULT 18.7935; CREATININE 1.5 mg/dL (0.55-1.02)
[2016-12-29 08:02] LABS: BILIRUBIN,TOTAL 0.6 mg/dL (0.2-1.0); TOT PROT 6.1 g/dl (6.4-8.2)
--- NOTE | 2016-12-29 08:20 | PN ---
Progress Note, Physician Chief Complaint: still with LLE pain - Current Medication List Current Medications: Active Medications Aclidinium Danube (Tudorza -) 1 puff IH BID [facility] Last Admin: 12/28/16 22:13 Dose: 1 puff Apixaban (Eliquis -) 2.5 mg PO BID [facility] Last Admin: 12/28/16 21:39 Dose: 2.5 mg Bacitracin (Bacitracin -) 1 applic TP BID [facility] Last Admin: 12/28/16 21:39 Dose: 1 applic Cholecalciferol (Vitamin D3 -) 1,000 unit PO DAILY [facility] Last Admin: 12/28/16 09:38 Dose: 1,000 unit Docusate Sodium (Colace -) 100 mg PO DAILY [facility] Last Admin: 12/28/16 09:38 Dose: 100 mg Furosemide (Lasix -) 40 mg PO DAILY [facility] Last Admin: 12/28/16 09:50 Dose: Not Given Vancomycin HCl (Vancomycin (Pre-Docked)) 250 mls @ 166.667 mls/hr IVPB Q24H [facility] PRN Reason: Protocol Last Admin: 12/28/16 13:09 Dose: 166.667 mls/hr Lactobacillus Acidophilus (Bacid -) 1 tab PO DAILY [facility] Last Admin: 12/28/16 09:38 Dose: 1 tab Levothyroxine Sodium (Synthroid -) 50 mcg PO DAILY@0700 [facility] Last Admin: 12/29/16 06:22 Dose: 50 mcg Metoprolol Tartrate (Lopressor -) 25 mg PO BID [facility] Last Admin: 12/28/16 21:39 Dose: 25 mg Multivitamins/Minerals/Vitamin C (Tab-A-Vit -) 1 tab PO DAILY [facility] Last Admin: 12/28/16 09:38 Dose: 1 tab Piperacillin Sod/Tazobactam Sod (Zosyn 3.375gm Ivpb (Pre-Docked)) 3.375 gm IVPB Q8H-IV [facility] PRN Reason: Protocol Last Admin: 12/29/16 03:40 Dose: 3.375 gm Spironolactone (Aldactone -) 25 mg PO DAILY [facility] Last Admin: 12/28/16 09:39 Dose: 25 mg - Objective Vital Signs: Vital Signs Temperature 97.9 F 12/29/16 07:15 Pulse Rate 102 H 12/29/16 07:15 Respiratory Rate 20 12/29/16 07:22 Blood Pressure 93/60 12/29/16 07:15 O2 Sat by Pulse Oximetry (%) 95 12/29/16 07:22 Constitutional: Yes: No Distress Eyes: Yes: Conjunctiva Clear HENT: Yes: Atraumatic Neck: Yes: Supple Cardiovascular: No: Regular Rate and Rhythm Respiratory: Yes: Diminished Gastrointestinal: Yes: Soft. No: Distention, Tenderness Musculoskeletal: No: Joint Stiffness, Joint Swelling Extremities: Yes: Erythema Edema: Yes (less, legs) Integumentary: Yes: Rash (LLE), Venous Stasis Changes Neurological: Yes: WNL, Alert, Oriented ...Motor Strength: WNL Psychiatric: Yes: WNL, Alert, Oriented. No: Agitated Labs: CBC, BMP 12/29/16 05:35 INR, PTT INR 1.38 (0.82-1.09) H 12/26/16 16:20 - ....Imaging Other: Report Reviewed Assessment/Plan 86 year old female, with history of tricuspid regurgitation, mitral regurgitation, diastolic dysfunction with h/o failure requiring thoracentesis, low flow, low gradient aortic stenosis s/p BAV, permanent atrial fibrillation on Eliquis, hypothyroidism and pulmonary hypertension recent admission for profound weakness, fatigue and anorexia and possible dizziness referable to profound symtomatic hyponatremia presentes with SOB, worsening LLE swelling, erythema, warmth and pain. She was noted have rigors, fevers, leukocytosis. s.p fall LLE wound rash and cellulitis, sepsis admitted to INPT blood cx negative IV antibitoics broad spectrum wound care IV lasix for diuresis cardiology f/u surgery eval for LLE cellulitis noted check LLE CT/ venous US f/u labs falls decubs PFX d/w pt and staff
[2016-12-29] MEDS: BACITRACIN 30 GM TUBE TOPICAL OINTMENT TP SCH ×2 (09:18→21:23)
[2016-12-29] MEDS: ACLIDINIUM BROMIDE 400 MCG/INH AERO.POWD IH SCH ×2 (09:19→21:23)
[2016-12-29] MEDS: SPIRONOLACTONE 25 MG TABLET (FP) PO SCH (09:19)
[2016-12-29] MEDS: FUROSEMIDE 40 MG TABLET (FP) PO SCH (09:19)
[2016-12-29] MEDS: CHOLECALCIFEROL (VITAMIN D3) 1,000 UNIT TABLET (FP) PO SCH (09:19)
[2016-12-29] MEDS: METOPROLOL TARTRATE 25 MG TABLET (FP) PO SCH ×2 (09:19→21:23)
[2016-12-29] MEDS: DOCUSATE SODIUM 100 MG CAPSULE (FP) PO SCH (09:19)
[2016-12-29] MEDS: LACTOBACILLUS ACIDOPHILUS 1 EACH TAB (FP) PO SCH (09:19)
[2016-12-29] MEDS: APIXABAN 2.5 MG TABLET PO SCH ×2 (09:20→21:23)
[2016-12-29] MEDS: MULTIVITAMINS (DAILY MVI) TABLET (FP) PO SCH (09:25)
--- NOTE | 2016-12-29 10:46 | PN ---
Progress Note, Physician History of Present Illness: Defervescing, afib with improved rate-control, denies chest pain or dyspnea, continued LLE tenderness. - Current Medication List Current Medications: Active Medications Aclidinium [place] (Tudorza -) 1 puff IH BID [facility] Last Admin: 12/29/16 09:19 Dose: 1 puff Apixaban (Eliquis -) 2.5 mg PO BID [facility] Last Admin: 12/29/16 09:20 Dose: 2.5 mg Bacitracin (Bacitracin -) 1 applic TP BID [facility] Last Admin: 12/29/16 09:18 Dose: 1 applic Cholecalciferol (Vitamin D3 -) 1,000 unit PO DAILY [facility] Last Admin: 12/29/16 09:19 Dose: 1,000 unit Docusate Sodium (Colace -) 100 mg PO DAILY [facility] Last Admin: 12/29/16 09:19 Dose: 100 mg Furosemide (Lasix -) 40 mg PO DAILY [facility] Last Admin: 12/29/16 09:19 Dose: 40 mg Vancomycin HCl (Vancomycin (Pre-Docked)) 250 mls @ 166.667 mls/hr IVPB Q24H [facility] PRN Reason: Protocol Last Admin: 12/28/16 13:09 Dose: 166.667 mls/hr Lactobacillus Acidophilus (Bacid -) 1 tab PO DAILY [facility] Last Admin: 12/29/16 09:19 Dose: 1 tab Levothyroxine Sodium (Synthroid -) 50 mcg PO DAILY@0700 [facility] Last Admin: 12/29/16 06:22 Dose: 50 mcg Metoprolol Tartrate (Lopressor -) 25 mg PO BID [facility] Last Admin: 12/29/16 09:19 Dose: 25 mg Multivitamins/Minerals/Vitamin C (Tab-A-Vit -) 1 tab PO DAILY [facility] Last Admin: 12/29/16 09:25 Dose: 1 tab Piperacillin Sod/Tazobactam Sod (Zosyn 3.375gm Ivpb (Pre-Docked)) 3.375 gm IVPB Q8H-IV [facility] PRN Reason: Protocol Last Admin: 12/29/16 09:18 Dose: 3.375 gm Spironolactone (Aldactone -) 25 mg PO DAILY [facility] Last Admin: 12/29/16 09:19 Dose: 25 mg - Objective Vital Signs: Vital Signs Temperature 97.9 F 12/29/16 07:15 Pulse Rate 102 H 12/29/16 07:15 Respiratory Rate 20 12/29/16 07:22 Blood Pressure 93/60 12/29/16 07:15 O2 Sat by Pulse Oximetry (%) 95 12/29/16 07:22 Constitutional: Yes: No Distress, Calm, Thin Neck: Yes: Supple Cardiovascular: Yes: Pulse Irregular, Murmur (2/6 SM) Respiratory: Yes: Regular, Diminished Gastrointestinal: Yes: Normal Bowel Sounds, Soft Extremities: Yes: Erythema (LLE cellulitis), Other (Tenderness) Edema: Yes Edema: LLE: Trace Labs: CBC, BMP 12/29/16 05:35 12/29/16 05:35 INR, PTT INR 1.38 (0.82-1.09) H 12/26/16 16:20 Problem List - Problems (1) Sepsis Code(s): A41.9 - SEPSIS, UNSPECIFIED ORGANISM Qualifiers: Sepsis type: sepsis due to unspecified organism Qualified Code(s): A41.9 - Sepsis, unspecified organism (2) MOISES (acute kidney injury) Code(s): N17.9 - ACUTE KIDNEY FAILURE, UNSPECIFIED (3) Acute on chronic diastolic (congestive) heart failure Code(s): I50.33 - ACUTE ON CHRONIC DIASTOLIC (CONGESTIVE) HEART FAILURE (4) Aortic valvar stenosis Code(s): I35.0 - NONRHEUMATIC AORTIC (VALVE) STENOSIS Qualifiers: Cardiac valve disease etiology: nonrheumatic Qualified Code(s): I35.0 - Nonrheumatic aortic (valve) stenosis (5) Atrial fibrillation Code(s): I48.91 - UNSPECIFIED ATRIAL FIBRILLATION Qualifiers: Atrial fibrillation type: persistent Qualified Code(s): I48.1 - Persistent atrial fibrillation (6) Hypothyroid Code(s): E03.9 - HYPOTHYROIDISM, UNSPECIFIED Qualifiers: Hypothyroidism type: unspecified Qualified Code(s): E03.9 - Hypothyroidism, unspecified (7) Mitral regurgitation Code(s): I34.0 - NONRHEUMATIC MITRAL (VALVE) INSUFFICIENCY Qualifiers: Cardiac valve disease etiology: nonrheumatic Qualified Code(s): I34.0 - Nonrheumatic mitral (valve) insufficiency (8) Pulmonary hypertension Code(s): I27.2 - OTHER SECONDARY PULMONARY HYPERTENSION (9) S/P balloon aortic valvuloplasty Code(s): Z98.890 - OTHER SPECIFIED POSTPROCEDURAL STATES (10) Tricuspid regurgitation Code(s): I07.1 - RHEUMATIC TRICUSPID INSUFFICIENCY Qualifiers: Cardiac valve disease etiology: nonrheumatic Qualified Code(s): I36.1 - Nonrheumatic tricuspid (valve) insufficiency (11) Bilateral lower leg cellulitis Code(s): L03.116 - CELLULITIS OF LEFT LOWER LIMB L03.115 - CELLULITIS OF RIGHT LOWER LIMB Assessment/Plan Echocardiogram 08/18/16 normal LV size and function, Aortic stenosis moderate to severe NATI of 0.7 cm2, moderate mitral regurgitation, severe tricuspid valve regurgitation with RVSP of 55 mmHg Echocardiogram: 12/27/2016 Normal biventricular size and fxn, mod-severe aortic stenosis NATI 0.8 cm2, MG 12 mmHg, severe JACKLYN, severe TR, mild [place], severe MR 1. Acute on chronic diastolic failure triggered by left LE cellulitis 2. Recent hypovolemic, hyponatremia referable to diuretics and subtherapeutic Synthroid dosing 3. 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 Persistent atrial fibrillation [id number] score of 5 on NOAC's 5. Low flow, low gradient aortic stenosis post BAV 6. Hypothyroidism with an abnormal TSH value, subtherapeutic Synthroid dosing 7. Acute on CKD 8. Anemia PLAN: 1. Empiric abx course per C&S, f/u vascular u/s, left lower leg CT to r/o DVT although unlikely given NOAC use 2. Continue diuresis with Lasix 40 po qd and Aldactone 25 qd and monitor diuretic response, renal fxn and electrolytes 3. Continue Lopressor 25 bid, hemodynamics permitting 4. Resume Diovan 40 qd once renal fxn stabilizes, hemodynamics permitting 5. Continue Eliquis 2.5 bid 6. Uptitrate Synthroid dose per TSH
--- NOTE | 2016-12-29 10:58 | PN ---
Progress Note (short form) - Note Progress Note: continued left leg pain difficulty ambulating Vital Signs Period Temp Pulse Resp BP Sys/Vásquez Pulse Ox Last 24 Hr 97.7 F-98.1 F 98-116 20-28 90-99/60-69 95-95 cor-rrr llungs clear abd soft,nt ext erythema/induration left leg unchnaged- +superficial ulcers very painful to touch- unchanged CBC, BMP 12/29/16 05:35 12/29/16 05:35 Microbiology 12/26/16 18:01 Blood - Peripheral Venous Blood Culture - Preliminary NO GROWTH OBTAINED AFTER 48 HOURS, INCUBATION TO CONTINUE FOR 3 DAYS. 12/26/16 18:01 Blood - Peripheral Venous Blood Culture - Preliminary NO GROWTH OBTAINED AFTER 48 HOURS, INCUBATION TO CONTINUE FOR 3 DAYS. 12/26/16 19:31 Urine - Urine Clean Catch Urine Culture - Final 12/26/16 18:02 Nasopharyngeal Swab Respiratory Virus Panel - Preliminary 12/26/16 18:02 Nasopharyngeal Swab Influenza Types A,B Antigen ([facility]) - Final 12/26/16 18:02 Nasopharyngeal Swab - Final a/p fevers -resolving cellulitis persistent pain erythema and induration of LLE- will get ct of leg no contrast and duplex r/o DVT check vanco leveltoday valvular heart disease-- s/p BAV MOISES ceftriaxone allergy (rash) tolerates zosyn continue vanco/zosyn day #2
[2016-12-29] MEDS: VANCOMYCIN 1 GRAM (PRE-DOCKED) 250 ML IVPB SCH (13:05)
[2016-12-30] MEDS: PIPERACILLIN/TAZOB 3.375 GM/50 ML PRE-DOCKED IVPB SCH ×3 (01:52→17:18)
[2016-12-30] MEDS: LEVOTHYROXINE NA 50 MCG TABLET (FP) PO SCH (06:03)
[2016-12-30 08:03] LABS: BASOPHIL 0.6 % (0-2.0); EOSINOPHIL 0.9 % (0-4.5); MCH 29.7 pg (25.7-33.7); MCHC 32.7 g/dl (32.0-36.0); MEAN PLT VOLUME 9.1 fl (7.5-11.1); NEUTROPHILS 90.2 % (42.8-82.8); PLATELET COUNT 207 K/MM3 (134-434); RDW 17.8 % (11.6-15.6); WHITE BLOOD COUNT 11.7 K/mm3 (4.0-10.0)
[2016-12-30 08:54] LABS: ALBUMIN 2.2 g/dl (3.4-5.0); BILIRUBIN,TOTAL 0.5 mg/dL (0.2-1.0); CALCIUM 8.2 mg/dL (8.5-10.1); COCKROFT - GAULT 20.876; CREATININE 1.4 mg/dL (0.55-1.02); TOT PROT 6.2 g/dl (6.4-8.2)
[2016-12-30] MEDS: BACITRACIN 30 GM TUBE TOPICAL OINTMENT TP SCH ×2 (09:00→21:10)
[2016-12-30] MEDS: DOCUSATE SODIUM 100 MG CAPSULE (FP) PO SCH (09:01)
[2016-12-30] MEDS: APIXABAN 2.5 MG TABLET PO SCH ×2 (09:01→21:10)
[2016-12-30] MEDS: ACLIDINIUM BROMIDE 400 MCG/INH AERO.POWD IH SCH ×2 (09:01→21:10)
[2016-12-30] MEDS: FUROSEMIDE 40 MG TABLET (FP) PO SCH (09:01)
[2016-12-30] MEDS: MULTIVITAMINS (DAILY MVI) TABLET (FP) PO SCH (09:01)
[2016-12-30] MEDS: CHOLECALCIFEROL (VITAMIN D3) 1,000 UNIT TABLET (FP) PO SCH (09:01)
[2016-12-30] MEDS: SPIRONOLACTONE 25 MG TABLET (FP) PO SCH (09:01)
[2016-12-30] MEDS: LACTOBACILLUS ACIDOPHILUS 1 EACH TAB (FP) PO SCH (09:01)
[2016-12-30] MEDS: METOPROLOL TARTRATE 25 MG TABLET (FP) PO SCH ×2 (09:01→21:10)
--- NOTE | 2016-12-30 10:33 | PN ---
Progress Note, Physician History of Present Illness: Awake, responsive C/O L LE pain No c/o fever/ chills Tolerating antibiotics - Current Medication List Current Medications: Active Medications Aclidinium Raymond (Tudorza -) 1 puff IH BID [facility] Last Admin: 12/30/16 09:01 Dose: 1 puff Apixaban (Eliquis -) 2.5 mg PO BID [facility] Last Admin: 12/30/16 09:01 Dose: 2.5 mg Bacitracin (Bacitracin -) 1 applic TP BID [facility] Last Admin: 12/30/16 09:00 Dose: 1 applic Cholecalciferol (Vitamin D3 -) 1,000 unit PO DAILY [facility] Last Admin: 12/30/16 09:01 Dose: 1,000 unit Docusate Sodium (Colace -) 100 mg PO DAILY [facility] Last Admin: 12/30/16 09:01 Dose: 100 mg Furosemide (Lasix -) 40 mg PO DAILY [facility] Last Admin: 12/30/16 09:01 Dose: 40 mg Vancomycin HCl (Vancomycin (Pre-Docked)) 250 mls @ 166.667 mls/hr IVPB Q24H [facility] PRN Reason: Protocol Last Admin: 12/29/16 13:05 Dose: 166.667 mls/hr Lactobacillus Acidophilus (Bacid -) 1 tab PO DAILY [facility] Last Admin: 12/30/16 09:01 Dose: 1 tab Levothyroxine Sodium (Synthroid -) 50 mcg PO DAILY@0700 [facility] Last Admin: 12/30/16 06:03 Dose: 50 mcg Metoprolol Tartrate (Lopressor -) 25 mg PO BID [facility] Last Admin: 12/30/16 09:01 Dose: 25 mg Multivitamins/Minerals/Vitamin C (Tab-A-Vit -) 1 tab PO DAILY [facility] Last Admin: 12/30/16 09:01 Dose: 1 tab Piperacillin Sod/Tazobactam Sod (Zosyn 3.375gm Ivpb (Pre-Docked)) 3.375 gm IVPB Q8H-IV [facility] PRN Reason: Protocol Last Admin: 12/30/16 09:00 Dose: 3.375 gm Spironolactone (Aldactone -) 25 mg PO DAILY [facility] Last Admin: 12/30/16 09:01 Dose: 25 mg - Objective Vital Signs: Vital Signs Temperature 97.6 F 12/30/16 07:09 Pulse Rate 107 H 12/30/16 07:09 Respiratory Rate 20 12/30/16 07:11 Blood Pressure 94/61 12/30/16 07:09 O2 Sat by Pulse Oximetry (%) 98 12/30/16 07:11 Constitutional: Yes: No Distress Eyes: Yes: Conjunctiva Clear Cardiovascular: Yes: Regular Rate and Rhythm Respiratory: Yes: CTA Bilaterally, Diminished Gastrointestinal: Yes: Normal Bowel Sounds, Soft. No: Tenderness Extremities: Yes: Other (+ erythema/ warmth L LE) Labs: CBC, BMP 12/30/16 05:35 12/30/16 05:35 INR, PTT INR 1.38 (0.82-1.09) H 12/26/16 16:20 Assessment/Plan Recurrent cellulitis LE Fever- resolved Azotemia Ceftriaxone allergy Vanco level 18- will hold and obtain random level in am
--- NOTE | 2016-12-30 11:26 | PN ---
Progress Note (short form) - Note Progress Note: Chief Complaint: Events noted, notes reviewed, denies dyspnea, denies any chest pain but complaining of left leg discomfort History of Present Illness: Seen and examined on telemetry. Events noted, notes reviewed, denies dyspnea, denies any chest pain but complaining of left leg discomfort Echocardiography performed 08/18/16 reveled normal LV size and function, Aortic stenosis moderate to severe NATI odf 0.7 cm2, moderate mitral regurgitation, severe tricuspid valve regurgitation with RVSP of 55 mmHg Echocardiography dated 12/27/2016 revealed normal bi-ventricular size and function , moderate-severe aortic valve stenosis NATI 0.8 cm2, severe bi-atrial dilatation , severe MR and TR Medications: Current Medications Aclidinium [place] (Tudorza -) 1 puff IH BID [facility] Last Admin: 12/30/16 09:01 Dose: 1 puff Apixaban (Eliquis -) 2.5 mg PO BID [facility] Last Admin: 12/30/16 09:01 Dose: 2.5 mg Bacitracin (Bacitracin -) 1 applic TP BID [facility] Last Admin: 12/30/16 09:00 Dose: 1 applic Cholecalciferol (Vitamin D3 -) 1,000 unit PO DAILY [facility] Last Admin: 12/30/16 09:01 Dose: 1,000 unit Docusate Sodium (Colace -) 100 mg PO DAILY [facility] Last Admin: 12/30/16 09:01 Dose: 100 mg Furosemide (Lasix -) 40 mg PO DAILY [facility] Last Admin: 12/30/16 09:01 Dose: 40 mg Lactobacillus Acidophilus (Bacid -) 1 tab PO DAILY [facility] Last Admin: 12/30/16 09:01 Dose: 1 tab Levothyroxine Sodium (Synthroid -) 50 mcg PO DAILY@0700 [facility] Last Admin: 12/30/16 06:03 Dose: 50 mcg Metoprolol Tartrate (Lopressor -) 25 mg PO BID [facility] Last Admin: 12/30/16 09:01 Dose: 25 mg Multivitamins/Minerals/Vitamin C (Tab-A-Vit -) 1 tab PO DAILY [facility] Last Admin: 12/30/16 09:01 Dose: 1 tab Piperacillin Sod/Tazobactam Sod (Zosyn 3.375gm Ivpb (Pre-Docked)) 3.375 gm IVPB Q8H-IV [facility] PRN Reason: Protocol Last Admin: 12/30/16 09:00 Dose: 3.375 gm Spironolactone (Aldactone -) 25 mg PO DAILY [facility] Last Admin: 12/30/16 09:01 Dose: 25 mg Review of Systems Constitutional: denies: Chills, Fever Cardiovascular: As noted above Respiratory: denies: Cough or Sputum Production Gastrointestinal: denies: Nausea, Vomiting, Diarrhea, Constipation or Abdominal Pain Musculoskeletal: No symptoms reported Neurological: denies: Dizziness or Headaches Vital Signs: Last Vital Signs Temp Pulse Resp BP Pulse Ox 97.6 F 82 20 121/68 96 12/19/16 06:00 12/19/16 06:00 12/19/16 06:00 12/19/16 06:00 12/18/16 21:00 Intake & Output 12/16/16 12/17/16 12/18/16 12/19/16 23:59 23:59 23:59 23:59 Intake Total 220 510 460 50 Balance 220 510 460 50 Weight 102 lb 3.2 oz 103 lb 3.2 oz 106 lb 110 lb Neck: Supple Negative JVD No bruit Respiratory: Diminished Breath Sounds at the Bases Cardiovascular: S1 S2 Irregularly Irregular Grade 2/6 [place] Gastrointestinal: Soft Benign Normal Bowel Sounds Ext: Edema Dressing in Situ Labs: CBC, BMP 12/30/16 05:35 12/30/16 05:35 Hepatic Panel Total Bilirubin 0.5 mg/dL (0.2-1.0) 12/30/16 05:35 AST 17 U/L (15-37) 12/30/16 05:35 ALT 30 U/L (12-78) 12/30/16 05:35 Alkaline Phosphatase 116 U/L (45-117) 12/30/16 05:35 Albumin 2.2 g/dl (3.4-5.0) L 12/30/16 05:35 Assessment/Plan ASSESSMENT: 1. Acute on chronic class II NYHA classification diastolic LV failure triggered by left lower extremity cellulitis 2. Post recent hypovolemic, hyponatremia referable to diuretics and possible sub -therapeutic Synthroid dosing 3. 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 Persistent atrial fibrillation [id number] score of 5 on NOAC's 5. Low flow, low gradient aortic stenosis post BAV 6. Hypothyroidism with an abnormal TSH value, sub-therapeutic Synthroid dosing 7. Acute on CKD 8. Anemia PLAN: 1. Continue Lasix and Aldactone 2. Continue Lopressor, hemodynamics permitting 3. Resume Diovan, hemodynamics permitting and pending renal function stabilization 4. Continue Eliquis with close monitoring of CBC 5. Continue Synthroid 6. Antibiotics as per the primary team 7. Pain management as per the primary team Jess Richmond MD
--- NOTE | 2016-12-30 15:53 | PN ---
Progress Note, Physician History of Present Illness: Pt w/o fever, chills, SOB, Cpp Pt still w left leg pain, better - Current Medication List Current Medications: Active Medications Aclidinium [place] (Tudorza -) 1 puff IH BID [facility] Last Admin: 12/30/16 09:01 Dose: 1 puff Apixaban (Eliquis -) 2.5 mg PO BID [facility] Last Admin: 12/30/16 09:01 Dose: 2.5 mg Bacitracin (Bacitracin -) 1 applic TP BID [facility] Last Admin: 12/30/16 09:00 Dose: 1 applic Cholecalciferol (Vitamin D3 -) 1,000 unit PO DAILY [facility] Last Admin: 12/30/16 09:01 Dose: 1,000 unit Docusate Sodium (Colace -) 100 mg PO DAILY [facility] Last Admin: 12/30/16 09:01 Dose: 100 mg Furosemide (Lasix -) 40 mg PO DAILY [facility] Last Admin: 12/30/16 09:01 Dose: 40 mg Lactobacillus Acidophilus (Bacid -) 1 tab PO DAILY [facility] Last Admin: 12/30/16 09:01 Dose: 1 tab Levothyroxine Sodium (Synthroid -) 50 mcg PO DAILY@0700 [facility] Last Admin: 12/30/16 06:03 Dose: 50 mcg Metoprolol Tartrate (Lopressor -) 25 mg PO BID [facility] Last Admin: 12/30/16 09:01 Dose: 25 mg Multivitamins/Minerals/Vitamin C (Tab-A-Vit -) 1 tab PO DAILY [facility] Last Admin: 12/30/16 09:01 Dose: 1 tab Piperacillin Sod/Tazobactam Sod (Zosyn 3.375gm Ivpb (Pre-Docked)) 3.375 gm IVPB Q8H-IV [facility] PRN Reason: Protocol Last Admin: 12/30/16 09:00 Dose: 3.375 gm Spironolactone (Aldactone -) 25 mg PO DAILY [facility] Last Admin: 12/30/16 09:01 Dose: 25 mg - Objective Vital Signs: Vital Signs Temperature 97.8 F 12/30/16 15:20 Pulse Rate 110 H 12/30/16 15:20 Respiratory Rate 20 12/30/16 15:20 Blood Pressure 107/76 12/30/16 15:20 O2 Sat by Pulse Oximetry (%) 98 12/30/16 07:11 Constitutional: Yes: No Distress, Calm Cardiovascular: Yes: Regular Rate and Rhythm, Tachycardia, S1, S2 Respiratory: Yes: Regular, Rales Gastrointestinal: Yes: Normal Bowel Sounds, Soft. No: Tenderness Edema: LLE: 1+, RLE: 1+ Integumentary: Yes: Erythema, Other (calor of the left leg, + ulcer) Neurological: Yes: Alert, Oriented Labs: CBC, BMP 12/30/16 05:35 12/30/16 05:35 INR, PTT INR 1.38 (0.82-1.09) H 12/26/16 16:20 Problem List - Problems (1) Cellulitis of left leg Code(s): L03.116 - CELLULITIS OF LEFT LOWER LIMB (2) CHF exacerbation Code(s): I50.9 - HEART FAILURE, UNSPECIFIED (3) CAD (coronary artery disease) Code(s): I25.10 - ATHSCL HEART DISEASE OF [place] CORONARY ARTERY W/O ANG PCTRS (4) Atrial fibrillation Code(s): I48.91 - UNSPECIFIED ATRIAL FIBRILLATION Qualifiers: Atrial fibrillation type: persistent Qualified Code(s): I48.1 - Persistent atrial fibrillation (5) Hyponatremia Code(s): E87.1 - HYPO-OSMOLALITY AND HYPONATREMIA Assessment/Plan IV abtx, per ID. ID consult and f/u appreciated. To f/u with surgery Cardio consult and f/u appreciated. AM labs
[2016-12-31] MEDS ORDERED: ACETAMINOPHEN 325 MG TABLET (FP) PO PRN (02:56)
[2016-12-31] MEDS: PIPERACILLIN/TAZOB 3.375 GM/50 ML PRE-DOCKED IVPB SCH ×3 (03:02→17:16)
[2016-12-31] MEDS: LEVOTHYROXINE NA 50 MCG TABLET (FP) PO SCH (06:08)
[2016-12-31 08:11] LABS: MCH 30.6 pg (25.7-33.7); MCHC 33.8 g/dl (32.0-36.0); MEAN CELL VOLUME 90.7 fl (80-96); MEAN PLT VOLUME 8.9 fl (7.5-11.1); PLATELET COUNT 222 K/MM3 (134-434); RDW 17.5 % (11.6-15.6); WHITE BLOOD COUNT 8.9 K/mm3 (4.0-10.0)
[2016-12-31 08:42] LABS: ALBUMIN 2.1 g/dl (3.4-5.0); BILIRUBIN,TOTAL 0.7 mg/dL (0.2-1.0); CALCIUM 8.3 mg/dL (8.5-10.1); COCKROFT - GAULT 21.845; CREATININE 1.3 mg/dL (0.55-1.02); TOT PROT 6.2 g/dl (6.4-8.2)
[2016-12-31] MEDS: MULTIVITAMINS (DAILY MVI) TABLET (FP) PO SCH (09:15)
[2016-12-31] MEDS: SPIRONOLACTONE 25 MG TABLET (FP) PO SCH (09:16)
[2016-12-31] MEDS: DOCUSATE SODIUM 100 MG CAPSULE (FP) PO SCH (09:16)
[2016-12-31] MEDS: CHOLECALCIFEROL (VITAMIN D3) 1,000 UNIT TABLET (FP) PO SCH (09:16)
[2016-12-31] MEDS: FUROSEMIDE 40 MG TABLET (FP) PO SCH (09:16)
[2016-12-31] MEDS: METOPROLOL TARTRATE 25 MG TABLET (FP) PO SCH ×2 (09:16→21:47)
[2016-12-31] MEDS: LACTOBACILLUS ACIDOPHILUS 1 EACH TAB (FP) PO SCH (09:16)
[2016-12-31] MEDS: APIXABAN 2.5 MG TABLET PO SCH ×2 (09:16→21:47)
[2016-12-31] MEDS: ACLIDINIUM BROMIDE 400 MCG/INH AERO.POWD IH SCH ×2 (09:17→21:48)
[2016-12-31] MEDS: BACITRACIN 30 GM TUBE TOPICAL OINTMENT TP SCH ×2 (09:17→21:48)
--- NOTE | 2016-12-31 10:12 | PN ---
Progress Note (short form) - Note Progress Note: Chief Complaint: Events noted, notes reviewed, denies dyspnea or any chest pain , left leg discomfort improved post Tylenol ingestion History of Present Illness: Seen and examined on telemetry. Events noted, notes reviewed, denies dyspnea or any chest pain, left leg discomfort improved post Tylenol ingestion Echocardiography performed 08/18/16 reveled normal LV size and function, Aortic stenosis moderate to severe NATI odf 0.7 cm2, moderate mitral regurgitation, severe tricuspid valve regurgitation with RVSP of 55 mmHg Echocardiography dated 12/27/2016 revealed normal bi-ventricular size and function , moderate-severe aortic valve stenosis NATI 0.8 cm2, severe bi-atrial dilatation , severe MR and TR Medications: Current Medications Acetaminophen (Tylenol -) 650 mg PO Q6H PRN PRN Reason: FEVER OR PAIN Last Admin: 12/31/16 03:03 Dose: 650 mg Aclidinium [place] (Tudorza -) 1 puff IH BID [facility] Last Admin: 12/31/16 09:17 Dose: 1 puff Apixaban (Eliquis -) 2.5 mg PO BID [facility] Last Admin: 12/31/16 09:16 Dose: 2.5 mg Bacitracin (Bacitracin -) 1 applic TP BID [facility] Last Admin: 12/31/16 09:17 Dose: 1 applic Cholecalciferol (Vitamin D3 -) 1,000 unit PO DAILY [facility] Last Admin: 12/31/16 09:16 Dose: 1,000 unit Docusate Sodium (Colace -) 100 mg PO DAILY [facility] Last Admin: 12/31/16 09:16 Dose: 100 mg Furosemide (Lasix -) 40 mg PO DAILY [facility] Last Admin: 12/31/16 09:16 Dose: 40 mg Lactobacillus Acidophilus (Bacid -) 1 tab PO DAILY [facility] Last Admin: 12/31/16 09:16 Dose: 1 tab Levothyroxine Sodium (Synthroid -) 50 mcg PO DAILY@0700 [facility] Last Admin: 12/31/16 06:08 Dose: 50 mcg Metoprolol Tartrate (Lopressor -) 25 mg PO BID [facility] Last Admin: 12/31/16 09:16 Dose: 25 mg Multivitamins/Minerals/Vitamin C (Tab-A-Vit -) 1 tab PO DAILY [facility] Last Admin: 12/31/16 09:15 Dose: 1 tab Piperacillin Sod/Tazobactam Sod (Zosyn 3.375gm Ivpb (Pre-Docked)) 3.375 gm IVPB Q8H-IV [facility] PRN Reason: Protocol Last Admin: 12/31/16 09:22 Dose: 3.375 gm Spironolactone (Aldactone -) 25 mg PO DAILY [facility] Last Admin: 12/31/16 09:16 Dose: 25 mg Review of Systems Constitutional: denies: Chills, Fever Cardiovascular: As noted above Respiratory: denies: Cough or Sputum Production Gastrointestinal: denies: Nausea, Vomiting, Diarrhea, Constipation or Abdominal Pain Musculoskeletal: No symptoms reported Neurological: denies: Dizziness or Headaches Vital Signs: Last Vital Signs Temp Pulse Resp BP Pulse Ox 97.8 F 118 H 18 116/77 95 12/31/16 06:01 12/31/16 06:01 12/31/16 06:01 12/31/16 06:01 12/30/16 21:00 Intake & Output 12/28/16 12/29/16 12/30/16 12/31/16 23:59 23:59 23:59 23:59 Intake Total 6276 859 1066 100 Output Total 2 Balance 8180 381 5854 100 Weight 101 lb 4 oz 105 lb 102 lb Neck: Supple Negative JVD No bruit Respiratory: Diminished Breath Sounds at the Bases Cardiovascular: S1 S2 Irregularly Irregular Grade 2/6 [place] Gastrointestinal: Soft Benign Normal Bowel Sounds Ext: Edema Dressing in Situ Labs: CBC, BMP 12/31/16 05:35 12/31/16 05:35 Hepatic Panel Total Bilirubin 0.7 mg/dL (0.2-1.0) D 12/31/16 05:35 AST 117 U/L (15-37) H D 12/31/16 05:35 ALT 92 U/L (12-78) H D 12/31/16 05:35 Alkaline Phosphatase 374 U/L (45-117) H D 12/31/16 05:35 Albumin 2.1 g/dl (3.4-5.0) L 12/31/16 05:35 Assessment/Plan ASSESSMENT: 1. Acute on chronic class II NYHA classification diastolic LV failure triggered by left lower extremity cellulitis, resolving 2. Post recent hypovolemic, hyponatremia referable to diuretics and possible sub -therapeutic Synthroid dosing 3. 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 Persistent atrial fibrillation [id number] score of 5 on NOAC's 5. Low flow, low gradient aortic stenosis post BAV 6. Hypothyroidism with an abnormal TSH value, sub-therapeutic Synthroid dosing 7. Acute on CKD 8. Anemia PLAN: 1. Continue Lasix and Aldactone 2. Continue Lopressor, hemodynamics permitting 3. Plan to resume Diovan, hemodynamics permitting and pending renal function stabilization, re-assess in AM 4. Continue Eliquis with close monitoring of CBC 5. Continue Synthroid 6. Antibiotics as per the primary team Jess Richmond MD
--- NOTE | 2016-12-31 14:54 | PN ---
Progress Note, Physician History of Present Illness: Pt w/o fever, chills, SOB, CP, abd apin, N, V. Pt still w left leg pain, better - Current Medication List Current Medications: Active Medications Acetaminophen (Tylenol -) 650 mg PO Q6H PRN PRN Reason: FEVER OR PAIN Last Admin: 12/31/16 03:03 Dose: 650 mg Aclidinium [place] (Tudorza -) 1 puff IH BID [facility] Last Admin: 12/31/16 09:17 Dose: 1 puff Apixaban (Eliquis -) 2.5 mg PO BID [facility] Last Admin: 12/31/16 09:16 Dose: 2.5 mg Bacitracin (Bacitracin -) 1 applic TP BID [facility] Last Admin: 12/31/16 09:17 Dose: 1 applic Cholecalciferol (Vitamin D3 -) 1,000 unit PO DAILY [facility] Last Admin: 12/31/16 09:16 Dose: 1,000 unit Docusate Sodium (Colace -) 100 mg PO DAILY [facility] Last Admin: 12/31/16 09:16 Dose: 100 mg Furosemide (Lasix -) 40 mg PO DAILY [facility] Last Admin: 12/31/16 09:16 Dose: 40 mg Lactobacillus Acidophilus (Bacid -) 1 tab PO DAILY [facility] Last Admin: 12/31/16 09:16 Dose: 1 tab Levothyroxine Sodium (Synthroid -) 50 mcg PO DAILY@0700 [facility] Last Admin: 12/31/16 06:08 Dose: 50 mcg Metoprolol Tartrate (Lopressor -) 25 mg PO BID [facility] Last Admin: 12/31/16 09:16 Dose: 25 mg Multivitamins/Minerals/Vitamin C (Tab-A-Vit -) 1 tab PO DAILY [facility] Last Admin: 12/31/16 09:15 Dose: 1 tab Piperacillin Sod/Tazobactam Sod (Zosyn 3.375gm Ivpb (Pre-Docked)) 3.375 gm IVPB Q8H-IV [facility] PRN Reason: Protocol Last Admin: 12/31/16 09:22 Dose: 3.375 gm Ranitidine HCl (Zantac -) 75 mg PO BID [facility] Spironolactone (Aldactone -) 25 mg PO DAILY [facility] Last Admin: 12/31/16 09:16 Dose: 25 mg - Objective Vital Signs: Vital Signs Temperature 97.4 F L 12/31/16 14:05 Pulse Rate 104 H 12/31/16 14:05 Respiratory Rate 20 12/31/16 14:05 Blood Pressure 94/73 12/31/16 14:05 O2 Sat by Pulse Oximetry (%) 98 12/31/16 09:00 Constitutional: Yes: No Distress, Calm Cardiovascular: Yes: Regular Rate and Rhythm, Murmur, S1, S2 Respiratory: Yes: Regular, Rales Gastrointestinal: Yes: Normal Bowel Sounds, Soft. No: Tenderness Edema: LLE: 1+, RLE: 1+ Integumentary: Yes: Erythema (of left leg, + calor) Labs: CBC, BMP 12/31/16 05:35 12/31/16 05:35 INR, PTT INR 1.38 (0.82-1.09) H 12/26/16 16:20 Problem List - Problems (1) Cellulitis of left leg Assessment/Plan: IV abtx, per ID. ID consult ans f/u appreciated Code(s): L03.116 - CELLULITIS OF LEFT LOWER LIMB (2) CHF exacerbation Code(s): I50.9 - HEART FAILURE, UNSPECIFIED (3) CAD (coronary artery disease) Code(s): I25.10 - ATHSCL HEART DISEASE OF [place] CORONARY ARTERY W/O ANG PCTRS (4) Atrial fibrillation Code(s): I48.91 - UNSPECIFIED ATRIAL FIBRILLATION Qualifiers: Atrial fibrillation type: persistent Qualified Code(s): I48.1 - Persistent atrial fibrillation (5) Hyponatremia Code(s): E87.1 - HYPO-OSMOLALITY AND HYPONATREMIA (6) Elevated LFTs Code(s): R94.5 - ABNORMAL RESULTS OF LIVER FUNCTION STUDIES Assessment/Plan IV abtx, per ID. ID consult and f/u appreciated. To f/u with surgery regarding leg care Cardio consult and f/u appreciated. GI consult for elevated LFT evluation ( pt's recent liver US is unreveling) AM labs
--- NOTE | 2016-12-31 15:27 | PN ---
Progress Note (short form) - Note Progress Note: GI CONSULTATION: PT KNOWN TO US---SEEN 11/10/[address] CHO FOR ELEVATED LFT'S AT THAT TIME IT APPEARED RISE IN LFT'S WAS DUE TO ALLERGIC REACTION AND RIGHT SIDED HEART FAILURE/CONGESTIVE HEPATOPATHY AGAIN PT ADMIT WITH HEART FAILURE AND NOTED TO HAVE SEPSIS/CELLULITIS WITH LE PAIN/FEVER/WBC 18K NOW ASYMPTOMATIC RISE IN LFT;S BILI--NORMAL SONO 11/10 WAS NEG. CHRONIC MARKERS NEG. AGAIN SUSPECT RISE IN LFT;S MUTI-FACTORIAL THEY WERE NORMAL YESTERDAY AND FROM MEDS/SEPSIS/CONGESTIVE HEPATOPATHY CONTINUE SUPP CARE/OBSERVE ONCE INFECTION AND HF TREATED, THE LFT'S WILL NORMALIZE ONCE AGAIN OTHERWISE WOULD THEN ADVISE REPEAT LIVER W/U THANKS BUZZ MD
[2016-12-31] MEDS: RANITIDINE HCL 150 MG TABLET (FP) PO SCH ×2 (16:15→21:48)
--- NOTE | 2016-12-31 17:10 | CONS ---
DATE OF CONSULTATION: 12/31/2016 REASON FOR CONSULTATION: I was asked by Dr. Solitario to evaluate Antonella Salcido for elevated liver enzymes. HISTORY OF PRESENT ILLNESS: The patient is known to us. She was seen by Dr. Simpson, my partner, in October 2016. At that time he was called to evaluate also elevation of liver enzymes. At that time it was noted she was an 86-year-old woman with a history of recurrent dyspnea due to right heart failure. She had , MR, TR, CHF and pulmonary hypertension. When she came into the hospital in October her LFTs sharon at the time of what appeared to be an allergic reaction with cephalosporin. She does not have any history of any liver disease or gallstones. She has never had an EGD or colonoscopy and did not want one. She had not had a GI evaluation in the past. Dr. Simpson suspected that the liver enzymes elevation was multifactorial due to right hear failure as well as an allergic reaction and at that time he advised sonogram and check chronic liver markers which were unremarkable. After this, her LFTs according to the hospital system have been normalized. In fact, now she comes into the hospital with similar complaints of shortness of breath. She was found to be in heart failure and was complaining of lower extremity pain. It was noted that she appears to have cellulitis of the lower extremity. The patient came in with a much elevated white count, was seen by infectious disease and was started on antibiotics. At the present time the patient has no significant GI bleed complaints, no nausea or vomiting or abdominal pain. No jaundice, no history of an liver disease, denies history of gallbladder, pancreatic disease as well and was not taking any new medication as an outpatient. There is no family history of any occult liver disease as well. The patient is noted to have as of yesterday AST 17, ALT 30, alkaline phosphatase 116 and today the numbers became AST 116, ALT 92 and alkaline phosphatase 374. The patient's total bilirubin is 0.7. CURRENT MEDICATIONS: Currently in the hospital the patient's medication include Tylenol, Zosyn, bacitracin, Eliquis, Bacid, Tudorza, Lopressor, Colace, Zantac, Lasix, Aldactone, multivitamin, Synthroid and vitamin D3. PHYSICAL EXAMINATION: GENERAL: An elderly woman in absolutely no acute distress. The patient is thin. SKIN : Cool HEENT: Mouth is dry. Dentition is fair. There is no sclera icterus noted. NECK: Supple. ABDOMEN: Soft, with bowel sounds. No masses, rebound or guarding. LABORATORY DATA: The patient's labs aside from the LFTs are the following: The SMA 18 is all within normal limits except for a BUN 35, creatinine 1.3, and liver enzymes abnormalities as noted. The albumin is low at 2.1. Coagulation profile shows INR 1.38. White count is now 8.9 down from 21,000. H and H are stable with hemoglobin 9.4 and hematocrit 27, platelets 222,000. The patient has not had any GI studies at this point. The last was a sonogram in October 2016 that simply noted a right pleural effusion, trace ascites with some mild thickening of the gallbladder wall. IMPRESSION: Thus, at this time it is my impression that Antonella Salcido is an 86-year-old woman who has an extensive cardiac past medical history with significant right-sided heart failure with continued congestive heart failure who basically came in with a sepsis cellulitis and is on antibiotics and is noted to have a marked rise in her liver enzymes. This is likely multifactorial again and combination of sepsis as well as right-sided heart failure. In the past she has had extensive evaluation. There is no history of occult liver disease and her LFTs were normal yesterday. She is completely pain free. RECOMMENDATIONS: If her LFTs continue to rise then she may need imaging studies just to be certain she has not formed an acalculous cholecystitis in the setting of this infection and to make sure there is no liver findings. However, I would continue your current treatment for the infection and congestive heart failure and follow the LFTs. I suspect they will normalize once the patient is completely medically improved. At the present time there is no evidence of any ongoing liver failure. Dr. Simpson will resume coverage on January 01, 2017. JAYDEN GERBER M.D. [id number]
[2017-01-01] MEDS: ACETAMINOPHEN 325 MG TABLET (FP) PO PRN (01:10)
[2017-01-01] MEDS: PIPERACILLIN/TAZOB 3.375 GM/50 ML PRE-DOCKED IVPB SCH ×3 (02:16→17:58)
[2017-01-01] MEDS: LEVOTHYROXINE NA 50 MCG TABLET (FP) PO SCH (06:25)
[2017-01-01 07:36] LABS: MCH 30.2 pg (25.7-33.7); MCHC 33.2 g/dl (32.0-36.0); MEAN CELL VOLUME 91.2 fl (80-96); MEAN PLT VOLUME 8.8 fl (7.5-11.1); PLATELET COUNT 259 K/MM3 (134-434); WHITE BLOOD COUNT 7.1 K/mm3 (4.0-10.0)
[2017-01-01 08:53] LABS: ALBUMIN 2.1 g/dl (3.4-5.0); CALCIUM 8.2 mg/dL (8.5-10.1); COCKROFT - GAULT 20.281; CREATININE 1.4 mg/dL (0.55-1.02)
[2017-01-01 08:54] LABS: BILIRUBIN,TOTAL 0.7 mg/dL (0.2-1.0); TOT PROT 6.4 g/dl (6.4-8.2)
[2017-01-01] MEDS: RANITIDINE HCL 150 MG TABLET (FP) PO SCH ×2 (09:52→21:59)
[2017-01-01] MEDS: CHOLECALCIFEROL (VITAMIN D3) 1,000 UNIT TABLET (FP) PO SCH (09:53)
[2017-01-01] MEDS: SPIRONOLACTONE 25 MG TABLET (FP) PO SCH (09:53)
[2017-01-01] MEDS: DOCUSATE SODIUM 100 MG CAPSULE (FP) PO SCH (09:53)
[2017-01-01] MEDS: FUROSEMIDE 40 MG TABLET (FP) PO SCH (09:54)
[2017-01-01] MEDS: MULTIVITAMINS (DAILY MVI) TABLET (FP) PO SCH (09:54)
[2017-01-01] MEDS: LACTOBACILLUS ACIDOPHILUS 1 EACH TAB (FP) PO SCH (09:54)
[2017-01-01] MEDS: APIXABAN 2.5 MG TABLET PO SCH ×2 (09:54→21:58)
[2017-01-01] MEDS: METOPROLOL TARTRATE 25 MG TABLET (FP) PO SCH ×2 (09:54→21:58)
[2017-01-01] MEDS: ACLIDINIUM BROMIDE 400 MCG/INH AERO.POWD IH SCH ×2 (10:08→21:58)
[2017-01-01] MEDS: BACITRACIN 30 GM TUBE TOPICAL OINTMENT TP SCH ×2 (10:08→21:58)
--- NOTE | 2017-01-01 10:23 | PN ---
Progress Note (short form) - Note Progress Note: less left leg pain frustrated she is still here Vital Signs Period Temp Pulse Resp BP Sys/Vásquez Pulse Ox Last 24 Hr 97.4 F-98.6 F 104-120 18-20 94-125/67-87 96-98 cor-rrr lungs decreased bs at bases abd soft,nt ext less erythema, less induration, less pain of the left leg CBC, BMP 01/01/17 05:35 01/01/17 05:35 Microbiology 12/26/16 18:01 Blood - Peripheral Venous Blood Culture - Final NO GROWTH AFTER 5 DAYS INCUBATION 12/26/16 18:01 Blood - Peripheral Venous Blood Culture - Final NO GROWTH AFTER 5 DAYS INCUBATION 12/26/16 19:31 Urine - Urine Clean Catch Urine Culture - Final 12/26/16 18:02 Nasopharyngeal Swab Respiratory Virus Panel - Preliminary 12/26/16 18:02 Nasopharyngeal Swab Influenza Types A,B Antigen ([facility]) - Final 12/26/16 18:02 Nasopharyngeal Swab - Final Laboratory Tests 12/29/16 12/31/16 01/01/17 13:20 05:35 05:35 Vancomycin Trough 18.276 H* Random Vancomycin 16.772 12.748 a/p fevers -resolving cellulitis improving continue vanco/zosyn restart vancomycin tomorrow valvular heart disease-- s/p BAV MOISES ceftriaxone allergy (rash) tolerates zosyn continue vanco/zosyn day #5
--- NOTE | 2017-01-01 10:26 | PN ---
Progress Note, Physician Chief Complaint: Events noted Left pedal edema Denies SOB History of Present Illness: Patient was seen and examined. Awake and alert. Chart was reviewed Denies chest pain and denies SOB this am. AF persists with variable HR, often rapid - Current Medication List Current Medications: Active Medications Acetaminophen (Tylenol -) 650 mg PO Q8H PRN PRN Reason: FEVER OR PAIN Last Admin: 01/01/17 01:10 Dose: 650 mg Aclidinium [place] (Tudorza -) [address] [facility] Last Admin: 01/01/17 10:08 Dose: 1 puff Apixaban (Eliquis -) 2.[address] [facility] Last Admin: 01/01/17 09:54 Dose: 2.5 mg Bacitracin (Bacitracin -) [address] [facility] Last Admin: 01/01/17 10:08 Dose: 1 applic Cholecalciferol (Vitamin D3 -) 1,[address] [facility] Last Admin: 01/01/17 09:53 Dose: 1,000 unit Docusate Sodium (Colace -) [address] [facility] Last Admin: 01/01/17 09:53 Dose: Not Given Furosemide (Lasix -) [address] [facility] Last Admin: 01/01/17 09:54 Dose: 40 mg Lactobacillus Acidophilus (Bacid -) [address] [facility] Last Admin: 01/01/17 09:54 Dose: 1 tab Levothyroxine Sodium (Synthroid -) 50 mcg PO DAILY@0700 [facility] Last Admin: 01/01/17 06:25 Dose: 50 mcg Metoprolol Tartrate (Lopressor -) [address] [facility] Last Admin: 01/01/17 09:54 Dose: 25 mg Multivitamins/Minerals/Vitamin C (Tab-A-Vit -) [address] [facility] Last Admin: 01/01/17 09:54 Dose: 1 tab Piperacillin Sod/Tazobactam Sod (Zosyn 3.375gm Ivpb (Pre-Docked)) 3.375 gm IVPB Q8H-IV [facility] PRN Reason: Protocol Last Admin: 01/01/17 09:54 Dose: 3.375 gm Ranitidine HCl (Zantac -) [address] [facility] Last Admin: 01/01/17 09:52 Dose: 75 mg Spironolactone (Aldactone -) 25 mg PO DAILY [facility] Last Admin: 01/01/17 09:53 Dose: 25 mg - Objective Vital Signs: Vital Signs Temperature 98.2 F 01/01/17 06:00 Pulse Rate 116 H 01/01/17 06:00 Respiratory Rate 19 01/01/17 06:00 Blood Pressure 125/87 01/01/17 06:00 O2 Sat by Pulse Oximetry (%) 98 01/01/17 06:00 Neck: Yes: Supple Cardiovascular: Yes: Pulse Irregular, Murmur (2/6 SM sternal border and soft [place] right intercostal space), S1, S2 Respiratory: Yes: Diminished Gastrointestinal: Yes: Normal Bowel Sounds, Soft. No: Tenderness Extremities: Yes: Erythema Edema: Yes Edema: LLE: 2+ Additional Findings/Remarks: Review of Systems Constitutional: denies: Chills, Fever Cardiovascular: As noted above Respiratory: denies: Cough or Sputum Production Gastrointestinal: denies: Nausea, Vomiting, Diarrhea, Constipation or Abdominal Pain Musculoskeletal: No symptoms reported Neurological: denies: Dizziness or Headaches Labs: CBC, BMP 01/01/17 05:35 01/01/17 05:35 Problem List - Problems (1) CAD (coronary artery disease) Code(s): I25.10 - ATHSCL HEART DISEASE OF [place] CORONARY ARTERY W/O ANG PCTRS Qualifiers: Coronary Disease-Associated Artery/Lesion type: [place] artery [place] vs. transplanted heart: [place] heart Associated angina: without angina Qualified Code(s): I25.10 - Atherosclerotic heart disease of [place] coronary artery without angina pectoris (2) CHF exacerbation Code(s): I50.9 - HEART FAILURE, UNSPECIFIED Qualifiers: Congestive heart failure type: diastolic Qualified Code(s): I50.33 - Acute on chronic diastolic (congestive) heart failure (3) Cellulitis of left leg Code(s): L03.116 - CELLULITIS OF LEFT LOWER LIMB (4) Elevated LFTs Code(s): R94.5 - ABNORMAL RESULTS OF LIVER FUNCTION STUDIES (5) Abnormal LFTs (liver function tests) Code(s): R79.89 - OTHER SPECIFIED ABNORMAL FINDINGS OF BLOOD CHEMISTRY (6) Acute on chronic diastolic (congestive) heart failure Code(s): I50.33 - ACUTE ON CHRONIC DIASTOLIC (CONGESTIVE) HEART FAILURE (7) Aortic valvar stenosis Code(s): I35.0 - NONRHEUMATIC AORTIC (VALVE) STENOSIS Qualifiers: Cardiac valve disease etiology: nonrheumatic Qualified Code(s): I35.0 - Nonrheumatic aortic (valve) stenosis (8) Atrial fibrillation Code(s): I48.91 - UNSPECIFIED ATRIAL FIBRILLATION Qualifiers: Atrial fibrillation type: persistent Qualified Code(s): I48.1 - Persistent atrial fibrillation (9) Pulmonary hypertension Code(s): I27.2 - OTHER SECONDARY PULMONARY HYPERTENSION (10) S/P balloon aortic valvuloplasty Code(s): Z98.890 - OTHER SPECIFIED POSTPROCEDURAL STATES (11) Tricuspid regurgitation Code(s): I07.1 - RHEUMATIC TRICUSPID INSUFFICIENCY Qualifiers: Cardiac valve disease etiology: nonrheumatic Qualified Code(s): I36.1 - Nonrheumatic tricuspid (valve) insufficiency (12) Weakness Code(s): R53.1 - WEAKNESS Assessment/Plan 1. Acute on chronic class II NYHA classification diastolic LV failure triggered by left lower extremity cellulitis 2. 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 Persistent atrial fibrillation [id number] score of 5 on NOAC 5. Low flow, low gradient aortic stenosis post BAV 6. Hypothyroidism with an abnormal TSH value - sub-therapeutic Synthroid dosing 7. Acute on CKD 8. Anemia PLAN: 1. Continue Lasix and Aldactone with monitoring of renal function and electrolytes 2. Continue Lopressor, hemodynamics permitting 3. Plan to resume Diovan, hemodynamics permitting and pending renal function stabilization 4. Continue Eliquis with close monitoring of CBC 5. Continue Synthroid 6. Antibiotics coverage Further plans are to follow Familia Pepper MD
[2017-01-01] MEDS: VANCOMYCIN 750 MG in DEXTROSE 5%-WATER - 250 ML IVPB SCH (11:54)
--- NOTE | 2017-01-01 14:26 | PN ---
GI Progress Note Subjective: No abdominal pain No focal GI complaints Was given levaquin, zosyn, vanco, APAP 5/2 and receiving ranitidine - Objective Vital Signs: Vital Signs Temperature 98.2 F 01/01/17 06:00 Pulse Rate 116 H 01/01/17 06:00 Respiratory Rate 19 01/01/17 06:00 Blood Pressure 125/87 01/01/17 06:00 O2 Sat by Pulse Oximetry (%) 98 01/01/17 06:00 Constitutional: Calm Eyes: No: Sclera Icterus Cardiovascular: Yes: Regular Rate and Rhythm, Tachycardia Respiratory: Yes: Rhonchi (left lung with BS at bases b/l) Gastrointestinal Inspection: No: Distention ...Auscultate: Yes: Normoactive Bowel Sounds ...Palpate: Yes: Hepatomegaly. No: Tenderness Edema: No Neurological: Yes: Alert, Oriented Labs: CBC, BMP 01/01/17 05:35 01/01/17 05:35 INR, PTT INR 1.38 (0.82-1.09) H 12/26/16 16:20 Problem List - Problems (1) Elevated LFTs Assessment/Plan: ? related to congestive hepatopathy, ? medication effect No associated RUQ pain Advise: Minimize hepatotoxic agents: D/C's ranitidine, APAP Abdominal US ordered Monitor LFTs Code(s): R94.5 - ABNORMAL RESULTS OF LIVER FUNCTION STUDIES
--- NOTE | 2017-01-01 18:06 | PN ---
Progress Note, Physician History of Present Illness: Pt w/o fever, chills, SOB, CP, abd apin, N, V. Pt still w less left leg pain. - Current Medication List Current Medications: Active Medications Acetaminophen (Tylenol -) 650 mg PO Q8H PRN PRN Reason: FEVER OR PAIN Last Admin: 01/01/17 01:10 Dose: 650 mg Aclidinium [place] (Tudorza -) 1 puff IH BID [facility] Last Admin: 01/01/17 10:08 Dose: 1 puff Apixaban (Eliquis -) 2.5 mg PO BID [facility] Last Admin: 01/01/17 09:54 Dose: 2.5 mg Bacitracin (Bacitracin -) 1 applic TP BID [facility] Last Admin: 01/01/17 10:08 Dose: 1 applic Cholecalciferol (Vitamin D3 -) 1,000 unit PO DAILY [facility] Last Admin: 01/01/17 09:53 Dose: 1,000 unit Docusate Sodium (Colace -) 100 mg PO DAILY [facility] Last Admin: 01/01/17 09:53 Dose: Not Given Furosemide (Lasix -) 40 mg PO DAILY [facility] Last Admin: 01/01/17 09:54 Dose: 40 mg Vancomycin HCl 750 mg/ (Dextrose) 250 mls @ 250 mls/hr IVPB DAILY@1100 [facility] PRN Reason: Protocol Last Admin: 01/01/17 11:54 Dose: 250 mls/hr Lactobacillus Acidophilus (Bacid -) 1 tab PO DAILY [facility] Last Admin: 01/01/17 09:54 Dose: 1 tab Levothyroxine Sodium (Synthroid -) 50 mcg PO DAILY@0700 [facility] Last Admin: 01/01/17 06:25 Dose: 50 mcg Metoprolol Tartrate (Lopressor -) 25 mg PO BID [facility] Last Admin: 01/01/17 09:54 Dose: 25 mg Multivitamins/Minerals/Vitamin C (Tab-A-Vit -) 1 tab PO DAILY [facility] Last Admin: 01/01/17 09:54 Dose: 1 tab Piperacillin Sod/Tazobactam Sod (Zosyn 3.375gm Ivpb (Pre-Docked)) 3.375 gm IVPB Q8H-IV [facility] PRN Reason: Protocol Last Admin: 01/01/17 17:58 Dose: 3.375 gm Ranitidine HCl (Zantac -) 75 mg PO BID [facility] Last Admin: 01/01/17 09:52 Dose: 75 mg Spironolactone (Aldactone -) 25 mg PO DAILY [facility] Last Admin: 01/01/17 09:53 Dose: 25 mg - Objective Vital Signs: Vital Signs Temperature 97.6 F 01/01/17 13:50 Pulse Rate 102 H 01/01/17 13:50 Respiratory Rate 18 01/01/17 13:50 Blood Pressure 105/67 01/01/17 13:50 O2 Sat by Pulse Oximetry (%) 96 01/01/17 09:00 Constitutional: Yes: No Distress, Calm Cardiovascular: Yes: Tachycardia, S1, S2 Respiratory: Yes: Regular, Other (coarse at bases and scattered rales at bases) Gastrointestinal: Yes: Normal Bowel Sounds, Soft. No: Tenderness Integumentary: Yes: Erythema (of the left leg) Neurological: Yes: Alert, Oriented Labs: CBC, BMP 01/01/17 05:35 01/01/17 05:35 INR, PTT INR 1.38 (0.82-1.09) H 12/26/16 16:20 Problem List - Problems (1) Cellulitis of left leg Assessment/Plan: IV abtx, per ID. Vanco and Zosyn ID consult ans f/u appreciated Code(s): L03.116 - CELLULITIS OF LEFT LOWER LIMB (2) CHF exacerbation Code(s): I50.9 - HEART FAILURE, UNSPECIFIED Qualifiers: Congestive heart failure type: diastolic Qualified Code(s): I50.33 - Acute on chronic diastolic (congestive) heart failure (3) CAD (coronary artery disease) Code(s): I25.10 - ATHSCL HEART DISEASE OF [place] CORONARY ARTERY W/O ANG PCTRS Qualifiers: Coronary Disease-Associated Artery/Lesion type: [place] artery [place] vs. transplanted heart: [place] heart Associated angina: without angina Qualified Code(s): I25.10 - Atherosclerotic heart disease of [place] coronary artery without angina pectoris (4) Atrial fibrillation Code(s): I48.91 - UNSPECIFIED ATRIAL FIBRILLATION Qualifiers: Atrial fibrillation type: persistent Qualified Code(s): I48.1 - Persistent atrial fibrillation (5) Hyponatremia Code(s): E87.1 - HYPO-OSMOLALITY AND HYPONATREMIA (6) Elevated LFTs Code(s): R94.5 - ABNORMAL RESULTS OF LIVER FUNCTION STUDIES (7) Chronic renal failure Code(s): N18.9 - CHRONIC KIDNEY DISEASE, UNSPECIFIED Assessment/Plan IV abtx, per ID. Pt on Vanco and Zosyn ID consult and f/u appreciated. To f/u with surgery regarding leg care Cardio consult and f/u appreciated. GI consult and f/u appreciated AM labs
[2017-01-02] MEDS: PIPERACILLIN/TAZOB 3.375 GM/50 ML PRE-DOCKED IVPB SCH ×3 (01:53→17:07)
[2017-01-02] MEDS: ACETAMINOPHEN 325 MG TABLET (FP) PO PRN (01:58)
[2017-01-02] MEDS: LEVOTHYROXINE NA 50 MCG TABLET (FP) PO SCH (06:26)
[2017-01-02] MEDS: FUROSEMIDE 40 MG TABLET (FP) PO SCH (09:01)
[2017-01-02] MEDS: BACITRACIN 30 GM TUBE TOPICAL OINTMENT TP SCH ×2 (09:01→22:17)
[2017-01-02] MEDS: CHOLECALCIFEROL (VITAMIN D3) 1,000 UNIT TABLET (FP) PO SCH (09:02)
[2017-01-02] MEDS: SPIRONOLACTONE 25 MG TABLET (FP) PO SCH (09:02)
[2017-01-02] MEDS: APIXABAN 2.5 MG TABLET PO SCH ×2 (09:02→22:16)
[2017-01-02] MEDS: METOPROLOL TARTRATE 25 MG TABLET (FP) PO SCH ×2 (09:02→22:16)
[2017-01-02] MEDS: MULTIVITAMINS (DAILY MVI) TABLET (FP) PO SCH (09:02)
[2017-01-02] MEDS: LACTOBACILLUS ACIDOPHILUS 1 EACH TAB (FP) PO SCH (09:02)
[2017-01-02] MEDS: DOCUSATE SODIUM 100 MG CAPSULE (FP) PO SCH (09:02)
[2017-01-02] MEDS: RANITIDINE HCL 150 MG TABLET (FP) PO SCH (09:03)
[2017-01-02 09:05] LABS: ALBUMIN 2.1 g/dl (3.4-5.0); BILIRUBIN,DIRECT 0.2 mg/dL (0.0-0.2); BILIRUBIN,TOTAL 0.4 mg/dL (0.2-1.0); CALCIUM 8.2 mg/dL (8.5-10.1); COCKROFT - GAULT 21.1225; CREATININE 1.4 mg/dL (0.55-1.02); TOT PROT 6.1 g/dl (6.4-8.2)
[2017-01-02] MEDS: ACLIDINIUM BROMIDE 400 MCG/INH AERO.POWD IH SCH ×2 (09:25→22:16)
--- NOTE | 2017-01-02 10:00 | PN ---
Progress Note, Physician Chief Complaint: Events noted Left pedal edema and cellulitis - improving Denies SOB History of Present Illness: Patient was seen and examined. Awake and alert. Chart was reviewed Denies chest pain and denies SOB this am. AF persists with variable HR - tolerating therapy - Current Medication List Current Medications: Active Medications Aclidinium [place] (Tudorza -) 1 puff IH BID [facility] Last Admin: 01/02/17 09:25 Dose: 1 puff Apixaban (Eliquis -) 2.5 mg PO BID [facility] Last Admin: 01/02/17 09:02 Dose: 2.5 mg Bacitracin (Bacitracin -) 1 applic TP BID [facility] Last Admin: 01/02/17 09:01 Dose: 1 applic Cholecalciferol (Vitamin D3 -) 1,000 unit PO DAILY [facility] Last Admin: 01/02/17 09:02 Dose: 1,000 unit Docusate Sodium (Colace -) 100 mg PO DAILY [facility] Last Admin: 01/02/17 09:02 Dose: Not Given Furosemide (Lasix -) 40 mg PO DAILY [facility] Last Admin: 01/02/17 09:01 Dose: 40 mg Vancomycin HCl 750 mg/ (Dextrose) 250 mls @ 250 mls/hr IVPB DAILY@1100 [facility] PRN Reason: Protocol Last Admin: 01/01/17 11:54 Dose: 250 mls/hr Lactobacillus Acidophilus (Bacid -) 1 tab PO DAILY [facility] Last Admin: 01/02/17 09:02 Dose: 1 tab Levothyroxine Sodium (Synthroid -) 50 mcg PO DAILY@0700 [facility] Last Admin: 01/02/17 06:26 Dose: Not Given Metoprolol Tartrate (Lopressor -) 25 mg PO BID [facility] Last Admin: 01/02/17 09:02 Dose: 25 mg Multivitamins/Minerals/Vitamin C (Tab-A-Vit -) 1 tab PO DAILY [facility] Last Admin: 01/02/17 09:02 Dose: 1 tab Piperacillin Sod/Tazobactam Sod (Zosyn 3.375gm Ivpb (Pre-Docked)) 3.375 gm IVPB Q8H-IV [facility] PRN Reason: Protocol Last Admin: 01/02/17 09:01 Dose: 3.375 gm Spironolactone (Aldactone -) 25 mg PO DAILY [facility] Last Admin: 01/02/17 09:02 Dose: 25 mg - Objective Vital Signs: Vital Signs Temperature 98.2 F 01/02/17 07:24 Pulse Rate 97 H 01/02/17 07:24 Respiratory Rate 18 01/02/17 07:29 Blood Pressure 114/79 01/02/17 07:24 O2 Sat by Pulse Oximetry (%) 98 01/02/17 07:29 Neck: Yes: Supple Cardiovascular: Yes: Pulse Irregular, Murmur (2/6 SM left sternal border), S1, S2 Respiratory: Yes: Diminished Gastrointestinal: Yes: Normal Bowel Sounds, Soft. No: Tenderness Extremities: Yes: Erythema Edema: Yes Edema: LLE: 1+ Wound/Incision: Yes: Dressing Dry and Intact Additional Findings/Remarks: Review of Systems Constitutional: denies: Chills, Fever Cardiovascular: As noted above Respiratory: denies: Cough or Sputum Production Gastrointestinal: denies: Nausea, Vomiting, Diarrhea, Constipation or Abdominal Pain Musculoskeletal: No symptoms reported Neurological: denies: Dizziness or Headaches Labs: CBC, BMP 01/01/17 05:35 01/02/17 06:00 Problem List - Problems (1) CAD (coronary artery disease) Code(s): I25.10 - ATHSCL HEART DISEASE OF [place] CORONARY ARTERY W/O ANG PCTRS Qualifiers: Coronary Disease-Associated Artery/Lesion type: [place] artery [place] vs. transplanted heart: [place] heart Associated angina: without angina Qualified Code(s): I25.10 - Atherosclerotic heart disease of [place] coronary artery without angina pectoris (2) CHF exacerbation Code(s): I50.9 - HEART FAILURE, UNSPECIFIED Qualifiers: Congestive heart failure type: diastolic Qualified Code(s): I50.33 - Acute on chronic diastolic (congestive) heart failure (3) Cellulitis of left leg Code(s): L03.116 - CELLULITIS OF LEFT LOWER LIMB (4) Elevated LFTs Code(s): R94.5 - ABNORMAL RESULTS OF LIVER FUNCTION STUDIES (5) Abnormal LFTs (liver function tests) Code(s): R79.89 - OTHER SPECIFIED ABNORMAL FINDINGS OF BLOOD CHEMISTRY (6) Acute on chronic diastolic (congestive) heart failure Code(s): I50.33 - ACUTE ON CHRONIC DIASTOLIC (CONGESTIVE) HEART FAILURE (7) Aortic valvar stenosis Code(s): I35.0 - NONRHEUMATIC AORTIC (VALVE) STENOSIS Qualifiers: Cardiac valve disease etiology: nonrheumatic Qualified Code(s): I35.0 - Nonrheumatic aortic (valve) stenosis (8) Atrial fibrillation Code(s): I48.91 - UNSPECIFIED ATRIAL FIBRILLATION Qualifiers: Atrial fibrillation type: persistent Qualified Code(s): I48.1 - Persistent atrial fibrillation (9) Pulmonary hypertension Code(s): I27.2 - OTHER SECONDARY PULMONARY HYPERTENSION (10) S/P balloon aortic valvuloplasty Code(s): Z98.890 - OTHER SPECIFIED POSTPROCEDURAL STATES (11) Tricuspid regurgitation Code(s): I07.1 - RHEUMATIC TRICUSPID INSUFFICIENCY Qualifiers: Cardiac valve disease etiology: nonrheumatic Qualified Code(s): I36.1 - Nonrheumatic tricuspid (valve) insufficiency (12) Weakness Code(s): R53.1 - WEAKNESS Assessment/Plan 1. Acute on chronic class II NYHA classification diastolic LV failure triggered by left lower extremity cellulitis 2. 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 Persistent atrial fibrillation [id number] score of 5 on NOAC 5. Low flow, low gradient aortic stenosis post BAV 6. Hypothyroidism with an abnormal TSH value - sub-therapeutic Synthroid dosing 7. Acute on CKD 8. Anemia PLAN: 1. Continue Lasix and Aldactone with monitoring of renal function and electrolytes 2. Continue Lopressor, hemodynamics permitting 3. Plan to resume Diovan, hemodynamics permitting and pending renal function stabilization 4. Continue Eliquis with close monitoring of CBC 5. Continue Synthroid 6. Antibiotics coverage 7. Patient is not an ideal candidate for surgery or transcatheter procedure Further plans are to follow Familia Pepper MD
[2017-01-02] MEDS: VANCOMYCIN 750 MG in DEXTROSE 5%-WATER - 250 ML IVPB SCH (10:53)
--- NOTE | 2017-01-02 14:06 | PN ---
Progress Note, Physician History of Present Illness: Awake,alert States she is feeling better No c/o dyspnea / cough No c/o leg pain Afebrile WBC improved- WNL - Current Medication List Current Medications: Active Medications Aclidinium [place] (Tudorza -) 1 puff IH BID [facility] Last Admin: 01/02/17 09:25 Dose: 1 puff Apixaban (Eliquis -) 2.5 mg PO BID [facility] Last Admin: 01/02/17 09:02 Dose: 2.5 mg Bacitracin (Bacitracin -) 1 applic TP BID [facility] Last Admin: 01/02/17 09:01 Dose: 1 applic Cholecalciferol (Vitamin D3 -) 1,000 unit PO DAILY [facility] Last Admin: 01/02/17 09:02 Dose: 1,000 unit Docusate Sodium (Colace -) 100 mg PO DAILY [facility] Last Admin: 01/02/17 09:02 Dose: Not Given Furosemide (Lasix -) 40 mg PO DAILY [facility] Last Admin: 01/02/17 09:01 Dose: 40 mg Vancomycin HCl 750 mg/ (Dextrose) 250 mls @ 250 mls/hr IVPB DAILY@1100 [facility] PRN Reason: Protocol Last Admin: 01/02/17 10:53 Dose: 250 mls/hr Lactobacillus Acidophilus (Bacid -) 1 tab PO DAILY [facility] Last Admin: 01/02/17 09:02 Dose: 1 tab Levothyroxine Sodium (Synthroid -) 50 mcg PO DAILY@0700 [facility] Last Admin: 01/02/17 06:26 Dose: Not Given Metoprolol Tartrate (Lopressor -) 25 mg PO BID [facility] Last Admin: 01/02/17 09:02 Dose: 25 mg Multivitamins/Minerals/Vitamin C (Tab-A-Vit -) 1 tab PO DAILY [facility] Last Admin: 01/02/17 09:02 Dose: 1 tab Piperacillin Sod/Tazobactam Sod (Zosyn 3.375gm Ivpb (Pre-Docked)) 3.375 gm IVPB Q8H-IV [facility] PRN Reason: Protocol Last Admin: 01/02/17 09:01 Dose: 3.375 gm Spironolactone (Aldactone -) 25 mg PO DAILY [facility] Last Admin: 01/02/17 09:02 Dose: 25 mg - Objective Vital Signs: Vital Signs Temperature 98.2 F 01/02/17 07:24 Pulse Rate 97 H 01/02/17 07:24 Respiratory Rate 18 01/02/17 07:29 Blood Pressure 114/79 01/02/17 07:24 O2 Sat by Pulse Oximetry (%) 98 01/02/17 07:29 Constitutional: Yes: No Distress Eyes: Yes: Conjunctiva Clear Cardiovascular: Yes: Regular Rate and Rhythm, Murmur, S1, S2 Respiratory: Yes: Diminished Gastrointestinal: Yes: Normal Bowel Sounds, Soft. No: Tenderness Extremities: Yes: Other (decreased erythema/ swelling/ warmth L LE) Labs: CBC, BMP 01/01/17 05:35 01/02/17 06:00 INR, PTT INR 1.38 (0.82-1.09) H 12/26/16 16:20 Assessment/Plan Recurrent cellulitis LE- improved Fever- resolved Leukocytosis- resolved Azotemia Ceftriaxone allergy Continue zosyn/ vancomycin
--- NOTE | 2017-01-02 18:27 | PN ---
Progress Note, Physician Chief Complaint: less LLE pain less rash - Current Medication List Current Medications: Active Medications Aclidinium [place] (Tudorza -) 1 puff IH BID [facility] Last Admin: 01/02/17 09:25 Dose: 1 puff Apixaban (Eliquis -) 2.5 mg PO BID [facility] Last Admin: 01/02/17 09:02 Dose: 2.5 mg Bacitracin (Bacitracin -) 1 applic TP BID [facility] Last Admin: 01/02/17 09:01 Dose: 1 applic Cholecalciferol (Vitamin D3 -) 1,000 unit PO DAILY [facility] Last Admin: 01/02/17 09:02 Dose: 1,000 unit Docusate Sodium (Colace -) 100 mg PO DAILY [facility] Last Admin: 01/02/17 09:02 Dose: Not Given Furosemide (Lasix -) 40 mg PO DAILY [facility] Last Admin: 01/02/17 09:01 Dose: 40 mg Vancomycin HCl 750 mg/ (Dextrose) 250 mls @ 250 mls/hr IVPB DAILY@1100 [facility] PRN Reason: Protocol Last Admin: 01/02/17 10:53 Dose: 250 mls/hr Lactobacillus Acidophilus (Bacid -) 1 tab PO DAILY [facility] Last Admin: 01/02/17 09:02 Dose: 1 tab Levothyroxine Sodium (Synthroid -) 50 mcg PO DAILY@0700 [facility] Last Admin: 01/02/17 06:26 Dose: Not Given Metoprolol Tartrate (Lopressor -) 25 mg PO BID [facility] Last Admin: 01/02/17 09:02 Dose: 25 mg Multivitamins/Minerals/Vitamin C (Tab-A-Vit -) 1 tab PO DAILY [facility] Last Admin: 01/02/17 09:02 Dose: 1 tab Piperacillin Sod/Tazobactam Sod (Zosyn 3.375gm Ivpb (Pre-Docked)) 3.375 gm IVPB Q8H-IV [facility] PRN Reason: Protocol Last Admin: 01/02/17 17:07 Dose: 3.375 gm Spironolactone (Aldactone -) 25 mg PO DAILY [facility] Last Admin: 01/02/17 09:02 Dose: 25 mg - Objective Vital Signs: Vital Signs Temperature 96.7 F L 01/02/17 14:00 Pulse Rate 95 H 01/02/17 14:00 Respiratory Rate 18 01/02/17 14:00 Blood Pressure 95/60 01/02/17 14:00 O2 Sat by Pulse Oximetry (%) 98 01/02/17 07:29 Constitutional: Yes: No Distress, Calm Eyes: Yes: Conjunctiva Clear HENT: Yes: Atraumatic Neck: Yes: Supple Cardiovascular: No: Regular Rate and Rhythm Respiratory: Yes: Diminished Gastrointestinal: Yes: Soft. No: Distention Genitourinary: No: CVA Tenderness - Left, CVA Tenderness - Right Extremities: No: Calf Tenderness, Cold Edema: Yes (legs, less) Integumentary: Yes: Rash (LLE less), Venous Stasis Changes (both legs) Wound/Incision: Yes: Dressing Dry and Intact (LLE wound healing) Neurological: Yes: WNL, Alert, Oriented ...Motor Strength: WNL Psychiatric: Yes: WNL, Alert, Oriented. No: Agitated, Suicidal Ideation Labs: CBC, BMP 01/01/17 05:35 01/02/17 06:00 INR, PTT INR 1.38 (0.82-1.09) H 12/26/16 16:20 - ....Imaging Other: Report Reviewed Assessment/Plan 86 year old female, with history of tricuspid regurgitation, mitral regurgitation, diastolic dysfunction with h/o failure requiring thoracentesis, low flow, low gradient aortic stenosis s/p BAV, permanent atrial fibrillation on Eliquis, hypothyroidism and pulmonary hypertension recent admission for profound weakness, fatigue and anorexia and possible dizziness referable to profound symtomatic hyponatremia presentes with SOB, worsening LLE swelling, erythema, warmth and pain. She was noted have rigors, fevers, leukocytosis. s.p fall at home LLE wound rash and cellulitis, sepsis, improving IV antibitoics broad spectrum per ID wound care IV lasix for diuresis cardiology f/u surgery f/u for LLE cellulitis noted check LLE CT/ venous US f/u labs falls decubs PFX d/w pt and staff 'd.w son at bedside
[2017-01-02] MEDS ORDERED: ACETAMINOPHEN 500 MG TABLET (FP) PO PRN (21:37)
[2017-01-03] MEDS: PIPERACILLIN/TAZOB 3.375 GM/50 ML PRE-DOCKED IVPB SCH ×3 (02:45→17:27)
[2017-01-03] MEDS: LEVOTHYROXINE NA 50 MCG TABLET (FP) PO SCH (06:22)
[2017-01-03] MEDS ORDERED: PT OWN MED DRAWER 7, Y5N ONE (08:29)
[2017-01-03] MEDS: METOPROLOL TARTRATE 25 MG TABLET (FP) PO SCH ×2 (09:03→22:08)
[2017-01-03] MEDS: APIXABAN 2.5 MG TABLET PO SCH ×2 (09:03→22:07)
[2017-01-03] MEDS: MULTIVITAMINS (DAILY MVI) TABLET (FP) PO SCH (09:03)
[2017-01-03] MEDS: DOCUSATE SODIUM 100 MG CAPSULE (FP) PO SCH (09:03)
[2017-01-03] MEDS: CHOLECALCIFEROL (VITAMIN D3) 1,000 UNIT TABLET (FP) PO SCH (09:03)
[2017-01-03] MEDS: ACLIDINIUM BROMIDE 400 MCG/INH AERO.POWD IH SCH ×2 (09:04→22:07)
[2017-01-03] MEDS: LACTOBACILLUS ACIDOPHILUS 1 EACH TAB (FP) PO SCH (09:04)
[2017-01-03] MEDS: FUROSEMIDE 40 MG TABLET (FP) PO SCH (09:04)
[2017-01-03] MEDS: BACITRACIN 30 GM TUBE TOPICAL OINTMENT TP SCH ×2 (09:04→22:12)
[2017-01-03] MEDS: SPIRONOLACTONE 25 MG TABLET (FP) PO SCH (09:05)
--- NOTE | 2017-01-03 09:21 | PN ---
Progress Note, Physician Chief Complaint: in bed now, walked to the bathroon earlier; no leg pain currently no SOB - Current Medication List Current Medications: Active Medications Acetaminophen (Tylenol -) 500 mg PO Q8H PRN PRN Reason: FEVER OR PAIN Aclidinium [place] (Tudorza -) 1 puff IH BID [facility] Last Admin: 01/03/17 09:04 Dose: 1 puff Apixaban (Eliquis -) 2.5 mg PO BID [facility] Last Admin: 01/03/17 09:03 Dose: 2.5 mg Bacitracin (Bacitracin -) 1 applic TP BID [facility] Last Admin: 01/03/17 09:04 Dose: 1 applic Cholecalciferol (Vitamin D3 -) 1,000 unit PO DAILY [facility] Last Admin: 01/03/17 09:03 Dose: 1,000 unit Docusate Sodium (Colace -) 100 mg PO DAILY [facility] Last Admin: 01/03/17 09:03 Dose: 100 mg Furosemide (Lasix -) 40 mg PO DAILY [facility] Last Admin: 01/03/17 09:04 Dose: 40 mg Vancomycin HCl 750 mg/ (Dextrose) 250 mls @ 250 mls/hr IVPB DAILY@1100 [facility] PRN Reason: Protocol Last Admin: 01/02/17 10:53 Dose: 250 mls/hr Lactobacillus Acidophilus (Bacid -) 1 tab PO DAILY [facility] Last Admin: 01/03/17 09:04 Dose: 1 tab Levothyroxine Sodium (Synthroid -) 50 mcg PO DAILY@0700 [facility] Last Admin: 01/03/17 06:22 Dose: 50 mcg Metoprolol Tartrate (Lopressor -) 25 mg PO BID [facility] Last Admin: 01/03/17 09:03 Dose: 25 mg Multivitamins/Minerals/Vitamin C (Tab-A-Vit -) 1 tab PO DAILY [facility] Last Admin: 01/03/17 09:03 Dose: 1 tab Piperacillin Sod/Tazobactam Sod (Zosyn 3.375gm Ivpb (Pre-Docked)) 3.375 gm IVPB Q8H-IV [facility] PRN Reason: Protocol Last Admin: 01/03/17 09:03 Dose: 3.375 gm Spironolactone (Aldactone -) 25 mg PO DAILY [facility] Last Admin: 01/03/17 09:05 Dose: 25 mg - Objective Vital Signs: Vital Signs Temperature 97.9 F 01/03/17 07:25 Pulse Rate 108 H 01/03/17 07:25 Respiratory Rate 20 01/03/17 07:39 Blood Pressure 104/69 01/03/17 07:25 O2 Sat by Pulse Oximetry (%) 100 01/03/17 07:39 Constitutional: Yes: No Distress, Calm Eyes: Yes: Conjunctiva Clear HENT: Yes: Atraumatic Neck: Yes: Supple Cardiovascular: No: Regular Rate and Rhythm Respiratory: Yes: CTA Bilaterally Gastrointestinal: Yes: Soft. No: Distention Genitourinary: No: CVA Tenderness - Left, CVA Tenderness - Right Musculoskeletal: No: Joint Stiffness, Joint Swelling Extremities: No: Cold, Cool Edema: Yes (less) Integumentary: Yes: Rash, Venous Stasis Changes Wound/Incision: Yes: Dressing Dry and Intact (LLE) Neurological: Yes: WNL, Alert, Oriented ...Motor Strength: WNL Psychiatric: Yes: WNL, Alert, Oriented. No: Agitated, Suicidal Ideation Labs: CBC, BMP 01/01/17 05:35 01/02/17 06:00 INR, PTT INR 1.38 (0.82-1.09) H 12/26/16 16:20 - ....Imaging Other: Report Reviewed Assessment/Plan 86 year old female, with history of tricuspid regurgitation, mitral regurgitation, diastolic dysfunction with h/o failure requiring thoracentesis, low flow, low gradient aortic stenosis s/p BAV, permanent atrial fibrillation on Eliquis, hypothyroidism and pulmonary hypertension recent admission for profound weakness, fatigue and anorexia and possible dizziness referable to profound symtomatic hyponatremia presentes with SOB, worsening LLE swelling, erythema, warmth and pain. She was noted have rigors, fevers, leukocytosis. s.p fall at home LLE wound rash and cellulitis, sepsis, improving IV antibitoics broad spectrum per ID wound care IV lasix for diuresis cardiology f/u surgery f/u for LLE cellulitis noted check LLE CT/ venous US f/u labs falls decubs PFX d/w pt and staff, d/w cardio dr Spring about TAVR when pt medically clear, d/w pt and son about TAVR
--- NOTE | 2017-01-03 10:01 | PN ---
Progress Note, Physician History of Present Illness: Remains afebrile, afib with rapid ventricular response overnight, denies chest pain or dyspnea, improved LLE tenderness. - Current Medication List Current Medications: Active Medications Acetaminophen (Tylenol -) 500 mg PO Q8H PRN PRN Reason: FEVER OR PAIN Aclidinium [place] (Tudorza -) 1 puff IH BID [facility] Last Admin: 01/03/17 09:04 Dose: 1 puff Apixaban (Eliquis -) 2.5 mg PO BID [facility] Last Admin: 01/03/17 09:03 Dose: 2.5 mg Bacitracin (Bacitracin -) 1 applic TP BID [facility] Last Admin: 01/03/17 09:04 Dose: 1 applic Cholecalciferol (Vitamin D3 -) 1,000 unit PO DAILY [facility] Last Admin: 01/03/17 09:03 Dose: 1,000 unit Docusate Sodium (Colace -) 100 mg PO DAILY [facility] Last Admin: 01/03/17 09:03 Dose: 100 mg Furosemide (Lasix -) 40 mg PO DAILY [facility] Last Admin: 01/03/17 09:04 Dose: 40 mg Vancomycin HCl 750 mg/ (Dextrose) 250 mls @ 250 mls/hr IVPB DAILY@1100 [facility] PRN Reason: Protocol Last Admin: 01/02/17 10:53 Dose: 250 mls/hr Lactobacillus Acidophilus (Bacid -) 1 tab PO DAILY [facility] Last Admin: 01/03/17 09:04 Dose: 1 tab Levothyroxine Sodium (Synthroid -) 50 mcg PO DAILY@0700 [facility] Last Admin: 01/03/17 06:22 Dose: 50 mcg Metoprolol Tartrate (Lopressor -) 25 mg PO BID [facility] Last Admin: 01/03/17 09:03 Dose: 25 mg Multivitamins/Minerals/Vitamin C (Tab-A-Vit -) 1 tab PO DAILY [facility] Last Admin: 01/03/17 09:03 Dose: 1 tab Piperacillin Sod/Tazobactam Sod (Zosyn 3.375gm Ivpb (Pre-Docked)) 3.375 gm IVPB Q8H-IV [facility] PRN Reason: Protocol Last Admin: 01/03/17 09:03 Dose: 3.375 gm Spironolactone (Aldactone -) 25 mg PO DAILY [facility] Last Admin: 01/03/17 09:05 Dose: 25 mg - Objective Vital Signs: Vital Signs Temperature 97.9 F 01/03/17 07:25 Pulse Rate 108 H 01/03/17 07:25 Respiratory Rate 20 01/03/17 07:39 Blood Pressure 104/69 01/03/17 07:25 O2 Sat by Pulse Oximetry (%) 100 01/03/17 07:39 Constitutional: Yes: No Distress, Calm, Thin Neck: Yes: Supple Cardiovascular: Yes: Tachycardia, Pulse Irregular, Murmur (2/6 SM) Respiratory: Yes: Regular, Diminished Gastrointestinal: Yes: Normal Bowel Sounds, Soft Extremities: Yes: Erythema Edema: Yes Edema: LLE: Trace Labs: CBC, BMP 01/01/17 05:35 01/02/17 06:00 INR, PTT INR 1.38 (0.82-1.09) H 12/26/16 16:20 - ....Imaging Ultrasound: Report Reviewed (Right pleural effusion, trace ascites) EKG: Report Reviewed (Tele: Rapid afib) Problem List - Problems (1) Sepsis Code(s): A41.9 - SEPSIS, UNSPECIFIED ORGANISM Qualifiers: Sepsis type: sepsis due to unspecified organism Qualified Code(s): A41.9 - Sepsis, unspecified organism (2) MOISES (acute kidney injury) Code(s): N17.9 - ACUTE KIDNEY FAILURE, UNSPECIFIED (3) Acute on chronic diastolic (congestive) heart failure Code(s): I50.33 - ACUTE ON CHRONIC DIASTOLIC (CONGESTIVE) HEART FAILURE (4) Aortic valvar stenosis Code(s): I35.0 - NONRHEUMATIC AORTIC (VALVE) STENOSIS Qualifiers: Cardiac valve disease etiology: nonrheumatic Qualified Code(s): I35.0 - Nonrheumatic aortic (valve) stenosis (5) Atrial fibrillation Code(s): I48.91 - UNSPECIFIED ATRIAL FIBRILLATION Qualifiers: Atrial fibrillation type: persistent Qualified Code(s): I48.1 - Persistent atrial fibrillation (6) Hypothyroid Code(s): E03.9 - HYPOTHYROIDISM, UNSPECIFIED Qualifiers: Hypothyroidism type: unspecified Qualified Code(s): E03.9 - Hypothyroidism, unspecified (7) Mitral regurgitation Code(s): I34.0 - NONRHEUMATIC MITRAL (VALVE) INSUFFICIENCY Qualifiers: Cardiac valve disease etiology: nonrheumatic Qualified Code(s): I34.0 - Nonrheumatic mitral (valve) insufficiency (8) Pulmonary hypertension Code(s): I27.2 - OTHER SECONDARY PULMONARY HYPERTENSION (9) S/P balloon aortic valvuloplasty Code(s): Z98.890 - OTHER SPECIFIED POSTPROCEDURAL STATES (10) Tricuspid regurgitation Code(s): I07.1 - RHEUMATIC TRICUSPID INSUFFICIENCY Qualifiers: Cardiac valve disease etiology: nonrheumatic Qualified Code(s): I36.1 - Nonrheumatic tricuspid (valve) insufficiency (11) Bilateral lower leg cellulitis Code(s): L03.116 - CELLULITIS OF LEFT LOWER LIMB L03.115 - CELLULITIS OF RIGHT LOWER LIMB Assessment/Plan 1. Acute on chronic class II NYHA classification diastolic LV failure triggered by left lower extremity cellulitis improving 2. 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 Persistent atrial fibrillation with RVR [id number] score of 5 on NOAC 5. Low flow, low gradient aortic stenosis post BAV 6. Hypothyroidism with an abnormal TSH value - subtherapeutic Synthroid dosing 7. Acute on CKD 8. Anemia PLAN: 1. Continue Lasix 40 qd and Aldactone 25 qd with monitoring of renal function and electrolytes 2. Increase Lopressor 25 tid, hemodynamics permitting 3. Plan to resume Diovan, hemodynamics permitting and pending renal function stabilization 4. Continue Eliquis 2.5 bid with close monitoring of CBC 5. Continue Synthroid 50 qd 6. Complete antibiotics coverage
[2017-01-03] MEDS: VANCOMYCIN 750 MG in DEXTROSE 5%-WATER - 250 ML IVPB SCH (10:58)
--- NOTE | 2017-01-03 11:57 | PN ---
Progress Note, Physician History of Present Illness: Comfortable No cute distress No c/o leg pain No fever WBC improved - WNL - Current Medication List Current Medications: Active Medications Acetaminophen (Tylenol -) 500 mg PO Q8H PRN PRN Reason: FEVER OR PAIN Aclidinium [place] (Tudorza -) 1 puff IH BID [facility] Last Admin: 01/03/17 09:04 Dose: 1 puff Apixaban (Eliquis -) 2.5 mg PO BID [facility] Last Admin: 01/03/17 09:03 Dose: 2.5 mg Bacitracin (Bacitracin -) 1 applic TP BID [facility] Last Admin: 01/03/17 09:04 Dose: 1 applic Cholecalciferol (Vitamin D3 -) 1,000 unit PO DAILY [facility] Last Admin: 01/03/17 09:03 Dose: 1,000 unit Docusate Sodium (Colace -) 100 mg PO DAILY [facility] Last Admin: 01/03/17 09:03 Dose: 100 mg Furosemide (Lasix -) 40 mg PO DAILY [facility] Last Admin: 01/03/17 09:04 Dose: 40 mg Vancomycin HCl 750 mg/ (Dextrose) 250 mls @ 250 mls/hr IVPB DAILY@1100 [facility] PRN Reason: Protocol Last Admin: 01/03/17 10:58 Dose: 250 mls/hr Lactobacillus Acidophilus (Bacid -) 1 tab PO DAILY [facility] Last Admin: 01/03/17 09:04 Dose: 1 tab Levothyroxine Sodium (Synthroid -) 50 mcg PO DAILY@0700 [facility] Last Admin: 01/03/17 06:22 Dose: 50 mcg Metoprolol Tartrate (Lopressor -) 25 mg PO TID [facility] Multivitamins/Minerals/Vitamin C (Tab-A-Vit -) 1 tab PO DAILY [facility] Last Admin: 01/03/17 09:03 Dose: 1 tab Piperacillin Sod/Tazobactam Sod (Zosyn 3.375gm Ivpb (Pre-Docked)) 3.375 gm IVPB Q8H-IV [facility] PRN Reason: Protocol Last Admin: 01/03/17 09:03 Dose: 3.375 gm Spironolactone (Aldactone -) 25 mg PO DAILY [facility] Last Admin: 01/03/17 09:05 Dose: 25 mg - Objective Vital Signs: Vital Signs Temperature 97.9 F 01/03/17 07:25 Pulse Rate 108 H 01/03/17 07:25 Respiratory Rate 20 01/03/17 07:39 Blood Pressure 104/69 01/03/17 07:25 O2 Sat by Pulse Oximetry (%) 100 01/03/17 07:39 Constitutional: Yes: No Distress Eyes: Yes: Conjunctiva Clear Cardiovascular: Yes: Regular Rate and Rhythm, S1, S2 Respiratory: Yes: CTA Bilaterally Gastrointestinal: Yes: Normal Bowel Sounds, Soft. No: Tenderness Extremities: Yes: Other (decreased erythema/ warmth / swellling L LE Leg ulcers without drainage) Labs: CBC, BMP 01/01/17 05:35 01/02/17 06:00 INR, PTT INR 1.38 (0.82-1.09) H 12/26/16 16:20 Assessment/Plan Recurrent cellulitis LE- improved Fever- resolved Leukocytosis- resolved Azotemia Ceftriaxone allergy Continue zosyn/ vancomycin
--- NOTE | 2017-01-03 15:58 | PN ---
GI Progress Note Subjective: No acute events States that breathing improved No abdominal pain Abd US revealed mild hepatomegaly and was otherwise unrevealing. The GB appeared normal as did the remainder of the biliary tract - Objective Vital Signs: Vital Signs Temperature 97.0 F L 01/03/17 14:00 Pulse Rate 104 H 01/03/17 14:00 Respiratory Rate 24 01/03/17 14:00 Blood Pressure 107/52 01/03/17 14:00 O2 Sat by Pulse Oximetry (%) 100 01/03/17 07:39 Constitutional: Calm Eyes: No: Sclera Icterus Cardiovascular: Yes: Pulse Irregular Respiratory: Yes: Diminished (At bases bilaterally) ...Auscultate: Yes: Normoactive Bowel Sounds ...Palpate: No: Tenderness Edema: No Labs: CBC, BMP 01/01/17 05:35 01/02/17 06:00 INR, PTT INR 1.38 (0.82-1.09) H 12/26/16 16:20 Hepatic Panel Total Bilirubin 0.4 mg/dL (0.2-1.0) D 01/02/17 06:00 Direct Bilirubin 0.2 mg/dL (0.0-0.2) 01/02/17 06:00 AST 35 U/L (15-37) D 01/02/17 06:00 ALT 64 U/L (12-78) D 01/02/17 06:00 Alkaline Phosphatase 313 U/L (45-117) H 01/02/17 06:00 Albumin 2.1 g/dl (3.4-5.0) L 01/02/17 06:00 Problem List - Problems (1) Elevated LFTs Assessment/Plan: Improving LFT's: ? Abx vs. Congestive hepatopathy or combination continue to monitor avoid hepatotoxic agents: d/c'd APAP Code(s): R94.5 - ABNORMAL RESULTS OF LIVER FUNCTION STUDIES
[2017-01-04] MEDS: PIPERACILLIN/TAZOB 3.375 GM/50 ML PRE-DOCKED IVPB SCH ×3 (02:25→17:37)
[2017-01-04] MEDS: METOPROLOL TARTRATE 25 MG TABLET (FP) PO SCH ×4 (05:58→23:05)
[2017-01-04] MEDS: LEVOTHYROXINE NA 50 MCG TABLET (FP) PO SCH (06:00)
[2017-01-04 06:49] LABS: MCH 29.9 pg (25.7-33.7); MCHC 32.7 g/dl (32.0-36.0); MEAN CELL VOLUME 91.5 fl (80-96); MEAN PLT VOLUME 8.4 fl (7.5-11.1); PLATELET COUNT 327 K/MM3 (134-434); RDW 17.9 % (11.6-15.6); WHITE BLOOD COUNT 9.9 K/mm3 (4.0-10.0)
[2017-01-04 07:27] LABS: ALBUMIN 2.2 g/dl (3.4-5.0); CALCIUM 8.6 mg/dL (8.5-10.1)
[2017-01-04 07:32] LABS: BILIRUBIN,TOTAL 0.5 mg/dL (0.2-1.0); COCKROFT - GAULT 21.3775; CREATININE 1.4 mg/dL (0.55-1.02); TOT PROT 6.4 g/dl (6.4-8.2)
[2017-01-04] MEDS: CHOLECALCIFEROL (VITAMIN D3) 1,000 UNIT TABLET (FP) PO SCH (09:08)
[2017-01-04] MEDS: SPIRONOLACTONE 25 MG TABLET (FP) PO SCH (09:08)
[2017-01-04] MEDS: MULTIVITAMINS (DAILY MVI) TABLET (FP) PO SCH (09:08)
[2017-01-04] MEDS: LACTOBACILLUS ACIDOPHILUS 1 EACH TAB (FP) PO SCH (09:08)
[2017-01-04] MEDS: FUROSEMIDE 40 MG TABLET (FP) PO SCH (09:08)
[2017-01-04] MEDS: APIXABAN 2.5 MG TABLET PO SCH ×2 (09:08→23:05)
[2017-01-04] MEDS: DOCUSATE SODIUM 100 MG CAPSULE (FP) PO SCH (09:08)
[2017-01-04] MEDS: BACITRACIN 30 GM TUBE TOPICAL OINTMENT TP SCH ×2 (09:09→23:06)
[2017-01-04] MEDS: ACLIDINIUM BROMIDE 400 MCG/INH AERO.POWD IH SCH ×2 (09:09→23:06)
[2017-01-04 09:47] LABS: PLATELET ESTIMATE ADEQUATE (NORMAL)
--- NOTE | 2017-01-04 09:49 | PN ---
Progress Note, Physician Chief Complaint: in bed nad afebrile, less leg pain no edema! rash better - Current Medication List Current Medications: Active Medications Aclidinium [place] (Tudorza -) 1 puff IH BID [facility] Last Admin: 01/04/17 09:09 Dose: 1 puff Apixaban (Eliquis -) 2.5 mg PO BID [facility] Last Admin: 01/04/17 09:08 Dose: 2.5 mg Bacitracin (Bacitracin -) 1 applic TP BID [facility] Last Admin: 01/04/17 09:09 Dose: 1 applic Cholecalciferol (Vitamin D3 -) 1,000 unit PO DAILY [facility] Last Admin: 01/04/17 09:08 Dose: 1,000 unit Docusate Sodium (Colace -) 100 mg PO DAILY [facility] Last Admin: 01/04/17 09:08 Dose: 100 mg Furosemide (Lasix -) 40 mg PO DAILY [facility] Last Admin: 01/04/17 09:08 Dose: 40 mg Vancomycin HCl 750 mg/ (Dextrose) 250 mls @ 250 mls/hr IVPB DAILY@1100 [facility] PRN Reason: Protocol Last Admin: 01/03/17 10:58 Dose: 250 mls/hr Lactobacillus Acidophilus (Bacid -) 1 tab PO DAILY [facility] Last Admin: 01/04/17 09:08 Dose: 1 tab Levothyroxine Sodium (Synthroid -) 50 mcg PO DAILY@0700 [facility] Last Admin: 01/04/17 06:00 Dose: 50 mcg Metoprolol Tartrate (Lopressor -) 25 mg PO TID [facility] Last Admin: 01/04/17 05:58 Dose: 25 mg Multivitamins/Minerals/Vitamin C (Tab-A-Vit -) 1 tab PO DAILY [facility] Last Admin: 01/04/17 09:08 Dose: 1 tab Piperacillin Sod/Tazobactam Sod (Zosyn 3.375gm Ivpb (Pre-Docked)) 3.375 gm IVPB Q8H-IV [facility] PRN Reason: Protocol Last Admin: 01/04/17 09:08 Dose: 3.375 gm Spironolactone (Aldactone -) 25 mg PO DAILY [facility] Last Admin: 01/04/17 09:08 Dose: 25 mg - Objective Vital Signs: Vital Signs Temperature 98 F 01/04/17 02:00 Pulse Rate 110 H 01/04/17 06:00 Respiratory Rate 20 01/04/17 06:00 Blood Pressure 116/84 01/04/17 06:00 O2 Sat by Pulse Oximetry (%) 100 01/03/17 07:39 Constitutional: Yes: No Distress, Calm Eyes: Yes: Conjunctiva Clear HENT: Yes: Atraumatic Neck: Yes: Supple Cardiovascular: No: Regular Rate and Rhythm Respiratory: Yes: Diminished Gastrointestinal: Yes: Soft. No: Distention, Tenderness Musculoskeletal: No: Joint Stiffness, Joint Swelling Extremities: Yes: Erythema (less). No: Cold, Cool Edema: Yes (less) Integumentary: Yes: Rash (legs, less), Venous Stasis Changes Neurological: Yes: WNL, Alert, Oriented ...Motor Strength: WNL Psychiatric: Yes: WNL, Alert, Oriented. No: Agitated Labs: CBC, BMP 01/04/17 05:35 01/04/17 05:35 INR, PTT INR 1.38 (0.82-1.09) H 12/26/16 16:20 - ....Imaging Other: Report Reviewed Assessment/Plan 86 year old female, with history of tricuspid regurgitation, mitral regurgitation, diastolic dysfunction with h/o failure requiring thoracentesis, low flow, low gradient aortic stenosis s/p BAV, permanent atrial fibrillation on Eliquis, hypothyroidism and pulmonary hypertension recent admission for profound weakness, fatigue and anorexia and possible dizziness referable to profound symtomatic hyponatremia presentes with SOB, worsening LLE swelling, erythema, warmth and pain. s.p fall at home admitted with LLE cellulitis and RAFib decompensated CHF sec to Ao Stenosis LLE wound rash and cellulitis, sepsis, improving IV antibitoics broad spectrum per ID wound care IV lasix for diuresis cardiology f/u surgery f/u for LLE cellulitis noted check LLE CT/ venous US f/u labs falls decubs PFX d/w pt and staff to attempt TAVR when pt medically clear
[2017-01-04] MEDS: VANCOMYCIN 750 MG in DEXTROSE 5%-WATER - 250 ML IVPB SCH (11:59)
--- NOTE | 2017-01-04 14:57 | PN ---
Progress Note, Physician History of Present Illness: Remains afebrile, afib with rapid ventricular response, denies chest pain or dyspnea, improved LLE tenderness. - Current Medication List Current Medications: Active Medications Aclidinium [place] (Tudorza -) 1 puff IH BID [facility] Last Admin: 01/04/17 09:09 Dose: 1 puff Apixaban (Eliquis -) 2.5 mg PO BID [facility] Last Admin: 01/04/17 09:08 Dose: 2.5 mg Bacitracin (Bacitracin -) 1 applic TP BID [facility] Last Admin: 01/04/17 09:09 Dose: 1 applic Cholecalciferol (Vitamin D3 -) 1,000 unit PO DAILY [facility] Last Admin: 01/04/17 09:08 Dose: 1,000 unit Docusate Sodium (Colace -) 100 mg PO DAILY [facility] Last Admin: 01/04/17 09:08 Dose: 100 mg Furosemide (Lasix -) 40 mg PO DAILY [facility] Last Admin: 01/04/17 09:08 Dose: 40 mg Vancomycin HCl 750 mg/ (Dextrose) 250 mls @ 250 mls/hr IVPB DAILY@1100 [facility] PRN Reason: Protocol Last Admin: 01/04/17 11:59 Dose: 250 mls/hr Lactobacillus Acidophilus (Bacid -) 1 tab PO DAILY [facility] Last Admin: 01/04/17 09:08 Dose: 1 tab Levothyroxine Sodium (Synthroid -) 50 mcg PO DAILY@0700 [facility] Last Admin: 01/04/17 06:00 Dose: 50 mcg Metoprolol Tartrate (Lopressor -) 25 mg PO TID [facility] Last Admin: 01/04/17 14:15 Dose: 25 mg Multivitamins/Minerals/Vitamin C (Tab-A-Vit -) 1 tab PO DAILY [facility] Last Admin: 01/04/17 09:08 Dose: 1 tab Piperacillin Sod/Tazobactam Sod (Zosyn 3.375gm Ivpb (Pre-Docked)) 3.375 gm IVPB Q8H-IV [facility] PRN Reason: Protocol Last Admin: 01/04/17 09:08 Dose: 3.375 gm Spironolactone (Aldactone -) 25 mg PO DAILY [facility] Last Admin: 01/04/17 09:08 Dose: 25 mg - Objective Vital Signs: Vital Signs Temperature 98.2 F 01/04/17 10:00 Pulse Rate 92 H 01/04/17 10:00 Respiratory Rate 20 01/04/17 10:00 Blood Pressure 111/74 01/04/17 10:00 O2 Sat by Pulse Oximetry (%) 100 01/03/17 07:39 Constitutional: Yes: No Distress, Calm, Thin Neck: Yes: Supple Cardiovascular: Yes: Tachycardia, Pulse Irregular, Murmur (2/6 SM) Respiratory: Yes: Regular, Diminished Gastrointestinal: Yes: Normal Bowel Sounds, Soft Extremities: Yes: Erythema Edema: Yes Edema: LLE: 1+ Labs: CBC, BMP 01/04/17 05:35 01/04/17 05:35 INR, PTT INR 1.38 (0.82-1.09) H 12/26/16 16:20 Problem List - Problems (1) Sepsis Code(s): A41.9 - SEPSIS, UNSPECIFIED ORGANISM Qualifiers: Sepsis type: sepsis due to unspecified organism Qualified Code(s): A41.9 - Sepsis, unspecified organism (2) MOISES (acute kidney injury) Code(s): N17.9 - ACUTE KIDNEY FAILURE, UNSPECIFIED (3) Acute on chronic diastolic (congestive) heart failure Code(s): I50.33 - ACUTE ON CHRONIC DIASTOLIC (CONGESTIVE) HEART FAILURE (4) Aortic valvar stenosis Code(s): I35.0 - NONRHEUMATIC AORTIC (VALVE) STENOSIS Qualifiers: Cardiac valve disease etiology: nonrheumatic Qualified Code(s): I35.0 - Nonrheumatic aortic (valve) stenosis (5) Atrial fibrillation Code(s): I48.91 - UNSPECIFIED ATRIAL FIBRILLATION Qualifiers: Atrial fibrillation type: persistent Qualified Code(s): I48.1 - Persistent atrial fibrillation (6) Hypothyroid Code(s): E03.9 - HYPOTHYROIDISM, UNSPECIFIED Qualifiers: Hypothyroidism type: unspecified Qualified Code(s): E03.9 - Hypothyroidism, unspecified (7) Mitral regurgitation Code(s): I34.0 - NONRHEUMATIC MITRAL (VALVE) INSUFFICIENCY Qualifiers: Cardiac valve disease etiology: nonrheumatic Qualified Code(s): I34.0 - Nonrheumatic mitral (valve) insufficiency (8) Pulmonary hypertension Code(s): I27.2 - OTHER SECONDARY PULMONARY HYPERTENSION (9) S/P balloon aortic valvuloplasty Code(s): Z98.890 - OTHER SPECIFIED POSTPROCEDURAL STATES (10) Tricuspid regurgitation Code(s): I07.1 - RHEUMATIC TRICUSPID INSUFFICIENCY Qualifiers: Cardiac valve disease etiology: nonrheumatic Qualified Code(s): I36.1 - Nonrheumatic tricuspid (valve) insufficiency (11) Bilateral lower leg cellulitis Code(s): L03.116 - CELLULITIS OF LEFT LOWER LIMB L03.115 - CELLULITIS OF RIGHT LOWER LIMB (12) Anemia Code(s): D64.9 - ANEMIA, UNSPECIFIED Assessment/Plan 1. Acute on chronic class II NYHA classification diastolic LV failure triggered by left lower extremity cellulitis improving 2. 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 Persistent atrial fibrillation with RVR [id number] score of 5 on NOAC 5. Low flow, low gradient aortic stenosis post BAV 6. Hypothyroidism with an abnormal TSH value - subtherapeutic Synthroid dosing 7. Acute on CKD 8. Anemia PLAN: 1. Continue Lasix 40 qd and Aldactone 25 qd with monitoring of renal function and electrolytes 2. Increase Lopressor 25 qid, hemodynamics permitting 3. Plan to resume Diovan, hemodynamics permitting and pending renal function stabilization 4. Continue Eliquis 2.5 bid with close monitoring of CBC 5. Continue Synthroid 50 qd 6. Complete zosyn/ vancomycin course
[2017-01-04] MEDS ORDERED: ACETAMINOPHEN 500 MG TABLET (FP) PO PRN (23:47)
[2017-01-04] MEDS: ACETAMINOPHEN 325 MG TABLET (FP) PO PRN (23:57)
--- NOTE | 2017-01-05 04:32 | HOSP ---
Addendum entered and electronically signed by Heidi Morrell RES 01/05/17 06: 30: On preliminary eval of x rays, no gross fractures, will await official read Original Note: Subjective - Review of Symptoms Events since last encounter: patient suffered witnessed mechanical fall on hallway. Subjective: Patient witnessed to have slipped and fell in hallway, falling on her buttock and L wrist. Now complaining of mild tenderness in left hip joint and l wrist/ elbow. No head injury. Denies palpitations, dizziness, chest pain, loc, h/a. HEENT: No: Head Aches, Visual Changes Pulmonary: No: Dyspnea, Cough Cardiovascular: No: Chest Pain, Palpitations, Light Headedness Gastrointestinal: No: Nausea, Vomiting Musculoskeletal: Yes: Joint Pain (L hip, wrist and elbow ) Neurological: No: Weakness, Numbness Physical Examination Vital Signs: Vital Signs Temperature 97.5 F L 01/05/17 02:00 Pulse Rate 99 H 01/05/17 02:00 Respiratory Rate 20 01/05/17 02:00 Blood Pressure 111/76 01/05/17 02:00 O2 Sat by Pulse Oximetry (%) 100 01/03/17 07:39 Constitutional: Yes: No Distress, Calm Eyes: Yes: Conjunctiva Clear, EOM Intact, PERRL HENT: Yes: Atraumatic, Normocephalic Neck: Yes: Supple. No: Decreased ROM Cardiovascular: Yes: Regular Rate and Rhythm, S1, S2 Respiratory: Yes: CTA Bilaterally. No: SOB Gastrointestinal: Yes: Normal Bowel Sounds Extremities: No: Deformity (no brioses or abrasions. mild tenderness to L hip, brist and enbow. No tenderness inhead, spine, neck, shoulders, knees), External Rotation (lower extremities not externally rotated) Peripheral Pulses: Left Radial: 2+, Right Radial: 2+, Left Doralis Pedis: 2+, Right Dorsalis Pedis: 2+ Neurological: Yes: Cran Nerves II-XII Intact (grossly intact). No: Dysarthria, Lethargy, Tingling, Weakness ...Motor Strength: LUE, LLE, RUE, RLE (4+/5 b/l UE and LE) Labs: CBC, BMP 01/04/17 05:35 01/04/17 05:35 Hospitalist Encounter Assessment: 86 yo F s/p witnessed mechanical fall -no LOC or dizziness -complains of mild tenderness in L hip, elbow, wrist, no abrasions, no head trauma -stat xray L hip, elbow and wrist, will f/u -pain extremely mild, can use tylenol prn Visit type - Emergency Visit Emergency Visit: Yes ED Registration Date: 12/26/16 Care time: The patient presented to the Emergency Department on the above date and was hospitalized for further evaluation of their emergent condition. - New Patient This patient is new to me today: Yes Date on this admission: 01/05/17 - Critical Care Critical Care patient: No
[2017-01-05] MEDS: LEVOTHYROXINE NA 50 MCG TABLET (FP) PO SCH (06:49)
[2017-01-05 07:47] LABS: MCH 30.1 pg (25.7-33.7); MCHC 33.2 g/dl (32.0-36.0); MEAN CELL VOLUME 90.8 fl (80-96); MEAN PLT VOLUME 8.1 fl (7.5-11.1); PLATELET COUNT 335 K/MM3 (134-434); RDW 18.3 % (11.6-15.6); WHITE BLOOD COUNT 12.4 K/mm3 (4.0-10.0)
[2017-01-05 08:17] LABS: ALBUMIN 2.3 g/dl (3.4-5.0); BILIRUBIN,TOTAL 0.5 mg/dL (0.2-1.0); CALCIUM 8.3 mg/dL (8.5-10.1); COCKROFT - GAULT 18.547; CREATININE 1.6 mg/dL (0.55-1.02); TOT PROT 6.9 g/dl (6.4-8.2)
[2017-01-05 08:48] LABS: METAMYELOCYTE 1 % (0-2); PLATELET ESTIMATE ADEQUATE (NORMAL)
[2017-01-05] MEDS: METOPROLOL TARTRATE 25 MG TABLET (FP) PO SCH ×4 (09:17→22:21)
[2017-01-05] MEDS: LACTOBACILLUS ACIDOPHILUS 1 EACH TAB (FP) PO SCH (09:17)
[2017-01-05] MEDS: MULTIVITAMINS (DAILY MVI) TABLET (FP) PO SCH (09:17)
[2017-01-05] MEDS: SPIRONOLACTONE 25 MG TABLET (FP) PO SCH (09:17)
[2017-01-05] MEDS: DOCUSATE SODIUM 100 MG CAPSULE (FP) PO SCH (09:17)
[2017-01-05] MEDS: FUROSEMIDE 40 MG TABLET (FP) PO SCH (09:17)
[2017-01-05] MEDS: BACITRACIN 30 GM TUBE TOPICAL OINTMENT TP SCH ×2 (09:17→22:24)
[2017-01-05] MEDS: CHOLECALCIFEROL (VITAMIN D3) 1,000 UNIT TABLET (FP) PO SCH (09:17)
[2017-01-05] MEDS: APIXABAN 2.5 MG TABLET PO SCH (09:17)
[2017-01-05] MEDS: ACLIDINIUM BROMIDE 400 MCG/INH AERO.POWD IH SCH ×2 (09:17→22:23)
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
--- NOTE | 2017-01-05 11:06 | PN ---
Progress Note, Physician History of Present Illness: Improved afib rate-control, post mechanical fall in hallway sustaining left hip fracture, denies chest pain or dyspnea, near or true syncope. - Current Medication List Current Medications: Active Medications Acetaminophen (Tylenol -) 650 mg PO Q6H PRN PRN Reason: FEVER OR PAIN Last Admin: 01/04/17 23:57 Dose: 650 mg Aclidinium [place] (Tudorza -) 1 puff IH BID [facility] Last Admin: 01/05/17 09:17 Dose: 1 puff Apixaban (Eliquis -) 2.5 mg PO BID [facility] Last Admin: 01/05/17 09:17 Dose: 2.5 mg Bacitracin (Bacitracin -) 1 applic TP BID [facility] Last Admin: 01/05/17 09:17 Dose: 1 applic Cholecalciferol (Vitamin D3 -) 1,000 unit PO DAILY [facility] Last Admin: 01/05/17 09:17 Dose: 1,000 unit Docusate Sodium (Colace -) 100 mg PO DAILY [facility] Last Admin: 01/05/17 09:17 Dose: 100 mg Furosemide (Lasix -) 40 mg PO DAILY [facility] Last Admin: 01/05/17 09:17 Dose: 40 mg Vancomycin HCl 750 mg/ (Dextrose) 250 mls @ 250 mls/hr IVPB DAILY@1100 [facility] PRN Reason: Protocol Last Admin: 01/04/17 11:59 Dose: 250 mls/hr Lactobacillus Acidophilus (Bacid -) 1 tab PO DAILY [facility] Last Admin: 01/05/17 09:17 Dose: 1 tab Levothyroxine Sodium (Synthroid -) 50 mcg PO DAILY@0700 [facility] Last Admin: 01/05/17 06:49 Dose: 50 mcg Metoprolol Tartrate (Lopressor -) 25 mg PO QID [facility] Last Admin: 01/05/17 09:17 Dose: 25 mg Multivitamins/Minerals/Vitamin C (Tab-A-Vit -) 1 tab PO DAILY [facility] Last Admin: 01/05/17 09:17 Dose: 1 tab Spironolactone (Aldactone -) 25 mg PO DAILY [facility] Last Admin: 01/05/17 09:17 Dose: 25 mg - Objective Vital Signs: Vital Signs Temperature 98.1 F 01/05/17 08:09 Pulse Rate 105 H 01/05/17 08:09 Respiratory Rate 20 01/05/17 08:09 Blood Pressure 112/76 01/05/17 08:09 O2 Sat by Pulse Oximetry (%) 92 L 01/05/17 08:00 Constitutional: Yes: No Distress, Calm, Thin Neck: Yes: Supple Cardiovascular: Yes: Pulse Irregular, Murmur (2/6 SM) Respiratory: Yes: Regular, Diminished Gastrointestinal: Yes: Normal Bowel Sounds, Soft Extremities: Yes: External Rotation, Shortened Edema: Yes Edema: LLE: Trace Labs: CBC, BMP 01/05/17 05:40 01/05/17 05:40 INR, PTT INR 1.38 (0.82-1.09) H 12/26/16 16:20 Problem List - Problems (1) Sepsis Code(s): A41.9 - SEPSIS, UNSPECIFIED ORGANISM Qualifiers: Sepsis type: sepsis due to unspecified organism Qualified Code(s): A41.9 - Sepsis, unspecified organism (2) MOISES (acute kidney injury) Code(s): N17.9 - ACUTE KIDNEY FAILURE, UNSPECIFIED (3) Acute on chronic diastolic (congestive) heart failure Code(s): I50.33 - ACUTE ON CHRONIC DIASTOLIC (CONGESTIVE) HEART FAILURE (4) Aortic valvar stenosis Code(s): I35.0 - NONRHEUMATIC AORTIC (VALVE) STENOSIS Qualifiers: Cardiac valve disease etiology: nonrheumatic Qualified Code(s): I35.0 - Nonrheumatic aortic (valve) stenosis (5) Atrial fibrillation Code(s): I48.91 - UNSPECIFIED ATRIAL FIBRILLATION Qualifiers: Atrial fibrillation type: persistent Qualified Code(s): I48.1 - Persistent atrial fibrillation (6) Hypothyroid Code(s): E03.9 - HYPOTHYROIDISM, UNSPECIFIED Qualifiers: Hypothyroidism type: unspecified Qualified Code(s): E03.9 - Hypothyroidism, unspecified (7) Mitral regurgitation Code(s): I34.0 - NONRHEUMATIC MITRAL (VALVE) INSUFFICIENCY Qualifiers: Cardiac valve disease etiology: nonrheumatic Qualified Code(s): I34.0 - Nonrheumatic mitral (valve) insufficiency (8) Pulmonary hypertension Code(s): I27.2 - OTHER SECONDARY PULMONARY HYPERTENSION (9) S/P balloon aortic valvuloplasty Code(s): Z98.890 - OTHER SPECIFIED POSTPROCEDURAL STATES (10) Tricuspid regurgitation Code(s): I07.1 - RHEUMATIC TRICUSPID INSUFFICIENCY Qualifiers: Cardiac valve disease etiology: nonrheumatic Qualified Code(s): I36.1 - Nonrheumatic tricuspid (valve) insufficiency (11) Bilateral lower leg cellulitis Code(s): L03.116 - CELLULITIS OF LEFT LOWER LIMB L03.115 - CELLULITIS OF RIGHT LOWER LIMB (12) Anemia Code(s): D64.9 - ANEMIA, UNSPECIFIED (13) Closed left hip fracture Code(s): S72.002A - FRACTURE OF UNSP PART OF NECK OF LEFT FEMUR, INIT Qualifiers: Encounter type: initial encounter Qualified Code(s): S72.002A - Fracture of unspecified part of neck of left femur, initial encounter for closed fracture Assessment/Plan 1. Post mechanical fall and non-displaced left femoral neck fracture 2. Acute on chronic class II NYHA classification diastolic LV failure triggered by left lower extremity cellulitis improving 3. Post recent hypovolemic, hyponatremia referable to diuretics 4. 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 Persistent atrial fibrillation with improved rate-control [id number] score of 5 on NOAC 6. Low flow, low gradient aortic stenosis post BAV 7. Hypothyroidism with an abnormal TSH value - subtherapeutic Synthroid dosing 8. Acute on CKD 9. Anemia PLAN: 1. D/c Lasix 40 qd and continue Aldactone 25 qd with monitoring of renal function and electrolytes 2. Increase Lopressor 25 qid, hemodynamics permitting 3. Plan to resume Diovan, hemodynamics permitting and pending renal function stabilization 4. D/c Eliquis 2.5 bid pre-op, switch to sq heparin 5. Continue Synthroid 50 qd 6. Complete zosyn/ vancomycin course 7. May proceed with orthopedic surgery now that afib rate-control has improved as has diastolic failure, no sxs of acute coronary syndrome
[2017-01-05] MEDS: VANCOMYCIN 750 MG in DEXTROSE 5%-WATER - 250 ML IVPB SCH (11:36)
--- NOTE | 2017-01-05 12:21 | PN ---
Progress Note, Physician History of Present Illness: No c/o L LE pain No fever/ chills - Current Medication List Current Medications: Active Medications Acetaminophen (Tylenol -) 650 mg PO Q6H PRN PRN Reason: FEVER OR PAIN Last Admin: 01/04/17 23:57 Dose: 650 mg Aclidinium [place] (Tudorza -) 1 puff IH BID [facility] Last Admin: 01/05/17 09:17 Dose: 1 puff Bacitracin (Bacitracin -) 1 applic TP BID [facility] Last Admin: 01/05/17 09:17 Dose: 1 applic Cholecalciferol (Vitamin D3 -) 1,000 unit PO DAILY [facility] Last Admin: 01/05/17 09:17 Dose: 1,000 unit Docusate Sodium (Colace -) 100 mg PO DAILY [facility] Last Admin: 01/05/17 09:17 Dose: 100 mg Heparin Sodium (Porcine) (Heparin -) 5,000 unit SQ BID [facility] Vancomycin HCl 750 mg/ (Dextrose) 250 mls @ 250 mls/hr IVPB DAILY@1100 [facility] PRN Reason: Protocol Last Admin: 01/05/17 11:36 Dose: 250 mls/hr Lactobacillus Acidophilus (Bacid -) 1 tab PO DAILY [facility] Last Admin: 01/05/17 09:17 Dose: 1 tab Levothyroxine Sodium (Synthroid -) 50 mcg PO DAILY@0700 [facility] Last Admin: 01/05/17 06:49 Dose: 50 mcg Metoprolol Tartrate (Lopressor -) 25 mg PO QID [facility] Last Admin: 01/05/17 09:17 Dose: 25 mg Multivitamins/Minerals/Vitamin C (Tab-A-Vit -) 1 tab PO DAILY [facility] Last Admin: 01/05/17 09:17 Dose: 1 tab Spironolactone (Aldactone -) 25 mg PO DAILY [facility] Last Admin: 01/05/17 09:17 Dose: 25 mg - Objective Vital Signs: Vital Signs Temperature 98.1 F 01/05/17 11:53 Pulse Rate 105 H 01/05/17 11:53 Respiratory Rate 20 01/05/17 11:53 Blood Pressure 112/76 01/05/17 11:53 O2 Sat by Pulse Oximetry (%) 92 L 01/05/17 08:00 Constitutional: Yes: No Distress Eyes: Yes: Conjunctiva Clear Cardiovascular: Yes: Regular Rate and Rhythm, S1, S2 Respiratory: Yes: CTA Bilaterally Gastrointestinal: Yes: Normal Bowel Sounds, Soft. No: Tenderness Extremities: Yes: Other (L LE erythema/ warmth resolved Ulcers without drainage) Labs: CBC, BMP 01/05/17 05:40 01/05/17 05:40 INR, PTT INR 1.38 (0.82-1.09) H 12/26/16 16:20 Assessment/Plan Recurrent cellulitis LE- resolved Fever- resolved Azotemia Ceftriaxone allergy D/C Vancomycin Observe off antibiotics
--- NOTE | 2017-01-05 13:17 | CONSULT ---
Consult - text type - Consultation Consultation Note: FULL CONSULTATION DICTATED IMP: NONDISPLACED LEFT FEMORAL NECK FX PLAN: ---> OR ON SUNDAY ONCE EFFECTS OF ANTICOAGULATION CAN BE REVERSED
[2017-01-05] MEDS: ACETAMINOPHEN 325 MG TABLET (FP) PO PRN (13:37)
--- NOTE | 2017-01-05 13:58 | CONS ---
DATE OF CONSULTATION: 01/05/2017 HISTORY: The patient is an 86-year-old female who had been in the hospital for the past 10 days for new onset atrial fibrillation. The patient was being treated for that, and that was under control when she slipped and fell this morning and injured her left hip. X-rays revealed a nondisplaced left femoral neck fracture and, thus, necessitated orthopaedic consult. PHYSICAL EXAMINATION: She has no limb length discrepancy. She does have marked pain with any range of motion of her left hip. She has good motion in the ankle and toes. Otherwise, neurovascularly intact. Calf is soft and nontender. DIAGNOSTIC DATA: X-rays do show a nondisplaced left femoral neck fracture. IMPRESSION: Fracture as described. PLAN: The patient is on Eliquis and ate today. We will await for the effects of Eliquis to come off. As she has a nuance of atrial fibrillation, we will change her to subcutaneous heparin and operate on her in 3 days' time when the effect of the Eliquis is gone and we can stop her heparin for the window to perform the procedure prior to restarting her on anticoagulation. TYLOR ENGEL M.D. [id number]
[2017-01-05] MEDS: HEPARIN NA (PORCINE) 5,000 UNITS/ML 1ML VIAL SQ SCH (22:21)
--- NOTE | 2017-01-05 23:27 | PN ---
Mental Health Exam - Mental Status Exam Alert and Oriented to: Time, Place, Person Cognitive Function: Good Patient Appearance: Disheveled Mood: Apathetic, Apprehensive, Hopeful Affect: Appropriate Patient Behavior: Fatigued, Cooperative Speech Pattern: Clear, Perseverating Voice Loudness: Mildly Soft/Quiet Thought Process: Intact, Goal Oriented (likes to do life review.) Thought Disorder: Not Present Hallucinations: None Suicidal Ideation: Denies, No Plan (Feeling "what use in living i am a burden to all, and in pain") Homicidal Ideation: None Insight/Judgement: Fair Sleep: Difficulty falling asleep Appetite: Fair Muscle strength/Tone: Moderate Hypotonicity Gait/Station: Deferred
--- NOTE | 2017-01-05 23:41 | PN ---
Progress Note, Physician Chief Complaint: "i had a dream last night, in the dream i was flying" "i don't want to be a burden on others, i was always the fittest, never believed my heart will give me trouble at 86yo" - Current Medication List Current Medications: Active Medications Acetaminophen (Tylenol -) 650 mg PO Q6H PRN PRN Reason: FEVER OR PAIN Last Admin: 01/05/17 13:37 Dose: 650 mg Aclidinium [place] (Tudorza -) 1 puff IH BID [facility] Last Admin: 01/05/17 22:23 Dose: 1 puff Bacitracin (Bacitracin -) 1 applic TP BID [facility] Last Admin: 01/05/17 22:24 Dose: 1 applic Cholecalciferol (Vitamin D3 -) 1,000 unit PO DAILY [facility] Last Admin: 01/05/17 09:17 Dose: 1,000 unit Docusate Sodium (Colace -) 100 mg PO DAILY [facility] Last Admin: 01/05/17 09:17 Dose: 100 mg Heparin Sodium (Porcine) (Heparin -) 5,000 unit SQ BID [facility] Last Admin: 01/05/17 22:21 Dose: 5,000 unit Lactobacillus Acidophilus (Bacid -) 1 tab PO DAILY [facility] Last Admin: 01/05/17 09:17 Dose: 1 tab Levothyroxine Sodium (Synthroid -) 50 mcg PO DAILY@0700 [facility] Last Admin: 01/05/17 06:49 Dose: 50 mcg Metoprolol Tartrate (Lopressor -) 25 mg PO QID [facility] Last Admin: 01/05/17 22:21 Dose: 25 mg Multivitamins/Minerals/Vitamin C (Tab-A-Vit -) 1 tab PO DAILY [facility] Last Admin: 01/05/17 09:17 Dose: 1 tab Spironolactone (Aldactone -) 25 mg PO DAILY [facility] Last Admin: 01/05/17 09:17 Dose: 25 mg - Objective Vital Signs: Vital Signs Temperature 98.5 F 01/05/17 19:30 Pulse Rate 104 H 01/05/17 19:30 Respiratory Rate 20 01/05/17 19:30 Blood Pressure 107/78 01/05/17 19:30 O2 Sat by Pulse Oximetry (%) 92 L 01/05/17 20:41 Psychiatric: Yes: Suicidal Ideation (felling of wants to without a plan.) Labs: CBC, BMP 01/05/17 05:40 01/05/17 05:40 INR, PTT INR 1.38 (0.82-1.09) H 12/26/16 16:20 Problem List - Problems (1) Adjustment disorder with depressed mood Code(s): F43.21 - ADJUSTMENT DISORDER WITH DEPRESSED MOOD Assessment/Plan Ms Salcido is a 86yo female of [place]ian ethnicity 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 She stated she was in a dream when wandered out of bed. Client is visited during day by supportive son. Noted to have multiple unidentified tabs in plastic bags by bedside, stated are "vitimians". She has no history of mental illness appetite fair, reduced sleep pattern while in unfamiliar surroundings. She endorsed a wish to but has no plan. She feels hopless, helpless and worthless since becoming so ill and living with near constant pain. She does not want to burden others, lack of her privacy which she holds dear, "its embarrassing". No delusional thoughts, no voices. Plan speak to TYLER Rodriguez re reoval of unidentified tabs by bedside. Maintain 1;1 for 24 hours for safety, (extreme high fall risk) May consider start low dose SSRI such as lexapro next week post surgery during Rehab. Thank dr Solitario for consult.
[2017-01-06] MEDS: ACETAMINOPHEN 325 MG TABLET (FP) PO PRN ×2 (00:38→23:28)
[2017-01-06] MEDS: LEVOTHYROXINE NA 50 MCG TABLET (FP) PO SCH (06:40)
[2017-01-06 08:29] LABS: MCH 29.4 pg (25.7-33.7); MCHC 32.6 g/dl (32.0-36.0); MEAN CELL VOLUME 90.2 fl (80-96); MEAN PLT VOLUME 8.4 fl (7.5-11.1); PLATELET COUNT 360 K/MM3 (134-434); RDW 18.1 % (11.6-15.6)
[2017-01-06 08:58] LABS: ALBUMIN 2.3 g/dl (3.4-5.0); BILIRUBIN,TOTAL 0.5 mg/dL (0.2-1.0); CALCIUM 8.3 mg/dL (8.5-10.1); COCKROFT - GAULT 18.547; CREATININE 1.6 mg/dL (0.55-1.02); TOT PROT 7.1 g/dl (6.4-8.2)
[2017-01-06] MEDS: SPIRONOLACTONE 25 MG TABLET (FP) PO SCH (09:17)
[2017-01-06] MEDS: MULTIVITAMINS (DAILY MVI) TABLET (FP) PO SCH (09:17)
[2017-01-06] MEDS: LACTOBACILLUS ACIDOPHILUS 1 EACH TAB (FP) PO SCH (09:17)
[2017-01-06] MEDS: DOCUSATE SODIUM 100 MG CAPSULE (FP) PO SCH (09:18)
[2017-01-06] MEDS: BACITRACIN 30 GM TUBE TOPICAL OINTMENT TP SCH ×2 (09:18→22:07)
[2017-01-06] MEDS: METOPROLOL TARTRATE 25 MG TABLET (FP) PO SCH ×4 (09:18→22:05)
[2017-01-06] MEDS: ACLIDINIUM BROMIDE 400 MCG/INH AERO.POWD IH SCH ×2 (09:18→22:03)
[2017-01-06] MEDS: HEPARIN NA (PORCINE) 5,000 UNITS/ML 1ML VIAL SQ SCH ×2 (09:18→22:05)
[2017-01-06] MEDS: CHOLECALCIFEROL (VITAMIN D3) 1,000 UNIT TABLET (FP) PO SCH (09:18)
--- NOTE | 2017-01-06 09:39 | PN ---
Progress Note, Physician History of Present Illness: in bed no CP/SOB seen by spychiatry, rec 1:1 x 24H then DC pt not suicidal in better spirits today, agreed for hip surgery - Current Medication List Current Medications: Active Medications Acetaminophen (Tylenol -) 650 mg PO Q6H PRN PRN Reason: FEVER OR PAIN Last Admin: 01/06/17 00:38 Dose: 650 mg Aclidinium [place] (Tudorza -) 1 puff IH BID [facility] Last Admin: 01/06/17 09:18 Dose: 1 puff Bacitracin (Bacitracin -) 1 applic TP BID [facility] Last Admin: 01/06/17 09:18 Dose: 1 applic Cholecalciferol (Vitamin D3 -) 1,000 unit PO DAILY [facility] Last Admin: 01/06/17 09:18 Dose: 1,000 unit Docusate Sodium (Colace -) 100 mg PO DAILY [facility] Last Admin: 01/06/17 09:18 Dose: 100 mg Heparin Sodium (Porcine) (Heparin -) 5,000 unit SQ BID [facility] Last Admin: 01/06/17 09:18 Dose: 5,000 unit Lactobacillus Acidophilus (Bacid -) 1 tab PO DAILY [facility] Last Admin: 01/06/17 09:17 Dose: 1 tab Levothyroxine Sodium (Synthroid -) 50 mcg PO DAILY@0700 [facility] Last Admin: 01/06/17 06:40 Dose: 50 mcg Metoprolol Tartrate (Lopressor -) 25 mg PO QID [facility] Last Admin: 01/06/17 09:18 Dose: 25 mg Multivitamins/Minerals/Vitamin C (Tab-A-Vit -) 1 tab PO DAILY [facility] Last Admin: 01/06/17 09:17 Dose: 1 tab Spironolactone (Aldactone -) 25 mg PO DAILY [facility] Last Admin: 01/06/17 09:17 Dose: 25 mg - Objective Vital Signs: Vital Signs Temperature 98 F 01/06/17 08:26 Pulse Rate 115 H 01/06/17 08:26 Respiratory Rate 20 01/06/17 08:26 Blood Pressure 114/82 01/06/17 08:26 O2 Sat by Pulse Oximetry (%) 92 L 01/05/17 20:41 Constitutional: Yes: No Distress, Calm Eyes: Yes: Conjunctiva Clear HENT: Yes: Atraumatic Neck: Yes: Supple Cardiovascular: No: Regular Rate and Rhythm Respiratory: Yes: Diminished Gastrointestinal: Yes: Soft. No: Distention, Tenderness Musculoskeletal: No: Joint Stiffness, Joint Swelling Extremities: No: Cold, Cool Edema: No Peripheral Pulses WNL: Yes Integumentary: Yes: Rash (better / legs), Venous Stasis Changes Neurological: Yes: WNL, Alert, Oriented ...Motor Strength: WNL Psychiatric: Yes: WNL, Alert, Oriented. No: Agitated Labs: CBC, BMP 01/06/17 05:40 01/06/17 05:40 INR, PTT INR 1.38 (0.82-1.09) H 12/26/16 16:20 - ....Imaging Other: Report Reviewed Assessment/Plan 86 year old female, with history of tricuspid regurgitation, mitral regurgitation, diastolic dysfunction with h/o failure requiring thoracentesis, low flow, low gradient aortic stenosis s/p BAV, permanent atrial fibrillation on Eliquis, hypothyroidism and pulmonary hypertension recent admission for profound weakness, fatigue and anorexia and possible dizziness referable to profound symtomatic hyponatremia presentes with SOB, worsening LLE swelling, erythema, warmth and pain. s.p fall and nondisplaced L hip fracture - will need surgery, per ortho cardio f/u, hold eliquis x 48 h preop; started sq heparin cardio and renal eval preop psychiatry f/u for anxiety and depression, 1:1 OBS x 24h also h/o: LLE cellulitis - improved RAFib and decompensated CHF sec to Ao Stenosis - improved IV antibitoics broad spectrum per ID wound care lasix for diuresis cardiology f/u surgery f/u for LLE cellulitis noted f/u labs falls decubs PFX d/w pt and staff, prognosis guarded
--- NOTE | 2017-01-06 11:32 | CONSULT ---
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 Pt was seen by our service on a prior admission for hyponatremia. Pt s/p mechanical fall 01/05 and right hip fracture. Loop diuretics held because of worsening renal function. Pt did not have overt hypotension, contrast exposure, NSIAD exposure. Denies any flank pain. reports good urine output. No chest pain or sob at the present time. No N/v/D. No fever, rash. left LE is swollen s/p US that showed no DVT. PMhx: as above Allergies: NKDA Family hx: NC Social Hx: No T/A/D ROS: as per HPI Home Meds: Home Medications Medication Instructions Recorded Ascorbic Acid [Vitamin C -] 2,000 mg PO TID 05/30/16 Calcium Carb/Mag Ox/Zinc Sulf 1 tab PO DAILY 05/30/16 [Rpeanih-Nsirpjboe-Nflq Tablet] Cholecalciferol (Vitamin D3) 1,000 unit PO DAILY 05/30/16 [Vitamin D3 -] Multivitamins [Multivit ([facility] 1 tab PO DAILY 05/30/16 Formulary)] Vitamin E 400 unit PO DAILY 05/30/16 Apixaban [Eliquis -] 2.5 mg PO BID #180 tablet 10/04/16 Bacitracin/Polymyxin Ointment 1 applic TP DAILY tube 10/04/16 [Polysporin Ointment -] Levothyroxine [Synthroid -] 25 mcg PO DAILY@0700 #90 tablet 10/04/16 Ipratropium [place] 1 inh IH PRN 12/10/16 Metoprolol Tartrate [Lopressor -] 12.5 mg PO BID 12/10/16 Bacitracin - [Bacitracin Topical 1 applic TP BID tube 12/19/16 Ointment -] Docusate Sodium [Colace -] 100 mg PO DAILY cap 12/19/16 Furosemide [Lasix -] 40 mg PO DAILY #90 tablet 12/19/16 Spironolactone [Aldactone -] 25 mg PO DAILY #90 tablet 12/19/16 Vital Signs Temperature 98 F 01/06/17 08:26 Pulse Rate 115 H 01/06/17 08:26 Respiratory Rate 20 01/06/17 08:26 Blood Pressure 114/82 01/06/17 08:26 O2 Sat by Pulse Oximetry (%) 93 L 01/06/17 08:00 Intake & Output 01/03/17 01/04/17 01/05/17 01/06/17 23:59 23:59 23:59 23:59 Intake Total 1830 530 Balance 1830 530 Weight 107 lb 8 oz 106 lb 9.6 oz Gen: NAD, awake and alert HEENT: NC/AT, Dry MM, NO JVD CVS: irregular, no M/R Lungs: Dec BS throughout the lung lugo Abd: soft NT/ND Ext: Trace to 1+ edema in left LE in dressing, no RLE edema : No bladder distension CBC, BMP 01/06/17 05:40 01/06/17 05:40 Laboratory Tests 01/06/17 05:40 Calcium 8.3 L AST 38 H ALT 54 Alkaline Phosphatase 328 H Albumin 2.3 L Current Medications Acetaminophen (Tylenol -) 650 mg PO Q6H PRN PRN Reason: FEVER OR PAIN Last Admin: 01/06/17 00:38 Dose: 650 mg Aclidinium [place] (Tudorza -) 1 puff IH BID [facility] Last Admin: 01/06/17 09:18 Dose: 1 puff Bacitracin (Bacitracin -) 1 applic TP BID [facility] Last Admin: 01/06/17 09:18 Dose: 1 applic Cholecalciferol (Vitamin D3 -) 1,000 unit PO DAILY [facility] Last Admin: 01/06/17 09:18 Dose: 1,000 unit Docusate Sodium (Colace -) 100 mg PO DAILY [facility] Last Admin: 01/06/17 09:18 Dose: 100 mg Heparin Sodium (Porcine) (Heparin -) 5,000 unit SQ BID [facility] Last Admin: 01/06/17 09:18 Dose: 5,000 unit Lactobacillus Acidophilus (Bacid -) 1 tab PO DAILY [facility] Last Admin: 01/06/17 09:17 Dose: 1 tab Levothyroxine Sodium (Synthroid -) 50 mcg PO DAILY@0700 [facility] Last Admin: 01/06/17 06:40 Dose: 50 mcg Metoprolol Tartrate (Lopressor -) 25 mg PO QID [facility] Last Admin: 01/06/17 09:18 Dose: 25 mg Multivitamins/Minerals/Vitamin C (Tab-A-Vit -) 1 tab PO DAILY [facility] Last Admin: 01/06/17 09:17 Dose: 1 tab Spironolactone (Aldactone -) 25 mg PO DAILY [facility] Last Admin: 01/06/17 09:17 Dose: 25 mg A/P 86 year old woman with PMhx of CHF, Severe s/p balloon valvoplasty, severe TR /MR, Hypertension who presented with complaints of SOB and found to have acute CHF exacerbation now s/p IV diuretics and noticed to have worsening renal function with BUN/Cr of 36/1.6 (baseline Cr 0.8-1). #Acute Renal Insufficiency likely secondary to intravascular volume depletion in setting of diureiss for CHF clinically appears hypovolemia to evolemic at the present time agree with holding loop diuretics can continue aldactone as it is a weak diuretic Check FeNa, FeUrea, UPCR Would hold off IVF given recent CHF exacerbation no ritchie/arb until renal function improves #Acute CHF Exacerbation Clincially imporved off loop diuretics cardiology following #Hip Fracture for OR on Sunday as per ortho no renal contraindications for Sx #Anemia from CKD/Fracture Check iron levels no acute indication for transfusion Thank you Will follow Sabino Villatoro DO
--- NOTE | 2017-01-06 11:38 | PN ---
Progress Note (short form) - Note Progress Note: Ortho Pt seen and examined s/p left femoral neck fx- nondisplaced +swelling, + ttp ,dec rom, nvi a/p OR for left hip cannulated screws tentatively Sunday/ NW[facility] Xrays of left hip tomorrow to make sure position has not changed NPO after midnight on Sunday d/w Dr. Salas
[2017-01-06 14:36] LABS: URINE CREATININE 52.6 mg/dL (20-320)
[2017-01-06 15:16] LABS: METAMYELOCYTE 2 % (0-2); PLATELET COMMENT2 NO CLOTTING DETECTED; PLATELET ESTIMATE Q (NORMAL)
[2017-01-06 15:17] LABS: ANISOCYTOSIS 1+; HYPOCHROMIA 1+
[2017-01-07] MEDS: LEVOTHYROXINE NA 50 MCG TABLET (FP) PO SCH (06:07)
[2017-01-07 08:36] LABS: BASOPHIL 0.4 % (0-2.0); EOSINOPHIL 0.5 % (0-4.5); MCH 29.5 pg (25.7-33.7); MCHC 32.2 g/dl (32.0-36.0); MEAN CELL VOLUME 91.6 fl (80-96); MEAN PLT VOLUME 8.6 fl (7.5-11.1); NEUTROPHILS 87.3 % (42.8-82.8); PLATELET COUNT 335 K/MM3 (134-434); RDW 18.2 % (11.6-15.6); WHITE BLOOD COUNT 12.9 K/mm3 (4.0-10.0)
[2017-01-07 08:39] LABS: INR 1.27 (0.82-1.09)
[2017-01-07 08:42] LABS: ACTIVATED PTT 30.4 SECONDS (26.9-34.4)
[2017-01-07 09:03] LABS: CALCIUM 8.1 mg/dL (8.5-10.1); COCKROFT - GAULT 21.199; CREATININE 1.4 mg/dL (0.55-1.02); MAGNESIUM 2.7 mg/dL (1.8-2.4); PHOSPHOROUS 4.5 mg/dL (2.5-4.9)
[2017-01-07] MEDS: LACTOBACILLUS ACIDOPHILUS 1 EACH TAB (FP) PO SCH (09:10)
[2017-01-07] MEDS: CHOLECALCIFEROL (VITAMIN D3) 1,000 UNIT TABLET (FP) PO SCH (09:10)
[2017-01-07] MEDS: MULTIVITAMINS (DAILY MVI) TABLET (FP) PO SCH (09:10)
[2017-01-07] MEDS: BACITRACIN 30 GM TUBE TOPICAL OINTMENT TP SCH ×2 (09:10→21:29)
[2017-01-07] MEDS: SPIRONOLACTONE 25 MG TABLET (FP) PO SCH (09:11)
[2017-01-07] MEDS: HEPARIN NA (PORCINE) 5,000 UNITS/ML 1ML VIAL SQ SCH ×2 (09:11→21:28)
[2017-01-07] MEDS: METOPROLOL TARTRATE 25 MG TABLET (FP) PO SCH (09:11)
[2017-01-07] MEDS: DOCUSATE SODIUM 100 MG CAPSULE (FP) PO SCH (09:11)
[2017-01-07] MEDS: ACLIDINIUM BROMIDE 400 MCG/INH AERO.POWD IH SCH ×2 (09:16→21:29)
--- NOTE | 2017-01-07 10:50 | PN ---
Progress Note, Physician History of Present Illness: Rapid afib in AM, post mechanical fall in hallway sustaining left hip fracture, denies chest pain or dyspnea, near or true syncope. - Current Medication List Current Medications: Active Medications Acetaminophen (Tylenol -) 650 mg PO Q6H PRN PRN Reason: FEVER OR PAIN Last Admin: 01/06/17 23:28 Dose: 650 mg Aclidinium [place] (Tudorza -) 1 puff IH BID [facility] Last Admin: 01/07/17 09:16 Dose: 1 puff Bacitracin (Bacitracin -) 1 applic TP BID [facility] Last Admin: 01/07/17 09:10 Dose: 1 applic Cholecalciferol (Vitamin D3 -) 1,000 unit PO DAILY [facility] Last Admin: 01/07/17 09:10 Dose: 1,000 unit Docusate Sodium (Colace -) 100 mg PO DAILY [facility] Last Admin: 01/07/17 09:11 Dose: 100 mg Heparin Sodium (Porcine) (Heparin -) 5,000 unit SQ BID [facility] Last Admin: 01/07/17 09:11 Dose: 5,000 unit Lactobacillus Acidophilus (Bacid -) 1 tab PO DAILY [facility] Last Admin: 01/07/17 09:10 Dose: 1 tab Levothyroxine Sodium (Synthroid -) 50 mcg PO DAILY@0700 [facility] Last Admin: 01/07/17 06:07 Dose: 50 mcg Metoprolol Tartrate (Lopressor -) 25 mg PO QID [facility] Last Admin: 01/07/17 09:11 Dose: 25 mg Multivitamins/Minerals/Vitamin C (Tab-A-Vit -) 1 tab PO DAILY [facility] Last Admin: 01/07/17 09:10 Dose: 1 tab Spironolactone (Aldactone -) 25 mg PO DAILY [facility] Last Admin: 01/07/17 09:11 Dose: 25 mg - Objective Vital Signs: Vital Signs Temperature 97.5 F L 01/07/17 07:42 Pulse Rate 93 H 01/07/17 07:42 Respiratory Rate 18 01/07/17 07:54 Blood Pressure 114/68 01/07/17 07:42 O2 Sat by Pulse Oximetry (%) 95 01/07/17 07:54 Constitutional: Yes: No Distress, Calm, Thin Neck: Yes: Supple Cardiovascular: Yes: Pulse Irregular, Murmur (2/6 SM) Respiratory: Yes: Regular, Diminished Gastrointestinal: Yes: Normal Bowel Sounds, Soft Edema: No Labs: CBC, BMP 01/07/17 05:55 01/07/17 05:55 INR, PTT INR 1.27 (0.82-1.09) H 01/07/17 05:55 - ....Imaging EKG: Report Reviewed (Rapid afib) Problem List - Problems (1) MOISES (acute kidney injury) Code(s): N17.9 - ACUTE KIDNEY FAILURE, UNSPECIFIED (2) Acute on chronic diastolic (congestive) heart failure Code(s): I50.33 - ACUTE ON CHRONIC DIASTOLIC (CONGESTIVE) HEART FAILURE (3) Aortic valvar stenosis Code(s): I35.0 - NONRHEUMATIC AORTIC (VALVE) STENOSIS Qualifiers: Cardiac valve disease etiology: nonrheumatic Qualified Code(s): I35.0 - Nonrheumatic aortic (valve) stenosis (4) Atrial fibrillation Code(s): I48.91 - UNSPECIFIED ATRIAL FIBRILLATION Qualifiers: Atrial fibrillation type: persistent Qualified Code(s): I48.1 - Persistent atrial fibrillation (5) Hypothyroid Code(s): E03.9 - HYPOTHYROIDISM, UNSPECIFIED Qualifiers: Hypothyroidism type: unspecified Qualified Code(s): E03.9 - Hypothyroidism, unspecified (6) Mitral regurgitation Code(s): I34.0 - NONRHEUMATIC MITRAL (VALVE) INSUFFICIENCY Qualifiers: Cardiac valve disease etiology: nonrheumatic Qualified Code(s): I34.0 - Nonrheumatic mitral (valve) insufficiency (7) Pulmonary hypertension Code(s): I27.2 - OTHER SECONDARY PULMONARY HYPERTENSION (8) S/P balloon aortic valvuloplasty Code(s): Z98.890 - OTHER SPECIFIED POSTPROCEDURAL STATES (9) Tricuspid regurgitation Code(s): I07.1 - RHEUMATIC TRICUSPID INSUFFICIENCY Qualifiers: Cardiac valve disease etiology: nonrheumatic Qualified Code(s): I36.1 - Nonrheumatic tricuspid (valve) insufficiency (10) Anemia Code(s): D64.9 - ANEMIA, UNSPECIFIED (11) Closed left hip fracture Code(s): S72.002A - FRACTURE OF UNSP PART OF NECK OF LEFT FEMUR, INIT Qualifiers: Encounter type: initial encounter Qualified Code(s): S72.002A - Fracture of unspecified part of neck of left femur, initial encounter for closed fracture (12) Pre-operative cardiovascular examination Code(s): Z01.810 - ENCOUNTER FOR PREPROCEDURAL CARDIOVASCULAR EXAMINATION Assessment/Plan 1. Post mechanical fall and non-displaced left femoral neck fracture planned for left hip cannulated screws tentatively Sunday/ 2. Acute on chronic class II NYHA classification diastolic LV failure triggered by left lower extremity cellulitis resolved 3. Post recent hypovolemic, hyponatremia referable to diuretics 4. 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 Persistent atrial fibrillation with RVR [id number] score of 5 off NOAC john- op 6. Low flow, low gradient aortic stenosis post BAV 7. Hypothyroidism with an abnormal TSH value - subtherapeutic Synthroid dosing 8. Acute on CKD improving 9. Anemia PLAN: 1. Lasix 40 qd d/willem, continue Aldactone 25 qd with monitoring of renal function and electrolytes 2. Continue Lopressor 50 bid, add Cardizem CD 120 qd, hemodynamics permitting 3. Plan to resume Diovan, hemodynamics permitting and pending renal function stabilization 4. Eliquis 2.5 bid d/willem pre-op, currently on sq heparin 5. Continue Synthroid 50 qd 6. Completed zosyn/ vancomycin course 7. To proceed with orthopedic surgery once afib rate-control has improved, her diastolic failure has resolved, no sxs of acute coronary syndrome
[2017-01-07] MEDS ORDERED: morphine CARPU-JECT 2 MG/1 ML DISP.SYRIN IM PRN (11:53)
--- NOTE | 2017-01-07 12:35 | PN ---
Progress Note, Physician History of Present Illness: Pt w/o fever, chills, SOB, CP, abd pain, N, V. Pt still w left hip pain with movements. - Current Medication List Current Medications: Active Medications Acetaminophen (Tylenol -) 650 mg PO Q6H PRN PRN Reason: FEVER OR PAIN Last Admin: 01/06/17 23:28 Dose: 650 mg Aclidinium [place] (Tudorza -) 1 puff IH BID [facility] Last Admin: 01/07/17 09:16 Dose: 1 puff Bacitracin (Bacitracin -) 1 applic TP BID [facility] Last Admin: 01/07/17 09:10 Dose: 1 applic Cholecalciferol (Vitamin D3 -) 1,000 unit PO DAILY [facility] Last Admin: 01/07/17 09:10 Dose: 1,000 unit Diltiazem HCl (Cardizem Cd -) 120 mg PO DAILY [facility] Docusate Sodium (Colace -) 100 mg PO DAILY [facility] Last Admin: 01/07/17 09:11 Dose: 100 mg Heparin Sodium (Porcine) (Heparin -) 5,000 unit SQ BID [facility] Last Admin: 01/07/17 09:11 Dose: 5,000 unit Lactobacillus Acidophilus (Bacid -) 1 tab PO DAILY [facility] Last Admin: 01/07/17 09:10 Dose: 1 tab Levothyroxine Sodium (Synthroid -) 50 mcg PO DAILY@0700 [facility] Last Admin: 01/07/17 06:07 Dose: 50 mcg Metoprolol Tartrate (Lopressor -) 50 mg PO BID [facility] Morphine Sulfate (Morphine Injection -) 2 mg IM Q6H PRN PRN Reason: PAIN Multivitamins/Minerals/Vitamin C (Tab-A-Vit -) 1 tab PO DAILY [facility] Last Admin: 01/07/17 09:10 Dose: 1 tab Spironolactone (Aldactone -) 25 mg PO DAILY [facility] Last Admin: 01/07/17 09:11 Dose: 25 mg - Objective Vital Signs: Vital Signs Temperature 97.5 F L 01/07/17 07:42 Pulse Rate 93 H 01/07/17 07:42 Respiratory Rate 18 01/07/17 07:54 Blood Pressure 114/68 01/07/17 07:42 O2 Sat by Pulse Oximetry (%) 95 01/07/17 07:54 Constitutional: Yes: No Distress, Calm Cardiovascular: Yes: Regular Rate and Rhythm, S1, S2 Respiratory: Yes: Regular, Rales, Other (coarse at bases) Gastrointestinal: Yes: Normal Bowel Sounds, Soft Edema: Yes Edema: LLE: 1+, RLE: 1+ Neurological: Yes: Alert, Oriented Labs: CBC, BMP 01/07/17 05:55 01/07/17 05:55 INR, PTT INR 1.27 (0.82-1.09) H 01/07/17 05:55 Problem List - Problems (1) Cellulitis of left leg Assessment/Plan: s/p IV abtx, per ID. Vanco and Zosyn ID consult and f/u appreciated Code(s): L03.116 - CELLULITIS OF LEFT LOWER LIMB (2) CHF exacerbation Code(s): I50.9 - HEART FAILURE, UNSPECIFIED Qualifiers: Congestive heart failure type: diastolic Qualified Code(s): I50.33 - Acute on chronic diastolic (congestive) heart failure (3) CAD (coronary artery disease) Code(s): I25.10 - ATHSCL HEART DISEASE OF [place] CORONARY ARTERY W/O ANG PCTRS Qualifiers: Coronary Disease-Associated Artery/Lesion type: [place] artery [place] vs. transplanted heart: [place] heart Associated angina: without angina Qualified Code(s): I25.10 - Atherosclerotic heart disease of [place] coronary artery without angina pectoris (4) Atrial fibrillation Code(s): I48.91 - UNSPECIFIED ATRIAL FIBRILLATION Qualifiers: Atrial fibrillation type: persistent Qualified Code(s): I48.1 - Persistent atrial fibrillation (5) Hyponatremia Code(s): E87.1 - HYPO-OSMOLALITY AND HYPONATREMIA (6) Elevated LFTs Code(s): R94.5 - ABNORMAL RESULTS OF LIVER FUNCTION STUDIES (7) Chronic renal failure Code(s): N18.9 - CHRONIC KIDNEY DISEASE, UNSPECIFIED (8) Hip fracture, left Assessment/Plan: for ORIF tomorrow. AC on hold for now Code(s): S72.002A - FRACTURE OF UNSP PART OF NECK OF LEFT FEMUR, INIT Assessment/Plan s/p IV abtx, per ID. Pt on Vanco and Zosyn ID consult and f/u appreciated. To f/u with surgery regarding leg care To f/u with ORtho re. hip Sx Cardio consult and f/u appreciated. GI consult and f/u appreciated AM labs
[2017-01-07] MEDS: METOPROLOL TARTRATE 50 MG TABLET (FP) PO SCH (21:29)
[2017-01-08] MEDS: ACETAMINOPHEN 325 MG TABLET (FP) PO PRN (04:00)
[2017-01-08 06:06] LABS: SERUM IRON 32 ug/dL (27-139); TOTAL IRON BINDING CAPACITY 304 ug/dL (250-450); UIBC 272 ug/dL (118-369)
[2017-01-08] MEDS: LEVOTHYROXINE NA 50 MCG TABLET (FP) PO SCH (06:18)
[2017-01-08 07:00] LABS: MCH 29.1 pg (25.7-33.7); MCHC 32.3 g/dl (32.0-36.0); MEAN CELL VOLUME 90.1 fl (80-96); MEAN PLT VOLUME 8.7 fl (7.5-11.1); PLATELET COUNT 365 K/MM3 (134-434); RDW 17.8 % (11.6-15.6); WHITE BLOOD COUNT 14.7 K/mm3 (4.0-10.0)
[2017-01-08 07:16] LABS: INR 1.25 (0.82-1.09); PROTHROMBIN TIME (PATIENT) 13.8 SEC (9.98-11.88)
[2017-01-08 07:24] LABS: ALBUMIN 2.4 g/dl (3.4-5.0); BILIRUBIN,TOTAL 0.4 mg/dL (0.2-1.0); CALCIUM 8.3 mg/dL (8.5-10.1); COCKROFT - GAULT 21.199; CREATININE 1.4 mg/dL (0.55-1.02); MAGNESIUM 2.8 mg/dL (1.8-2.4); PHOSPHOROUS 4.2 mg/dL (2.5-4.9); TOT PROT 7.2 g/dl (6.4-8.2)
--- NOTE | 2017-01-08 09:46 | PN ---
Progress Note (short form) - Note Progress Note: Ortho Pt seen and examined s/p left femoral neck fx- nondisplaced +swelling, + ttp ,dec rom, nvi repeat xrays show no changed in position of the fx a/p OR for left hip cannulated screws today if cleared NPO d/w Dr. Salas
[2017-01-08] MEDS: SPIRONOLACTONE 25 MG TABLET (FP) PO SCH (10:24)
[2017-01-08] MEDS: DOCUSATE SODIUM 100 MG CAPSULE (FP) PO SCH (10:24)
[2017-01-08] MEDS: LACTOBACILLUS ACIDOPHILUS 1 EACH TAB (FP) PO SCH (10:24)
[2017-01-08] MEDS: BACITRACIN 30 GM TUBE TOPICAL OINTMENT TP SCH ×2 (10:24→21:40)
[2017-01-08] MEDS: METOPROLOL TARTRATE 50 MG TABLET (FP) PO SCH ×3 (10:25→21:39)
[2017-01-08] MEDS: MULTIVITAMINS (DAILY MVI) TABLET (FP) PO SCH (10:25)
[2017-01-08] MEDS: HEPARIN NA (PORCINE) 5,000 UNITS/ML 1ML VIAL SQ SCH ×2 (10:25→21:39)
[2017-01-08] MEDS: ACLIDINIUM BROMIDE 400 MCG/INH AERO.POWD IH SCH ×2 (10:26→21:40)
[2017-01-08] MEDS: CHOLECALCIFEROL (VITAMIN D3) 1,000 UNIT TABLET (FP) PO SCH (10:26)
--- NOTE | 2017-01-08 10:37 | PN ---
Progress Note, Physician History of Present Illness: Afib rate-controlled, post mechanical fall in hallway sustaining left hip fracture, denies chest pain or dyspnea, near or true syncope. - Current Medication List Current Medications: Active Medications Acetaminophen (Tylenol -) 650 mg PO Q6H PRN PRN Reason: FEVER OR PAIN Last Admin: 01/08/17 04:00 Dose: 650 mg Aclidinium [place] (Tudorza -) 1 puff IH BID [facility] Last Admin: 01/08/17 10:26 Dose: Not Given Bacitracin (Bacitracin -) 1 applic TP BID [facility] Last Admin: 01/08/17 10:24 Dose: 1 applic Cholecalciferol (Vitamin D3 -) 1,000 unit PO DAILY [facility] Last Admin: 01/08/17 10:26 Dose: Not Given Diltiazem HCl (Cardizem Cd -) 120 mg PO DAILY [facility] Last Admin: 01/08/17 10:24 Dose: Not Given Docusate Sodium (Colace -) 100 mg PO DAILY [facility] Last Admin: 01/08/17 10:24 Dose: Not Given Heparin Sodium (Porcine) (Heparin -) 5,000 unit SQ BID [facility] Last Admin: 01/08/17 10:25 Dose: Not Given Lactobacillus Acidophilus (Bacid -) 1 tab PO DAILY [facility] Last Admin: 01/08/17 10:24 Dose: Not Given Levothyroxine Sodium (Synthroid -) 50 mcg PO DAILY@0700 [facility] Last Admin: 01/08/17 06:18 Dose: Not Given Metoprolol Tartrate (Lopressor -) 50 mg PO BID [facility] Last Admin: 01/08/17 10:25 Dose: Not Given Morphine Sulfate (Morphine Injection -) 2 mg IM Q6H PRN PRN Reason: PAIN Last Admin: 01/07/17 15:43 Dose: 2 mg Multivitamins/Minerals/Vitamin C (Tab-A-Vit -) 1 tab PO DAILY [facility] Last Admin: 01/08/17 10:25 Dose: Not Given Spironolactone (Aldactone -) 25 mg PO DAILY [facility] Last Admin: 01/08/17 10:24 Dose: Not Given - Objective Vital Signs: Vital Signs Temperature 98.1 F 01/08/17 08:09 Pulse Rate 85 01/08/17 08:09 Respiratory Rate 20 01/08/17 08:09 Blood Pressure 123/81 01/08/17 08:09 O2 Sat by Pulse Oximetry (%) 94 L 01/08/17 08:00 Constitutional: Yes: No Distress, Calm Neck: Yes: Supple Cardiovascular: Yes: Pulse Irregular, Murmur (2/6 SM) Respiratory: Yes: Regular, Diminished Gastrointestinal: Yes: Normal Bowel Sounds, Soft Edema: No Labs: CBC, BMP 01/08/17 05:35 01/08/17 05:35 INR, PTT INR 1.25 (0.82-1.09) H 01/08/17 05:35 Problem List - Problems (1) MOISES (acute kidney injury) Code(s): N17.9 - ACUTE KIDNEY FAILURE, UNSPECIFIED (2) Acute on chronic diastolic (congestive) heart failure Code(s): I50.33 - ACUTE ON CHRONIC DIASTOLIC (CONGESTIVE) HEART FAILURE (3) Aortic valvar stenosis Code(s): I35.0 - NONRHEUMATIC AORTIC (VALVE) STENOSIS Qualifiers: Cardiac valve disease etiology: nonrheumatic Qualified Code(s): I35.0 - Nonrheumatic aortic (valve) stenosis (4) Atrial fibrillation Code(s): I48.91 - UNSPECIFIED ATRIAL FIBRILLATION Qualifiers: Atrial fibrillation type: persistent Qualified Code(s): I48.1 - Persistent atrial fibrillation (5) Hypothyroid Code(s): E03.9 - HYPOTHYROIDISM, UNSPECIFIED Qualifiers: Hypothyroidism type: unspecified Qualified Code(s): E03.9 - Hypothyroidism, unspecified (6) Mitral regurgitation Code(s): I34.0 - NONRHEUMATIC MITRAL (VALVE) INSUFFICIENCY Qualifiers: Cardiac valve disease etiology: nonrheumatic Qualified Code(s): I34.0 - Nonrheumatic mitral (valve) insufficiency (7) Pulmonary hypertension Code(s): I27.2 - OTHER SECONDARY PULMONARY HYPERTENSION (8) S/P balloon aortic valvuloplasty Code(s): Z98.890 - OTHER SPECIFIED POSTPROCEDURAL STATES (9) Tricuspid regurgitation Code(s): I07.1 - RHEUMATIC TRICUSPID INSUFFICIENCY Qualifiers: Cardiac valve disease etiology: nonrheumatic Qualified Code(s): I36.1 - Nonrheumatic tricuspid (valve) insufficiency (10) Anemia Code(s): D64.9 - ANEMIA, UNSPECIFIED (11) Closed left hip fracture Code(s): S72.002A - FRACTURE OF UNSP PART OF NECK OF LEFT FEMUR, INIT Qualifiers: Encounter type: initial encounter Qualified Code(s): S72.002A - Fracture of unspecified part of neck of left femur, initial encounter for closed fracture (12) Pre-operative cardiovascular examination Code(s): Z01.810 - ENCOUNTER FOR PREPROCEDURAL CARDIOVASCULAR EXAMINATION Assessment/Plan 1. Post mechanical fall and non-displaced left femoral neck fracture planned for left hip cannulated screws tentatively Sunday/ 2. Acute on chronic class II NYHA classification diastolic LV failure triggered by left lower extremity cellulitis resolved 3. Post recent hypovolemic, hyponatremia referable to diuretics 4. 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 Persistent atrial fibrillation with improved rate-control [id number] score of 5 off NOAC john-op 6. Low flow, low gradient aortic stenosis post BAV 7. Hypothyroidism with an abnormal TSH value - subtherapeutic Synthroid dosing 8. Acute on CKD improving 9. Anemia PLAN: 1. Lasix 40 qd d/willem, continue Aldactone 25 qd with monitoring of renal function and electrolytes 2. Continue Lopressor 50 bid and Cardizem CD 120 qd, hemodynamics permitting 3. Plan to resume Diovan, hemodynamics permitting and pending renal function stabilization 4. Eliquis 2.5 bid d/willem pre-op, currently on sq heparin 5. Continue Synthroid 50 qd 6. Completed zosyn/ vancomycin course 7. To proceed with orthopedic surgery as afib rate-control has improved, her diastolic failure has resolved, no sxs of acute coronary syndrome
--- NOTE | 2017-01-08 11:47 | PN ---
Progress Note (short form) - Note Progress Note: Renal follow up for MOISES on CKD Pt seen and examined at the bedside no acute complaints, denies any pain or sob no N/V/D for OR today for fixation of hip Vital Signs Temperature 98.1 F 01/08/17 08:09 Pulse Rate 85 01/08/17 08:09 Respiratory Rate 20 01/08/17 08:09 Blood Pressure 123/81 01/08/17 08:09 O2 Sat by Pulse Oximetry (%) 94 L 01/08/17 08:00 Intake & Output 01/05/17 01/06/17 01/07/17 01/08/17 23:59 23:59 23:59 23:59 Intake Total 840 750 60 Balance 840 750 60 Gen: NAD, awake and alert HEENT: NC/AT, Dry MM, NO JVD CVS: irregular, no M/R Lungs: Dec BS throughout the lung lugo Abd: soft NT/ND Ext: Trace to 1+ edema in left LE in dressing, no RLE edema : No bladder distension CBC, BMP 01/08/17 05:35 01/08/17 05:35 Laboratory Tests 01/08/17 05:35 Calcium 8.3 L Phosphorus 4.2 Magnesium 2.8 H Albumin 2.4 L Current Medications Acetaminophen (Tylenol -) 650 mg PO Q6H PRN PRN Reason: FEVER OR PAIN Last Admin: 01/08/17 04:00 Dose: 650 mg Aclidinium [place] (Tudorza -) 1 puff IH BID [facility] Last Admin: 01/08/17 10:26 Dose: Not Given Bacitracin (Bacitracin -) 1 applic TP BID [facility] Last Admin: 01/08/17 10:24 Dose: 1 applic Cholecalciferol (Vitamin D3 -) 1,000 unit PO DAILY [facility] Last Admin: 01/08/17 10:26 Dose: Not Given Diltiazem HCl (Cardizem Cd -) 120 mg PO DAILY [facility] Last Admin: 01/08/17 11:06 Dose: 120 mg Docusate Sodium (Colace -) 100 mg PO DAILY [facility] Last Admin: 01/08/17 10:24 Dose: Not Given Heparin Sodium (Porcine) (Heparin -) 5,000 unit SQ BID [facility] Last Admin: 01/08/17 10:25 Dose: Not Given Lactobacillus Acidophilus (Bacid -) 1 tab PO DAILY [facility] Last Admin: 01/08/17 10:24 Dose: Not Given Levothyroxine Sodium (Synthroid -) 50 mcg PO DAILY@0700 [facility] Last Admin: 01/08/17 06:18 Dose: Not Given Metoprolol Tartrate (Lopressor -) 50 mg PO BID [facility] Last Admin: 01/08/17 11:07 Dose: 50 mg Morphine Sulfate (Morphine Injection -) 2 mg IM Q6H PRN PRN Reason: PAIN Last Admin: 01/07/17 15:43 Dose: 2 mg Multivitamins/Minerals/Vitamin C (Tab-A-Vit -) 1 tab PO DAILY [facility] Last Admin: 01/08/17 10:25 Dose: Not Given Spironolactone (Aldactone -) 25 mg PO DAILY [facility] Last Admin: 01/08/17 10:24 Dose: Not Given A/P 86 year old woman with PMhx of CHF, Severe s/p balloon valvoplasty, severe TR /MR, Hypertension who presented with complaints of SOB and found to have acute CHF exacerbation now s/p IV diuretics and noticed to have worsening renal function with BUN/Cr of 36/1.6 (baseline Cr 0.8-1). #Acute Renal Insufficiency likely secondary to intravascular volume depletion in setting of diureiss for CHF Renal function improving off loop diuretics evolemic at the present time no indication for IVF Trend BUN/Cr #Acute CHF Exacerbation Clinically not in decompensated CHF at this time #Hip Fracture ORIF as per Ortho #Anemia from CKD/Fracture Iron saturation less then 10% and Ferritin ~140 Start oral iron starting tomorrow with no longer NPO Sabino Villatoro DO
--- NOTE | 2017-01-08 19:13 | PN ---
Progress Note, Physician Chief Complaint: In bed nad no hip pain no Cp/SOB no leg pain; aware of her condition and agreed with hip surgery said she spoke with her son also and agreed with plan (son is aware of pt's condition as I previously spoke with him about it and surgery indications) - Current Medication List Current Medications: Active Medications Acetaminophen (Tylenol -) 650 mg PO Q6H PRN PRN Reason: FEVER OR PAIN Last Admin: 01/08/17 04:00 Dose: 650 mg Aclidinium [place] (Tudorza -) 1 puff IH BID [facility] Last Admin: 01/08/17 10:26 Dose: Not Given Bacitracin (Bacitracin -) 1 applic TP BID [facility] Last Admin: 01/08/17 10:24 Dose: 1 applic Cholecalciferol (Vitamin D3 -) 1,000 unit PO DAILY [facility] Last Admin: 01/08/17 10:26 Dose: Not Given Diltiazem HCl (Cardizem Cd -) 120 mg PO DAILY [facility] Last Admin: 01/08/17 11:06 Dose: 120 mg Docusate Sodium (Colace -) 100 mg PO DAILY [facility] Last Admin: 01/08/17 10:24 Dose: Not Given Ferrous Sulfate (Feosol -) 325 mg PO BID [facility] Heparin Sodium (Porcine) (Heparin -) 5,000 unit SQ BID [facility] Last Admin: 01/08/17 10:25 Dose: Not Given Lactobacillus Acidophilus (Bacid -) 1 tab PO DAILY [facility] Last Admin: 01/08/17 10:24 Dose: Not Given Levothyroxine Sodium (Synthroid -) 50 mcg PO DAILY@0700 [facility] Last Admin: 01/08/17 06:18 Dose: Not Given Metoprolol Tartrate (Lopressor -) 50 mg PO BID [facility] Last Admin: 01/08/17 11:07 Dose: 50 mg Morphine Sulfate (Morphine Injection -) 2 mg IM Q6H PRN PRN Reason: PAIN Last Admin: 01/07/17 15:43 Dose: 2 mg Multivitamins/Minerals/Vitamin C (Tab-A-Vit -) 1 tab PO DAILY [facility] Last Admin: 01/08/17 10:25 Dose: Not Given Spironolactone (Aldactone -) 25 mg PO DAILY [facility] Last Admin: 01/08/17 10:24 Dose: Not Given - Objective Vital Signs: Vital Signs Temperature 97.4 F L 01/08/17 18:00 Pulse Rate 95 H 01/08/17 18:00 Respiratory Rate 20 01/08/17 18:00 Blood Pressure 111/78 01/08/17 18:00 O2 Sat by Pulse Oximetry (%) 94 L 01/08/17 08:00 Constitutional: Yes: No Distress, Calm Eyes: Yes: Conjunctiva Clear HENT: Yes: Atraumatic Neck: Yes: Supple Cardiovascular: No: Regular Rate and Rhythm Respiratory: Yes: Diminished Gastrointestinal: Yes: Soft. No: Distention, Tenderness Genitourinary: No: CVA Tenderness - Left, CVA Tenderness - Right Musculoskeletal: No: Joint Stiffness, Joint Swelling Extremities: No: Cold, Cool Edema: Yes (much improved) Integumentary: Yes: Rash (less), Venous Stasis Changes Neurological: Yes: WNL, Alert, Oriented ...Motor Strength: WNL Psychiatric: Yes: WNL, Alert, Oriented. No: Agitated Labs: CBC, BMP 01/08/17 05:35 01/08/17 05:35 INR, PTT INR 1.25 (0.82-1.09) H 01/08/17 05:35 - ....Imaging Other: Report Reviewed Assessment/Plan 86 year old female, with history of tricuspid regurgitation, mitral regurgitation, diastolic dysfunction with h/o failure requiring thoracentesis, low flow, low gradient aortic stenosis s/p BAV, permanent atrial fibrillation on Eliquis, hypothyroidism and pulmonary hypertension recent admission for profound weakness, fatigue and anorexia and possible dizziness referable to profound symtomatic hyponatremia presentes with SOB, worsening LLE swelling, erythema, warmth and pain. s.p fall and nondisplaced L hip fracture - will need surgery, per ortho; no absolute contraindications to the proposed surgery cardio f/u, hold eliquis x 48 h preop; started sq heparin cardio and renal eval preop also h/o: LLE cellulitis - improved RAFib and decompensated CHF sec to Ao Stenosis - improved IV antibitoics broad spectrum per ID wound care lasix for diuresis cardiology f/u f/u labs falls decubs PFX d/w pt and staff, also son aware prognosis guarded
[2017-01-09] MEDS: LEVOTHYROXINE NA 50 MCG TABLET (FP) PO SCH (06:08)
[2017-01-09 07:09] LABS: BASOPHIL 0.9 % (0-2.0); EOSINOPHIL 0.4 % (0-4.5); MCH 29.4 pg (25.7-33.7); MCHC 32.3 g/dl (32.0-36.0); MEAN PLT VOLUME 8.8 fl (7.5-11.1); NEUTROPHILS 87.8 % (42.8-82.8); PLATELET COUNT 407 K/MM3 (134-434); RDW 18.3 % (11.6-15.6); WHITE BLOOD COUNT 13.2 K/mm3 (4.0-10.0)
[2017-01-09 07:37] LABS: CALCIUM 8.7 mg/dL (8.5-10.1); COCKROFT - GAULT 19.788; CREATININE 1.5 mg/dL (0.55-1.02); MAGNESIUM 2.9 mg/dL (1.8-2.4); PHOSPHOROUS 4.3 mg/dL (2.5-4.9)
[2017-01-09 08:15] VITALS: TEMP 98.1
[2017-01-09] MEDS ORDERED: SODIUM POLYSTYRENE SULFONATE 15 GM/60 ML BOTTLE PO STA (09:59)
--- NOTE | 2017-01-09 09:59 | PN ---
Progress Note, Physician Chief Complaint: pt in bed on 4w, no CP/SOB, no hip pain if not moving; VSS afebrile surgery for the hip supposed to be done yesterday but cancelled because pt drank some ensure before the procedure; NPO today; surgery scheduled for today at 2 pm. No signs or symptoms of decompensated CHF or malignant arrhythmia. K 5.3 this am; d/w nurse: aldactone not given today b/o NPO status; ordered kayexalate x 1 po stat and d/w nurse to repeat BMP at 12pm and call me if K not within NL. urinates in diaper; pt refused Graham placement earlier. - Current Medication List Current Medications: Active Medications Acetaminophen (Tylenol -) 650 mg PO Q6H PRN PRN Reason: FEVER OR PAIN Last Admin: 01/08/17 04:00 Dose: 650 mg Aclidinium [place] (Tudorza -) 1 puff IH BID [facility] Last Admin: 01/08/17 21:40 Dose: 1 puff Bacitracin (Bacitracin -) 1 applic TP BID [facility] Last Admin: 01/08/17 21:40 Dose: 1 applic Cholecalciferol (Vitamin D3 -) 1,000 unit PO DAILY [facility] Last Admin: 01/08/17 10:26 Dose: Not Given Diltiazem HCl (Cardizem Cd -) 120 mg PO DAILY [facility] Last Admin: 01/08/17 11:06 Dose: 120 mg Docusate Sodium (Colace -) 100 mg PO DAILY [facility] Last Admin: 01/08/17 10:24 Dose: Not Given Ferrous Sulfate (Feosol -) 325 mg PO BID [facility] Heparin Sodium (Porcine) (Heparin -) 5,000 unit SQ BID [facility] Last Admin: 01/08/17 21:39 Dose: 5,000 unit Lactobacillus Acidophilus (Bacid -) 1 tab PO DAILY [facility] Last Admin: 01/08/17 10:24 Dose: Not Given Levothyroxine Sodium (Synthroid -) 50 mcg PO DAILY@0700 [facility] Last Admin: 01/09/17 06:08 Dose: Not Given Metoprolol Tartrate (Lopressor -) 50 mg PO BID [facility] Last Admin: 01/08/17 21:39 Dose: 50 mg Morphine Sulfate (Morphine Injection -) 2 mg IM Q6H PRN PRN Reason: PAIN Last Admin: 01/07/17 15:43 Dose: 2 mg Multivitamins/Minerals/Vitamin C (Tab-A-Vit -) 1 tab PO DAILY [facility] Last Admin: 01/08/17 10:25 Dose: Not Given Sodium Polystyrene Sulfonate (Kayexalate -) 30 gm PO ONCE STA Stop: 01/09/17 09:53 Spironolactone (Aldactone -) 25 mg PO DAILY [facility] Last Admin: 01/08/17 10:24 Dose: Not Given - Objective Vital Signs: Vital Signs Temperature 98.1 F 01/09/17 08:10 Pulse Rate 105 H 01/09/17 08:10 Respiratory Rate 20 01/09/17 08:10 Blood Pressure 120/87 01/09/17 08:10 O2 Sat by Pulse Oximetry (%) 94 L 01/08/17 21:00 Constitutional: Yes: No Distress, Calm Eyes: Yes: Conjunctiva Clear HENT: Yes: Atraumatic Neck: Yes: Supple Cardiovascular: No: Regular Rate and Rhythm Respiratory: Yes: CTA Bilaterally Gastrointestinal: Yes: Soft. No: Distention, Tenderness Musculoskeletal: No: Joint Stiffness, Joint Swelling Extremities: No: Cold, Cool Edema: Yes (much improved) Integumentary: Yes: Venous Stasis Changes. No: Rash Wound/Incision: Yes: Dressing Dry and Intact (LLE wound healing) Neurological: Yes: WNL, Alert, Oriented ...Motor Strength: WNL Psychiatric: Yes: WNL, Alert, Oriented. No: Agitated, Suicidal Ideation Labs: CBC, BMP 01/09/17 05:35 01/09/17 05:35 INR, PTT INR 1.25 (0.82-1.09) H 01/08/17 05:35 - ....Imaging Other: Report Reviewed Assessment/Plan 86 year old female, with history of tricuspid regurgitation, mitral regurgitation, diastolic dysfunction with h/o heart failure requiring thoracentesis, low flow, low gradient aortic stenosis s/p BAV, permanent atrial fibrillation on Eliquis, hypothyroidism and pulmonary hypertension recent admission for profound weakness, fatigue and anorexia and possible dizziness referable to profound symtomatic hyponatremia presents with SOB, worsening LLE swelling, erythema, warmth and pain. s.p slipped and fall in hospital and sustained nondisplaced L hip fracture - pt does not want to be bed bound for the rest of her life so she will need hip surgery, pin placement per ortho; no absolute contraindications to the proposed surgery but high risk for intraop or postop complications given multiple comorbidities, cleared by cardiology for the proposed hip surgery. jennyferis held x 48 h preop and started on sq heparin but held today before surgery also h/o: LLE cellulitis - improved RAFib and decompensated CHF sec to Ao Stenosis - improved s/p IV antibiotics broad spectrum per ID wound care lasix for diuresis f/u labs falls decubs PFX I d/w pt and her son (over the phone) today about all the above, and they agreed with the procedure; patient said she would like to go for SNF rehab to [facility] or [facility] after the surgery - I d/w staff prognosis guarded
[2017-01-09] MEDS ORDERED: FERROUS SO4 325 MG TABLET (FP) PO SCH (10:00)
[2017-01-09] MEDS: METOPROLOL TARTRATE 50 MG TABLET (FP) PO SCH (10:04)
[2017-01-09] MEDS: DOCUSATE SODIUM 100 MG CAPSULE (FP) PO SCH (10:11)
[2017-01-09] MEDS: HEPARIN NA (PORCINE) 5,000 UNITS/ML 1ML VIAL SQ SCH (10:11)
[2017-01-09] MEDS: LACTOBACILLUS ACIDOPHILUS 1 EACH TAB (FP) PO SCH (10:11)
[2017-01-09] MEDS: SPIRONOLACTONE 25 MG TABLET (FP) PO SCH (10:11)
[2017-01-09] MEDS: BACITRACIN 30 GM TUBE TOPICAL OINTMENT TP SCH (10:11)
[2017-01-09] MEDS: CHOLECALCIFEROL (VITAMIN D3) 1,000 UNIT TABLET (FP) PO SCH (10:12)
[2017-01-09] MEDS: MULTIVITAMINS (DAILY MVI) TABLET (FP) PO SCH (10:12)
[2017-01-09] MEDS: ACLIDINIUM BROMIDE 400 MCG/INH AERO.POWD IH SCH (10:12)
[2017-01-09 12:27] LABS: CALCIUM 8.7 mg/dL (8.5-10.1); COCKROFT - GAULT 18.547; CREATININE 1.6 mg/dL (0.55-1.02)
[2017-01-09] MEDS ORDERED: PROPOFOL 20 ML ONE (14:31)
[2017-01-09] MEDS ORDERED: CLINDAMYCIN PHOSPHATE 600 MG/4 ML VIAL ONE (14:31)
[2017-01-09] MEDS ORDERED: PHENYLEPHRINE HCL 10 MG/1 ML SINGLE DOSE VIAL ONE (14:31)
[2017-01-09] MEDS ORDERED: ePHEDrine SULFATE 50 MG/1 ML AMPULE ONE (15:03)
[2017-01-09 15:15] VITALS: BP 113/66; PULSE 92
--- NOTE | 2017-01-09 17:09 | OP ---
DATE OF OPERATION: 01/08/2017 PREOPERATIVE DIAGNOSIS: Left femoral neck fracture. POSTOPERATIVE DIAGNOSIS: Left femoral neck fracture. SURGICAL ATTENDING: Tylor Herrmann MD NOTE: Procedure canceled intraoperatively. COMPLICATIONS: Cardiac arrest. The patient was taken to the operating room on January 08, 2017, with the diagnosis of a left femoral neck fracture. The patient was DNR prior to the operation, which was waved for the operation. Risks, benefits and alternatives were gone over with the son in great detail prior to the case. The patient was taken to the operating room. Induction of anesthesia was performed by the anesthesiologist with the insertion of an LMA. Prior to initiating the case, patient immediately lost her blood pressure. A full code was called and administered by the code team and by chief anesthesiologist, Dr. Thor Connolly MD. Despite the best efforts of the code team, the patient was not revivable and the code was called at 3:24 p.m. The director medical science was contacted after this procedure. screen examiner Jennifertorrie reviewed and accepted the case, case number being [id number]. The patient's son was made aware of the situation and patient was transferred to the appropriate facility post the code. No orthopedic procedure was performed as the patient coded prior to the operative procedure. TYLOR HERRMANN M.D. [id number]
--- NOTE | 2017-01-09 18:22 | DS ---
Physical Examination Vital Signs: Vital Signs Temperature 98.1 F 01/09/17 08:10 Pulse Rate 92 H 01/09/17 13:50 Respiratory Rate 18 01/09/17 13:50 Blood Pressure 113/66 01/09/17 13:50 O2 Sat by Pulse Oximetry (%) 91 L 01/09/17 11:21 Findings/Remarks: I was called by dr Herrmann, pt went for hip surgery but her BP dropped during induction phase with propofol and code was called but unfortunately pt . ME called - I d/w with ME dr Alvaro Rausch who accepted the case d/w pt's son Labs: CBC, BMP 01/09/17 05:35 01/09/17 12:02 Discharge Summary Reason For Visit: SEPSIS sepsis; left leg cellulitis and wound; fever; CHF fluid overload Aortic stenosis s/p BAV recently; Rapid AFib Procedures: Principal: admitted to telemetry, seen by cardiology, ID and surgery. started on IV antibiotics and IV lasix; Other Procedures: with above treatment, CHF and cellulitis improved, but pt got OOB alone on 01/05 [employer] food [employer] and fell and sustained a nondisplaced L hip fracture, seen by ortho, rec pin hip surgery and rehab postop. Hospital Course: pt went for hip surgery today but pt coded during anesthesia induction; pt . d/w ME who accepted the case. Condition: - Instructions Referrals: Caroline Solitario [Primary Care Provider] - Disposition: - Home Medications Comprehensive Discharge Medication List: Ambulatory Orders Ascorbic Acid [Vitamin C -] 2,000 mg PO TID 05/30/16 Calcium Carb/Mag Ox/Zinc Sulf [[id number] Tablet] 1 tab PO DAILY 12/10 Cholecalciferol (Vitamin D3) [Vitamin D3 -] 1,000 unit PO DAILY 05/30/16 Multivitamins [Multivit ([facility] Formulary)] 1 tab PO DAILY 05/30/16 Vitamin E 400 unit PO DAILY 05/30/16 Apixaban [Eliquis -] 2.5 mg PO BID #180 tablet 10/04/16 Bacitracin/Polymyxin Ointment [Polysporin Ointment -] 1 applic TP DAILY tube Levothyroxine [Synthroid -] 25 mcg PO DAILY@0700 #90 tablet 10/04/16 Ipratropium [place] 1 inh IH PRN 12/10/16 Metoprolol Tartrate [Lopressor -] 12.5 mg PO BID 12/10/16 Bacitracin - [Bacitracin Topical Ointment -] 1 applic TP BID tube 12/19/16 Docusate Sodium [Colace -] 100 mg PO DAILY cap 12/19/16 Furosemide [Lasix -] 40 mg PO DAILY #90 tablet 12/19/16 Spironolactone [Aldactone -] 25 mg PO DAILY #90 tablet 12/19/16
[2017-01-11 00:08] LABS: A/G RATIO 0.6 (0.7-1.7); ALBUMIN 2.9 g/dL (2.9-4.4); GLOBULIN, TOTAL 4.6 g/dL (2.2-3.9); M-SPIKE 0.8 g/dL (Not Observed); TOTAL PROTEIN 7.5 g/dL (6.0-8.5)
== END 2017-01-09 17:19 | disposition expired | DRG 871 ==
LOC: JER 15:16 → JERBED 18:38 → J4W 21:12
PROVIDERS: ADMIT Internal Medicine; ATTEND Internal Medicine
DX: A41.9 Sepsis, unspecified organism (principal); I50.33 Acute on chronic diastolic (congestive) heart failure; S72.002A Fracture of unspecified part of neck of left femur, initial encounter for closed fracture; I13.0 Hypertensive heart and chronic kidney disease with heart failure and stage 1 through stage 4 chronic kidney disease, or unspecified chronic kidney disease; I48.1 Persistent atrial fibrillation; L03.116 Cellulitis of left lower limb; L03.115 Cellulitis of right lower limb; N17.9 Acute kidney failure, unspecified; E87.1 Hypo-osmolality and hyponatremia; I27.2 Other secondary pulmonary hypertension; E03.9 Hypothyroidism, unspecified; I35.0 Nonrheumatic aortic (valve) stenosis; I34.0 Nonrheumatic mitral (valve) insufficiency; I36.1 Nonrheumatic tricuspid (valve) insufficiency; D64.9 Anemia, unspecified; I25.119 Atherosclerotic heart disease of native coronary artery with unspecified angina pectoris; W19.XXXA Unspecified fall, initial encounter; Y93.89 Activity, other specified; Y92.238 Other place in hospital as the place of occurrence of the external cause; Y99.9 Unspecified external cause status; E87.70 Fluid overload, unspecified; D72.829 Elevated white blood cell count, unspecified; Z53.09 Procedure and treatment not carried out because of other contraindication
CPT/HCPCS: 36415; 71010-TC; 73070-TC-LT; 73110-TC-LT; 73502-TC-LT; 73523-TC; 73700-TC-RT; 76705-TC; 80048; 80053; 80076; 81003; 82550; 82570; 82728; 83540; 83550; 83605; 83735; 83880; 84100; 84155; 84156; 84165; 84300; 84443; 84484; 84540; 85025; 85027; 85610; 85651; 85730; 87040; 87086; 87254; 87804; 93005; 93010; 93306-TC; 93971-TC; 99285-25; G0480; J1644